=== PATIENT | female | born 1940 | race Caucasian/White ===

== ENCOUNTER 2016-01-26 14:30 | Outpatient (RCR) | payer MEDICARE ==
--- OUTSIDE RECORDS SUMMARY | 2015-12-06 14:29 | XMS REPORT | Continuity of Care Document ---
Author Author [facility] Organization [facility] Address Unknown Phone Unavailable Care Team Providers Care [employer] Administrator Name Role Phone FILIPE PURCELL MD PCP Insurance Providers Payer Name Policy Number Subscriber Name Relationship Wps Medicare [id number] Janette Bhagat 18 Self / Same As Patient [employer] Supp [id number] Janette Bhagat 18 Self / Same As Patient Advance Directives Directive Response Recorded Date/Time Advance Directives No 06/21/15 7:05pm Health Care Power of Associate No 06/21/15 7:05pm Organ Donor Yes 06/21/15 7:05pm Resuscitation Status Full Code 06/21/15 7:05pm Chief Complaint and Reason for Visit Chief Complaint ILEUS,POSITIVE OB STOOL Reason for Visit Leukocytosis Respiratory distress Problems Active Problems Medical Problem Onset Date Status Leukocytosis Unknown Acute Respiratory distress Unknown Acute Medications Current Home Medications Medication Dose Units Route Directions Days/Qty Instructions Start Date Multivitamin 1 Each 1 Tab Oral Daily 05/19/13 Ascorbic Acid 500 Mg 500 Mg Oral Daily 05/19/13 Aspirin 81 Mg 81 Mg Oral Bedtime 05/19/13 Tramadol/Acetaminophen 1 Ea 1 Tab Oral Three Times A Day as needed for Pain 05/19/13 Calcium Carbonate/Vitamin D3 1 Each 1 Tab Oral Daily 06/22/15 Ubidecarenone 100 Mg 100 Mg Oral Daily 06/22/15 Glucosam/Chond/Hyalu/Cf Borate 1 Each 1 Tab Oral Daily 06/22/15 Pregabalin 200 Mg 200 Mg Oral Twice A Day 06/22/15 Hydrochlorothiazide 12.5 Mg 12.5 Mg Oral Daily 06/22/15 Olanzapine 7.5 Mg 7.5 Mg Oral Daily 06/22/15 Turmeric Root Extract 500 Mg 500 Mg Oral Daily 06/22/15 Fluoxetine Hcl 20 Mg 20 Mg Oral Daily 06/22/15 Trazodone Hcl 100 Mg 100 Mg Oral Bedtime 06/22/15 Rosuvastatin Calcium 10 Mg 10 Mg Oral Bedtime 06/22/15 Lisinopril 10 Mg 10 Mg Oral Daily 06/22/15 Liraglutide 0.6 Mg/0.1 Ml 1.2 Mg Oral Daily 06/22/15 Oxybutynin Chloride 10 Mg 10 Mg Oral Daily 06/22/15 Moulton-3/Dha/Epa/Fish Oil 1 Each 1,000 Mg Oral Bedtime 06/22/15 Docusate Sodium 100 Mg 100 Mg Oral Twice A Day 06/22/15 Sennosides/Docusate Sodium 1 Each 1 Tab Oral Bedtime 06/22/15 Past Home Medications Medication Directions Ordered Status Krill/Moulton-3/Dha/Epa/Lipids 1 Each Capsule, 3 Each Oral Daily 05/19/13 Discontinued Calcium Carbonate/Vitamin D3 1 Each Tablet, 2 Each Oral Daily 05/19/13 Discontinued Ubidecarenone/Vit E Acetate 1 Each Capsule, 1 Each Oral Daily 05/19/13 Discontinued Lisinopril 10 Mg Tablet, 10 Mg Oral Daily 05/19/13 Discontinued Trazodone Hcl 100 Mg Tab, 100 Mg Oral Bedtime 05/19/13 Discontinued Oxybutynin Chloride 10 Mg Tab.er.24, 10 Mg Oral Daily 05/19/13 Discontinued Pregabalin 200 Mg Capsule, 200 Mg Oral Twice A Day 05/19/13 Discontinued Rosuvastatin Calcium 5 Mg Tablet, 1 Each Oral Daily 05/19/13 Discontinued Olanzapine 5 Mg Tablet, 1 Tab Oral Daily 05/19/13 Discontinued Fluoxetine Hcl (Prozac) 20 Mg Capsule, 1 Each Oral Daily 05/19/13 Discontinued Liraglutide 0.6 Mg/0.1 Ml Pen.injctr, 1.2 Mg Sub-Q Daily 05/19/13 Discontinued [Moves Free] , 1 Oral Twice A Day 05/19/13 Discontinued Tramadol Hcl/Acetaminophen 1 Each Tablet, 06/21/15 Discontinued Social History Social History Problem Response Recorded Date/Time Alcohol Use Denies Use 06/21/2015 7:05pm Recreational Drug Use No 06/21/2015 7:05pm Recent Foreign Travel No 06/21/2015 7:05pm Recent Infectious Disease Exposure No 06/21/2015 7:05pm Smoking Status Former Smoker 06/21/2015 7:05pm Do you dip or chew tobacco? No 06/21/2015 4:00pm Query Response Start Date Stop Date Smoking Status Former Smoker Hospital Discharge Instructions No hospital discharge instructions. Plan of Care Discharge Date 06/29/15 9:24am Disposition 09 ADMITTED INPATIENT Instructions/Education Provided Urinary Tract Infection in Women (DC) Bacterial Pneumonia (DC) Prescriptions See Medication Section Functional Status Query Response Date Recorded Patient Orientation Normal For Age June 27, 2015 3:58pm Patient Orientation Person Place Time Situation Eyes Open June 29, 2015 9:24am Comprehension Ability Understands Concepts June 28, 2015 8:00pm Allergies, Adverse Reactions, Alerts Allergen Type Severity Reaction Status Last Updated Codeine Allergy Unknown Active 05/19/13 Immunizations Name Given Type pneumococcal polysaccharide PPV23 06/24/15 Administered pneumococcal polysaccharide PPV23 06/24/15 Administered Vital Signs Acute Vital Signs Vital Response Date/Time Temperature (Fahrenheit) 97.8 degrees F (97.6 - 99.5) 06/29/2015 6:37am Temperature (Calculated Celsius) 36.17821 degrees C (36.4 - 37.5) 06/29/2015 6:37am Temperature Source Temporal 06/29/2015 6:37am Pulse Rate (adult) 78 bpm (60 - 90) 06/29/2015 6:37am Respiratory Rate 20 bpm (12 - 24) 06/29/2015 6:37am O2 Sat by Pulse Oximetry 99 % (88 - 100) 06/29/2015 7:14am Blood Pressure 166/84 mm Hg 06/29/2015 6:37am Blood Pressure Mean 111 mm Hg 06/29/2015 6:37am Pain Pain Intensity 5 06/29/2015 6:37am Height (Feet) 5 feet 06/21/2015 7:05pm Height (Inches) 6.00 inches 06/21/2015 7:05pm Height (Calculated Centimeters) 167.924487 cm 06/21/2015 7:05pm Weight (Pounds) 232 pounds 06/29/2015 6:37am Weight (Ounces) 4.0 oz 06/28/2015 5:31am Weight (Calculated Grams) 943510.431 gm 06/29/2015 6:37am Weight (Calculated Kilograms) 105.942701 kilograms 06/29/2015 6:37am Calculated BMI 37.1 06/21/2015 7:05pm Results Laboratory Results Test Name Result Units Flags Reference Collection Date/Time Result Date/ Time Comments White Blood Count 8.1 10^3/uL 4.3-11.0 06/29/2015 4:1506/29/2015 4: 41am Red Blood Count 3.02 10^6/uL L 4.35-5.85 06/29/2015 4:06/29/2015 4: 41am Hemoglobin 9.0 G/DL L 11.5-16.0 06/29/2015 4:06/29/2015 4:41am Hematocrit 27 % L 35-52 06/29/2015 4:1506/29/2015 4:41am Mean Corpuscular Volume 89 FL 80-99 06/29/2015 4:06/29/2015 4: 41am Mean Corpuscular Hemoglobin 30 PG 25-34 06/29/2015 4:1506/29/2015 4: 41am Mean Corpuscular Hemoglobin Concent 33 G/DL 32-36 06/29/2015 4: 4:41am Red Cell Distribution Width 13.9 % 10.0-14.5 06/29/2015 4:2015 4:41am Platelet Count 243 10^3/uL 130-400 06/29/2015 4:1506/29/2015 4:41am Mean Platelet Volume 9.7 FL 7.4-10.4 06/29/2015 4:1506/29/2015 4: 41am Neutrophils (%) (Auto) 88 % H 42-75 06/23/2015 4:38am 06/23/2015 5:28am Lymphocytes (%) (Auto) 6 % L 12-44 06/23/2015 4:38am 06/23/2015 5:28am Monocytes (%) (Auto) 6 % 0-12 06/23/2015 4:38am 06/23/2015 5:28am Eosinophils (%) (Auto) 0 % 0-10 06/23/2015 4:38am 06/23/2015 5:28am Basophils (%) (Auto) 0 % 0-10 06/23/2015 4:38am 06/23/2015 5:28am Neutrophils # (Auto) 14.8 X 10^3 H 1.8-7.8 06/23/2015 4:38am 06/23/2015 5 :28am Lymphocytes # (Auto) 1.0 X 10^3 1.0-4.0 06/23/2015 4:38am 06/23/2015 5: 28am Monocytes # (Auto) 0.9 X 10^3 0.0-1.0 06/23/2015 4:38am 06/23/2015 5: 28am Eosinophils # (Auto) 0.0 10^3/uL 0.0-0.3 06/23/2015 4:38am 06/23/2015 5 :28am Basophils # (Auto) 0.0 10^3/uL 0.0-0.1 06/23/2015 4:38am 06/23/2015 5: 28am Neutrophils % (Manual) 72 % 06/21/2015 4:00pm 06/21/2015 4:36pm Band Neutrophils 6 % 06/21/2015 4:00pm 06/21/2015 4:36pm Lymphocytes % (Manual) 15 % 06/21/2015 4:00pm 06/21/2015 4:36pm Monocytes % (Manual) 1 % 06/21/2015 4:00pm 06/21/2015 4:36pm Eosinophils % (Manual) 6 % 06/21/2015 4:00pm 06/21/2015 4:36pm Basophils % (Manual) 0 % 06/21/2015 4:00pm 06/21/2015 4:36pm Blood Morphology Comment NORMAL 06/21/2015 4:00pm 06/21/2015 4: 36pm D-Dimer 0.76 UG/ML H 0.00-0.49 06/21/2015 4:00pm 06/21/2015 4:19pm Urine Color YELLOW 06/21/2015 6:pm 06/21/2015 6:45pm Urine Clarity SLIGHTLY CLOUDY 06/21/2015 6:pm 06/21/2015 6:45pm Urine pH 6.5 5-9 06/21/2015 6:pm 06/21/2015 6:45pm Urine Specific Greer 1.005 * 1.016-1.022 06/21/2015 6:pm 2015 6:45pm Urine Protein 1+ * NEGATIVE 06/21/2015 6:pm 06/21/2015 6:45pm Urine Glucose (UA) NEGATIVE NEGATIVE 06/21/2015 6:pm 06/21/2015 6: 45pm Urine RBC (Auto) 2+ * NEGATIVE 06/21/2015 6:06/21/2015 6:45pm Urine Ketones NEGATIVE NEGATIVE 06/21/2015 6:pm 06/21/2015 6:45pm Urine Nitrite NEGATIVE NEGATIVE 06/21/2015 6:06/21/2015 6:45pm Urine Bilirubin NEGATIVE NEGATIVE 06/21/2015 6:06/21/2015 6: 45pm Urine Urobilinogen NORMAL MG/DL NORMAL 06/21/2015 6:pm 06/21/2015 6: 45pm Urine Leukocyte Esterase 2+ * NEGATIVE 06/21/2015 6:06/21/2015 6: 45pm Urine RBC 0-2 /HPF 06/21/2015 6:pm 06/21/2015 6:45pm Urine WBC 10-25 /HPF * 06/21/2015 6:06/21/2015 6:45pm Urine Bacteria MODERATE /HPF * 06/21/2015 6:pm 06/21/2015 6:45pm Urine Squamous Epithelial Cells 5-10 /HPF 06/21/2015 6:pm 2015 6:45pm Urine Crystals NONE /LPF 06/21/2015 6:pm 06/21/2015 6:45pm Urine Casts NONE /LPF 06/21/2015 6:pm 06/21/2015 6:45pm Urine Mucus NEGATIVE /LPF 06/21/2015 6:pm 06/21/2015 6:45pm Urine Culture Indicated YES 06/21/2015 6:06/21/2015 6:45pm Sodium Level 139 MMOL/L 135-145 06/29/2015 4:1506/29/2015 5:02am Potassium Level 3.0 MMOL/L L 3.6-5.0 06/29/2015 4:1506/29/2015 5:02am Chloride Level 101 MMOL/L 98-107 06/29/2015 4:1506/29/2015 5:02am Carbon Dioxide Level 26 MMOL/L 21-32 06/29/2015 4:1506/29/2015 5: 02am Anion Gap 12 MMOL/L 5-14 06/29/2015 4:1506/29/2015 5:02am Blood Urea Nitrogen 11 MG/DL 7-18 06/29/2015 4:06/29/2015 5:02am Creatinine 0.63 MG/DL 0.60-1.30 06/29/2015 4:06/29/2015 5:02am BUN/Creatinine Ratio 17 06/29/2015 4:06/29/2015 5:02am Estimat Glomerular Filtration Rate > 60 06/29/2015 4:2015 5:02am GFR INTERPRETIVE DATA UNITS FOR ESTIMATED GFR (eGFR): mL/min/1.73 M2 REFERENCE RANGE FOR ESTIMATED GFR (eGFR) eGFR NORMAL eGFR >60 MODERATELY DECREASED eGFR 30-59 SEVERLY DECREASED eGFR 15-29 KIDNEY FAILURE <15 (OR DIALYSIS) Glucose Level 167 MG/DL H 70-105 06/29/2015 4:06/29/2015 5:02am Glucometer 158 MG/DL H 70-110 06/28/2015 8:35pm 06/28/2015 9:04pm Uric Acid 4.9 MG/DL 2.6-7.2 06/27/2015 10:03am 06/27/2015 10:34am Calcium Level 8.4 MG/DL L 8.5-10.1 06/29/2015 4:1506/29/2015 5:02am Phosphorus Level 2.8 MG/DL 2.3-4.7 06/29/2015 4:1506/29/2015 5:02am Magnesium Level 1.7 MG/DL L 1.8-2.4 06/29/2015 4:1506/29/2015 5:02am Total Bilirubin 0.7 MG/DL 0.1-1.0 06/28/2015 4:35am 06/28/2015 5:53am Alkaline Phosphatase 63 U/L 40-136 06/28/2015 4:35am 06/28/2015 5:53am Aspartate Amino Transf (AST/SGOT) 29 U/L 5-34 06/28/2015 4:35am 2015 5:53am Alanine Aminotransferase (ALT/SGPT) 26 U/L 0-55 06/28/2015 4:35am 06/27 5:53am Troponin I < 0.30 NG/ML <0.30 06/24/2015 5:30am 06/24/2015 6:58am B-Type Natriuretic Peptide 180.7 PG/ML H <100.0 06/21/2015 4:00pm 2015 4:47pm Total Protein 6.0 G/DL L 6.4-8.2 06/28/2015 4:35am 06/28/2015 5:53am Albumin 3.0 G/DL L 3.2-4.5 06/28/2015 4:35am 06/28/2015 5:53am Lactic Acid Level 1.7 MMOL/L 0.5-2.2 06/22/2015 9:11am 06/22/2015 9: 34am Thyroid Stimulating Hormone (TSH) 1.82 UIU/ML 0.35-4.94 06/21/2015 4: 00pm 06/21/2015 4:45pm Stool Occult Blood Immunoassay POSITIVE * NEGATIVE 06/25/2015 9:13am 9:36am Arterial Blood pH 7.45 H 7.37-7.43 06/21/2015 4:33pm 06/21/2015 4:41pm Arterial Blood Partial Pressure CO2 36 MMHG 35-45 06/21/2015 4:33pm 11/2015 4:41pm Arterial Blood Partial Pressure O2 64 MMHG L 79-93 06/21/2015 4:33pm 11/2015 4:41pm Arterial Blood HCO3 25 MMOL/L 23-27 06/21/2015 4:33pm 06/21/2015 4: 41pm Arterial Blood Total CO2 25.8 MMOL/L 21.0-31.0 06/21/2015 4:33pm 2015 4:41pm Arterial Blood Base Excess 0.7 MMOL/L -2.5-2.5 06/21/2015 4:33pm 2015 4:41pm Arterial Blood Oxygen Saturation 95 % 94-100 06/21/2015 4:33pm 2015 4:41pm Blood Gas Puncture Site R RAD 06/21/2015 4:33pm 06/21/2015 4:41pm Raad Test YES-POS 06/21/2015 4:33pm 06/21/2015 4:41pm Blood Gas Inspired Oxygen 4L 06/21/2015 4:33pm 06/21/2015 4:41pm Blood Gas Ventilator Setting NO 06/21/2015 4:33pm 06/21/2015 4: 41pm Blood Gas Patient Temperature 97.6 06/21/2015 4:33pm 06/21/2015 4: 41pm Microbiology Results Procedure Source Result Collection Date/Time Result Date/Time Blood Culture Peripheral, Lt Ac No growth 06/21/2015 5:55pm 06/22/2015 4: 23pm Blood Culture Peripheral, Lt Hand No growth 06/21/2015 6:27pm 06/22/2015 4: 23pm Urine Culture Urine, Clean Catch ESCHERICHIA COLI 06/21/2015 6:25pm 2015 4:09pm PROTEUS MIRABILIS 06/21/2015 6:25pm 06/23/2015 4:09pm STREPTOCOCCUS VIRIDANS 06/21/2015 6:25pm 06/23/2015 4:09pm YEAST SPECIES 06/21/2015 6:25pm 06/23/2015 4:09pm MRSA Screen Nasal MRSA not isolated 06/21/2015 9:39pm 06/23/2015 7:48am Procedures Procedure Status Date Provider(s) Esophagogastroduodenoscopy (EGD) with dilation Completed 06/28/15 KAMILLA ARAGON MD Tracing only of electrocardiogram Completed 06/21/15 SERGO HILLMAN APRN Tracing only of electrocardiogram Completed 06/23/15 JULISSA ELDER DO Encounters Encounter Location Arrival/Admit Date Discharge/Depart Date Attending Provider Discharged Inpatient [facility] 06/21/15 5:46pm 9:24am FILIPE PURCELL MD Recent Diagnosis Leukocytosis Respiratory distress
[~2016-01-26 14:30] MED LIST: ASCO500T20 PO; ASP81TEC PO; CALC-316 PO; CALC-654 PO; DICL100G18 TOP; DOCU100C37 PO; FLUO20CA25 PO; GLUC-203 PO; HYDR12.5 PO; KRIL1CAP12 PO; LIRA0.6P PO; LIRA0.6P SQ; LISI-552 PO; LISI10TA2 PO; MULT-974 PO; NF-TRA/ACE PO; OLAN7.5T9 PO; OLN5T PO; OMEG-160 PO; OXYB10TA PO; OXYB10TA8 PO; POTA20TA8 PO; PREG200C PO; ROSU10TA PO; ROSU5TAB PO; RPN.25T NG; SENN1TAB6 PO; SUCR1TAB PO; TRAM1TAB7; TRAZ100T92 PO; TRZ100T PO; TURM500C7 PO; UBID100C17 PO; UBID1CAP51 PO; [UNRECOGNIZED DRUG - OTHER] PO
== END 2016-03-05 | disposition home or self-care (01) ==
LOC: PULM 14:30
PROVIDERS: ATTEND Nurse Practitioner Family
DX: J18.9 Pneumonia, unspecified organism (principal); R06.2 Wheezing; F17.201 Nicotine dependence, unspecified, in remission

== ENCOUNTER → 2016-07-12 | Outpatient (CLI) | payer MEDICARE ==
--- NOTE | 2016-07-12 19:40 | Diagnostic Imaging Report ---
EXAMINATION: PA and lateral views of the chest. INDICATION: Hypertension. Hyperlipidemia. COMPARISON: 10/04/15. FINDINGS: The study demonstrates slight interstitial prominence likely related to vascular congestion. The heart size is mildly enlarged. No effusion or pneumothorax. The mediastinum and marky appear unremarkable. IMPRESSION: Cardiomegaly with minimal vascular congestion. Dictated by: Dictated on workstation # [id number]
== END ==
LOC: RAD 15:48
PROVIDERS: ATTEND Internal Medicine Cardiovascular Disease
DX: I25.10 Atherosclerotic heart disease of native coronary artery without angina pectoris (principal); I11.0 Hypertensive heart disease with heart failure; E78.5 Hyperlipidemia, unspecified; I51.7 Cardiomegaly
CPT/HCPCS: 71020

== ENCOUNTER → 2017-03-28 | Outpatient (CLI) | payer MEDICARE ==
--- NOTE | 2017-03-28 16:25 | Diagnostic Imaging Report ---
INDICATION: Dyspnea. Tobacco use. COMPARISON: 07/12/2016. FINDINGS: Two views of the chest are obtained. Heart size is normal. The pulmonary vessels appear unremarkable. There is no pneumothorax, mediastinal widening, or pleural fluid demonstrated. The lungs are clear. The osseous structures appear unremarkable. IMPRESSION: No acute abnormality is demonstrated. Dictated on workstation # [id number]
== END ==
LOC: RAD 15:52
PROVIDERS: ATTEND Nurse Practitioner Family
DX: G47.34 Idiopathic sleep related nonobstructive alveolar hypoventilation (principal); F17.201 Nicotine dependence, unspecified, in remission
CPT/HCPCS: 71046

== ENCOUNTER → 2017-04-08 | Outpatient (CLI) | payer MEDICARE ==
[~2017-04-08] MED LIST changes: +RT-ALBUTEROL SULF 2.5 MG/3 ML PRE-MIX VIAL INH ONE
== END ==
LOC: RT 09:28
PROVIDERS: ATTEND Nurse Practitioner Family
DX: R06.00 Dyspnea, unspecified (principal); G47.34 Idiopathic sleep related nonobstructive alveolar hypoventilation; R06.2 Wheezing; F17.201 Nicotine dependence, unspecified, in remission
CPT/HCPCS: 94060; 94726; 94729

== ENCOUNTER → 2017-07-16 | Outpatient (CLI) | payer MEDICARE ==
[~2017-07-16] MED LIST changes: -RT-ALBUTEROL SULF 2.5 MG/3 ML PRE-MIX VIAL INH ONE
--- NOTE | 2017-07-17 22:43 | Diagnostic Imaging Report ---
INDICATION: Screening. At this time there are no current complaints. EXAMINATION: Bilateral digital screening mammogram with CAD. 3D tomographic images were obtained and reviewed. The current study was also evaluated with a Computer Aided Detection (CAD) system. COMPARISON: This study was compared to the prior exam of 01/14/2016. FINDINGS: There are scattered fibroglandular densities in both breasts which could obscure a lesion. Overall, there does not appear to have been any significant change when compared to the prior exam. No primary or secondary sign of malignancy is noted. The stereotactic clip in the right breast, seen previously, is again evident and no different. IMPRESSION: There is no radiographic evidence for Malignancy. ACR BI-RADS Category 1: Negative. Result letter will be mailed to the patient. Note: At least 10% of breast cancer is not imaged by mammography. Dictated by: Dictated on workstation # [id number]
== END ==
LOC: RAD 13:16
PROVIDERS: ATTEND Nurse Practitioner Family
DX: Z12.31 Encounter for screening mammogram for malignant neoplasm of breast (principal)
CPT/HCPCS: 77067

== ENCOUNTER → 2017-09-06 | Outpatient (CLI) | payer MEDICARE ==
[~2017-09-06] MED LIST changes: +TRAZ-190 PO; -TRAZ100T92 PO
--- NOTE | 2017-09-06 16:18 | Diagnostic Imaging Report ---
INDICATION: Fall this morning, pain greatest at the fifth toe and fifth metatarsal as well as its proximal middle and distal phalanges, which appear intact. EXAMINATION: Left foot. FINDINGS: There is no fifth ray fracture or dislocation. There is a well-corticated old appearing intra-articular fracture involving the medial and plantar aspect of the proximal phalanx of the great toe without regional swelling and well-corticated margins at bony fragment is 8 mm long axis. 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 There is no dislocation. IMPRESSION: No acute finding to explain the fifth ray pain. There are arthritic changes present as well as an old intra-articular fracture base proximal phalanx great toe along its plantar and medial aspect. An acute appearing abnormality is not identified. Report was called to Theresa Stein APRN at 4:13 p.m., by biju. Dictated by: Dictated on workstation # [id number]
== END ==
LOC: RAD 14:37
PROVIDERS: ATTEND Nurse Practitioner Family
DX: S92.412A Displaced fracture of proximal phalanx of left great toe, initial encounter for closed fracture (principal); M19.072 Primary osteoarthritis, left ankle and foot
CPT/HCPCS: 73630

== ENCOUNTER 2017-09-23 20:17 | Emergency (ER) | payer MEDICARE ==
[~2017-09-23] VITALS: Ht 162.6 cm; Wt 113.4 kg
--- NOTE | 2017-09-23 20:33 | ED General ---
General Chief Complaint: General Problems/Pain Stated Complaint: CHOKING Source of Information: Patient Exam Limitations: No Limitations History of Present Illness Date Seen by Provider: Sep 23, 2017 Time Seen by Provider: 20:30 Initial Comments To ER per EMS from [place] and [facility] with reports of a choking episode. She states that she was eating roast beef when she began to choke. She states " I passed plum out!". Her attempted the Heimlich maneuver but she passed out so he lowered her to the floor and somehow managed to get the roast beef out. She is now alert and oriented and feels back to normal. Timing/Duration: 1 Hour Severity: Moderate Allergies and Home Medications Allergies Coded Allergies: codeine (Unverified Allergy, Unknown, 05/19/13) Home Medications Ascorbic Acid 500 Mg Tablet, 500 MG PO DAILY, (Reported) Aspirin 81 Mg Tabec, 81 MG PO HS, (Reported) Calcium Carbonate/Vitamin D3 1 Each Tablet, 1 TAB PO DAILY, (Reported) Diclofenac Sodium 100 Gm Gel..gram., 0 GM TOP QID Prescribed by: FILIPE PURCELL on 07/05/15 09 Docusate Sodium 100 Mg Capsule, 100 MG PO BID, (Reported) Fluoxetine HCl 20 Mg Capsule, 20 MG PO DAILY, (Reported) Glucosam/Chond/Hyalu/Cf Borate 1 Each Tablet, 1 TAB PO DAILY, (Reported) Hydrochlorothiazide 12.5 Mg Capsule, 12.5 MG PO DAILY, (Reported) Liraglutide 0.6 Mg/0.1 Ml Pen.injctr, 1.2 MG PO DAILY, (Reported) Lisinopril 20 Mg Tablet, 40 MG PO DAILY Prescribed by: FILIPE PURCELL on 07/05/15 09 Multivitamin 1 Each Tablet, 1 TAB PO DAILY, (Reported) Olanzapine 7.5 Mg Tablet, 7.5 MG PO DAILY, (Reported) [place]-3/Dha/Epa/Fish Oil 1 Each Capsule, 1,000 MG PO HS, (Reported) Oxybutynin Chloride 10 Mg Tab.er.24, 10 MG PO DAILY, (Reported) Potassium Chloride 20 Meq Tab.er.prt, 20 MEQ PO DAILY@0700 Prescribed by: FILIPE PURCELL on 07/05/15 09 Pregabalin 200 Mg Capsule, 200 MG PO BID, (Reported) Ropinirole HCl 0.25 Mg Tab, 0.25 MG NG Q8HR Prescribed by: FILIPE PURCELL on 07/05/15908 Rosuvastatin Calcium 10 Mg Tablet, 10 MG PO HS, (Reported) Sennosides/Docusate Sodium 1 Each Tablet, 1 TAB PO HS, (Reported) Sucralfate 1 Gm Tablet, 1 GM PO ACHS Prescribed by: FILIPE PURCELL on 07/05/15 09 Tramadol/Acetaminophen 1 Ea Tab, 1 TAB PO TID PRN for PAIN, (Reported) Trazodone HCl 100 Mg Tablet, 100 MG PO HS, (Reported) Turmeric Root Extract 500 Mg Capsule, 500 MG PO DAILY, (Reported) Ubidecarenone 100 Mg Capsule, 100 MG PO DAILY, (Reported) Patient Home Medication List Home Medication List Reviewed: Yes Review of Systems Constitutional: see HPI EENTM: see HPI Respiratory: no symptoms reported Cardiovascular: no symptoms reported Genitourinary: no symptoms reported Musculoskeletal: see HPI Skin: no symptoms reported Psychiatric/Neurological: No Symptoms Reported Past Yaberuc-Wcjpcn-Pglogd Hx Patient Social History Former Smoker, Quit: Oct 22, 2000 2nd Hand Smoke Exposure: No Seasonal Allergies Seasonal Allergies: No Past Medical History Hysterectomy COPD Reproductive Disorders: No Gastroesophageal Reflux, Ulcer Chronic Back Pain Diabetes, Non-Insulin dep Loss of Vision: Denies Hearing Impairment: Denies Adverse Reaction/Blood Tranf: No Family Medical History Colon cancer 19 FATHER 19 MOTHER Hypertension 19 FATHER 19 MOTHER Myocardial infarction 19 MOTHER Heart Disease, Cancer, Hypertension Physical Exam Vital Signs Capillary Refill : Height, Weight, BMI Height: 5'3.00" Weight: 232lbs. 0.0oz. 105.492963pa; 41.1 BMI Method:Stated General Appearance: No Apparent Distress, WD/WN, Other (no stridor, alert and oriented, laughing and joking with me and appears well.) Eyes: Bilateral Eye Normal Inspection, Bilateral Eye PERRL, Bilateral Eye EOMI HEENT: PERRL/EOMI, TMs Normal Neck: Full Range of Motion, Normal Inspection Respiratory: Normal Breath Sounds, No Accessory Muscle Use, No Respiratory Distress Cardiovascular: Regular Rate, Rhythm, Normal Peripheral Pulses Gastrointestinal: Normal Bowel Sounds, Non Tender, Soft Extremity: Normal Capillary Refill, Normal Inspection, Other (she does have a black eschar over the dorsal aspect of the left great toe. The tissues distal to this have capillary refill and are normal in appearance. She states that she has been seen by primary care for this over the past few weeks and this is actually much improved. She's been on antibiotics in this began as a blister that has since ruptured.) Neurologic/Psychiatric: Alert, Oriented x3, No Motor/Sensory Deficits Skin: Normal Color, Warm/Dry Progress/Results/Core Measures Suspected Sepsis SIRS Temperature: Pulse: Respiratory Rate: Laboratory Tests 09/23/17 21:03: White Blood Count 8.7 Blood Pressure / Mean: Laboratory Tests 09/23/17 21:03: Creatinine 1.03, Platelet Count 255, Total Bilirubin 0.4 Results/Orders Lab Results Laboratory Tests Test 09/23/17 21:03 Range/Units White Blood Count 8.7 4.3-11.0 10^3/uL Red Blood Count 3.76 L 4.35-5.85 10^6/uL Hemoglobin 11.4 L 11.5-16.0 G/DL Hematocrit 34 L 35-52 % Mean Corpuscular Volume 89 80-99 FL Mean Corpuscular Hemoglobin 30 25-34 PG Mean Corpuscular Hemoglobin Concent 34 32-36 G/DL Red Cell Distribution Width 14.2 10.0-14.5 % Platelet Count 255 130-400 10^3/uL Mean Platelet Volume 10.8 H 7.4-10.4 FL Neutrophils (%) (Auto) 67 42-75 % Lymphocytes (%) (Auto) 20 12-44 % Monocytes (%) (Auto) 10 0-12 % Eosinophils (%) (Auto) 3 0-10 % Basophils (%) (Auto) 0 0-10 % Neutrophils # (Auto) 5.9 1.8-7.8 X 10^3 Lymphocytes # (Auto) 1.7 1.0-4.0 X 10^3 Monocytes # (Auto) 0.8 0.0-1.0 X 10^3 Eosinophils # (Auto) 0.3 0.0-0.3 10^3/uL Basophils # (Auto) 0.0 0.0-0.1 10^3/uL Sodium Level 137 135-145 MMOL/L Potassium Level 5.0 3.6-5.0 MMOL/L Chloride Level 105 98-107 MMOL/L Carbon Dioxide Level 20 L 21-32 MMOL/L Anion Gap 12 5-14 MMOL/L Blood Urea Nitrogen 31 H 7-18 MG/DL Creatinine 1.03 0.60-1.30 MG/DL Estimat Glomerular Filtration Rate 52 BUN/Creatinine Ratio 30 Glucose Level 190 H 70-105 MG/DL Calcium Level 9.6 8.5-10.1 MG/DL Corrected Calcium 9.4 8.5-10.1 MG/DL Total Bilirubin 0.4 0.1-1.0 MG/DL Aspartate Amino Transf (AST/SGOT) 24 5-34 U/L Alanine Aminotransferase (ALT/SGPT) 27 0-55 U/L Alkaline Phosphatase 80 40-136 U/L Troponin I < 0.30 <0.30 NG/ML Total Protein 7.7 6.4-8.2 GM/DL Albumin 4.3 3.2-4.5 GM/DL My Orders Orders - SERGO HILLMAN APRN Cbc With Automated Diff (09/23/17 20:25) Troponin I (09/23/17 20:25) Ekg Tracing (09/23/17 20:25) Continuous Ekg Monitoring (09/23/17 20:25) Chest Pa/Lat (2 View) (09/23/17 20:25) Comprehensive Metabolic Panel (09/23/17 20:25) Vital Signs/I&O Capillary Refill : Diagnostic Imaging Diagonstic Imaging: Xray Plain Films/CT/US/NM/MRI: chest Comments NAME: JAIR BHAGAT [facility] REC#: [id number] PT STATUS: REG ER : 1940 PHYSICIAN: SERGO HILLMAN APRN ADMIT DATE: 09/23/17/ER Draft Date of Exam:09/23/17 CHEST PA/LAT (2 VIEW) EXAM: PA and lateral chest at 9:00 p.m. INDICATION: Syncope FINDINGS: The heart size is within normal limits and stable when compared to 03/28/2017. In the interval since the prior exam, a vague area of increased density has developed in the right lung base and the right heart border is now partially obscured. This finding could be secondary to superimposition but the possibility that there is an element of mild pneumonia/atelectasis in this area should still be considered. The lungs are otherwise generally clear. There is no pleural effusion identified. The mediastinum is not widened. The osseous structures are intact. IMPRESSION: 1. The vague area of increased density overlying the right heart border may be secondary to superimposition. The possibility that there is an element of pneumonia/atelectasis in this area should also be considered. Clinical follow up is recommended. 2. There is no acute cardiopulmonary abnormality noted otherwise. Dictated on workstation # [id number] Dict: 09/23/[id number] Trans: 09/23/172152 [facility] [id number] Interpreted by: RAFAEL ENRIQUEZ MD Electronically signed by: Departure Communication (Admissions) 2-sitting up in bed visiting with family. No respiratory difficulties. Discussed with her labs and a small area of atelectasis on chest ray. I discussed with her her and her son the need to watch out for things like fever, shortness of breath or cough. She should be reevaluated if she develops any of these & they agree. Impression Primary Impression: Choking episode Disposition: 01 HOME, SELF-CARE Condition: Stable Departure-Patient Inst. Decision time for Depature: 22:00 Referrals: FILIPE PURCELL MD (PCP/Family) Primary Care Physician Patient Instructions: Choking Add. Discharge Instructions: 1. Return to ER for any fevers, shortness of breath, cough. Follow-up with Dr. Purcell this week. Copy Copies To 1: FILIPE PURCELL MD, PETER J APRN Sep 23, 2017 20:33
[2017-09-23 21:16] LABS: BASOPHILS % (AUTO) 0 % (0-10); EOSINOPHILS # (AUTO) 0.3 10^3/uL (0.0-0.3); EOSINOPHILS % (AUTO) 3 % (0-10); HEMATOCRIT 34 % (35-52); HEMOGLOBIN 11.4 G/DL (11.5-16.0); LYMPHOCYTES # (AUTO) 1.7 X 10^3 (1.0-4.0); LYMPHOCYTES % (AUTO) 20 % (12-44); MEAN CORPUSCULAR HEMOGLOBIN 30 PG (25-34); MEAN CORPUSCULAR HGB CONC 34 G/DL (32-36); MEAN CORPUSCULAR VOLUME 89 FL (80-99); MEAN PLATELET VOLUME 10.8 FL (7.4-10.4); MONOCYTES # (AUTO) 0.8 X 10^3 (0.0-1.0); MONOCYTES % (AUTO) 10 % (0-12); NEUTROPHILS # (AUTO) 5.9 X 10^3 (1.8-7.8); NEUTROPHILS % (AUTO) 67 % (42-75); PLATELET COUNT 255 10^3/uL (130-400); RED BLOOD COUNT 3.76 10^6/uL (4.35-5.85); RED CELL DISTRIBUTION WIDTH 14.2 % (10.0-14.5); WHITE BLOOD COUNT 8.7 10^3/uL (4.3-11.0)
[2017-09-23 21:37] LABS: ALANINE AMINOTRANSFERASE 27 U/L (0-55); ALBUMIN 4.3 GM/DL (3.2-4.5); ALKALINE PHOSPHATASE 80 U/L (40-136); BILIRUBIN,TOTAL 0.4 MG/DL (0.1-1.0); BUN/CREATININE RATIO 30; CALCIUM 9.6 MG/DL (8.5-10.1); CARBON DIOXIDE 20 MMOL/L (21-32); CHLORIDE 105 MMOL/L (98-107); CREATININE SERUM 1.03 MG/DL (0.60-1.30); GFR ESTIMATED 52; GLUCOSE 190 MG/DL (70-105); SODIUM 137 MMOL/L (135-145); TOTAL PROTEIN 7.7 GM/DL (6.4-8.2)
--- NOTE | 2017-09-23 21:54 | Diagnostic Imaging Report ---
EXAM: PA and lateral chest at 9:00 p.m. INDICATION: Syncope FINDINGS: The heart size is within normal limits and stable when compared to 03/28/2017. In the interval since the prior exam, a vague area of increased density has developed in the right lung base and the right heart border is now partially obscured. This finding could be secondary to superimposition but the possibility that there is an element of mild pneumonia/atelectasis in this area should still be considered. The lungs are otherwise generally clear. There is no pleural effusion identified. The mediastinum is not widened. The osseous structures are intact. IMPRESSION: 1. The vague area of increased density overlying the right heart border may be secondary to superimposition. The possibility that there is an element of pneumonia/atelectasis in this area should also be considered. Clinical follow up is recommended. 2. There is no acute cardiopulmonary abnormality noted otherwise. Dictated by: Dictated on workstation # [id number]
[2017-09-23 22:21] VITALS: BP 125/76
== END 2017-09-23 22:21 | disposition home or self-care (01) ==
LOC: EDUNIT# 20:17 → ER 20:18
DX: T17.920A Food in respiratory tract, part unspecified causing asphyxiation, initial encounter (principal); J44.9 Chronic obstructive pulmonary disease, unspecified; K21.9 Gastro-esophageal reflux disease without esophagitis; E11.9 Type 2 diabetes mellitus without complications; Z80.0 Family history of malignant neoplasm of digestive organs; Z82.49 Family history of ischemic heart disease and other diseases of the circulatory system; Z87.19 Personal history of other diseases of the digestive system; Z88.5 Allergy status to narcotic agent; Z79.82 Long term (current) use of aspirin; Z87.891 Personal history of nicotine dependence; Z90.710 Acquired absence of both cervix and uterus
CPT/HCPCS: 36415; 71046; 80053; 84484; 85025; 93005

== ENCOUNTER → 2017-09-27 | Outpatient (CLI) | payer MEDICARE ==
--- NOTE | 2017-09-27 16:08 | Diagnostic Imaging Report ---
INDICATION: Recent choking episode with Heimlich maneuver performed. Patient complains of cough. TIME OF EXAMINATION: 03:49 p.m. COMPARISON: Correlation is made with prior chest radiograph from 09/23/2017. FINDINGS: The heart size is normal. The pulmonary vascularity is unremarkable. The lungs are clear. No infiltrate, effusion or pneumothorax is detected. IMPRESSION: No acute cardiopulmonary process is detected. Dictated by: Dictated on workstation # [id number]
== END ==
LOC: RAD 15:16
PROVIDERS: ATTEND Nurse Practitioner Family
DX: R05 Cough (principal)
CPT/HCPCS: 71046

== ENCOUNTER 2017-10-28 11:20 | Emergency (ER) | payer MEDICARE, BC ==
[~2017-10-28] VITALS: Ht 167.6 cm; Wt 99.8 kg
[~2017-10-28 11:20] MED LIST changes: -SENN1TAB6 PO; +SENN1TAB7 PO
[2017-10-28 11:46] LABS: BASOPHILS % (AUTO) 0 % (0-10); EOSINOPHILS # (AUTO) 0.3 10^3/uL (0.0-0.3); EOSINOPHILS % (AUTO) 5 % (0-10); HEMATOCRIT 33 % (35-52); HEMOGLOBIN 11.4 G/DL (11.5-16.0); LYMPHOCYTES # (AUTO) 1.7 X 10^3 (1.0-4.0); LYMPHOCYTES % (AUTO) 35 % (12-44); MEAN CORPUSCULAR HEMOGLOBIN 31 PG (25-34); MEAN CORPUSCULAR HGB CONC 35 G/DL (32-36); MEAN CORPUSCULAR VOLUME 90 FL (80-99); MEAN PLATELET VOLUME 11.2 FL (7.4-10.4); MONOCYTES # (AUTO) 0.6 X 10^3 (0.0-1.0); MONOCYTES % (AUTO) 13 % (0-12); NEUTROPHILS # (AUTO) 2.3 X 10^3 (1.8-7.8); NEUTROPHILS % (AUTO) 46 % (42-75); PLATELET COUNT 177 10^3/uL (130-400); RED BLOOD COUNT 3.68 10^6/uL (4.35-5.85); RED CELL DISTRIBUTION WIDTH 13.7 % (10.0-14.5); WHITE BLOOD COUNT 4.9 10^3/uL (4.3-11.0)
[2017-10-28 11:50] LABS: BILIRUBIN,URINE NEGATIVE (NEGATIVE); CLARITY,URINE SLIGHTLY CLOUDY; COLOR,URINE YELLOW; GLUCOSE, URINE (UA) NEGATIVE (NEGATIVE); KETONES,URINE NEGATIVE (NEGATIVE); LEUKOCYTE ESTERASE ,URINE NEGATIVE (NEGATIVE); NITRITE,URINE NEGATIVE (NEGATIVE); PH,URINE 5 (5-9); PROTEIN,URINE NEGATIVE (NEGATIVE); UROBILINOGEN,URINE NORMAL (NORMAL)
[2017-10-28 11:59] LABS: BACTERIA,URINE NEGATIVE /HPF; SQUAMOUS EPITHELIAL CELL,UR RARE /HPF
[2017-10-28 12:03] LABS: INR 1.3 (0.8-1.4); PROTHROMBIN TIME PATIENT 16.2 SEC (12.2-14.7)
[2017-10-28 12:09] LABS: ALANINE AMINOTRANSFERASE 23 U/L (0-55); ALBUMIN 4.1 GM/DL (3.2-4.5); ALKALINE PHOSPHATASE 55 U/L (40-136); BILIRUBIN,TOTAL 0.4 MG/DL (0.1-1.0); BUN/CREATININE RATIO 21; CALCIUM 9.4 MG/DL (8.5-10.1); CARBON DIOXIDE 24 MMOL/L (21-32); CHLORIDE 105 MMOL/L (98-107); CREATINE KINASE 53 U/L (29-168); CREATININE SERUM 1.03 MG/DL (0.60-1.30); GFR ESTIMATED 52; GLUCOSE 143 MG/DL (70-105); MAGNESIUM 1.9 MG/DL (1.8-2.4); POTASSIUM 4.7 MMOL/L (3.6-5.0); SODIUM 137 MMOL/L (135-145); TOTAL PROTEIN 7.2 GM/DL (6.4-8.2)
--- NOTE | 2017-10-28 12:20 | Diagnostic Imaging Report ---
PROCEDURE: CT head without contrast. TECHNIQUE: Multiple contiguous axial images were obtained through the brain without the use of intravenous contrast. COMPARISON: 06/21/2015 FINDINGS: The ventricles and cortical sulci are mildly prominent. There is no midline shift or mass effect. No acute intracranial hemorrhage is seen. There is no CT evidence of acute territorial ischemia. There is calcific atherosclerosis. There is hyperostosis frontalis. The calvarium appears intact. There is deformity of the left maxillary sinus which appears chronic. IMPRESSION: 1. No acute intracranial hemorrhage or CT evidence of acute territorial ischemia. 2. Mild generalized parenchymal volume loss. Dictated by: Dictated on workstation # [id number]
[2017-10-28 12:30] LABS: CREATINE KINASE MB 1.1 NG/ML (<6.6); TSH (THYROID ANALYZER) 1.63 UIU/ML (0.35-4.94)
--- NOTE | 2017-10-28 12:42 | Diagnostic Imaging Report ---
INDICATION: Transient respiratory arrest. COMPARISON: 09/27/2017 FINDINGS: Single frontal radiographic view of the chest was obtained and demonstrates mild cardiomegaly. Pulmonary vasculature is within normal limits. There is calcified aortic atherosclerosis. Lungs are clear. There is no focal consolidation, large effusion, nor pneumothorax. Bony structures show no gross acute abnormalities. IMPRESSION: 1. Mild cardiomegaly, but no evidence of failure or focal infiltrate. Dictated by: Dictated on workstation # [id number]
[2017-10-28] MEDS ORDERED: NS 250 ML (IVPB) BAG IV ONE (13:15)
[2017-10-28] MEDS ORDERED: IOHEXOL 350 MG/ML 100 ML (OMNIPAQUE 350) VIAL IV ONE (13:15)
--- NOTE | 2017-10-28 13:59 | Diagnostic Imaging Report ---
PROCEDURE: CT angiography of the head and CT angiography of the neck with and without contrast. TECHNIQUE: Contiguous noncontrast images were obtained from the skull base through the vertex. After intravenous contrast administration, helical CT angiography of the neck was performed. Source data was reformatted into multiple MIP projections. Delayed post contrast acquisition was also obtained. INDICATION: Syncopal episode. FINDINGS: Both common carotid arteries appear to be patent. There is a moderate amount of plaque identified at the carotid bifurcations bilaterally extending into the proximal internal carotid arteries. Calcified plaque does produce moderate narrowing bilaterally. Internal carotid arteries show marked tortuosity but are patent. The anterior and middle cerebral arteries show normal perfusion. No filling defects are seen to suggest thromboembolism. Anterior cerebral arteries are patent. Bilateral posterior cerebral arteries and basilar artery are patent. The bilateral vertebral arteries are patent. Left vertebral artery is dominant. Note is made of a 1.4 cm low-density lesion in the left lobe of the thyroid. IMPRESSION: 1. There is moderate calcified plaque at the carotid bifurcations bilaterally and proximal ICAs producing moderate narrowing. Carotid Doppler may be useful for further evaluation. There is no evidence of intracranial thromboemboli. Dictated by: Dictated on workstation # [id number]
[2017-10-28] MEDS ORDERED: LEVE500T99 PO (14:29)
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
[2017-10-28 15:57] VITALS: BP 137/71
[2017-10-28] MEDS ORDERED: LEVETIRACETAM INJECTION 1,000 MG in NS (IVPB) 100 ML IV SCH (21:00)
== END 2017-10-28 15:57 | disposition home or self-care (01) ==
LOC: EDUNIT# 11:20 → ER 11:21
DX: J44.9 Chronic obstructive pulmonary disease, unspecified (principal); R56.9 Unspecified convulsions; K21.9 Gastro-esophageal reflux disease without esophagitis; E11.42 Type 2 diabetes mellitus with diabetic polyneuropathy; F41.9 Anxiety disorder, unspecified; F32.9 Major depressive disorder, single episode, unspecified; Z80.0 Family history of malignant neoplasm of digestive organs; Z82.49 Family history of ischemic heart disease and other diseases of the circulatory system; Z87.19 Personal history of other diseases of the digestive system; Z87.448 Personal history of other diseases of urinary system; Z79.82 Long term (current) use of aspirin; Z87.891 Personal history of nicotine dependence; Z90.710 Acquired absence of both cervix and uterus; Z87.01 Personal history of pneumonia (recurrent); Z96.653 Presence of artificial knee joint, bilateral; Z88.5 Allergy status to narcotic agent
CPT/HCPCS: 36415; 70450; 70496; 70498; 71045; 80053; 81000; 82550; 82553; 83735; 84443; 84484; 85025; 85610; 85730; 93005; 93041; 96374

== ENCOUNTER 2018-01-01 16:58 | Emergency (ER) | payer MEDICARE ==
[~2018-01-01] VITALS: Ht 167.6 cm; Wt 96.6 kg
[~2018-01-01 16:58] MED LIST changes: +LEVE500T99 PO
[2018-01-01] MEDS ORDERED: NITROGLYCERIN 0.4 MG SL TABS BTL 25'S SL PRN (17:30)
[2018-01-01 17:39] LABS: BASOPHILS % (AUTO) 0 % (0-10); EOSINOPHILS # (AUTO) 0.2 10^3/uL (0.0-0.3); EOSINOPHILS % (AUTO) 2 % (0-10); HEMATOCRIT 31 % (35-52); HEMOGLOBIN 10.3 G/DL (11.5-16.0); LYMPHOCYTES # (AUTO) 1.5 X 10^3 (1.0-4.0); LYMPHOCYTES % (AUTO) 20 % (12-44); MEAN CORPUSCULAR HEMOGLOBIN 30 PG (25-34); MEAN CORPUSCULAR HGB CONC 33 G/DL (32-36); MEAN CORPUSCULAR VOLUME 88 FL (80-99); MEAN PLATELET VOLUME 10.3 FL (7.4-10.4); MONOCYTES # (AUTO) 0.7 X 10^3 (0.0-1.0); MONOCYTES % (AUTO) 10 % (0-12); NEUTROPHILS # (AUTO) 4.9 X 10^3 (1.8-7.8); NEUTROPHILS % (AUTO) 67 % (42-75); PLATELET COUNT 216 10^3/uL (130-400); RED BLOOD COUNT 3.49 10^6/uL (4.35-5.85); RED CELL DISTRIBUTION WIDTH 14.4 % (10.0-14.5); WHITE BLOOD COUNT 7.3 10^3/uL (4.3-11.0)
[2018-01-01 17:47] LABS: INR 1.3 (0.8-1.4); PROTHROMBIN TIME PATIENT 15.8 SEC (12.2-14.7)
[2018-01-01] MEDS: ASPIRIN 81 MG CHEW (CHILDREN'S ASA) PO ONE (17:48)
[2018-01-01 17:51] LABS: ALANINE AMINOTRANSFERASE 21 U/L (0-55); ALBUMIN 3.9 GM/DL (3.2-4.5); ALKALINE PHOSPHATASE 63 U/L (40-136); BUN/CREATININE RATIO 14; CALCIUM 9.1 MG/DL (8.5-10.1); CARBON DIOXIDE 25 MMOL/L (21-32); CHLORIDE 102 MMOL/L (98-107); CREATININE SERUM 0.87 MG/DL (0.60-1.30); GFR ESTIMATED > 60; GLUCOSE 159 MG/DL (70-105); MAGNESIUM 1.6 MG/DL (1.8-2.4); POTASSIUM 4.1 MMOL/L (3.6-5.0); SODIUM 139 MMOL/L (135-145); TOTAL PROTEIN 7.3 GM/DL (6.4-8.2)
[2018-01-01 17:57] LABS: MYOGLOBIN SERUM 37.5 NG/ML (10.0-92.0)
--- NOTE | 2018-01-01 18:00 | Diagnostic Imaging Report ---
EXAM: CHEST 1 VIEW, AP/PA ONLY. INDICATION: Chest pain. Cough. COMPARISON: Chest radiograph 10/28/2017. FINDINGS: Normal heart size and pulmonary vascularity. No focal pulmonary opacity, pleural effusion, or pneumothorax. No acute osseous findings. IMPRESSION: No acute cardiopulmonary findings. Dictated by: Dictated on workstation # [id number]
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
[2018-01-01] MEDS: KETOROLAC 30 MG/ML VIAL IVP ONE (18:22)
[2018-01-01] MEDS ORDERED: METH4TAB PO (18:37)
[2018-01-01] MEDS ORDERED: DOXY100C42 PO (18:37)
[2018-01-01] MEDS ORDERED: GUAI1TBM19 PO (18:37)
[2018-01-01] MEDS ORDERED: BENZ100C18 PO (18:37)
[2018-01-01] MEDS: cefTRIAXone FOR IV USE 1,000 MG in NS (IVPB) 50 ML IV ONE (18:44)
[2018-01-01] MEDS: MAGNESIUM OXIDE (MAG-OX)400 MG TAB PO ONE (18:44)
[2018-01-01] MEDS: NS (IVPB) 50 ML ONE (18:45)
[2018-01-01] MEDS: cefTRIAXone 1 GM/10 ML for IV (ROCEPHIN) ONE ×2 (18:45→19:03)
[2018-01-01] MEDS: MAGNESIUM OXIDE (MAG-OX)400 MG TAB ONE (18:46)
[2018-01-01 19:22] VITALS: BP 147/69
== END 2018-01-01 19:25 | disposition home or self-care (01) ==
LOC: EDUNIT# 16:58 → ER 17:00
DX: J40 Bronchitis, not specified as acute or chronic (principal); R07.89 Other chest pain; E83.42 Hypomagnesemia; J44.9 Chronic obstructive pulmonary disease, unspecified; E78.00 Pure hypercholesterolemia, unspecified; I10 Essential (primary) hypertension; G25.81 Restless legs syndrome; K21.9 Gastro-esophageal reflux disease without esophagitis; E11.40 Type 2 diabetes mellitus with diabetic neuropathy, unspecified; F41.9 Anxiety disorder, unspecified; F32.9 Major depressive disorder, single episode, unspecified; Z87.19 Personal history of other diseases of the digestive system; Z87.448 Personal history of other diseases of urinary system; Z88.5 Allergy status to narcotic agent; Z79.82 Long term (current) use of aspirin; Z82.49 Family history of ischemic heart disease and other diseases of the circulatory system; Z80.0 Family history of malignant neoplasm of digestive organs; Z87.891 Personal history of nicotine dependence; Z90.710 Acquired absence of both cervix and uterus; Z95.9 Presence of cardiac and vascular implant and graft, unspecified; Z96.653 Presence of artificial knee joint, bilateral; Z87.01 Personal history of pneumonia (recurrent)
CPT/HCPCS: 36415; 71045; 80053; 83735; 83874; 84484; 85025; 85379; 85610; 85730; 87804; 93041

== ENCOUNTER → 2018-03-25 | Outpatient (CLI) | payer MEDICARE ==
[~2018-03-25] MED LIST changes: +BENZ100C18 PO; +CATHETER FLUSH 10 ML SYR IV PRN; +DOXY100C42 PO; +GUAI1TBM19 PO; +METH4TAB PO; +REGADENOSON 0.4 MG/5 ML SYR (LEXISCAN) IV ONE
[2018-03-25 12:28] VITALS: BP 153/98
[2018-03-25 12:31] VITALS: BP 134/102
[2018-03-25 12:33] VITALS: BP 164/106
--- NOTE | 2018-03-26 11:06 | STRESS TEST ---
DATE OF SERVICE: 03/25/2018 RESTING AND POST REGADENOSON TECHNETIUM-99M TETROFOSMIN SPECT CT IMAGING ORDERING PHYSICIAN: Dr. Good. PRIMARY PHYSICIAN: Dr. Rivera. CLINICAL DIAGNOSES: Coronary artery disease. Baseline images were carried out after injection of 10.88 mCi of technetium-99m Tetrofosmin. This was followed by 0.4 mm regadenoson and 31.8 mCi of technetium-99m Tetrofosmin for stress imaging. The electrocardiogram showed sinus rhythm at baseline. It did not change significantly with regadenoson infusion. The patient noted an upset stomach and some shortness of breath following regadenoson infusion, which resolved in a few minutes. Review of images at rest and following stress does not indicate any distinct perfusion defects consistent with significant myocardial ischemia or infarction. Gated images show normal global left ventricular systolic function and normal regional wall motion. Left ventricular ejection fraction is calculated to be 71%. Left ventricular end diastolic volume is 49 mL. TID is absent (1.07). CONCLUSIONS: 1. No evidence of any significant myocardial ischemia or infarction on this study. 2. Normal regional wall motion. 3. Normal global left ventricular systolic function with a calculated ejection fraction of 71%. Job ID: [id number] DocumentID: [id number] Dictated Date: 03/26/2018 09:43:33 Bunch Maker Hand Date: 03/26/2018 11:05:26 Dictated By: BENITO GOOD MD, MA, FACP, FACC,
== END ==
LOC: CARD 11:26
PROVIDERS: ATTEND Internal Medicine Cardiovascular Disease
DX: I25.10 Atherosclerotic heart disease of native coronary artery without angina pectoris (principal); I65.23 Occlusion and stenosis of bilateral carotid arteries; I10 Essential (primary) hypertension; R09.02 Hypoxemia; E78.5 Hyperlipidemia, unspecified; R06.02 Shortness of breath
CPT/HCPCS: 78452; 93017

== ENCOUNTER → 2018-03-27 | Outpatient (CLI) | payer MEDICARE ==
[~2018-03-27] MED LIST changes: -CATHETER FLUSH 10 ML SYR IV PRN; -REGADENOSON 0.4 MG/5 ML SYR (LEXISCAN) IV ONE
== END ==
LOC: CARD 11:48
PROVIDERS: ATTEND Internal Medicine Cardiovascular Disease
DX: I25.10 Atherosclerotic heart disease of native coronary artery without angina pectoris (principal); I65.23 Occlusion and stenosis of bilateral carotid arteries; I10 Essential (primary) hypertension; R09.02 Hypoxemia; E78.5 Hyperlipidemia, unspecified; R06.02 Shortness of breath
CPT/HCPCS: 93306

== ENCOUNTER → 2018-03-31 | Outpatient (CLI) | payer MEDICARE ==
[~2018-03-31] MED LIST changes: +RT-ALBUTEROL SULF 2.5 MG/3 ML PRE-MIX VIAL INH ONE; +RT-ALBUTEROL SULF 2.5 MG/3 ML PRE-MIX VIAL ONE
--- NOTE | 2018-03-31 13:00 | Diagnostic Imaging Report ---
PROCEDURE: CT chest without contrast. TECHNIQUE: Multiple contiguous axial images were obtained through the chest without the use of intravenous contrast. INDICATION: Dyspnea and restrictive lung disease. COMPARISON: Correlation is made with prior CT chest from 08/16/2015. No axillary lymphadenopathy is detected. Precarinal lymph node appears to be similar to prior exam. Hilar evaluation is limited without intravenous contrast. There are coronary arterial calcifications present. No pericardial or pleural fluid is identified. There appears to be some chronic scarring in the right middle lobe and lingula. No infiltrates are seen. No parenchymal mass is identified. The upper abdomen is unremarkable. IMPRESSION: Stable CT of the chest when compared with exam from 08/16/2015. No acute feature is identified. Dictated by: Dictated on workstation # [id number]
== END ==
LOC: RAD 11:49
PROVIDERS: ATTEND Nurse Practitioner Family
DX: J98.4 Other disorders of lung (principal); F17.201 Nicotine dependence, unspecified, in remission; R06.00 Dyspnea, unspecified
CPT/HCPCS: 71250; 94060; 94726; 94729

== ENCOUNTER → 2018-05-16 | Outpatient (CLI) | payer MEDICARE ==
[~2018-05-16] MED LIST changes: -ROSU10TA PO; +ROSU10TA22 PO; -RT-ALBUTEROL SULF 2.5 MG/3 ML PRE-MIX VIAL INH ONE; -RT-ALBUTEROL SULF 2.5 MG/3 ML PRE-MIX VIAL ONE; +SENN-229 PO; -SENN1TAB7 PO
--- NOTE | 2018-05-16 13:21 | Diagnostic Imaging Report ---
INDICATION: Dysphagia. FINDINGS: The study was performed in conjunction with speech pathology. Videofluoroscopy was performed during the swallowing of barium in multiple consistencies. The patient ingested thin liquid as well as applesauce, banana, ground meat and cracker consistency. A total of 1 minute and 1 second of fluoroscopy was utilized. Oral phase was remarkable. There is normal epiglottic tilt and laryngeal elevation. No laryngeal penetration or aspiration was observed. IMPRESSION: Unremarkable video swallow. Dictated by: Dictated on workstation # [id number]
== END ==
LOC: RAD 09:48
PROVIDERS: ATTEND Nurse Practitioner Family
DX: R13.14 Dysphagia, pharyngoesophageal phase (principal)
CPT/HCPCS: 74230

== ENCOUNTER → 2018-08-01 | Outpatient (CLI) | payer MEDICARE ==
--- NOTE | 2018-08-01 19:18 | Diagnostic Imaging Report ---
INDICATION: Routine screening. COMPARISON: Comparison is made with prior mammograms from 07/16/2017 and 01/24/2016. TECHNIQUE: 2-D and 3-D bilateral screening mammography was performed. The current study was also evaluated with a Computer Aided Detection (CAD) system. 3-D tomosynthesis was also performed and reviewed. FINDINGS: Scattered fibroglandular densities are identified bilaterally. There are benign parenchymal and vascular calcifications bilaterally. Biopsy clip in the right breast is again seen. No dominant mass or malignant-appearing microcalcifications are seen. The axillae are unremarkable. IMPRESSION: No mammographic features suspicious for malignancy are identified. ACR BI-RADS Category 2: Benign findings. Result letter will be mailed to the patient. Note: At least 10% of breast cancer is not imaged by mammography. Dictated by: Dictated on workstation # [id number]
== END ==
LOC: RAD 09:16
PROVIDERS: ATTEND Nurse Practitioner Family
DX: Z12.31 Encounter for screening mammogram for malignant neoplasm of breast (principal)
CPT/HCPCS: 77067

== ENCOUNTER 2018-11-11 17:39 | Emergency (ER) | payer MEDICARE ==
[~2018-11-11] VITALS: Ht 167 cm; Wt 105.0 kg
[2018-11-11 17:54] LABS: BASOPHILS % (AUTO) 1 % (0-10); EOSINOPHILS # (AUTO) 0.2 10^3/uL (0.0-0.3); EOSINOPHILS % (AUTO) 4 % (0-10); HEMATOCRIT 35 % (35-52); HEMOGLOBIN 11.5 G/DL (11.5-16.0); LYMPHOCYTES # (AUTO) 1.9 X 10^3 (1.0-4.0); LYMPHOCYTES % (AUTO) 30 % (12-44); MEAN CORPUSCULAR HEMOGLOBIN 30 PG (25-34); MEAN CORPUSCULAR HGB CONC 33 G/DL (32-36); MEAN CORPUSCULAR VOLUME 93 FL (80-99); MEAN PLATELET VOLUME 11.6 FL (7.4-10.4); MONOCYTES # (AUTO) 0.8 X 10^3 (0.0-1.0); MONOCYTES % (AUTO) 12 % (0-12); NEUTROPHILS # (AUTO) 3.4 X 10^3 (1.8-7.8); NEUTROPHILS % (AUTO) 54 % (42-75); PLATELET COUNT 159 10^3/uL (130-400); RED CELL DISTRIBUTION WIDTH 15.3 % (10.0-14.5); WHITE BLOOD COUNT 6.3 10^3/uL (4.3-11.0)
[2018-11-11 18:11] LABS: INR 1.1 (0.8-1.4); PROTHROMBIN TIME PATIENT 14.9 SEC (12.2-14.7)
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
[2018-11-11 18:12] LABS: BILIRUBIN,URINE NEGATIVE (NEGATIVE); CLARITY,URINE CLEAR; COLOR,URINE YELLOW; GLUCOSE, URINE (UA) NEGATIVE (NEGATIVE); KETONES,URINE NEGATIVE (NEGATIVE); LEUKOCYTE ESTERASE ,URINE NEGATIVE (NEGATIVE); NITRITE,URINE NEGATIVE (NEGATIVE); PH,URINE 5 (5-9); PROTEIN,URINE 2+ (NEGATIVE); UROBILINOGEN,URINE NORMAL (NORMAL)
[2018-11-11 18:14] LABS: ALANINE AMINOTRANSFERASE 66 U/L (0-55); ALBUMIN 3.8 GM/DL (3.2-4.5); ALKALINE PHOSPHATASE 67 U/L (40-136); BILIRUBIN,TOTAL 0.4 MG/DL (0.1-1.0); BUN/CREATININE RATIO 20; CALCIUM 8.8 MG/DL (8.5-10.1); CARBON DIOXIDE 22 MMOL/L (21-32); CHLORIDE 107 MMOL/L (98-107); CREATININE SERUM 1.11 MG/DL (0.60-1.30); GFR ESTIMATED 48; GLUCOSE 188 MG/DL (70-105); POTASSIUM 4.6 MMOL/L (3.6-5.0); SODIUM 140 MMOL/L (135-145); TOTAL PROTEIN 6.9 GM/DL (6.4-8.2)
--- NOTE | 2018-11-11 18:19 | Diagnostic Imaging Report ---
PATIENT HISTORY: Shortness of breath. TECHNIQUE: Single frontal view of the chest. COMPARISON: 01/01/2018. FINDINGS: The lung volumes are normal. No focal consolidation is seen. No large pleural effusion or pneumothorax is seen. The cardiomediastinal silhouette is prominent. There is calcified aortic atherosclerotic plaque. No acute osseous abnormality is seen. IMPRESSION: 1. Mild cardiomegaly. No overt pulmonary edema. Dictated by: Dictated on workstation # [id number]
[2018-11-11 18:21] LABS: BACTERIA,URINE NEGATIVE /HPF; SQUAMOUS EPITHELIAL CELL,UR 0-2 /HPF
[2018-11-11 18:23] LABS: ABG BASE EXCESS -0.5 MMOL/L (-2.5-2.5); ABG OXYGEN SATURATION 93 % (94-100); ABG PCO2 45 MMHG (35-45); ABG PH 7.35 (7.37-7.43); ABG PO2 71 MMHG (79-93); ABG TCO2 25.8 MMOL/L (21.0-31.0)
[2018-11-11 18:27] LABS: PATIENT TEMP 36.6; VENTILATOR NO
[2018-11-11 18:44] LABS: FIBRIN DEGRADATION PRODUCTS 0.38 UG/ML (0.00-0.49)
[2018-11-11] MEDS ORDERED: RT-ALBUTEROL/IPRATROPIUM 3 ML (DUONEB) VIAL INH ONE (19:30)
--- NOTE | 2018-11-11 19:42 | Diagnostic Imaging Report ---
PROCEDURE: CT head without contrast. TECHNIQUE: Multiple contiguous axial images were obtained through the brain without the use of intravenous contrast. Auto Exposure Controls were utilized during the CT exam to meet ALARA standards for radiation dose reduction. INDICATION: Dizziness. Shortness of breath. Lethargy for 3 days. Evaluate for stroke. COMPARISON: 10/28/2017. FINDINGS: The ventricles and cortical sulci are age-appropriate. There is no midline shift or mass-effect. No acute intracranial hemorrhage is seen. There is no CT evidence of acute territorial ischemia. No focal masses or collections are present. The calvarium is intact. The visualized paranasal sinuses are clear. IMPRESSION: No hemorrhage or focal intra-axial mass. No CT evidence of large acute territorial ischemia. Dictated by: Dictated on workstation # [id number]
[2018-11-11] MEDS ORDERED: MECL12.579 PO (20:27)
[2018-11-11] MEDS ORDERED: ALBU2.5V4 INH (20:28)
[2018-11-11] MEDS ORDERED: MECLIZINE 25 MG (ANTIVERT) TAB PO ONE (20:30)
[2018-11-11 20:49] VITALS: BP 133/87
== END 2018-11-11 20:51 | disposition home or self-care (01) ==
LOC: EDUNIT# 17:39 → ER 17:40
DX: J44.1 Chronic obstructive pulmonary disease with (acute) exacerbation (principal); R09.02 Hypoxemia; R42 Dizziness and giddiness; R00.1 Bradycardia, unspecified; I10 Essential (primary) hypertension; E78.00 Pure hypercholesterolemia, unspecified; E11.40 Type 2 diabetes mellitus with diabetic neuropathy, unspecified; G40.909 Epilepsy, unspecified, not intractable, without status epilepticus; F41.9 Anxiety disorder, unspecified; F31.9 Bipolar disorder, unspecified; G20 Parkinson's disease; K21.9 Gastro-esophageal reflux disease without esophagitis; M10.9 Gout, unspecified; Z95.9 Presence of cardiac and vascular implant and graft, unspecified; Z87.442 Personal history of urinary calculi; Z99.81 Dependence on supplemental oxygen; Z87.828 Personal history of other (healed) physical injury and trauma; Z88.5 Allergy status to narcotic agent; Z79.82 Long term (current) use of aspirin; Z79.52 Long term (current) use of systemic steroids; Z87.891 Personal history of nicotine dependence; Z90.710 Acquired absence of both cervix and uterus; Z82.49 Family history of ischemic heart disease and other diseases of the circulatory system; Z80.0 Family history of malignant neoplasm of digestive organs
CPT/HCPCS: 36415; 36600; 70450; 71045; 80053; 81000; 82805; 82962; 83605; 83880; 84443; 84484; 85025; 85379; 85610; 85730; 86141; 87040; 87804; 93005; 93041; 94640

== ENCOUNTER → 2019-01-30 | Outpatient (CLI) | payer MEDICARE ==
[~2019-01-30] MED LIST changes: +ALBU2.5V4 INH; +CATHETER FLUSH 10 ML SYR IV PRN; +HOLD METFORMIN - RECEIVED CONTRAST 20 ML VIAL IV SCH; +IOHEXOL 350 MG/ML 100 ML (OMNIPAQUE 350) VIAL IV ONE; +MECL12.579 PO; +NS 100 ML (IVPB) BAG IV ONE
[2019-01-30 07:33] LABS: CREATININE SERUM 0.87 MG/DL (0.60-1.30)
--- NOTE | 2019-01-30 10:03 | Diagnostic Imaging Report ---
CTA of the neck with contrast. INDICATION: Atherosclerosis of the carotids. Contiguous axial sections were taken from the midportion of the skull to the lung apices following the administration of intravenous contrast. Sagittal and coronal MIPS reconstructed images were obtained as well. The previous CTA neck exam performed on 10/28/2017 noted moderate calcified plaque involving the carotid bifurcations producing moderate narrowing. There is no hemodynamically significant stenosis identified. On this exam, the atherosclerotic changes involving the carotid systems seen previously are again evident and no different. There is still no evidence for a high-grade stenosis. Both vertebral arteries were opacified and appear similar to the prior exam. The left vertebral artery is dominant. Intracranial circulation where visualized is similar to the prior exam. There is no evidence for a large vessel occlusion. There is no mass or adenopathy involving the neck. The low density lesion in the left lobe of the thyroid seen on the prior study is again visualized and unchanged. The lung apices are clear. IMPRESSION: 1. There is atherosclerotic disease involving both carotid bifurcations but there is no evidence for hemodynamically significant stenosis. When compared to the prior study there, has been no significant change. 2. Both vertebral arteries were opacified. Left vertebral artery is dominant. 3. There is no acute abnormality identified. 4. The low density nodules associated with left lobe of thyroid seen previously appears stable. Dictated by: Dictated on workstation # [id number]
== END ==
LOC: RAD 06:58
PROVIDERS: ATTEND Internal Medicine Cardiovascular Disease
DX: I65.23 Occlusion and stenosis of bilateral carotid arteries (principal); E04.1 Nontoxic single thyroid nodule
CPT/HCPCS: 36415; 70498; 82565; 84520

== ENCOUNTER 2019-02-27 12:28 | Emergency (ER) | payer MEDICARE ==
[~2019-02-27] VITALS: Ht 162 cm; Wt 109.0 kg
[~2019-02-27 12:28] MED LIST changes: -CATHETER FLUSH 10 ML SYR IV PRN; +FLUO20CA45 PO; -HOLD METFORMIN - RECEIVED CONTRAST 20 ML VIAL IV SCH; -IOHEXOL 350 MG/ML 100 ML (OMNIPAQUE 350) VIAL IV ONE; -NS 100 ML (IVPB) BAG IV ONE; -OXYB10TA PO; +OXYB10TA2 PO
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
[2019-02-27] MEDS ORDERED: NS IV 500 ML 500 ML IV ONE (12:39)
[2019-02-27 13:10] LABS: BASOPHILS % (AUTO) 0 % (0-10); EOSINOPHILS # (AUTO) 0.2 10^3/uL (0.0-0.3); EOSINOPHILS % (AUTO) 4 % (0-10); HEMATOCRIT 34 % (35-52); HEMOGLOBIN 11.1 G/DL (11.5-16.0); LYMPHOCYTES # (AUTO) 1.6 X 10^3 (1.0-4.0); LYMPHOCYTES % (AUTO) 31 % (12-44); MEAN CORPUSCULAR HEMOGLOBIN 30 PG (25-34); MEAN CORPUSCULAR HGB CONC 32 G/DL (32-36); MEAN CORPUSCULAR VOLUME 94 FL (80-99); MEAN PLATELET VOLUME 11.9 FL (7.4-10.4); MONOCYTES # (AUTO) 0.6 X 10^3 (0.0-1.0); MONOCYTES % (AUTO) 11 % (0-12); NEUTROPHILS # (AUTO) 2.8 X 10^3 (1.8-7.8); NEUTROPHILS % (AUTO) 54 % (42-75); PLATELET COUNT 171 10^3/uL (130-400); RED CELL DISTRIBUTION WIDTH 15.6 % (10.0-14.5); WHITE BLOOD COUNT 5.1 10^3/uL (4.3-11.0)
[2019-02-27] MEDS ORDERED: MECLIZINE 25 MG (ANTIVERT) TAB PO ONE (13:15)
--- NOTE | 2019-02-27 13:21 | Diagnostic Imaging Report ---
PROCEDURE: CT head without contrast. TECHNIQUE: Multiple contiguous axial images were obtained through the brain without the use of intravenous contrast. Auto Exposure Controls were utilized during the CT exam to meet ALARA standards for radiation dose reduction. INDICATION: Weakness. Dizziness. COMPARISON: 11/11/2018. FINDINGS: The ventricles and cortical sulci are age-appropriate. There is no midline shift or mass-effect. No acute intracranial hemorrhage is seen. There is no CT evidence of acute territorial ischemia. No focal masses or collections are present. The calvarium is intact. The visualized paranasal sinuses are clear. IMPRESSION: No hemorrhage or focal intra-axial mass. No CT evidence of large acute territorial ischemia. Dictated by: Dictated on workstation # [id number]
--- NOTE | 2019-02-27 13:22 | Diagnostic Imaging Report ---
INDICATION: Coughing COMPARISON: 11/11/2018 TECHNIQUE: 2 radiographs of the chest dated 02/27/2019 FINDINGS: The cardiac silhouette is enlarged, though stable. No significant pulmonary vascular congestion. The lungs are grossly clear, though evaluation slightly limited secondary to overlying soft tissues. No significant pleural effusion. No pneumothorax. Scattered vascular calcifications. Scattered osseous degenerative changes without acute osseous abnormality. IMPRESSION: Stable cardiomegaly without overt congestive heart failure or additional superimposed acute cardiopulmonary abnormality. Dictated by: Dictated on workstation # [id number]
[2019-02-27 13:27] LABS: ALANINE AMINOTRANSFERASE 99 U/L (0-55); ALBUMIN 3.9 GM/DL (3.2-4.5); ALKALINE PHOSPHATASE 64 U/L (40-136); BILIRUBIN,TOTAL 0.3 MG/DL (0.1-1.0); BUN/CREATININE RATIO 20; CALCIUM 8.9 MG/DL (8.5-10.1); CARBON DIOXIDE 20 MMOL/L (21-32); CHLORIDE 106 MMOL/L (98-107); CREATININE SERUM 0.85 MG/DL (0.60-1.30); GFR ESTIMATED > 60; GLUCOSE 134 MG/DL (70-105); POTASSIUM 4.9 MMOL/L (3.6-5.0); SODIUM 138 MMOL/L (135-145); TOTAL PROTEIN 7.2 GM/DL (6.4-8.2)
[2019-02-27 14:02] LABS: BILIRUBIN,URINE NEGATIVE (NEGATIVE); CLARITY,URINE CLEAR; COLOR,URINE YELLOW; GLUCOSE, URINE (UA) NEGATIVE (NEGATIVE); KETONES,URINE NEGATIVE (NEGATIVE); LEUKOCYTE ESTERASE ,URINE NEGATIVE (NEGATIVE); NITRITE,URINE NEGATIVE (NEGATIVE); PROTEIN,URINE NEGATIVE (NEGATIVE)
[2019-02-27 14:15] LABS: BACTERIA,URINE TRACE /HPF; SQUAMOUS EPITHELIAL CELL,UR RARE /HPF
[2019-02-27 14:20] VITALS: BP 150/67
== END 2019-02-27 14:34 | disposition home or self-care (01) ==
LOC: EDUNIT# 12:28 → ER 12:32
DX: R42 Dizziness and giddiness (principal); I10 Essential (primary) hypertension; E78.00 Pure hypercholesterolemia, unspecified; J44.9 Chronic obstructive pulmonary disease, unspecified; G40.909 Epilepsy, unspecified, not intractable, without status epilepticus; E11.40 Type 2 diabetes mellitus with diabetic neuropathy, unspecified; G20 Parkinson's disease; F41.9 Anxiety disorder, unspecified; F31.89 Other bipolar disorder; K21.9 Gastro-esophageal reflux disease without esophagitis; M10.9 Gout, unspecified; Z87.440 Personal history of urinary (tract) infections; Z88.5 Allergy status to narcotic agent; Z79.82 Long term (current) use of aspirin; Z87.891 Personal history of nicotine dependence; Z90.710 Acquired absence of both cervix and uterus; Z99.81 Dependence on supplemental oxygen; Z82.49 Family history of ischemic heart disease and other diseases of the circulatory system; Z80.0 Family history of malignant neoplasm of digestive organs
CPT/HCPCS: 36415; 70450; 71046; 80053; 81000; 84484; 85025; 87804; 96360; 96361

== ENCOUNTER → 2019-06-12 | Outpatient (CLI) | payer MEDICARE ==
[~2019-06-12] MED LIST changes: -FLUO20CA45 PO; +FLUO20CA46 PO; +MECL-172 PO; -MECL12.579 PO; -OXYB10TA2 PO; +OXYB10TA29 PO; -TRAZ-190 PO; +TRAZ-227 PO
--- NOTE | 2019-06-12 10:37 | Diagnostic Imaging Report ---
INDICATION: Elevated liver enzymes Ultrasound of the liver and right upper quadrant was performed in a routine fashion. The liver shows mild diffuse increased echogenicity compatible with fatty change. There is no focal liver lesion seen. Portal vein is patent with hepatopedal flow. Gallbladder is unremarkable with no stones or wall thickening. Common duct measured 4 mm. The pancreas is not well seen due to overlying gas. The aorta and IVC are not well seen due to overlying gas. Right kidney measured 11.5 cm in length. There is no hydronephrosis or focal renal lesion. There is no ascites. IMPRESSION: Diffuse increased echogenicity of the liver compatible with fatty infiltration. No focal liver lesion is seen. There is no biliary dilatation or gallbladder pathology. Dictated by: Dictated on workstation # [id number]
== END ==
LOC: RAD 08:45
PROVIDERS: ATTEND Nurse Practitioner Family
DX: R74.8 Abnormal levels of other serum enzymes (principal)
CPT/HCPCS: 76705

== ENCOUNTER → 2019-11-11 | Outpatient (CLI) | payer MEDICARE ==
[~2019-11-11] VITALS: Ht 165 cm; Wt 105.0 kg
[~2019-11-11] MED LIST changes: +CATHETER FLUSH 10 ML SYR IV PRN; +REGADENOSON 0.4 MG/5 ML SYR (LEXISCAN) IV ONE
[2019-11-11 09:02] VITALS: BP 184/67
--- NOTE | 2019-11-11 14:05 | Cardiology Stress Test Report ---
Stress Test Report Date of Procedure/Referring: Date of Procedure: Nov 11, 2019 PCP Yinka Quintana MD Admitting Physician Peggy Rivera MD Indications: CAD Baseline Heart Rate: 54 Baseline Blood Pressure: Blood Pressure Systolic: 184 Blood Pressure Diastolic: 67 Baseline Vitals Vital Signs Date Time Temp Pulse Resp B/P (MAP) Pulse Ox O2 Delivery O2 Flow Rate FiO2 11/11/19 09:02 56 184/67 (106) 98 Baseline EKG: Baseline EKG: NSR Summary After explaining the procedure to the patient, she signed a consent and then brought to the stress nuclear laboratory. Patient received 0.4 mg Lexiscan for stress test, ECG, heart rate and blood pressure were monitored continuously. Resting and stress dose of radio tracer were injected, imaging was acquired and reviewed in short axis, horizontal long axis and vertical long axis views. TID: 1.11 SSS: 4 SDS: 3 EF: 68 1. Patient tolerated Lexiscan well 2. No ischemia or infarction on SPECT 3. Normal LV size EF 68% YINKA QUINTANA MD Nov 11, 2019 14:05
== END ==
LOC: CARD 08:00
PROVIDERS: ATTEND Internal Medicine Cardiovascular Disease
DX: I11.9 Hypertensive heart disease without heart failure (principal); I34.0 Nonrheumatic mitral (valve) insufficiency; I25.10 Atherosclerotic heart disease of native coronary artery without angina pectoris; E78.2 Mixed hyperlipidemia; F17.201 Nicotine dependence, unspecified, in remission
CPT/HCPCS: 78452; 93017; 93306; A9502

== ENCOUNTER 2020-01-13 20:51 | Observation (INO) | payer MEDICARE ==
[~2020-01-13] VITALS: Ht 167.6 cm; Wt 96.6 kg
[~2020-01-13 20:51] MED LIST changes: -CATHETER FLUSH 10 ML SYR IV PRN; -MECL-172 PO; +MECL-173 PO; -REGADENOSON 0.4 MG/5 ML SYR (LEXISCAN) IV ONE
[2020-01-13] MEDS ORDERED: NITROGLYCERIN 0.4 MG SL TABS BTL 25'S SL ONE (21:00)
[2020-01-13] MEDS ORDERED: ASPIRIN 81 MG CHEW (CHILDREN'S ASA) PO ONE (21:00)
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
[2020-01-13 21:20] LABS: BASOPHILS % (AUTO) 1 % (0-10); EOSINOPHILS # (AUTO) 0.2 10^3/uL (0.0-0.3); EOSINOPHILS % (AUTO) 3 % (0-10); HEMATOCRIT 37 % (35-52); HEMOGLOBIN 12.2 g/dL (11.5-16.0); LYMPHOCYTES # (AUTO) 2.1 10^3/uL (1.0-4.0); LYMPHOCYTES % (AUTO) 33 % (12-44); MEAN CORPUSCULAR HEMOGLOBIN 30 pg (25-34); MEAN CORPUSCULAR HGB CONC 33 g/dL (32-36); MEAN CORPUSCULAR VOLUME 92 fL (80-99); MONOCYTES # (AUTO) 0.7 10^3/uL (0.0-1.0); MONOCYTES % (AUTO) 12 % (0-12); NEUTROPHILS # (AUTO) 3.2 10^3/uL (1.8-7.8); NEUTROPHILS % (AUTO) 52 % (42-75); PLATELET COUNT 189 10^3/uL (130-400); WHITE BLOOD COUNT 6.2 10^3/uL (4.3-11.0)
--- NOTE | 2020-01-13 21:20 | Diagnostic Imaging Report ---
EXAMINATION: Chest 1 view HISTORY: Chest pain COMPARISON: Chest radiograph 02/27/2019. FINDINGS: Heart size is mildly enlarged. Patchy bibasilar airspace opacities. No pleural effusion or pneumothorax. Calcifications of the aorta. The osseous structures are intact. IMPRESSION: 1. Patchy bibasilar airspace opacities which could represent atelectasis, pneumonia, or pulmonary edema. 2. Mild cardiomegaly. Dictated by: Dictated on workstation # [id number]
[2020-01-13 21:27] LABS: PROTHROMBIN TIME PATIENT 13.2 SEC (12.2-14.7)
[2020-01-13 21:32] LABS: ALBUMIN 3.8 GM/DL (3.2-4.5); BILIRUBIN,TOTAL 0.3 MG/DL (0.1-1.0); CALCIUM 8.4 MG/DL (8.5-10.1); CREATININE SERUM 1.05 MG/DL (0.60-1.30); MAGNESIUM 1.7 MG/DL (1.6-2.4); POTASSIUM 4.7 MMOL/L (3.6-5.0); TOTAL PROTEIN 7.2 GM/DL (6.4-8.2)
[2020-01-13] MEDS ORDERED: NITROGLYCERIN 2% OINT 1 GM UNIT DOSE PACKET ONE (21:57)
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
[2020-01-14] MEDS ORDERED: ONDANSETRON 4 MG/2 ML (SDV) Z0FRAN IV PRN (00:45)
[2020-01-14] MEDS ORDERED: NITROGLYCERIN 2% OINT 1 GM UNIT DOSE PACKET TOP PRN (00:45)
[2020-01-14] MEDS ORDERED: LORazepam INJ 2 MG/ML (ATIVAN) VIAL IV PRN (00:45)
[2020-01-14] MEDS ORDERED: CATHETER FLUSH 10 ML SYR IV PRN (00:45)
[2020-01-14 04:27] LABS: ALBUMIN 3.7 GM/DL (3.2-4.5); CHLORIDE 103 MMOL/L (98-107); POTASSIUM 4.6 MMOL/L (3.6-5.0); SODIUM 138 MMOL/L (135-145)
[2020-01-14 04:28] LABS: BASOPHILS % (AUTO) 1 % (0-10); CALCIUM 8.2 MG/DL (8.5-10.1); EOSINOPHILS # (AUTO) 0.2 10^3/uL (0.0-0.3); EOSINOPHILS % (AUTO) 3 % (0-10); HEMATOCRIT 35 % (35-52); HEMOGLOBIN 11.4 g/dL (11.5-16.0); LYMPHOCYTES % (AUTO) 36 % (12-44); MEAN CORPUSCULAR HEMOGLOBIN 30 pg (25-34); MEAN CORPUSCULAR HGB CONC 32 g/dL (32-36); MEAN CORPUSCULAR VOLUME 93 fL (80-99); MEAN PLATELET VOLUME 12.2 fL (9.0-12.2); MONOCYTES # (AUTO) 0.6 10^3/uL (0.0-1.0); MONOCYTES % (AUTO) 11 % (0-12); NEUTROPHILS # (AUTO) 2.6 10^3/uL (1.8-7.8); NEUTROPHILS % (AUTO) 48 % (42-75); PLATELET COUNT 147 10^3/uL (130-400); WHITE BLOOD COUNT 5.4 10^3/uL (4.3-11.0)
[2020-01-14 04:29] LABS: GLUCOSE 177 MG/DL (70-105); TOTAL PROTEIN 6.4 GM/DL (6.4-8.2); TRIGLYCERIDES 167 MG/DL (<150); VLDL CHOLESTEROL 33 MG/DL (5-40)
[2020-01-14 04:30] LABS: CARBON DIOXIDE 24 MMOL/L (21-32)
[2020-01-14 04:31] LABS: BILIRUBIN,TOTAL 0.3 MG/DL (0.1-1.0)
[2020-01-14 04:33] LABS: ALKALINE PHOSPHATASE 54 U/L (40-136); CREATININE SERUM 0.93 MG/DL (0.60-1.30); GFR ESTIMATED 58
[2020-01-14 04:34] LABS: BUN/CREATININE RATIO 20; CHOLESTEROL 242 MG/DL (< 200)
[2020-01-14 04:35] LABS: HDL CHOLESTEROL 43 MG/DL (40-60)
[2020-01-14 04:36] LABS: ALANINE AMINOTRANSFERASE 65 U/L (0-55)
[2020-01-14] MEDS: CATHETER FLUSH 10 ML SYR IV SCH ×3 (06:35→21:32)
[2020-01-14] MEDS ORDERED: morphine INJ 4 MG/ML 1 ML (VIAL/SYRINGE) IV PRN (07:00)
--- NOTE | 2020-01-14 07:37 | Diagnostic Imaging Report ---
INDICATION: Chest pain. COMPARISON: 01/13/2020 FINDINGS: Single frontal radiograph view the chest was obtained and shows persistent moderate cardiomegaly. Pulmonary vasculature however is within normal limits. Lungs are clear. There is no focal consolidation, large effusion, nor pneumothorax. Osseous structures show no gross acute abnormalities. IMPRESSION: 1. Stable moderate cardiomegaly, but no new acute cardiopulmonary process. Dictated by: Dictated on workstation # [id number]
--- NOTE | 2020-01-14 08:01 | Consultation-Cardiology ---
HPI-Cardiology Cardiology Consultation: Date of Consultation 01/14/20 Date of Admission 01-13-2020 Attending Physician Filipe Rivera MD Admitting Physician Filipe Rivera MD Consulting Physician Primary Telesales Consultant: Neftaly Henriquez MD Review of Systems-Cardiology All Other Systems Reviewed Negative Unless Noted: Yes ZET-Miwdcd-Dlaxrq Hx Patient Social History Alcohol Use: Denies Use Recreational Drug Use: No Smoking Status: Former Smoker Type Used: Cigarettes 2nd Hand Smoke Exposure: No Recent Foreign Travel: No Recent Infectious Disease Expo: No Immunizations Up To Date Tetanus Booster (TDap): Unknown Date of Influenza Vaccine: Nov 12, 2019 Past Medical History PMH As described under Assessment. Family Medical History Family History: Colon cancer 19 FATHER 19 MOTHER Hypertension 19 FATHER 19 MOTHER Myocardial infarction 19 MOTHER Allergies and Home Medications Allergies Coded Allergies: codeine (Unverified Allergy, Unknown, 05/19/13) Home Medications Albuterol Sulfate 2.5 Mg/0.5 Ml Vial.neb, 2.5 MG INH Q4H PRN for SHORTNESS OF BREATH, (Reported) Albuterol Sulfate 18 Gm Hfa.aer.ad, 2 PUFF INH Q6H PRN for SHORTNESS OF BREATH, (Reported) Allopurinol 100 Mg Tablet, 100 MG PO DAILY, (Reported) Apixaban 5 Mg Tablet, 5 MG PO BID, (Reported) Ascorbic Acid 500 Mg Tablet, 500 MG PO 1200, (Reported) Aspirin 81 Mg Tablet.dr, 81 MG PO DAILY, (Reported) Benzonatate 100 Mg Capsule, 200 MG PO Q8H PRN for COUGH, (Reported) Ferrous Sulfate 325 Mg Tablet, 325 MG PO DAILY, (Reported) Fluoxetine HCl 20 Mg Capsule, 20 MG PO DAILY, (Reported) Hydralazine HCl 10 Mg Tablet, 20 MG PO TID, (Reported) TAKES 2 (10MG) TABS Hydralazine HCl 10 Mg Tablet, 10 MG PO EVERY 24 HOURS PRN for SBP ABOVE 170, (Reported) Insulin Aspart 300 Units/3 Ml Solution, 23 UNITS SQ 1700 W/DINNER, (Reported) Insulin Aspart 300 Units/3 Ml Solution, 12 UNITS SQ 0800 W/BREAKFAST, (Reported) Insulin Aspart 300 Units/3 Ml Solution, 23 UNITS SQ 1200 W/LUNCH, (Reported) Insulin Glargine,Hum.rec.anlog 100 Unit/1 Ml Insuln.pen, 23 UNITS SQ HS, (Reported) Ketoconazole 15 Gm Cream..g., 15 GM TP BID, (Reported) APPLY UNDER THE CHIN Latanoprost 2.5 Ml Drops, 1 DROP OU HS, (Reported) Lisinopril 40 Mg Tablet, 40 MG PO DAILY, (Reported) Meclizine HCl 12.5 Mg Tablet, 12.5 MG PO Q8H PRN for DIZZINESS, (Reported) Multivit-Min/FA/Lycopene/Lut 1 Each Tablet, 1 EACH PO DAILY, (Reported) Olanzapine 5 Mg Tablet, 5 MG PO DAILY, (Reported) [place]-3/Dha/Epa/Fish Oil 1 Each Capsule, 1 EACH PO TID, (Reported) Oxybutynin Chloride 5 Mg Tablet, 5 MG PO TID, (Reported) Pantoprazole Sodium 40 Mg Tablet.dr, 40 MG PO BID, (Reported) Polyethylene Glycol 3350 17 Gm Powd.pack, 17 GM PO HS, (Reported) Pregabalin 200 Mg Capsule, 200 MG PO BID, (Reported) Ropinirole HCl 0.5 Mg Tablet, 0.5 MG PO BID, (Reported) Tramadol HCl/Acetaminophen 1 Each Tablet, 1 EACH PO Q8H PRN for PAIN-MODERATE (5-7), (Reported) Trazodone HCl 50 Mg Tablet, 50 MG PO HS, (Reported) Triamcinolone Acetonide 430 Gm Oint...g., 1 APPLIC TP BID, (Reported) APPLY UNDER CHIN Trimethoprim 100 Mg Tablet, 100 MG PO HS, (Reported) Ubidecarenone 100 Mg Capsule, 100 MG PO DAILY, (Reported) Physical Exam-Cardiology Physical Exam Vital Signs/I&O 01/14/20 01/14/20 01/14/20 01/14/20 20:00 20:09 23:31 23:32 Temp 37.1 36.2 Pulse 53 48 Resp 20 16 B/P (MAP) 164/80 149/56 Pulse Ox 94 96 92 O2 Delivery Room Air Room Air Room Air Room Air 01/15/20 01/15/20 01/15/20 01:00 03:21 03:22 Temp 36.2 Pulse 53 52 Resp 18 B/P (MAP) 153/69 Pulse Ox 92 O2 Delivery Room Air Room Air 01/15/20 00:00 Intake Total 1075 ml Balance 1075 ml Capillary Refill : Less Than 3 Seconds Data Review Labs Laboratory Tests 01/14/20 08:20: Coronavirus (COVID-19)(PCR) Negative 01/14/20 09:15: Troponin I < 0.028 01/14/20 11:15: Glucometer 165H 01/14/20 15:33: Glucometer 178H 01/14/20 19:10: Glucometer 197H 01/15/20 06:20: Glucometer 141H Radiology NAME: JAIR BHAGAT [facility] REC#: [id number] PT STATUS: ADM Tita : 1940 PHYSICIAN: FILIPE RIVERA MD ADMIT DATE: 01/13/20/[facility] Draft Date of Exam:01/14/20 CHEST 1 VIEW, AP/PA ONLY INDICATION: Chest pain. COMPARISON: 01/13/2020 FINDINGS: Single frontal radiograph view the chest was obtained and shows persistent moderate cardiomegaly. Pulmonary vasculature however is within normal limits. Lungs are clear. There is no focal consolidation, large effusion, nor pneumothorax. Osseous structures show no gross acute abnormalities. IMPRESSION: 1. Stable moderate cardiomegaly, but no new acute cardiopulmonary process. 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 States has had heart cath and stress tests done with Dr Anderson, but has had not intervention. MPI of 03/25/18 showed no ischemia or infarction and LVEF 71%. MPI of Oct [address] Quintana showed no evidence of ischemia or infarction Echo of 03/27/18: LVEF 60-65%, mild conc LVH, mild to mod LA enlargement, PASP 30-35 mmHg. Echo of Nov 11, [address] Quintana showed LVEF 55-65%. Mild to mod MR. PASP 40-45 mmHg DM II Hypertension Hyperlipidemia, treated with rosuvastatin ? h/o PAF. 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 by her previous choke reamer, Dr Anderson Reports intolerance to beta-shannon (excessive tiredness and sleepiness) Obesity with obesity-hypovent and nocturnal hypoxemia that is treated with supple O2 and followed by Dr Dougherty Quit smoking 2000 Clinical Quality Measures DVT/VTE Risk/Contraindication: Risk Factor Score Per Nursin RFS Level Per Nursing on Admit: 4+=Very High JANEEN GIL Jan 14, 2020 08:01
[2020-01-14] MEDS: inSUlin ASPART (NovoLOG) 1 UNIT/0.01 ML (CHARGE PER UNIT) SC SCH (08:17)
[2020-01-14] MEDS: ASPIRIN E.C. 81 MG (ECOTRIN) TAB PO SCH (08:17)
[2020-01-14] MEDS: meTOprolol TARTRATE 50 MG (LOPRESSOR) TAB PO SCH ×2 (08:17→19:39)
[2020-01-14] MEDS: PREGABALIN 100 MG (LYRICA) CAPSULE PO SCH ×2 (08:18→19:25)
[2020-01-14] MEDS: OLANZapine 5 MG (ZyPREXA) TAB PO SCH (08:18)
[2020-01-14] MEDS: APIXABAN 5 MG (ELIQUIS) TABLET PO SCH ×2 (08:18→19:26)
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
[2020-01-14] MEDS ORDERED: amLODIPine 5 MG (NORVASC) TAB PO NR (10:30)
[2020-01-14] MEDS ORDERED: ISOSORBIDE MONONITRATE 60 MG (IMDUR) TAB PO NR (10:30)
[2020-01-14] MEDS ORDERED: ALB0.5V INH (11:10)
[2020-01-14] MEDS ORDERED: ROPI0.5T4 PO (11:10)
[2020-01-14] MEDS ORDERED: MULT-1029 PO (11:10)
[2020-01-14] MEDS ORDERED: MECL-173 PO (11:10)
[2020-01-14] MEDS ORDERED: TRZ50T PO (11:10)
[2020-01-14] MEDS ORDERED: INSU100I14 SQ ×3 (11:10→11:30)
[2020-01-14] MEDS ORDERED: HYDR-3922 PO ×2 (11:10)
[2020-01-14] MEDS ORDERED: INSU100I10 SQ (11:10)
[2020-01-14] MEDS ORDERED: TRAM1TAB7 PO (11:10)
[2020-01-14] MEDS ORDERED: TRIA430O2 TP (11:10)
[2020-01-14] MEDS ORDERED: TRIM100T PO (11:10)
[2020-01-14] MEDS ORDERED: BENZ100C18 PO (11:10)
[2020-01-14] MEDS ORDERED: KETO15CR2 TP (11:10)
[2020-01-14] MEDS ORDERED: LATA2.5D19 OU (11:10)
[2020-01-14] MEDS ORDERED: ASPI-1238 PO (11:10)
[2020-01-14] MEDS ORDERED: ALBU18HF2 INH (11:10)
[2020-01-14] MEDS ORDERED: OXYB5TAB13 PO (11:10)
[2020-01-14] MEDS ORDERED: OLAN5TAB25 PO (11:10)
[2020-01-14] MEDS ORDERED: ALLO100T PO (11:10)
[2020-01-14] MEDS ORDERED: FERR325T24 PO (11:10)
[2020-01-14] MEDS ORDERED: ASCO500T17 PO (11:10)
[2020-01-14] MEDS ORDERED: PANT40TA52 PO (11:10)
[2020-01-14] MEDS ORDERED: PREG200C28 PO (11:10)
[2020-01-14] MEDS ORDERED: POLY17PO6 PO (11:10)
[2020-01-14] MEDS ORDERED: LISI40TA PO (11:10)
[2020-01-14] MEDS ORDERED: APIX5TAB PO (11:10)
[2020-01-14] MEDS: DICLOFENAC 1% GEL 100 GM (VOLTAREN) TUBE TOP SCH ×4 (11:20→19:26)
[2020-01-14] MEDS: LOSARTAN 50 MG (COZAAR) TAB PO SCH (11:21)
[2020-01-14] MEDS ORDERED: OMEG-8 PO (11:34)
--- NOTE | 2020-01-14 11:35 | NUR ---
MED REC WAS ENTERED USING THE MAR/ORDER REPORT FROM GERARDO LOPEZ I DID VERIFY THE NOVOLOG WITH THE MED AID AT THE FACILITY. PT TAKES 12 WITH MORNING MEAL AND 23 UNITS WITH LUNCH AND DINNER
--- NOTE | 2020-01-14 12:43 | Consultation-Cardiology ---
HPI-Cardiology Cardiology Consultation: Date of Consultation 01/14/20 Time Seen by a Provider: 09:00 Date of Admission Attending Physician Peggy Rivera MD Admitting Physician Peggy Rivera MD Consulting Physician BENITO SCHREODER MD, MA, FACP, FACC, FSCAI, CCDS HPI: Chief Complaint: CC: Chest discomfort HPI 79 yo woman admitted to Dr Rivera through ER last night after she had presented with chest discomfort: occurred at rest, upper mid sternal and parasternal, sharp, nonradiating, mod to mod severe, not experienced before, self-resolving, persisting for about an hour. Was with her at time of occurrence who felt concerned and had her brought to the ER. Has chronic, exertional shortness of breath that has not changed much in the recent past. Chronic,mild intermittent leg swelling Review of Systems-Cardiology Review of Systems Constitutional: malaise; No weight loss, No weight gain Eyes: No vision change Ears/Nose/Throat: No ear discharge, No nasal drainage, No recent hearing loss Respiratory: As described under HPI Cardiovascular: As described under HPI Gastrointestinal: No diarrhea, No nausea, No vomiting Genitourinary: No dysuria, No hematuria, No urine frequency changes Musculoskeletal: back pain (chronic) Skin: No rash, No ulcerations Psychiatric/Neurological: No seizure, No focal weakness, No syncope Hematologic: No bleeding abnormalities All Other Systems Reviewed Negative Unless Noted: Yes HXW-Girkjc-Pxdxat Hx Patient Social History Alcohol Use: Denies Use Recreational Drug Use: No Smoking Status: Former Smoker Type Used: Cigarettes 2nd Hand Smoke Exposure: No Recent Foreign Travel: No Recent Infectious Disease Expo: No Immunizations Up To Date Tetanus Booster (TDap): Unknown Date of Influenza Vaccine: Nov 12, 2019 Past Medical History PMH As described under Assessment. Family Medical History Family History: Colon cancer 19 FATHER 19 MOTHER Hypertension 19 FATHER 19 MOTHER Myocardial infarction 19 MOTHER Allergies and Home Medications Allergies Coded Allergies: codeine (Unverified Allergy, Unknown, 05/19/13) Home Medications Albuterol Sulfate 2.5 Mg/0.5 Ml Vial.neb, 2.5 MG INH Q4H PRN for SHORTNESS OF BREATH, (Reported) Albuterol Sulfate 18 Gm Hfa.aer.ad, 2 PUFF INH Q6H PRN for SHORTNESS OF BREATH, (Reported) Allopurinol 100 Mg Tablet, 100 MG PO DAILY, (Reported) Apixaban 5 Mg Tablet, 5 MG PO BID, (Reported) Ascorbic Acid 500 Mg Tablet, 500 MG PO 1200, (Reported) Aspirin 81 Mg Tablet.dr, 81 MG PO DAILY, (Reported) Benzonatate 100 Mg Capsule, 200 MG PO Q8H PRN for COUGH, (Reported) Ferrous Sulfate 325 Mg Tablet, 325 MG PO DAILY, (Reported) Fluoxetine HCl 20 Mg Capsule, 20 MG PO DAILY, (Reported) Hydralazine HCl 10 Mg Tablet, 20 MG PO TID, (Reported) TAKES 2 (10MG) TABS Hydralazine HCl 10 Mg Tablet, 10 MG PO EVERY 24 HOURS PRN for SBP ABOVE 170, (Reported) Insulin Aspart 300 Units/3 Ml Solution, 23 UNITS SQ 1700 W/DINNER, (Reported) Insulin Aspart 300 Units/3 Ml Solution, 12 UNITS SQ 0800 W/BREAKFAST, (Reported) Insulin Aspart 300 Units/3 Ml Solution, 23 UNITS SQ 1200 W/LUNCH, (Reported) Insulin Glargine,Hum.rec.anlog 100 Unit/1 Ml Insuln.pen, 23 UNITS SQ HS, (Reported) Ketoconazole 15 Gm Cream..g., 15 GM TP BID, (Reported) APPLY UNDER THE CHIN Latanoprost 2.5 Ml Drops, 1 DROP OU HS, (Reported) Lisinopril 40 Mg Tablet, 40 MG PO DAILY, (Reported) Meclizine HCl 12.5 Mg Tablet, 12.5 MG PO Q8H PRN for DIZZINESS, (Reported) Multivit-Min/FA/Lycopene/Lut 1 Each Tablet, 1 EACH PO DAILY, (Reported) Olanzapine 5 Mg Tablet, 5 MG PO DAILY, (Reported) [place]-3/Dha/Epa/Fish Oil 1 Each Capsule, 1 EACH PO TID, (Reported) Oxybutynin Chloride 5 Mg Tablet, 5 MG PO TID, (Reported) Pantoprazole Sodium 40 Mg Tablet.dr, 40 MG PO BID, (Reported) Polyethylene Glycol 3350 17 Gm Powd.pack, 17 GM PO HS, (Reported) Pregabalin 200 Mg Capsule, 200 MG PO BID, (Reported) Ropinirole HCl 0.5 Mg Tablet, 0.5 MG PO BID, (Reported) Tramadol HCl/Acetaminophen 1 Each Tablet, 1 EACH PO Q8H PRN for PAIN-MODERATE (5-7), (Reported) Trazodone HCl 50 Mg Tablet, 50 MG PO HS, (Reported) Triamcinolone Acetonide 430 Gm Oint...g., 1 APPLIC TP BID, (Reported) APPLY UNDER CHIN Trimethoprim 100 Mg Tablet, 100 MG PO HS, (Reported) Ubidecarenone 100 Mg Capsule, 100 MG PO DAILY, (Reported) Patient Home Medication List Home Medication List Reviewed: Yes Physical Exam-Cardiology Physical Exam Vital Signs/I&O 01/14/20 01/14/20 01/14/20 01/14/20 00:57 01:37 04:00 04:00 Temp 36.6 Pulse 54 Resp 15 B/P (MAP) 173/82 Pulse Ox 99 99 99 97 O2 Delivery Nasal Cannula Nasal Cannula Nasal Cannula Nasal Cannula O2 Flow Rate 2.00 2.00 2.00 2.00 01/14/20 01/14/20 01/14/20 01/14/20 06:34 08:00 08:00 08:00 Temp 36.4 Pulse 65 67 Resp 20 B/P (MAP) 170/74 Pulse Ox 96 96 O2 Delivery Room Air Room Air Room Air Capillary Refill : Less Than 3 Seconds Constitutional: AAO x 3, well-developed, well-nourished HEENT: EOMI, hearing is well preserved; No xanthelasmas are seen Neck: carotid pulses are 2 + bilaterally, with good upstrokes Respiratory: No accessory muscle use; other (good bilat air entry) Cardiovascular: regular rate-rhythm, systolic murmur (soft KIRA at card base) Gastrointestinal: No tender; soft; No guarding, No rebound; audible bowel sounds Extremities: No clubbing, No cyanosis, No significant edema Neurologic/Psychiatric: oriented x 3, other (moves all limbs equally) Skin: No rash, No ulcerations Data Review Labs Laboratory Tests 01/13/20 20:50: White Blood Count 6.2, Red Blood Count 4.01, Hemoglobin 12.2, Hematocrit 37, [place] n Corpuscular Volume 92, Mean Corpuscular Hemoglobin 30, Mean Corpuscular Hemoglobin Concent 33, Red Cell Distribution Width 16.0H, Platelet Count 189, Mean Platelet Volume 12.0, Immature Granulocyte % (Auto) 0, Neutrophils (%) (Auto) 52, Lymphocytes (%) (Auto) 33, Monocytes (%) (Auto) 12, Eosinophils (%) (Auto) 3, Basophils (%) (Auto) 1, Neutrophils # (Auto) 3.2, Lymphocytes # (Auto) 2.1, Monocytes # (Auto) 0.7, Eosinophils # (Auto) 0.2, Basophils # (Auto) 0.0, Immature Granulocyte # (Auto) 0.0, Prothrombin Time 13.2, INR Comment 1.0, Activated Partial Thromboplast Time 43H, Sodium Level 141, Potassium Level 4.7, Chloride Level 105, Carbon Dioxide Level 23, Anion Gap 13, Blood Urea Nitrogen 19H, Creatinine 1.05, Estimat Glomerular Filtration Rate 51, BUN/Creatinine Ratio 18, Glucose Level 196H, Calcium Level 8.4L, Corrected Calcium 8.6, Magnesium Level 1.7, Total Bilirubin 0.3, Aspartate Amino Transf (AST/SGOT) 67H, Alanine Aminotransferase (ALT/SGPT) 74H, Alkaline Phosphatase 64, Myoglobin 38.4, Troponin I < 0.028, B-Type Natriuretic Peptide 100.3H, Total Protein 7.2, Albumin 3.8 01/14/20 00:30: 01/14/20 05:25: White Blood Count 5.4, Red Blood Count 3.78L, Hemoglobin 11.4L, Hematocrit 35, Mean Corpuscular Volume 93, Mean Corpuscular Hemoglobin 30, Mean Corpuscular Hemoglobin Concent 32, Red Cell Distribution Width 15.9H, Platelet Count 147, Mean Platelet Volume 12.2, Immature Granulocyte % (Auto) 0, Neutrophils (%) (Auto) 48, Lymphocytes (%) (Auto) 36, Monocytes (%) (Auto) 11, Eosinophils (%) (Auto) 3, Basophils (%) (Auto) 1, Neutrophils # (Auto) 2.6, Lymphocytes # (Auto) 2.0, Monocytes # (Auto) 0.6, Eosinophils # (Auto) 0.2, Basophils # (Auto) 0.0, Immature Granulocyte # (Auto) 0.0, Sodium Level 138, Potassium Level 4.6, Chloride Level 103, Carbon Dioxide Level 24, Anion Gap 11, Blood Urea Nitrogen 19H, Creatinine 0.93, Estimat Glomerular Filtration Rate 58, BUN/Creatinine Ratio 20, Glucose Level 177H, Calcium Level 8.2L, Corrected Calcium 8.4L, Total Bilirubin 0.3, Aspartate Amino Transf (AST/SGOT) 50H, Alanine Aminotransferase (ALT/SGPT) 65H, Alkaline Phosphatase 54, Troponin I < 0.028, Total Protein 6.4, Albumin 3.7, Triglycerides Level 167H, Cholesterol Level 242H, LDL Cholesterol Direct 184H, VLDL Cholesterol 33, HDL Cholesterol 43 01/14/20 08:20: 01/14/20 09:15: Troponin I < 0.028 01/14/20 11:15: Glucometer 165H Laboratory Tests 01/13/20 20:50 01/14/20 05:25 A/P-Cardiology Assessment/Admission Diagnosis Chest discomfort w/o any evidence of ACS, likely noncardiac, etiology unestablished CAD, by history. States has had heart cath and stress tests done with Dr Anderson, but has had not intervention. MPI of 03/25/18 showed no ischemia or infarction and LVEF 71%. MPI of Oct [address] Quintana showed no evidence of ischemia or infarction Echo of 03/27/18: LVEF 60-65%, mild conc LVH, mild to mod LA enlargement, PASP 30-35 mmHg. Echo of Nov 11, [address] Quintana showed LVEF 55-65%. Mild to mod MR. PASP 40-45 mmHg DM II Hypertension, uncontrolled Hyperlipidemia, treated with rosuvastatin ? h/o PAF. 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, Dr Anderson Mild to mod carotid art dz and considerable R vertebral stenosis on u/s of Mar 2018 Reports intolerance to beta-shannon (excessive tiredness and sleepiness) Obesity with obesity-hypovent and nocturnal hypoxemia that is treated with supple O2 and followed by Dr Dougherty Quit smoking 2000 Chronic abnormal ECG: QS pattern in III and aVF, no changes during this admission Discussion and Recomendations * Add amlodipine and Imdur for better bp control * Continue previous regimen * Ok to d/c from cardiac standpoint * F/u with Dr Quintana in 1-2 weeks * I had a long and detailed discussion with her regarding her CV issues and finding during this hospitalization. I answered her questions in detail Clinical Quality Measures DVT/VTE Risk/Contraindication: Risk Factor Score Per Nursin RFS Level Per Nursing on Admit: 4+=Very High BENITO SCHROEDER MD FACP FAC CCDS Jan 14, 2020 12:43
[2020-01-14] MEDS ORDERED: LOSARTAN 50 MG (COZAAR) TAB PO NR (21:00)
[2020-01-15] MEDS: CATHETER FLUSH 10 ML SYR IV SCH (06:11)
--- NOTE | 2020-01-15 08:14 | Progress Note ---
Subjective Subjective Date Seen by Provider: Jan 15, 2020 Time Seen by Provider: 07:30 Pt states she feels much better and wants to go home. Denies any pain. Able to eat, drink, and use restroom without difficulty. COVID PCR negative yesterday, pt taken out of isolation. CXR yesterday showed stable cardiomegaly. Review of Systems General: No Chills, No Appetite HEENT: No Head Aches, No Dysphasia Pulmonary: No Cough, No Pleuritic Chest Pain Cardiovascular: No: Chest Pain, Edema Gastrointestinal: No: Nausea, Vomiting, Abdominal Pain Genitourinary: No Dysuria, No Frequency Musculoskeletal: No: neck pain, shoulder pain Neurological: No: Change in speech, Confusion All Other Systems Reviewed All Other Systems Reviewed: Yes Objective Exam Vital Signs Vital Signs - First Documented 01/13/20 01/13/20 20:51 22:55 Temp 36.8 Pulse 63 Resp 18 B/P (MAP) 207/82 (123) Pulse Ox 95 O2 Delivery Room Air O2 Flow Rate 2.00 Capillary Refill : Less Than 3 Seconds General Appearance: No Apparent Distress, WD/WN, Obese Eyes: Bilateral Eye Normal Inspection, Bilateral Eye EOMI HEENT: PERRL/EOMI, Normal ENT Inspection, Pharynx Normal Neck: Normal Inspection, Supple Respiratory: No Accessory Muscle Use, No Respiratory Distress, Other (slight end expiratory wheeze; mild crackles in left lung base) Cardiovascular: Normal Peripheral Pulses, Bradycardia Gastrointestinal: Normal Bowel Sounds, Non Tender, Soft Rectal: Deferred Back: Normal Inspection Extremity: Normal Capillary Refill, Normal Inspection, No Pedal Edema, Other (bilateral calf tenderness) Neurologic/Psychiatric: Alert, Oriented x3, No Motor/Sensory Deficits, Normal Mood/Affect Skin: Normal Color, Warm/Dry (family was her oxygen saturation on room air) Results Lab Laboratory Tests 01/14/20 08:20: Coronavirus (COVID-19)(PCR) Negative 01/14/20 09:15: Troponin I < 0.028 01/14/20 11:15: Glucometer 165H 01/14/20 15:33: Glucometer 178H 01/14/20 19:10: Glucometer 197H 01/15/20 06:20: Glucometer 141H Assessment/Plan Assessment/Plan Assessment and Plan anxiety hypertension hyperlipidemia T2DM CAD obesity hypertension -Dr. Good added Amlodipine and decreased Metoprolol from 100 mg to 50 mg hyperlipidemia -Rosuvastatin T2DM -insulin -monitor blood sugars CAD -stable for discharge from cardiology standpoint -follow up with Dr. Quintana obesity anxiety Clinical Quality Measures DVT/VTE Risk/Contraindication: Risk Factor Score Per Nursin RFS Level Per Nursing on Admit: 4+=Very High RISHABH EDUARDO MED STUDENT Jan 15, 2020 08:14
[2020-01-15] MEDS: inSUlin ASPART (NovoLOG) 1 UNIT/0.01 ML (CHARGE PER UNIT) SC SCH (08:48)
--- NOTE | 2020-01-15 08:48 | Progress Note - Cardiology ---
Cardiology SOAP Progress Note Objective: I&O/Vital Signs 01/14/20 01/14/20 01/15/20 01/15/20 23:31 23:32 01:00 03:21 Temp 36.2 36.2 Pulse 48 53 52 Resp 16 18 B/P (MAP) 149/56 153/69 Pulse Ox 92 92 O2 Delivery Room Air Room Air Room Air 01/15/20 01/15/20 03:22 07:00 Pulse 50 O2 Delivery Room Air 01/15/20 00:00 Intake Total 1075 ml Balance 1075 ml Weight (Pounds): 213 Weight (Ounces): 0.0 Weight (Calculated Kilograms): 96.404862 Constitutional: AAO x 3, well-developed, well-nourished Respiratory: No accessory muscle use; other (good bilat air entry) Cardiovascular: regular rate-rhythm, systolic murmur (soft KIRA at card base) Gastrointestional: No tender; soft; No guarding, No rebound; audible bowel sounds Extremities: No clubbing, No cyanosis, No significant edema Neurologic/Psychiatric: oriented x 3, other (moves all limbs equally) Skin: No rash, No ulcerations Results/Procedures: Labs Laboratory Tests 01/14/20 09:15: Troponin I < 0.028 01/14/20 11:15: Glucometer 165H 01/14/20 15:33: Glucometer 178H 01/14/20 19:10: Glucometer 197H 01/15/20 06:20: Glucometer 141H A/P: Assessment: Chest discomfort w/o any evidence of ACS, likely noncardiac, etiology unestablished CAD, by history. States has had heart cath and stress tests done with Dr Anderson, but has had not intervention. MPI of 03/25/18 showed no ischemia or infarction and LVEF 71%. MPI of Oct [address] Quintana showed no evidence of ischemia or infarction Echo of 03/27/18: LVEF 60-65%, mild conc LVH, mild to mod LA enlargement, PASP 30-35 mmHg. Echo of Nov 11, [address] Quintana showed LVEF 55-65%. Mild to mod MR. PASP 40-45 mmHg DM II Hypertension - improved Hyperlipidemia, treated with rosuvastatin ? h/o PAF. 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, Dr Anderson Mild to mod carotid art dz and considerable R vertebral stenosis on u/s of Mar 2018 Reports intolerance to beta-shannon (excessive tiredness and sleepiness) Obesity with obesity-hypovent and nocturnal hypoxemia that is treated with supple O2 and followed by Dr Dougherty Quit smoking 2000 Chronic abnormal ECG: QS pattern in III and aVF, no changes during this admission Plan: * Continue amlodipine and Imdur * Continue previous regimen * Ok to d/c from cardiac standpoint * F/u with Dr Quintana in 1-2 weeks * HR - SB in the 40's, albeit asymptomatic, will reduce Metoprolol tartrate to 50mg BID * COVID (-) JANEEN GIL Jan 15, 2020 08:48
[2020-01-15] MEDS ORDERED: AMLO-250 PO (08:51)
[2020-01-15] MEDS ORDERED: ISM60TCR PO (08:51)
[2020-01-15] MEDS ORDERED: LOSA50TA63 PO (08:51)
[2020-01-15] MEDS ORDERED: METO100T12 PO (08:51)
[2020-01-15] MEDS ORDERED: amLODIPine 5 MG (NORVASC) TAB PO SCH (09:00)
[2020-01-15] MEDS ORDERED: ISOSORBIDE MONONITRATE 60 MG (IMDUR) TAB PO SCH (09:00)
[2020-01-15] MEDS ORDERED: METO50TA15 PO (09:09)
--- NOTE | 2020-01-15 09:27 | D/C HH Face to Face Order ---
D/C Face to Face Orders Reconcile Patient Problems Problems Reviewed?: Yes Instructions for Patient [facility], Patient Instructions/FollowUp: [facility] to follow [facility] Diet for Home: ADA Diet Patient Problems: dm htn obesity bipolar Goals for Patient: improved bp and improved strength Patient Data-Allergies,Ht & Wt Patient Allergies: Coded Allergies: codeine (Unverified Allergy, Unknown, 05/19/13) Height (Feet): 5 Height (Inches): 6.00 Weight (Pounds): 213 Weight (Ounces): 0.0 Home Health Need/Face to Face Date of Face to Face: Jan 15, 2020 Clinical Findings: Generalized weakness and fatigue, Muscle weakness, Shortness of breath I have seen Pt nelu-hu-etuc: Yes Discharged To: Other (yancy díazrashi) Diagnosis/Conditions: dm htn obesity bipolar Patient is Homebound due to: CognItive deficits, Muscle weakness Homebound Status Due to the above stated illness, injury or surgical procedure (medical condition or diagnosis) and associated clinical findings, the patient is homebound because of his/her inability to leave home except with aid of a supportive device and/or person AND leaving the home requires a considerable and taxing effort or is medically contraindicated. Pt req the following assistanc: Cane (or walker with ambulation for longer distances) Home Health Nursing Orders Home Health Services Order: Nursing Services, Physical Therapy-Evaluate & Treat please have staff at facility check blood pressure and heart rate three times daily - fax the report to the office on Saturday of next week for physician review Therapy Orders Therapy Orders: Physical Therapy, PT to assess for OT Therapy Specific Orders: Increase strength/endurance Certify Stmt I certify that this patient is under my care and that I, a nurse practitioner or a physician; a household assistant working with me, had a face to face encounter that - meets the physician face to face encounter requirements with this patient as dated. FILIPE PURCELL MD Jan 15, 2020 09:26
[2020-01-15] MEDS: PREGABALIN 100 MG (LYRICA) CAPSULE PO SCH (10:10)
[2020-01-15] MEDS: LOSARTAN 50 MG (COZAAR) TAB PO SCH (10:10)
[2020-01-15] MEDS: OLANZapine 5 MG (ZyPREXA) TAB PO SCH (10:10)
[2020-01-15] MEDS: APIXABAN 5 MG (ELIQUIS) TABLET PO SCH (10:11)
[2020-01-15] MEDS: ASPIRIN E.C. 81 MG (ECOTRIN) TAB PO SCH (10:11)
[2020-01-15] MEDS: DICLOFENAC 1% GEL 100 GM (VOLTAREN) TUBE TOP SCH (10:12)
--- NOTE | 2020-01-15 10:23 | NUR ---
DISCHARGE PLANNING: Patient to discharge with return to [facility]. She was ordered [facility] and I spoke to her about this..she is refusing home health at this time, saying that she walks to the dinner table with her walker and that is enough walking. I have called [facility] and they will pick her up whenever we call and say we are headed down. Spoke to RN and she understands.
--- NOTE | 2020-01-15 11:11 | Progress Note - Cardiology ---
Cardiology SOAP Progress Note Subjective: Feels well today Some gen malaise No cp or shortness of breath at rest or palp or syncope No n/v/d Objective: I&O/Vital Signs 01/14/20 01/14/20 01/15/20 01/15/20 23:31 23:32 01:00 03:21 Temp 36.2 36.2 Pulse 48 53 52 Resp 16 18 B/P (MAP) 149/56 153/69 Pulse Ox 92 92 O2 Delivery Room Air Room Air Room Air 01/15/20 01/15/20 01/15/20 01/15/20 03:22 07:00 08:00 09:00 Pulse 50 Pulse Ox 96 O2 Delivery Room Air Room Air Room Air 01/15/20 09:00 Temp 35.9 Pulse 49 Resp 18 B/P (MAP) 143/84 Pulse Ox 92 O2 Delivery Room Air 01/15/20 00:00 Intake Total 1075 ml Balance 1075 ml Weight (Pounds): 213 Weight (Ounces): 0.0 Weight (Calculated Kilograms): 96.180681 Constitutional: AAO x 3, well-developed, well-nourished Respiratory: No accessory muscle use; other (good bilat air entry) Cardiovascular: regular rate-rhythm, systolic murmur (soft KIRA at card base) Gastrointestional: No tender; soft; No guarding, No rebound; audible bowel sounds Extremities: No clubbing, No cyanosis, No significant edema Neurologic/Psychiatric: oriented x 3, other (moves all limbs equally) Skin: No rash, No ulcerations Results/Procedures: Labs Laboratory Tests 01/14/20 11:15: Glucometer 165H 01/14/20 15:33: Glucometer 178H 01/14/20 19:10: Glucometer 197H 01/15/20 06:20: Glucometer 141H 01/15/20 11:02: Glucometer 146H A/P: Assessment: Chest discomfort w/o any evidence of ACS, likely noncardiac, etiology unestablished CAD, by history. States has had heart cath and stress tests done with Dr Anderson, but has had not intervention. MPI of 03/25/18 showed no ischemia or infarction and LVEF 71%. MPI of Oct [address] Quintana showed no evidence of ischemia or infarction Echo of 03/27/18: LVEF 60-65%, mild conc LVH, mild to mod LA enlargement, PASP 30-35 mmHg. Echo of Nov 11, [address] Quintana showed LVEF 55-65%. Mild to mod MR. PASP 40-45 mmHg DM II Hypertension - improved Hyperlipidemia, treated with rosuvastatin ? h/o PAF. 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 Mild to mod carotid art dz and considerable R vertebral stenosis on u/s of Mar 2018 Reports intolerance to beta-shannon (excessive tiredness and sleepiness) Obesity with obesity-hypovent and nocturnal hypoxemia that is treated with supple O2 and followed by Dr Dougherty Quit smoking 2000 Chronic abnormal ECG: QS pattern in III and aVF, no changes during this admission Plan: * Continue amlodipine and Imdur * Continue previous regimen * Ok to d/c from cardiac standpoint * F/u with Dr Quintana in 1-2 weeks * HR - SB in the 40's, albeit asymptomatic, will reduce Metoprolol tartrate to 50mg BID * No cardiology coverage at this hospital over this weekend. All care is with the primary attending BENITO SCHROEDER MD FACP FAC CCDS Jan 15, 2020 11:11
[2020-01-15 11:16] VITALS: BP 143/84
[2020-01-15] MEDS ORDERED: meTOprolol TARTRATE 50 MG (LOPRESSOR) TAB PO SCH (21:00)
--- NOTE | 2020-01-20 12:21 | Physician Query-Final Dx ---
Final Diagnosis Give Final Diagnosis Please give Final Diagnosis JOSEPH WHITEHEAD Jan 20, 2020 12:21
== END 2020-01-15 11:19 | disposition designated cancer center or children's hospital (05) ==
LOC: ER 20:51 → CSD 22:00
PROVIDERS: ADMIT Family Medicine; ATTEND Family Medicine
DX: I24.9 Acute ischemic heart disease, unspecified (principal); F41.9 Anxiety disorder, unspecified; I10 Essential (primary) hypertension; E78.00 Pure hypercholesterolemia, unspecified; J44.9 Chronic obstructive pulmonary disease, unspecified; E11.40 Type 2 diabetes mellitus with diabetic neuropathy, unspecified; K21.9 Gastro-esophageal reflux disease without esophagitis; N39.0 Urinary tract infection, site not specified; F32.9 Major depressive disorder, single episode, unspecified; I36.1 Nonrheumatic tricuspid (valve) insufficiency; G20 Parkinson's disease; Z79.01 Long term (current) use of anticoagulants; Z79.51 Long term (current) use of inhaled steroids; Z79.82 Long term (current) use of aspirin; Z79.899 Other long term (current) drug therapy; Z88.5 Allergy status to narcotic agent; Z87.891 Personal history of nicotine dependence; Z90.710 Acquired absence of both cervix and uterus; Z80.0 Family history of malignant neoplasm of digestive organs
CPT/HCPCS: 71045 ×2; 80053 ×2; 80061; 82962 ×2; 83036; 83735; 83874; 83880; 84484 ×2; 85025 ×2; 85610; 85730; 93005 ×2; 93041; 93306; 99284; G0378; U0002; 36415; 87635

== ENCOUNTER 2020-08-26 17:59 | Emergency (ER) | payer MEDICARE ==
[~2020-08-26] VITALS: Ht 167.7 cm; Wt 105.2 kg
[~2020-08-26 17:59] MED LIST changes: +ALB0.5V INH; +ALBU18HF2 INH; +ALLO100T PO; +AMLO-250 PO; +APIX5TAB PO; +ASCO500T17 PO; +ASPI-1238 PO; +DOXY-311 PO; -DOXY100C42 PO; +FERR325T24 PO; +HYDR-3922 PO; +INSU100I10 SQ; +INSU100I14 SQ; +ISOS60TA63 PO; +KETO15CR2 TP; +LATA2.5D19 OU; -LISI-552 PO; +LISI10TA25 PO; +LISI20TA26 PO; +LISI40TA9 PO; +LOSA50TA63 PO; -MECL-173 PO; +MECL-215 PO; +METO100T12 PO; +METO50TA15 PO; +MULT-1029 PO; +OLAN5TAB25 PO; +OMEG-8 PO; +OXYB5TAB13 PO; +PANT40TA52 PO; +POLY17PO6 PO; +PREG200C28 PO; +ROPI0.5T4 PO; +TRAM1TAB7 PO; +TRIA430O2 TP; +TRIM100T PO; +TRZ50T PO
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
--- NOTE | 2020-08-26 19:22 | Diagnostic Imaging Report ---
PROCEDURE: CT head and CT cervical spine without contrast. TECHNIQUE: Multiple contiguous axial images were obtained through the brain and cervical spine without the use of intravenous contrast. Sagittal and coronal reformations through the cervical spine were then performed. Auto Exposure Controls were utilized during the CT exam to meet ALARA standards for radiation dose reduction. INDICATION: Head and neck injury. COMPARISON: None. FINDINGS: CT head: The ventricles are normal in size, shape and position. There is no midline shift or mass effect. There is no hemorrhage or evidence for acute ischemia. No extra-axial fluid collection or mass is seen. There is no skull fracture. Paranasal sinuses and mastoids are clear. IMPRESSION: No acute intracranial abnormality. CT cervical spine: Advanced degenerative changes seen throughout the disc spaces and facet joints. There is no traumatic malalignment or fracture. No osseous lesion is seen. Carotid artery calcifications are noted. IMPRESSION: No traumatic malalignment or fracture. Dictated by: Dictated on workstation # [id number]
--- NOTE | 2020-08-26 19:30 | Diagnostic Imaging Report ---
INDICATION: Hip pain. COMPARISON: 06/27/2015. TECHNIQUE: Two radiographs of the right hip dated August 26, 2020. FINDINGS: No acute fracture or dislocation. No destructive osseous process. Moderate degenerative changes in the right hip with moderate joint space narrowing. The right femoral head maintains normal shape and contour. The right sacroiliac joint is intact. IMPRESSION: No acute osseous abnormality with moderate degenerative changes present. Dictated by: Dictated on workstation # [id number]
--- NOTE | 2020-08-26 19:34 | Diagnostic Imaging Report ---
INDICATION: Right shoulder pain. COMPARISON: None. EXAMINATION: Three views of the right shoulder were obtained. FINDINGS: No fracture or dislocation. Minimal degenerative changes are present. There is no osseous lesion. IMPRESSION: Degenerative joint disease without fracture. Dictated by: Dictated on workstation # [id number]
--- NOTE | 2020-08-26 19:35 | Diagnostic Imaging Report ---
INDICATION: Right-sided rib pain. COMPARISON: 01/14/2020. TECHNIQUE: Three radiographs of the right-sided ribs dated August 26, 2020. FINDINGS: Mild degenerative changes of the acromioclavicular joint. No displaced or healing rib fracture. No large volume pleural effusion or pneumothorax. IMPRESSION: 1. No displaced or healing rib fracture. 2. No large-volume pleural effusion or pneumothorax. Dictated by: Dictated on workstation # [id number]
--- NOTE | 2020-08-26 19:36 | Diagnostic Imaging Report ---
INDICATION: Left shoulder pain. COMPARISON: None. EXAMINATION: Three views of left shoulder were obtained. FINDINGS: Minimal degenerative changes. There is no fracture or dislocation. No osseous lesion. IMPRESSION: Degenerative joint disease. Dictated by: Dictated on workstation # [id number]
[2020-08-26 20:31] VITALS: BP 139/86
== END 2020-08-26 20:28 | disposition home or self-care (01) ==
LOC: EDUNIT# 17:59 → ER 18:01
DX: M25.511 Pain in right shoulder (principal); M25.551 Pain in right hip; J44.9 Chronic obstructive pulmonary disease, unspecified; I10 Essential (primary) hypertension; G20 Parkinson's disease; M10.9 Gout, unspecified; F41.9 Anxiety disorder, unspecified; F31.9 Bipolar disorder, unspecified; K21.9 Gastro-esophageal reflux disease without esophagitis; E11.9 Type 2 diabetes mellitus without complications; Z88.5 Allergy status to narcotic agent; Z87.891 Personal history of nicotine dependence; Z79.01 Long term (current) use of anticoagulants; Z79.82 Long term (current) use of aspirin; Z79.899 Other long term (current) drug therapy
CPT/HCPCS: 70450; 71100; 72125; 73030; 73502; 82947

== ENCOUNTER 2020-09-11 08:24 | Emergency (ER) | payer MEDICARE ==
[~2020-09-11] VITALS: Ht 167 cm; Wt 104.0 kg
[~2020-09-11 08:24] MED LIST changes: -OLAN5TAB25 PO; +OLAN7.5T18 PO; -OLAN7.5T9 PO
[2020-09-11 08:58] LABS: BASOPHILS % (AUTO) 1 % (0-10); EOSINOPHILS # (AUTO) 0.2 10^3/uL (0.0-0.3); EOSINOPHILS % (AUTO) 3 % (0-10); HEMATOCRIT 35 % (35-52); HEMOGLOBIN 11.7 g/dL (11.5-16.0); LYMPHOCYTES % (AUTO) 35 % (12-44); MEAN CORPUSCULAR HEMOGLOBIN 32 pg (25-34); MEAN CORPUSCULAR HGB CONC 33 g/dL (32-36); MEAN CORPUSCULAR VOLUME 96 fL (80-99); MONOCYTES # (AUTO) 0.5 10^3/uL (0.0-1.0); MONOCYTES % (AUTO) 9 % (0-12); NEUTROPHILS # (AUTO) 2.9 10^3/uL (1.8-7.8); NEUTROPHILS % (AUTO) 52 % (42-75); PLATELET COUNT 193 10^3/uL (130-400); WHITE BLOOD COUNT 5.6 10^3/uL (4.3-11.0)
[2020-09-11 09:07] LABS: ALBUMIN 4.1 GM/DL (3.2-4.5); POTASSIUM 5.8 MMOL/L (3.6-5.0)
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
[2020-09-11 09:08] LABS: CALCIUM 9.6 MG/DL (8.5-10.1)
[2020-09-11 09:09] LABS: TOTAL PROTEIN 7.3 GM/DL (6.4-8.2)
[2020-09-11 09:11] LABS: BILIRUBIN,TOTAL 0.5 MG/DL (0.1-1.0)
[2020-09-11 09:13] LABS: CREATININE SERUM 1.14 MG/DL (0.60-1.30)
[2020-09-11 09:25] LABS: INR 1.2 (0.8-1.4)
[2020-09-11] MEDS ORDERED: NS IV 500 ML 500 ML IV SCH (11:45)
[2020-09-11 13:00] VITALS: BP 121/52
--- NOTE | 2020-09-11 15:29 | Diagnostic Imaging Report ---
EXAMINATION: Chest 1 view. HISTORY: Chest pain. COMPARISON: 01/14/2020. FINDINGS: The lungs are clear without edema or pneumonia. No pleural effusion or pneumothorax. Heart size is normal. IMPRESSION: Clear lungs. Dictated by: Dictated on workstation # [id number]
== END 2020-09-11 13:00 | disposition home or self-care (01) ==
LOC: EDUNIT# 08:24 → ER 08:26
DX: R07.9 Chest pain, unspecified (principal); J44.9 Chronic obstructive pulmonary disease, unspecified; I10 Essential (primary) hypertension; G20 Parkinson's disease; K21.9 Gastro-esophageal reflux disease without esophagitis; M10.9 Gout, unspecified; F31.9 Bipolar disorder, unspecified; F41.9 Anxiety disorder, unspecified; E11.9 Type 2 diabetes mellitus without complications; Z95.9 Presence of cardiac and vascular implant and graft, unspecified; Z87.891 Personal history of nicotine dependence; Z79.899 Other long term (current) drug therapy; Z79.01 Long term (current) use of anticoagulants; Z79.82 Long term (current) use of aspirin
CPT/HCPCS: 36415; 71045; 80053; 83735; 83874; 84484; 85007; 85025; 85027; 85610; 85730; 93005; 93041; 96360

== ENCOUNTER 2021-01-15 17:42 | Emergency (ER) | payer MEDICARE ==
[~2021-01-15] VITALS: Ht 162 cm; Wt 136.0 kg
[~2021-01-15 17:42] MED LIST changes: -FLUO20CA46 PO; +FLUO20CA48 PO; +POTA-169 PO; -POTA20TA8 PO
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
[2021-01-15 18:04] LABS: BASOPHILS % (AUTO) 1 % (0-10); EOSINOPHILS # (AUTO) 0.2 10^3/uL (0.0-0.3); EOSINOPHILS % (AUTO) 3 % (0-10); HEMATOCRIT 33 % (35-52); HEMOGLOBIN 10.8 g/dL (11.5-16.0); LYMPHOCYTES % (AUTO) 36 % (12-44); MEAN CORPUSCULAR HEMOGLOBIN 32 pg (25-34); MEAN CORPUSCULAR HGB CONC 32 g/dL (32-36); MEAN CORPUSCULAR VOLUME 99 fL (80-99); MEAN PLATELET VOLUME 12.3 fL (9.0-12.2); MONOCYTES # (AUTO) 0.6 10^3/uL (0.0-1.0); MONOCYTES % (AUTO) 10 % (0-12); NEUTROPHILS # (AUTO) 2.8 10^3/uL (1.8-7.8); NEUTROPHILS % (AUTO) 50 % (42-75); PLATELET COUNT 159 10^3/uL (130-400); WHITE BLOOD COUNT 5.6 10^3/uL (4.3-11.0)
[2021-01-15 18:07] LABS: ALBUMIN 3.9 GM/DL (3.2-4.5)
[2021-01-15 18:08] LABS: CALCIUM 8.8 MG/DL (8.5-10.1)
[2021-01-15 18:11] LABS: BILIRUBIN,TOTAL 0.3 MG/DL (0.1-1.0)
[2021-01-15 18:13] LABS: CREATININE SERUM 1.07 MG/DL (0.60-1.30)
--- NOTE | 2021-01-15 18:28 | Diagnostic Imaging Report ---
EXAMINATION: CT head without contrast. TECHNIQUE: Multiple contiguous axial images were obtained through the brain without the use of intravenous contrast. All CT scans use one or more of the following dose optimizing techniques: automated exposure control, MA and/or KvP adjustment based on patient size and exam type or iterative reconstruction. HISTORY: Confusion. Altered mental status. COMPARISON: 08/26/2020. FINDINGS: No large acute territorial ischemia, mass or hemorrhage. No midline shift or mass effect. The ventricles, cortical sulci and basilar cisterns are patent and unremarkable. The orbits are normal. Paranasal sinuses are normal. Mastoid air cells are clear. No soft tissue abnormality is seen. No osseus lesions or fractures are seen. IMPRESSION: No large acute territorial ischemia, mass or hemorrhage. Dictated by: Dictated on workstation # [id number]
--- NOTE | 2021-01-15 18:36 | Diagnostic Imaging Report ---
EXAMINATION: Chest 1 view. HISTORY: Cough. Confusion. COMPARISON: 09/11/2020. FINDINGS: There is cardiomegaly with mildly prominent interstitial markings throughout the lungs. No focal consolidation or mass. No pleural effusion or pneumothorax. There is calcified aortic atherosclerotic plaque. No acute osseous abnormalities. IMPRESSION: Cardiomegaly with suggestion of interstitial edema. Dictated by: Dictated on workstation # [id number]
[2021-01-15 19:39] LABS: BILIRUBIN,URINE NEGATIVE (NEGATIVE); CLARITY,URINE CLEAR; COLOR,URINE YELLOW; GLUCOSE, URINE (UA) NEGATIVE (NEGATIVE); KETONES,URINE NEGATIVE (NEGATIVE); LEUKOCYTE ESTERASE ,URINE NEGATIVE (NEGATIVE); NITRITE,URINE NEGATIVE (NEGATIVE); PROTEIN,URINE TRACE (NEGATIVE)
[2021-01-15 19:46] LABS: BACTERIA,URINE NEGATIVE /HPF; SQUAMOUS EPITHELIAL CELL,UR 0-2 /HPF
[2021-01-15 19:51] LABS: AMPHETAMINE SCREEN, URINE NEGATIVE (NEGATIVE); BARBITURATE SCREEN URINE NEGATIVE (NEGATIVE); BENZODIAZEPINES SCREEN URINE NEGATIVE (NEGATIVE); CANNABINOID SCREEN, URINE NEGATIVE (NEGATIVE); COCAINE SCREEN URINE NEGATIVE (NEGATIVE); METHADONE STAT NEGATIVE (NEGATIVE); METHAMPHETAMINE SCREEN URINE S NEGATIVE (NEGATIVE); OPIATE SCREEN URINE NEGATIVE (NEGATIVE); OXYCODONE STAT NEGATIVE (NEGATIVE); PROPOXYPHENE STAT NEGATIVE (NEGATIVE); TRICYCLIC ANTIDEPRESSANTS SCRE NEGATIVE (NEGATIVE)
[2021-01-15 20:26] VITALS: BP 190/75
== END 2021-01-15 20:27 | disposition home or self-care (01) ==
LOC: EDUNIT# 17:42 → ER 17:43
DX: E11.65 Type 2 diabetes mellitus with hyperglycemia (principal); D72.829 Elevated white blood cell count, unspecified; E11.40 Type 2 diabetes mellitus with diabetic neuropathy, unspecified; I11.0 Hypertensive heart disease with heart failure; I50.9 Heart failure, unspecified; G20 Parkinson's disease; F41.9 Anxiety disorder, unspecified; F31.9 Bipolar disorder, unspecified; I25.10 Atherosclerotic heart disease of native coronary artery without angina pectoris; K21.9 Gastro-esophageal reflux disease without esophagitis; J44.9 Chronic obstructive pulmonary disease, unspecified; G40.909 Epilepsy, unspecified, not intractable, without status epilepticus; G89.29 Other chronic pain; M54.9 Dorsalgia, unspecified; M10.9 Gout, unspecified; Z99.81 Dependence on supplemental oxygen; Z79.82 Long term (current) use of aspirin; Z79.4 Long term (current) use of insulin; Z79.891 Long term (current) use of opiate analgesic; Z79.899 Other long term (current) drug therapy
CPT/HCPCS: 36415; 70450; 71045; 80053; 80306; 81000; 82947; 85025; 93005

== ENCOUNTER 2021-02-14 18:08 | Emergency (ER) | payer MEDICARE ==
[~2021-02-14] VITALS: Ht 165 cm; Wt 107.0 kg
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
[2021-02-14] MEDS ORDERED: ASPIRIN 81 MG CHEW (CHILDREN'S ASA) PO ONE (18:30)
[2021-02-14 18:51] LABS: BASOPHILS % (AUTO) 1 % (0-10); EOSINOPHILS # (AUTO) 0.2 10^3/uL (0.0-0.3); EOSINOPHILS % (AUTO) 3 % (0-10); HEMATOCRIT 35 % (35-52); HEMOGLOBIN 10.3 g/dL (11.5-16.0); LYMPHOCYTES # (AUTO) 2.3 10^3/uL (1.0-4.0); LYMPHOCYTES % (AUTO) 40 % (12-44); MEAN CORPUSCULAR HEMOGLOBIN 33 pg (25-34); MEAN CORPUSCULAR HGB CONC 30 g/dL (32-36); MEAN CORPUSCULAR VOLUME 111 fL (80-99); MEAN PLATELET VOLUME 12.4 fL (9.0-12.2); MONOCYTES # (AUTO) 0.6 10^3/uL (0.0-1.0); MONOCYTES % (AUTO) 10 % (0-12); NEUTROPHILS # (AUTO) 2.6 10^3/uL (1.8-7.8); NEUTROPHILS % (AUTO) 46 % (42-75); PLATELET COUNT 166 10^3/uL (130-400); WHITE BLOOD COUNT 5.7 10^3/uL (4.3-11.0)
[2021-02-14 18:57] LABS: BILIRUBIN,URINE NEGATIVE (NEGATIVE); CLARITY,URINE CLEAR; COLOR,URINE YELLOW; GLUCOSE, URINE (UA) NEGATIVE (NEGATIVE); KETONES,URINE NEGATIVE (NEGATIVE); LEUKOCYTE ESTERASE ,URINE NEGATIVE (NEGATIVE); NITRITE,URINE NEGATIVE (NEGATIVE); PROTEIN,URINE NEGATIVE (NEGATIVE)
--- NOTE | 2021-02-14 19:30 | Diagnostic Imaging Report ---
CHEST 1 VIEW, AP/PA ONLY Indication: Left-sided chest pain Comparison: 01/15/2021 Findings: Examination is degraded by patient's large body habitus resulting in hazy opacities throughout the lower hemithoraces. Allowing for this, no consolidations have developed. No pleural effusion or pneumothorax. Stable enlargement of the cardiac silhouette. Impression: 1. Exam is limited by patient body habitus. Allowing for this, no acute abnormality is appreciated. Dictated by: Dictated on workstation # [id number]
[2021-02-14 19:38] LABS: AMORPHOUS SEDIMENT,UR RARE AMOR URATES /LPF; BACTERIA,URINE NEGATIVE /HPF
--- NOTE | 2021-02-14 19:40 | Diagnostic Imaging Report ---
CLINICAL INDICATIONS: Patient having shakings spells angle and grimaces on her face. Patient states she has had 30 or so of these episodes today. Exam: Axial CT scan of the brain without IV contrast with coronal and sagittal reformatted images. Auto Exposure Controls were utilized during the CT exam to meet ALARA standards for radiation dose reduction. Comparison: Head CT without contrast dated 01/15/2021.. Findings: There is no evidence of acute cerebral infarct, intracranial hemorrhage, or gross mass effect. The brain parenchymal volume appears appropriate for patient's age. Mild chronic small vessel ischemic disease is again seen. There is normal humphreys-white matter distinction. There is no significant midline shift or herniation. There is no evidence of hydrocephalus. The basal cisterns are unremarkable. The skull, extracranial soft tissue, and orbits are unremarkable. The paranasal sinuses are unremarkable. Temporal bones show no significant abnormality. Impression: 1: Stable CT scan of the brain with no evidence of interval acute intracranial process. 2: Stable age-related brain parenchymal changes. Dictated by: Dictated on workstation # [id number]
[2021-02-14 19:51] LABS: ALANINE AMINOTRANSFERASE 58 U/L (0-55); ALBUMIN 3.9 GM/DL (3.2-4.5); ALKALINE PHOSPHATASE 50 U/L (40-136); BILIRUBIN,TOTAL 0.5 MG/DL (0.1-1.0); BUN/CREATININE RATIO 20; CALCIUM 9.1 MG/DL (8.5-10.1); CARBON DIOXIDE 25 MMOL/L (21-32); CHLORIDE 102 MMOL/L (98-107); CREATININE SERUM 1.09 MG/DL (0.60-1.30); GFR ESTIMATED 48; GLUCOSE 153 MG/DL (70-105); POTASSIUM 5.3 MMOL/L (3.6-5.0); SODIUM 139 MMOL/L (135-145); TOTAL PROTEIN 6.8 GM/DL (6.4-8.2)
[2021-02-14 20:13] VITALS: BP 139/86
[2021-02-14] MEDS ORDERED: LORazepam 0.5 MG (ATIVAN) TABLET PO ONE (20:15)
== END 2021-02-14 20:24 | disposition home or self-care (01) ==
LOC: EDUNIT# 18:08 → ER 18:10
DX: G00-G99 Diseases of the nervous system (principal); J44.9 Chronic obstructive pulmonary disease, unspecified; I10 Essential (primary) hypertension; G20 Parkinson's disease; M10.9 Gout, unspecified; E66.9 Obesity, unspecified; F41.9 Anxiety disorder, unspecified; F31.9 Bipolar disorder, unspecified; K21.9 Gastro-esophageal reflux disease without esophagitis; E11.9 Type 2 diabetes mellitus without complications; Z68.43 Body mass index [BMI] 50.0-59.9, adult; Z87.891 Personal history of nicotine dependence; Z79.82 Long term (current) use of aspirin; Z79.01 Long term (current) use of anticoagulants; Z79.899 Other long term (current) drug therapy
CPT/HCPCS: 36415; 70450; 71045; 80053; 81000; 82947; 83735; 84484; 85025; 86141; 93005

== ENCOUNTER → 2021-05-11 | Outpatient (CLI) | payer MEDICARE ==
[~2021-05-11] MED LIST changes: +AMLO-251 PO; +FURO20TA4 PO; +POTA10TA37 PO; +ROSU10TA28 PO
--- NOTE | 2021-05-11 17:14 | Diagnostic Imaging Report ---
INDICATION: Dyspnea COMPARISON: 02/14/2021 FINDINGS: Frontal and lateral views of the chest demonstrate mild enlargement of the cardiac silhouette. Pulmonary vasculature however is within normal limits. The lungs are clear. There are no signs of infiltrate, pleural effusions or pneumothoraces. The visualized osseous structures show no acute abnormalities. IMPRESSION: 1. Mild enlargement of the cardiac silhouette, which may be exaggerated by portable technique. There is otherwise no evidence of failure or focal infiltrate. Dictated by: Dictated on workstation # [id number]
== END ==
LOC: RAD 15:45
PROVIDERS: ATTEND Internal Medicine Cardiovascular Disease
DX: I51.7 Cardiomegaly (principal)
CPT/HCPCS: 71046

== ENCOUNTER 2021-05-17 09:43 | Day surgery (SDC) | payer MEDICARE ==
[~2021-05-17] VITALS: Ht 160 cm; Wt 107.0 kg
[2021-05-17] MEDS ORDERED: LACTATED RINGERS 1,000 ML IV STA (09:44)
[2021-05-17] MEDS ORDERED: HURRICAINE EXT TUBE (BENZOCAINE) XX PRN (09:45)
[2021-05-17] MEDS ORDERED: LIDOCAINE JELLY 2% 6 ML SYRINGE MM PRN (09:45)
[2021-05-17] MEDS ORDERED: LACTATED RINGERS 1,000 ML IV ONE (09:46)
[2021-05-17 10:00] VITALS: BP 130/54
[2021-05-17] MEDS ORDERED: RT-ALBUTEROL SULF 2.5 MG/3 ML PRE-MIX VIAL ONE (10:19)
--- NOTE | 2021-05-17 10:32 | Progress Note-Pre Operative ---
Pre-Operative Progress Note H&P Reviewed The H&P was reviewed, patient examined and no changes noted. Date Seen by Provider: May 17, 2021 Time Seen by Provider: 10:30 Date H&P Reviewed: May 17, 2021 Time H&P Reviewed: 10:30 Pre-Operative Diagnosis: GERD, dysphagia KAMILLA ARAGON MD May 17, 2021 10:32
--- NOTE | 2021-05-17 10:33 | Discharge Inst-Surgical ---
D/C Lap Instructions-MAHESH Follow Up Activity as tolerated High Fiber Diet 25g or more per day Avoid Alcohol, Caffeine, Spicy [place] and Acid foods. Drink 64 fluid oz or more of fluids per day. Symptoms to Report: Fever over 101 degree F, Nausea/Vomiting If any problems/questions: Contact your physician or go to Emergency Room KAMILLA ARAGON MD May 17, 2021 10:33
[2021-05-17] MEDS ORDERED: ONDANSETRON 4 MG (ZOFRAN) ORAL DISSOLVE TAB PO PRN (10:45)
[2021-05-17] MEDS ORDERED: ONDANSETRON 4 MG/2 ML (SDV) Z0FRAN IVP PRN (10:45)
[2021-05-17] MEDS ORDERED: KETAMINE 50 MG/5 ML SYRINGE ONE (11:11)
[2021-05-17] MEDS ORDERED: MIDAZOLAM 2 MG/2 ML (VERSED) VIAL ONE (11:11)
[2021-05-17] MEDS ORDERED: proPOfol 200 MG/20 ML (DIPRIVAN) VIAL IV ONE (11:11)
[2021-05-17 12:05] VITALS: BP 149/70
[2021-05-17 12:10] VITALS: BP 163/70
[2021-05-17 12:13] VITALS: BP 163/70
--- NOTE | 2021-05-17 12:29 | Progress Note-Post Operative ---
Post-Operative Progess Note Surgeon (s)/Big 6 Dealer (s) Surgeon KAMILLA ARAGON MD Big 6 Dealer: none Pre-Operative Diagnosis GERD, dysphagia Post-Operative Diagnosis hypopharygeal thick secretions, reflux esophagitis(grade B), possible mild achalasia, small HH(1.5cm), moderate gastritis. Procedure & Operative Findings Date of Procedure 05/17/21 Procedure Performed/Findings EGD with bx and balloon dilatation. Anesthesia Type mac Estimated Blood Loss Estimated blood loss (mL): minimal Specimens/Packing Specimens Removed ge jxn, antrum KAMILLA ARAGON MD May 17, 2021 12:29
[2021-05-17 12:48] VITALS: BP 147/62
--- NOTE | 2021-05-17 13:06 | Anesthesia-General Post-Op ---
MAC Patient Condition Mental Status/LOC: Same as Preop Cardiovascular: Satisfactory Nausea/Vomiting: Absent Respiratory: Satisfactory Pain: Controlled Complications: Absent Post Op Complications Complications None Follow Up Care/Instructions Patient Instructions None needed. Anesthesiology Discharge Order Discharge Order Patient is doing well, no complaints, stable vital signs, no apparent adverse anesthesia problems. No complications reported per nursing. ESMER LYONS CRNA May 17, 2021 13:06
[2021-05-17 13:10] VITALS: BP 116/46
--- NOTE | 2021-05-17 18:42 | OPERATIVE REPORT ---
DATE OF SERVICE: 05/17/2021 ATTENDING PRIMARY CARE PHYSICIAN: Dr. Peggy Rivera. PREOPERATIVE DIAGNOSES: Gastroesophageal reflux disease, dysphagia. POSTOPERATIVE DIAGNOSES: Thick secretions hypopharynx, reflux esophagitis, Peñuelas grade B, possible mild achalasia, small hiatal hernia 2 cm in size, moderate gastritis. No distal obstructions. PROCEDURE: EGD with biopsy and balloon dilatation. SURGEON: Kamilla Aragon MD ANESTHESIA: Monitored anesthesia care. ESTIMATED BLOOD LOSS: Minimal. FINDINGS: Same as postoperative diagnoses. DISPOSITION: The patient tolerated the procedure well. INDICATIONS: The patient is an 81-year-old female with multiple medical comorbidities including diabetes, hypertension, COPD, dyslipidemia, hyperlipidemia as well as gastroesophageal reflux disease. She has developed dysphagia more recently. Her respiratory status is worsened as well. DESCRIPTION OF PROCEDURE: The patient was brought to the endoscopy suite, laid in the left lateral decubitus position. After adequate IV pain and sedative medications and monitored anesthesia care, the mouthpiece was applied. The endoscope was placed in the mouth, visualizing the pharynx and hypopharyngeal region. Vocal cords, epiglottis and vallecula identified and appeared to be normal. The endoscope was then gently intubated the esophageal opening and esophagus insufflated. The endoscope was then advanced through the first, second and third portion of esophagus. Of note, there was very thick secretions in the hypopharyngeal region, which may also have been contributing to her dysphagia. At the level of the GE junction, reflux esophagitis, Peñuelas grade B identified. There were no mechanical strictures; however, there did appear to be hypertonic lower esophageal sphincter, which may indicate some level of achalasia. A biopsy was taken of the GE junction with forceps with visualization of good hemostasis. The endoscope was then advanced in the stomach and endoscope retroflexed, visualizing a small hiatal hernia approximately 2 cm in size. There was a moderate severity gastritis. No formal ulcerations, polyps, or any neoplasms. A biopsy was taken of the antrum to rule out H. pylori with visualization of good hemostasis. Endoscope was then advanced to the pylorus and the first and second portion of the duodenum, which appeared normal with no distal obstructions. The balloon was then placed into the stomach and pulled back to the area of the GE junction and we will then proceeded integrated stepwise fashion from 2, 4, then 6 atmospheres of pressure or 20 mm in luminal diameter with minimal resistance and left this in place for approximately 60 seconds. The balloon was then desufflated and removed. Good hemostasis was observed as well as no mucosal tears. The endoscope was then slowly withdrawn while taking a second look and suctioning of residual air with no additional findings. The patient tolerated the procedure well. We feel that her dysphagia is multifactorial, which there is a respiratory component with thick secretions that she is not clearing in the hypopharyngeal region, which is contributing to her dysphagia. Her age, obesity as well as other medical comorbidities also may be contributing to this. She does have a reflux esophagitis as well as a possible mild achalasia; however, there were no mechanical strictures and we did proceed with a trial of balloon dilatation to 20 mm. If she has worsening dysphagia, we will then recommend evaluation by speech therapy for swallow study. Job ID: [id number] DocumentID: [id number] Dictated Date: 05/17/2021 12:12:18 Gear Cutter Date: 05/17/2021 18:42:02 Dictated By: KAMILLA ARAGON MD MTDD
== END 2021-05-17 13:10 | disposition home or self-care (01) ==
LOC: ENDO 09:43
PROVIDERS: ATTEND Surgery
DX: K21.00 Gastro-esophageal reflux disease with esophagitis, without bleeding (principal); R13.10 Dysphagia, unspecified; K29.50 Unspecified chronic gastritis without bleeding; K31.89 Other diseases of stomach and duodenum; K44.9 Diaphragmatic hernia without obstruction or gangrene; E11.9 Type 2 diabetes mellitus without complications; I10 Essential (primary) hypertension; J44.9 Chronic obstructive pulmonary disease, unspecified; E78.5 Hyperlipidemia, unspecified; K22.89 Other specified disease of esophagus; R09.02 Hypoxemia; E78.2 Mixed hyperlipidemia; I65.23 Occlusion and stenosis of bilateral carotid arteries; I25.10 Atherosclerotic heart disease of native coronary artery without angina pectoris; Z79.899 Other long term (current) drug therapy; Z87.891 Personal history of nicotine dependence; Z79.4 Long term (current) use of insulin
CPT/HCPCS: 94640

== ENCOUNTER → 2021-05-23 | Outpatient (CLI) | payer MEDICARE | LOC: CARD 13:00 | PROVIDERS: ATTEND Internal Medicine Cardiovascular Disease | DX: I08.3 Combined rheumatic disorders of mitral, aortic and tricuspid valves (principal); I11.9 Hypertensive heart disease without heart failure | CPT/HCPCS: 93306 ==

== ENCOUNTER 2021-06-12 23:05 | Inpatient (IN) | payer MEDICARE ==
[~2021-06-12] VITALS: Ht 167 cm; Wt 110.9 kg
[2021-06-12] MEDS ORDERED: RT-ALBUTEROL SULF 2.5 MG/3 ML PRE-MIX VIAL INH STA (23:14)
[2021-06-12] MEDS ORDERED: NS IV 500 ML 500 ML IV ONE (23:30)
[2021-06-12 23:31] LABS: BASOPHILS % (AUTO) 0 % (0-10); EOSINOPHILS # (AUTO) 0.1 10^3/uL (0.0-0.3); EOSINOPHILS % (AUTO) 2 % (0-10); LYMPHOCYTES # (AUTO) 1.6 10^3/uL (1.0-4.0); LYMPHOCYTES % (AUTO) 22 % (12-44); MEAN CORPUSCULAR HEMOGLOBIN 28 pg (25-34); MEAN CORPUSCULAR HGB CONC 28 g/dL (32-36); MEAN CORPUSCULAR VOLUME 103 fL (80-99); MEAN PLATELET VOLUME 12.6 fL (9.0-12.2); MONOCYTES # (AUTO) 0.7 10^3/uL (0.0-1.0); MONOCYTES % (AUTO) 9 % (0-12); NEUTROPHILS # (AUTO) 4.7 10^3/uL (1.8-7.8); NEUTROPHILS % (AUTO) 66 % (42-75); PLATELET COUNT 178 10^3/uL (130-400); WHITE BLOOD COUNT 7.1 10^3/uL (4.3-11.0)
[2021-06-12 23:34] LABS: HEMATOCRIT 17 % (35-52); HEMOGLOBIN 4.6 g/dL (11.5-16.0)
[2021-06-12 23:41] LABS: ALBUMIN 3.4 GM/DL (3.2-4.5)
[2021-06-12 23:42] LABS: CALCIUM 8.2 MG/DL (8.5-10.1)
[2021-06-12 23:43] LABS: TOTAL PROTEIN 5.6 GM/DL (6.4-8.2)
[2021-06-12 23:45] LABS: BILIRUBIN,TOTAL 0.4 MG/DL (0.1-1.0)
[2021-06-12 23:46] LABS: INR 2.6 (0.8-1.4); PROTHROMBIN TIME PATIENT 28.6 SEC (12.2-14.7)
[2021-06-12 23:47] LABS: CREATININE SERUM 1.52 MG/DL (0.60-1.30)
[2021-06-12 23:50] LABS: MAGNESIUM 2.1 MG/DL (1.6-2.4)
[2021-06-13] VITALS (17 sets, daily range): BP systolic 91–170; BP diastolic 41–74
[2021-06-13] MEDS ORDERED: PANTOPRAZOLE 40 MG (PROTONIX) VIAL IV ONE
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
[2021-06-13 00:53] LABS: BILIRUBIN,URINE NEGATIVE (NEGATIVE); CLARITY,URINE SL CLOUDY; COLOR,URINE YELLOW; GLUCOSE, URINE (UA) NEGATIVE (NEGATIVE); KETONES,URINE NEGATIVE (NEGATIVE); LEUKOCYTE ESTERASE ,URINE NEGATIVE (NEGATIVE); NITRITE,URINE NEGATIVE (NEGATIVE); PROTEIN,URINE 1+ (NEGATIVE)
[2021-06-13 00:59] LABS: BACTERIA,URINE NEGATIVE /HPF
[2021-06-13 01:00] LABS: AMORPHOUS SEDIMENT,UR LARGE AMOR URATES /LPF; SQUAMOUS EPITHELIAL CELL,UR 0-2 /HPF
[2021-06-13] MEDS: NS IV 1000 ML 1,000 ML IV SCH ×2 (02:05→23:29)
--- NOTE | 2021-06-13 04:17 | Tele-ICU Progress Note ---
Progress Note 81F HTN, essential tremor, gluacoma, bipolar d/o, IDDM, gout, COPD, Noc O2 at 2L, HLD, neuropathy, Parkinson's, seizure d/o, chronic UTIs, dysphagia presented with SOB, found to have Hg 4.6. No obvious source. Patient denied hematochezia, melena, hematuria. On xarelto for unknown reasons. - anemia: In ED treatment for presumptive GI losses initiated. Given 80 mg protonix, then 40 IV BID. No evidence of hemolysis, TBili 0.4. Baseline Hg 10- 11, now 4.6. 2nd of 2 units just started infusing. Will check labs after and continue to transfuse PRN. Possible scope in AM. Of note, had EGD with bx and ballon dilation 1 month ago for dysphagia, noted to have reflux esophagitis and moderate gastritis. Upper ABD is firm and mildly tender. Will check CT for bleed. - Coagulopathy. Patient on apixaban. First documented 01/14/20, although it appears that she had already been on it for some time and this is the date the chart was updated. Cardiology consult 01/14/20 writes, ?pAfib, on eliquis, as recommended by her prior cardiologyis Dr Anderson. INR not reliable with eliquis, but has always been 1.0-1.2 previously, now 2.6. Stable platlet counts, no indication of DIC. No hepatic dysfunction to indicate intrinsic dysfunction. If there are any signs of active bleeding, including failure of Hg to increment, will actively reverse. But given the unclear cause, it is unclear whether FFP, vit K or PCC would be the ideal option. May need heme consult in AM. - IDDM: sliding scale ordered. Adjust as needed. - ANI/CKD: baseline creatinine around 1, now 1.5. Likely hypovolemic. Volume resuscitation ongoing. Repeat in AM. - HTN: remains hypertensive despite anemia. Will order PRNs. Focused Exam Height, Weight, BMI Height: 5'6.00" Weight: 213lbs. 0.0oz. 96.377516uc; 39.80 BMI Method:Stated HUMERA GAMA MD June 13, 2021 04:17
[2021-06-13 04:22] LABS: BASOPHILS % (AUTO) 0 % (0-10); EOSINOPHILS # (AUTO) 0.1 10^3/uL (0.0-0.3); EOSINOPHILS % (AUTO) 1 % (0-10); LYMPHOCYTES # (AUTO) 1.5 10^3/uL (1.0-4.0); LYMPHOCYTES % (AUTO) 24 % (12-44); MEAN CORPUSCULAR HEMOGLOBIN 28 pg (25-34); MEAN CORPUSCULAR HGB CONC 29 g/dL (32-36); MEAN CORPUSCULAR VOLUME 97 fL (80-99); MEAN PLATELET VOLUME 12.7 fL (9.0-12.2); MONOCYTES # (AUTO) 0.7 10^3/uL (0.0-1.0); MONOCYTES % (AUTO) 10 % (0-12); NEUTROPHILS # (AUTO) 4.1 10^3/uL (1.8-7.8); NEUTROPHILS % (AUTO) 64 % (42-75); PLATELET COUNT 154 10^3/uL (130-400); WHITE BLOOD COUNT 6.4 10^3/uL (4.3-11.0)
[2021-06-13 04:25] LABS: HEMATOCRIT 19 % (35-52); HEMOGLOBIN 5.5 g/dL (11.5-16.0)
[2021-06-13 04:35] LABS: INR 1.8 (0.8-1.4); PROTHROMBIN TIME PATIENT 21.3 SEC (12.2-14.7)
[2021-06-13 04:45] LABS: POTASSIUM 4.2 MMOL/L (3.6-5.0)
[2021-06-13 04:46] LABS: ALBUMIN 3.3 GM/DL (3.2-4.5)
[2021-06-13 04:47] LABS: CALCIUM 8.1 MG/DL (8.5-10.1)
[2021-06-13 04:48] LABS: TOTAL PROTEIN 5.6 GM/DL (6.4-8.2)
[2021-06-13 04:50] LABS: BILIRUBIN,TOTAL 0.7 MG/DL (0.1-1.0)
[2021-06-13 04:51] LABS: PHOSPHORUS 3.8 MG/DL (2.3-4.7)
[2021-06-13 04:52] LABS: CREATININE SERUM 1.36 MG/DL (0.60-1.30)
[2021-06-13 04:55] LABS: MAGNESIUM 2.1 MG/DL (1.6-2.4)
--- NOTE | 2021-06-13 05:55 | Diagnostic Imaging Report ---
INDICATION: Chest pain. Comparison is made with prior examination of 02/14/2021. There is generalized cardiomegaly and mild central pulmonary venous congestion. The mediastinal configuration is unremarkable. There is no pleural effusion, pneumothorax, or pneumonia. The visualized osseous structures are unremarkable. IMPRESSION: Cardiomegaly and mild central pulmonary venous congestion. Dictated by: Dictated on workstation # [id number]
[2021-06-13] MEDS: inSUlin ASPART (NovoLOG) 1 UNIT/0.01 ML (CHARGE PER UNIT) SC SCH ×4 (06:17→19:28)
[2021-06-13] MEDS ORDERED: CATHETER FLUSH 10 ML SYR IV PRN (07:00)
--- NOTE | 2021-06-13 07:06 | History & Physical ---
History of Present Illness History of Present Illness Reason for visit/HPI PT PRESENTED TO THE HOSPITAL FOR ACUTE WEAKNESS AND CONFUSION. PT REPORTS HAVING SEVERE SHORTNESS OF BREATH OVER THE PAST FEW DAYS PRIOR TO ADMISSION, HER INCREASED HER OXYGEN AT HOME DUE TO HER DYSPNEA, BUT THAT DID NOT RESOLVE THE ISSUE SO SHE ENDED UP BEING TRANSFERRED TO THE HOSPITAL VIA AMBULANCE FROM HER ASSISTED LIVING FACILITY Date of Admission June 13, 2021 at 00:06 Date Seen by a Provider: June 14, 2021 Time Seen by a Provider: 07:00 I consulted on this patient on 06/13/21 07:06 Attending Physician Filipe Rivera MD Admitting Physician Filipe Rivera MD Consult Allergies and Home Medications Allergies Coded Allergies: codeine (Unverified Allergy, Unknown, 05/19/13) Patient Home Medication List Home Medication List Reviewed: Yes Albuterol Sulfate (Albuterol Sulfate) 2.5 Mg/0.5 Ml Vial.neb, 2.5 MG INH Q4H PRN for SHORTNESS OF BREATH, (Reported) Entered as Reported by: BRYSON GOLDMAN on 01/14/20 1110 Albuterol Sulfate (Ventolin Hfa) 18 Gm Hfa.aer.ad, 2 PUFF INH Q6H PRN for SHORTNESS OF BREATH, (Reported) Entered as Reported by: BRYSON GOLDMAN on 01/14/20 111 Allopurinol (Allopurinol) 100 Mg Tablet, 100 MG PO DAILY, (Reported) Entered as Reported by: BRYSON GOLDMAN on 01/14/20 111 Amlodipine Besylate (Amlodipine Besylate) 10 Mg Tablet, 10 MG PO DAILY, (Reported) Entered as Reported by: SUJATHA CARTER on 05/12/21 1634 Apixaban (Eliquis) 5 Mg Tablet, 5 MG PO BID, (Reported) Entered as Reported by: BRYSON GOLDMAN on 01/14/20 111 Ascorbic Acid (Vitamin C) 500 Mg Tablet, 500 MG PO 1200, (Reported) Entered as Reported by: BRYSON GOLDMAN on 01/14/20 111 Benzonatate (Tessalon Perles) 100 Mg Capsule, 200 MG PO Q8H PRN for COUGH, (Reported) Entered as Reported by: BRYSON GOLDMAN on 01/14/20 111 Ferrous Sulfate (Ferosul) 325 Mg Tablet, 325 MG PO DAILY, (Reported) Entered as Reported by: BRYSON GOLDMAN on 01/14/20 1110 Fluoxetine HCl (Fluoxetine HCl) 20 Mg Capsule, 20 MG PO DAILY, (Reported) Entered as Reported by: KRISTIE GUILLAUME on 06/22/15 1010 Furosemide (Furosemide) 20 Mg Tablet, 20 MG PO DAILY, (Reported) Entered as Reported by: SUJATHA CARTER on 05/12/21 1634 Insulin Aspart (Novolog Flexpen) 300 Units/3 Ml Solution, 23 UNITS SQ 1700 W/DINNER, (Reported) Entered as Reported by: BRYSON GOLDMAN on 01/14/20 1110 Insulin Aspart (Novolog Flexpen) 300 Units/3 Ml Solution, 12 UNITS SQ 0800 W/BREAKFAST, (Reported) Entered as Reported by: BRYSON GOLDMAN on 01/14/20 1130 Insulin Aspart (Novolog Flexpen) 300 Units/3 Ml Solution, 23 UNITS SQ 1200 W/LUNCH, (Reported) Entered as Reported by: BRYSON GOLDMAN on 01/14/20 1130 Insulin Glargine,Hum.rec.anlog (Lantus Solostar) 100 Unit/1 Ml Insuln.pen, 23 UNITS SQ HS, (Reported) Entered as Reported by: BRYSON GOLDMAN on 01/14/20 111 Isosorbide Mononitrate (Isosorbide Mononitrate ER) 60 Mg Tab, 60 MG PO DAILY, (Reported) Entered as Reported by: SUJATHA CARTER on 05/12/21 163 Ketoconazole (Ketoconazole) 15 Gm Cream..g., 15 GM TP BID, (Reported) Entered as Reported by: BRYSON GOLDMAN on 01/14/20 111 Latanoprost (Xalatan) 2.5 Ml Drops, 1 DROP OU HS, (Reported) Entered as Reported by: BRYSON GOLDMAN on 01/14/20 111 Lisinopril (Lisinopril) 40 Mg Tablet, 40 MG PO DAILY, (Reported) Entered as Reported by: SUJATHA CARTER on 05/12/21 1634 Meclizine HCl (Meclizine HCl) 12.5 Mg Tablet, 12.5 MG PO Q8H PRN for DIZZINESS, (Reported) Entered as Reported by: BRYSON GOLDMAN on 01/14/20 111 Multivit-Min/FA/Lycopene/Lut (Centrum Silver Tablet) 1 Each Tablet, 1 EACH PO DAILY, (Reported) Entered as Reported by: BRYSON GOLDMAN on 01/14/20 111 Olanzapine (Olanzapine) 5 Mg Tablet, 5 MG PO DAILY, (Reported) Entered as Reported by: BRYSON GOLDMAN on 01/14/20 111 Charlotte-3/Dha/Epa/Fish Oil (Charlotte-3 Fish Oil 1,400 mg Sfgl) 1 Each Capsule, 1 EACH PO TID, (Reported) Entered as Reported by: BRYSON GOLDMAN on 01/14/20 1134 Oxybutynin Chloride (Oxybutynin Chloride) 5 Mg Tablet, 5 MG PO TID, (Reported) Entered as Reported by: BRYSON GOLDMAN on 01/14/20 111 Pantoprazole Sodium (Pantoprazole Sodium) 40 Mg Tablet.dr, 40 MG PO BID, (Reported) Entered as Reported by: BRYSON GOLDMAN on 01/14/20 111 Polyethylene Glycol 3350 (Miralax) 17 Gm Powd.pack, 17 GM PO HS, (Reported) Entered as Reported by: BRYSON GOLDMAN on 01/14/20 111 Potassium Chloride (Potassium Chloride) 10 Meq Tab.er.prt, 10 MEQ PO DAILY, (Reported) Entered as Reported by: SUJATHA CARTER on 05/12/21 1634 Pregabalin (Pregabalin) 200 Mg Capsule, 200 MG PO BID, (Reported) Entered as Reported by: BRYSON GOLDMAN on 01/14/20 111 Ropinirole HCl (Ropinirole HCl) 0.5 Mg Tablet, 0.5 MG PO BID, (Reported) Entered as Reported by: BRYSON GOLDMAN on 01/14/20 111 Rosuvastatin Calcium (Rosuvastatin Calcium) 10 Mg Tablet, 10 MG PO HS, ( Reported) Entered as Reported by: SUJATHA CARTER on 05/12/21 1634 Tramadol HCl/Acetaminophen (Tramadol-Acetaminophn 37.5-325) 1 Each Tablet, 1 EACH PO Q8H PRN for PAIN-MODERATE (5-7), (Reported) Entered as Reported by: BRYSON GOLDMAN on 01/14/20 1110 Trazodone HCl (Trazodone HCl) 50 Mg Tablet, 50 MG PO HS, (Reported) Entered as Reported by: BRYSON GOLDMAN on 01/14/20 111 Triamcinolone Acetonide (Trianex) 430 Gm Oint...g., 1 APPLIC TP BID, (Reported) Entered as Reported by: BRYSON GOLDMAN on 01/14/20 111 Trimethoprim (Trimethoprim) 100 Mg Tablet, 100 MG PO HS, (Reported) Entered as Reported by: BRYSON GOLDMAN on 01/14/20 111 Ubidecarenone (Coq-10) 100 Mg Capsule, 100 MG PO DAILY, (Reported) Entered as Reported by: KRISTIE GUILLAUME on 06/22/15 1009 Past Sbhtssf-Qknizw-Mqmtzk Hx Patient Social History Marrital Status: Number of Children: 2 Number of living children: 2 Living Status: LIVES IN ASSISTED LIVING AT [facility] WITH HER SPOUSE Employed/Student: retired Tobacco Use?: No Tobacco type used: Cigarettes Smoking Status: Former Smoker Use of E-Cig and/or Vaping dev: No Substance use?: No Alcohol Use?: No Pt feels they are or have been: No Immunizations Up To Date Date of Influenza Vaccine: Nov 11, 2020 First/Initial COVID19 Vaccinat: UNKNOWN DATE Second COVID19 Vaccination Bk: UNKNOWN DATE Tetanus Booster (TDap): Unknown PED Vaccines UTD: Yes Seasonal Allergies Seasonal Allergies: No Current Status status: No status: No Advance Directives: No Communicates: Verbally Primary Language: Indonesian Preferred Spoken Language: Indonesian Sensory deficits: Vision impairment Implanted or Applied Medical D: Orthopedic hardware Past Medical History Surgeries: Cardiac, Hysterectomy, Joint Replacement, Orthopedic Pneumonia, COPD Chronic Edema/Swelling, High Cholesterol, Hypertension Neuropathy, Seizure Disorder (PSEUDOSEIZURE) [facility] History: Menopausal Bladder Infection, UTI-Chronic Gastroesophageal Reflux, Chronic Constipation, Ulcer Arthritis, Chronic Back Pain, Gout Diabetes, Insulin dep Loss of Vision: Denies Hearing Impairment: Denies Sleep Difficulties, Anxiety, Bipolar, Depression Eczema Blood Disorders: No Adverse Reaction/Blood Tranf: No Family Medical History Reviewed and Corrections made Colon cancer 19 FATHER 19 MOTHER Hypertension 19 FATHER 19 MOTHER Myocardial infarction 19 MOTHER Heart Disease, Cancer, Hypertension Review of Systems Constitutional: No chills, No diaphoresis; dizziness; No fever; malaise, weakness EENTM: No hoarseness, No throat pain Respiratory: No cough; dyspnea on exertion, short of breath Cardiovascular: No chest pain; edema Gastrointestinal: No abdominal pain; constipation; No diarrhea, No nausea, No vomiting Genitourinary: incontinence Musculoskeletal: back pain, joint pain (KNEES), muscle weakness Skin: No rash Psychiatric/Neurological: Anxiety, Depressed, Other All Other Systems Reviewed Negative Unless Noted: Yes Physical Exam Vital Signs Vital Signs - First Documented 06/12/21 23:26 Temp 36.6 Pulse 64 Resp 26 B/P (MAP) 91/51 (64) Pulse Ox 92 O2 Delivery Nasal Cannula O2 Flow Rate 3.00 FiO2 92 Capillary Refill : Height, Weight, BMI Height: 5'6.00" Weight: 213lbs. 0.0oz. [id number]; 39.80 BMI Method:Stated General Appearance: WD/WN, Mild Distress (WITH MOVEMENT MORE SHORT OF BREATH) HEENT: PERRL/EOMI, Pharynx Normal Neck: Full Range of Motion, Non Tender, Supple Respiratory: Chest Non Tender, Lungs Clear, Crackles, Decreased Breath Sounds; No Rhonci, No Wheezing Cardiovascular: Regular Rate, Rhythm, Normal Peripheral Pulses, Systolic Murmur Gastrointestinal: Normal Bowel Sounds, No Organomegaly, No Pulsatile Mass, Non Tender, Soft Rectal: Deferred Extremity: Normal Capillary Refill, Non Tender, No Calf Tenderness, Pedal Edema (TRACE), Other Neurologic/Psychiatric: Alert, Oriented x3, No Motor/Sensory Deficits, Normal Mood/Affect Skin: Warm/Dry, Pallor Assessment/Plan Assessment and Plan SEVERE ACUTE ANEMIA HYPOXIA RESPIRATORY DISTRESS CHRONIC HYPERTENSION HX OF CORONARY ARTERY DISEASE CHRONIC COPD DIABETES MELLITUS HYPERTENSION HISTORY OF ATRIAL FIBRILLATION GERD CHRONIC ANTICOAGULATION SEVERE ACUTE ANEMIA WITH SUSPECTED GI BLEED - PT ON ANTICOAGULATION OUTPATIENT, IT IS ON HOLD - CONSULT TO GENERAL SURGERY - PT ON SECOND UNIT OF BLOOD AT TIME OF EVALUATION. - MONITOR LABS, WILL REPEAT TRANSFUSION IF NEEDED. HYPOXIA WITH RESPIRATORY DISTRESS AND HX OF COPD - PARTIALLY DUE TO SEVERE ANEMIA - MONITOR PULMONARY RESPONSE AFTER BLOOD TRANSFUSIONS - WILL START MAT PROTOCOL. CHRONIC HYPERTENSION - MONITOR PRESSURES, WAIT FOR MEDICATION RECONCILIATION TO BE COMPLETE. HX OF CORONARY ARTERY DISEASE DIABETES MELLITUS - ICU INSULIN PROTOCOL, MONITOR FSBS HISTORY OF ATRIAL FIBRILLATION - HOLD ANTICOAGULATION AT THIS TIME DUE TO GI BLEEDING GERD - RESUME PPI THERAPY. DVT PROPHYLAXIS WITH SCD'S DISCUSSED WITH PTS SON AND TODAY. Admission Diagnosis SEVERE ACUTE ANEMIA HYPOXIA RESPIRATORY DISTRESS CHRONIC HYPERTENSION HX OF CORONARY ARTERY DISEASE CHRONIC COPD DIABETES MELLITUS HYPERTENSION HISTORY OF ATRIAL FIBRILLATION GERD CHRONIC ANTICOAGULATION Admission Status: Inpatient Order (span 2 midnights) Reason for Inpatient Admission: PT INPATIENT ADMISSION FOR SEVERE ANEMIA WITH SUSPECTED GI BLEED - WILL NEED HOSPITALIZATION FOR AT LEAST 3-4 MIDNIGHTS FILIPE RIVERA MD June 13, 2021 07:06
--- NOTE | 2021-06-13 08:11 | Diagnostic Imaging Report ---
EXAMINATION: CT abdomen and pelvis without contrast. TECHNIQUE: Multiple contiguous axial images were obtained through the abdomen and pelvis without the use of intravenous contrast. All CT scans use one or more of the following dose optimizing techniques: automated exposure control, MA and/or KvP adjustment based on patient size and exam type or iterative reconstruction. HISTORY: Upper abdominal pain COMPARISON: None available. FINDINGS: Limited views of the lower thorax show mild atelectasis. There is differential attenuation and myocardial blood pool in keeping with anemia. The liver is normal without focal lesion. There is no biliary ductal dilation. Gallbladder is normal. Pancreas is normal. Spleen is normal. Adrenal glands are normal. The kidneys are normal. There is no hydronephrosis. Bladder is decompressed by a Quinones catheter and contains a small amount of gas. Bowel is normal in caliber without obstruction or inflammation. There is diverticulosis without diverticulitis. No free fluid or air. No abdominal or pelvic lymphadenopathy. Aorta is normal in caliber without aneurysm. There are no suspicious osseus lesions. IMPRESSION: 1. No acute abnormality in the abdomen or pelvis. There is no significant disagreement with the preliminary report. Dictated by: Dictated on workstation # [id number]
[2021-06-13] MEDS: PANTOPRAZOLE 40 MG (PROTONIX) VIAL IV SCH ×2 (08:44→20:43)
[2021-06-13 11:50] LABS: HEMOGLOBIN 6.6 g/dL (11.5-16.0)
[2021-06-13] MEDS ORDERED: NS IV 500 ML 500 ML IV SCH (12:30)
[2021-06-13] MEDS ORDERED: FUROSEMIDE 40 MG/4 ML INJ (LASIX) IVP NR (12:30)
[2021-06-13] MEDS: CATHETER FLUSH 10 ML SYR IV SCH ×2 (15:13→23:29)
[2021-06-13 17:10] LABS: HEMOGLOBIN 8.1 g/dL (11.5-16.0)
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
[2021-06-13] MEDS ORDERED: hydrALAZINE (APESOLINE) 20 MG/ML VIAL ONE (20:59)
[2021-06-13] MEDS: hydrALAZINE (APESOLINE) 20 MG/ML VIAL IV PRN (21:01)
[2021-06-13] MEDS: RT-ALBUTEROL SULF 2.5 MG/3 ML PRE-MIX VIAL INH PRN (22:24)
[2021-06-14] VITALS (7 sets, daily range): BP systolic 129–169; BP diastolic 45–74
[2021-06-14] MEDS: hydrALAZINE (APESOLINE) 20 MG/ML VIAL IV PRN (01:10)
[2021-06-14] MEDS ORDERED: OLANZapine 5 MG ODT (ZyPREXA ZYDIS) PO ONE ×2 (01:15)
[2021-06-14] MEDS: ONDANSETRON 4 MG/2 ML (SDV) Z0FRAN IV PRN (01:52)
[2021-06-14] MEDS: RT-ALBUTEROL SULF 2.5 MG/3 ML PRE-MIX VIAL INH PRN (02:48)
[2021-06-14] MEDS ORDERED: RT-ALBUTEROL/IPRATROPIUM 3 ML (DUONEB) VIAL INH PRN (03:15)
[2021-06-14] MEDS ORDERED: DexMEDEtomidine 250 ML DRIP 250 ML IV ONE (03:15)
[2021-06-14] MEDS ORDERED: DexMEDEtomidine 250 ML DRIP 250 ML IV SCH (03:15)
[2021-06-14 05:09] LABS: BASOPHILS % (AUTO) 0 % (0-10); EOSINOPHILS # (AUTO) 0.1 10^3/uL (0.0-0.3); EOSINOPHILS % (AUTO) 1 % (0-10); HEMATOCRIT 23 % (35-52); HEMOGLOBIN 7.2 g/dL (11.5-16.0); LYMPHOCYTES # (AUTO) 0.8 10^3/uL (1.0-4.0); LYMPHOCYTES % (AUTO) 11 % (12-44); MEAN CORPUSCULAR HEMOGLOBIN 28 pg (25-34); MEAN CORPUSCULAR HGB CONC 31 g/dL (32-36); MEAN CORPUSCULAR VOLUME 90 fL (80-99); MEAN PLATELET VOLUME 12.4 fL (9.0-12.2); MONOCYTES # (AUTO) 0.6 10^3/uL (0.0-1.0); MONOCYTES % (AUTO) 8 % (0-12); NEUTROPHILS # (AUTO) 5.8 10^3/uL (1.8-7.8); NEUTROPHILS % (AUTO) 79 % (42-75); PLATELET COUNT 165 10^3/uL (130-400); WHITE BLOOD COUNT 7.3 10^3/uL (4.3-11.0)
[2021-06-14 05:22] LABS: ALBUMIN 3.2 GM/DL (3.2-4.5); POTASSIUM 3.9 MMOL/L (3.6-5.0)
[2021-06-14 05:23] LABS: CALCIUM 8.5 MG/DL (8.5-10.1)
[2021-06-14 05:25] LABS: TOTAL PROTEIN 5.4 GM/DL (6.4-8.2)
[2021-06-14 05:26] LABS: BILIRUBIN,TOTAL 0.9 MG/DL (0.1-1.0)
[2021-06-14] MEDS: CATHETER FLUSH 10 ML SYR IV SCH ×3 (05:26→22:20)
[2021-06-14] MEDS: POTASSIUM CL 10MEQ/50ML IVPB 50 ML IV SCH (05:26)
[2021-06-14] MEDS: KCL 20 MEQ TAB (K-DUR) PO SCH (05:26)
[2021-06-14] MEDS: inSUlin ASPART (NovoLOG) 1 UNIT/0.01 ML (CHARGE PER UNIT) SC SCH ×4 (05:27→20:23)
[2021-06-14 05:28] LABS: CREATININE SERUM 1.01 MG/DL (0.60-1.30)
[2021-06-14 05:31] LABS: MAGNESIUM 2.1 MG/DL (1.6-2.4)
[2021-06-14] MEDS: MAGNESIUM 1 GM/100 ML IVPB 100 ML IV SCH (06:00)
--- NOTE | 2021-06-14 06:46 | Diagnostic Imaging Report ---
EXAMINATION: Chest 1 view HISTORY: Shortness of breath. COMPARISON: 06/12/2021. FINDINGS: There is continued cardiomegaly with worsening patchy and hazy opacities throughout both lungs. No large pleural effusion or pneumothorax. There is calcified aortic atherosclerotic plaque. No acute osseous abnormalities. IMPRESSION: 1. Continued cardiomegaly with worsening pulmonary edema. Dictated by: Dictated on workstation # [id number]
[2021-06-14] MEDS: RT-ALBUTEROL SULF 2.5 MG/3 ML PRE-MIX VIAL INH SCH ×5 (06:57→21:52)
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
--- NOTE | 2021-06-14 08:34 | Tele-ICU Progress Note ---
Subjective Date Seen by a Provider: June 14, 2021 Time Seen by a Provider: 06:50 Subjective/Events-last exam This virtual visit was conducted using real time audio/video. Thank you for asking us to see this patient for respiratory insufficiency due to COPD. Admitted w anemia, Hb 4.6 on Xarelto Recent events: Recd 2 U PRBCs. PE: VSS. O2 sat 97% on 3LPM. HEENT: No obvious masses, adenopathy or JVD. Chest: clear to auscultation. Diminished. CV: RRR S1 S2 No murmur or added sounds. Abd: Non-tender. Bowel sounds Y. : Unremarkable. Quinones Y. 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 No obvious focal findings. Extremities: trace edema. Capillary refill < 3 seconds. Skin: unremarkable. Results: Elevated BUN 29, Creat 1.8. Decreased Hb 7.2. CXR: hyperinflated, cardiomeg., increased congestion.. Available chart/ vitals / labs / images reviewed. Video assessment done using teleICU camera, rest of exam as per RN. A/P: Respiratory insufficiency: Continue present management with PRN Prec., albuterol. Monitor for increasing oxygenation needs and/or need for intubation. Critical Care: critically ill patient. Cont. PPI, SSI. EGD today. Consider lasix for congestion after returning from EGD. Discussed with KATHERYN Howe. Asked RN to reach out to eICU if any questions or concerns later. Time spent with patient/coordination of care with other health professionals (mins): 20 Sepsis Event Evaluation Height, Weight, BMI Height: 5'6.00" Weight: 213lbs. 0.0oz. 96.182002qh; 40.15 BMI Method:Stated Exam Exam Patient acknowledged, consented, and participated in this virtual visit which was conducted using real time audio/video Vital Signs Date Time Temp Pulse Resp B/P (MAP) Pulse Ox O2 Delivery O2 Flow Rate FiO2 06/14/21 07:55 36.4 06/14/21 07:00 59 06/14/21 06:59 58 18 97 30.00 06/14/21 06:00 56 142/54 97 NIV Bilevel 30.00 06/14/21 05:00 58 145/60 95 NIV Bilevel 30.00 06/14/21 04:00 80 140/66 93 NIV Bilevel 30.00 06/14/21 04:00 98 NIV Bilevel 30 06/14/21 03:50 36.0 16 98 NIV Bilevel 06/14/21 03:43 73 25 96 30.00 06/14/21 03:26 75 06/14/21 03:19 169/83 06/14/21 03:00 84 169/61 94 OxyMask 3.00 06/14/21 02:58 36.6 88 92 32 06/14/21 02:48 Nasal Cannula 3.00 92 06/14/21 02:00 75 147/41 96 OxyMask 3.00 06/14/21 01:00 78 06/14/21 01:00 78 169/61 95 OxyMask 3.00 06/14/21 00:00 35.9 96 OxyMask 3.00 06/14/21 00:00 86 151/70 90 OxyMask 4.00 06/13/21 23:24 OxyMask 4.00 06/13/21 23:00 79 163/64 97 OxyMask 4.00 06/13/21 22:25 Nasal Cannula 5.00 96 06/13/21 22:00 74 173/66 94 OxyMask 4.00 06/13/21 21:00 72 20 171/66 93 Nasal Cannula 3.00 06/13/21 20:00 Nasal Cannula 3.00 06/13/21 20:00 64 22 167/68 96 Nasal Cannula 3.00 06/13/21 19:59 36.8 06/13/21 19:00 71 06/13/21 19:00 71 13 171/79 96 Nasal Cannula 3.00 06/13/21 18:00 63 12 160/85 95 Nasal Cannula 3.00 06/13/21 17:00 66 27 171/74 96 Nasal Cannula 3.00 06/13/21 16:00 Nasal Cannula 3.00 06/13/21 16:00 37.0 06/13/21 16:00 63 20 162/84 98 Nasal Cannula 3.00 06/13/21 15:00 61 12 96 Nasal Cannula 3.00 06/13/21 14:00 64 12 140/73 98 Nasal Cannula 3.00 06/13/21 13:11 37.0 63 18 160/65 99 Nasal Cannula 3.00 06/13/21 13:06 36.9 63 18 121/74 98 Nasal Cannula 3.00 06/13/21 13:01 37.0 65 20 120/64 Nasal Cannula 3.00 06/13/21 13:00 62 06/13/21 13:00 68 16 160/65 99 Nasal Cannula 3.00 06/13/21 12:56 37.1 68 20 148/67 97 Nasal Cannula 3.00 06/13/21 12:00 63 22 151/63 97 Nasal Cannula 3.00 06/13/21 12:00 Nasal Cannula 3.00 06/13/21 11:55 36.2 06/13/21 11:00 64 23 150/79 97 Nasal Cannula 3.00 06/13/21 10:00 61 13 155/76 96 Nasal Cannula 3.00 06/13/21 09:00 62 24 121/64 96 Nasal Cannula 3.00 I & O 06/14/21 07:00 Intake Total 1200 ml Output Total 3450 ml Balance -2250 ml Height & Weight Height: 5'6.00" Weight: 213lbs. 0.0oz. 96.123099fz; 40.15 BMI Method:Stated General Appearance: No Apparent Distress, WD/WN HEENT: PERRL/EOMI, Normal ENT Inspection Neck: Full Range of Motion, Normal Inspection Respiratory: No Accessory Muscle Use, Other (on BiPAP) Cardiovascular: Regular Rate, Rhythm, No Edema, No Murmur Gastrointestinal: non tender, soft Extremity: Normal Inspection, No Pedal Edema Skin: Normal Color, Warm/Dry Results Lab Laboratory Tests 06/12/21 23:20 06/13/21 03:43 06/13/21 11:20 06/13/21 17:00 06/14/21 04:56 Assessment/Plan Assessment/Plan See free text. Critical Care: Critically Ill Patient ROD DENNIS MD June 14, 2021 08:34
[2021-06-14] MEDS: PANTOPRAZOLE 40 MG (PROTONIX) VIAL IV SCH ×2 (09:05→20:32)
--- NOTE | 2021-06-14 09:11 | Progress Note - Surgery ---
Subjective Date Seen by a Provider: June 14, 2021 Time Seen by a Provider: 09:08 Subjective/Events-last exam Some bloody stool reported. Transfused 3 units prbc. Eliquis held. Feeling better today. Using bipap currently. Denies n/v fever sweats chills or chest pain. Objective Exam Vital Signs Date Time Temp Pulse Resp B/P (MAP) Pulse Ox O2 Delivery O2 Flow Rate FiO2 06/14/21 08:00 61 21 140/55 99 NIV Bilevel 30.00 06/14/21 07:55 36.4 06/14/21 07:00 58 18 138/52 97 NIV Bilevel 30.00 06/14/21 07:00 59 06/14/21 06:59 58 18 97 30.00 06/14/21 06:00 56 142/54 97 NIV Bilevel 30.00 06/14/21 05:00 58 145/60 95 NIV Bilevel 30.00 06/14/21 04:00 80 140/66 93 NIV Bilevel 30.00 06/14/21 04:00 98 NIV Bilevel 30 06/14/21 03:50 36.0 16 98 NIV Bilevel 06/14/21 03:43 73 25 96 30.00 06/14/21 03:26 75 06/14/21 03:19 169/83 06/14/21 03:00 84 169/61 94 OxyMask 3.00 06/14/21 02:58 36.6 88 92 32 06/14/21 02:48 Nasal Cannula 3.00 92 06/14/21 02:00 75 147/41 96 OxyMask 3.00 06/14/21 01:00 78 06/14/21 01:00 78 169/61 95 OxyMask 3.00 06/14/21 00:00 35.9 96 OxyMask 3.00 06/14/21 00:00 86 151/70 90 OxyMask 4.00 06/13/21 23:24 OxyMask 4.00 06/13/21 23:00 79 163/64 97 OxyMask 4.00 06/13/21 22:25 Nasal Cannula 5.00 96 06/13/21 22:00 74 173/66 94 OxyMask 4.00 06/13/21 21:00 72 20 171/66 93 Nasal Cannula 3.00 06/13/21 20:00 Nasal Cannula 3.00 06/13/21 20:00 64 22 167/68 96 Nasal Cannula 3.00 06/13/21 19:59 36.8 06/13/21 19:00 71 06/13/21 19:00 71 13 171/79 96 Nasal Cannula 3.00 06/13/21 18:00 63 12 160/85 95 Nasal Cannula 3.00 06/13/21 17:00 66 27 171/74 96 Nasal Cannula 3.00 06/13/21 16:00 Nasal Cannula 3.00 06/13/21 16:00 37.0 06/13/21 16:00 63 20 162/84 98 Nasal Cannula 3.00 06/13/21 15:00 61 12 96 Nasal Cannula 3.00 06/13/21 14:00 64 12 140/73 98 Nasal Cannula 3.00 06/13/21 13:11 37.0 63 18 160/65 99 Nasal Cannula 3.00 06/13/21 13:06 36.9 63 18 121/74 98 Nasal Cannula 3.00 06/13/21 13:01 37.0 65 20 120/64 Nasal Cannula 3.00 06/13/21 13:00 62 06/13/21 13:00 68 16 160/65 99 Nasal Cannula 3.00 06/13/21 12:56 37.1 68 20 148/67 97 Nasal Cannula 3.00 06/13/21 12:00 63 22 151/63 97 Nasal Cannula 3.00 06/13/21 12:00 Nasal Cannula 3.00 06/13/21 11:55 36.2 06/13/21 11:00 64 23 150/79 97 Nasal Cannula 3.00 06/13/21 10:00 61 13 155/76 96 Nasal Cannula 3.00 I & O 06/14/21 06:59 Intake Total 1200 ml Output Total 3450 ml Balance -2250 ml Capillary Refill : General Appearance: No Apparent Distress (on bipap), WD/WN HEENT: PERRL/EOMI, Normal ENT Inspection Neck: Full Range of Motion, Non Tender, Supple Respiratory: Chest Non Tender; No Rhonci, No Wheezing; Other (on bipap) Cardiovascular: Regular Rate, Rhythm, No JVD Gastrointestinal: non tender, soft Extremity: Normal Capillary Refill, Non Tender, No Calf Tenderness, Pedal Edema (TRACE) Neurologic/Psychiatric: Alert, Oriented x3, No Motor/Sensory Deficits, Normal Mood/Affect Skin: Warm/Dry, Pallor Lymphatic: No Adenopathy Results Lab Laboratory Tests 06/13/21 11:20: Hemoglobin 6.6*L, Hematocrit 22L 06/13/21 15:00: Stool Occult Blood Immunoassay POSITIVEH 06/13/21 15:48: Glucometer 171H 06/13/21 17:00: Hemoglobin 8.1#L, Hematocrit 27L 06/13/21 19:26: Glucometer 142H 06/14/21 04:56: White Blood Count 7.3, Red Blood Count 2.59L, Hemoglobin 7.2L, Hematocrit 23L, Mean Corpuscular Volume 90, Mean Corpuscular Hemoglobin 28, Mean Corpuscular Hemoglobin Concent 31L, Red Cell Distribution Width 21.2H, Platelet Count 165, Mean Platelet Volume 12.4H, Immature Granulocyte % (Auto) 1, Neutrophils (%) (Auto) 79H, Lymphocytes (%) (Auto) 11L, Monocytes (%) (Auto) 8, Eosinophils (%) (Auto) 1, Basophils (%) (Auto) 0, Neutrophils # (Auto) 5.8, Lymphocytes # (Auto) 0.8L, Monocytes # (Auto) 0.6, Eosinophils # (Auto) 0.1, Basophils # (Auto) 0.0, Immature Granulocyte # (Auto) 0.1, Sodium Level 144, Potassium Level 3.9, Chloride Level 108H, Carbon Dioxide Level 23, Anion Gap 13, Blood Urea Nitrogen 29H, Creatinine 1.01, Estimat Glomerular Filtration Rate 56, BUN/Creatinine Ratio 29, Glucose Level 156H, Calcium Level 8.5, Corrected Calcium 9.1, Phosphorus Level 3.0, Magnesium Level 2.1, Total Bilirubin 0.9, Aspartate Amino Transf (AST/SGOT) 21, Alanine Aminotransferase (ALT/SGPT) 11, Alkaline Phosphatase 44, Total Protein 5.4L, Albumin 3.2 Microbiology 06/13/21 MRSA Screen - Final, Complete MRSA not isolated Assessment/Plan Assessment/Plan Assessment/Plan Anemia 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
[2021-06-14] MEDS ORDERED: OLN5T PO (11:33)
[2021-06-14] MEDS ORDERED: ASPI-1238 PO (11:33)
[2021-06-14] MEDS ORDERED: ROPI0.5T4 PO (11:33)
[2021-06-14] MEDS ORDERED: ACET325T38 PO (11:33)
[2021-06-14] MEDS ORDERED: TIOT18CA2 INH (11:33)
[2021-06-14] MEDS ORDERED: RIVA20TA PO (11:33)
[2021-06-14] MEDS ORDERED: HYDR25TA4 PO (11:33)
[2021-06-14] MEDS ORDERED: NYST60PO TP (11:33)
[2021-06-14] MEDS ORDERED: OMEG1CAP24 PO (11:33)
[2021-06-14] MEDS ORDERED: diphenhydrAMINE 50 MG/ML INJ (BENADRYL) IVP PRN (12:30)
[2021-06-14] MEDS ORDERED: FUROSEMIDE 40 MG/4 ML INJ (LASIX) IVP NR (12:30)
[2021-06-14] MEDS ORDERED: NS IV 500 ML 500 ML IV SCH ×2 (12:30)
[2021-06-14] MEDS ORDERED: OLANZapine 5 MG (ZyPREXA) TAB PO SCH (12:30)
[2021-06-14] MEDS: FLUoxetine HCL 20 MG (PROzac) CAP PO SCH (13:26)
[2021-06-14] MEDS: ISOSORBIDE MONONITRATE 60 MG (IMDUR) TAB PO SCH (13:27)
[2021-06-14] MEDS: OLANZapine 2.5 MG (ZyPREXA) TAB PO SCH (14:35)
[2021-06-14] MEDS: OXYBUTYNIN (DITROPAN) 5 MG TAB PO SCH ×2 (14:54→20:31)
[2021-06-14] MEDS ORDERED: PANTOPRAZOLE 40 MG (PROTONIX) TAB PO SCH (17:00)
[2021-06-14] MEDS: OLANZapine 5 MG (ZyPREXA) TAB PO SCH (17:47)
[2021-06-14] MEDS: NS IV 1000 ML 1,000 ML IV SCH ×2 (18:16→20:40)
[2021-06-14 19:11] LABS: HEMOGLOBIN 7.7 g/dL (11.5-16.0)
[2021-06-14] MEDS ORDERED: NON-FORMULARY MEDICATION 1 EA EA (Ropinirole HCl 1 MG) PO SCH (20:00)
[2021-06-14] MEDS ORDERED: PREGABALIN 200 MG PO SCH (20:00)
[2021-06-14] MEDS: rOPINIRole 1 MG (REQUIP) TABLET PO SCH (20:22)
[2021-06-14] MEDS: traZODone 50 MG (DESYREL) TAB PO SCH (20:22)
[2021-06-14] MEDS: PREGABALIN 100 MG (LYRICA) CAPSULE PO SCH (20:31)
[2021-06-14] MEDS: polyethylene glycoL POWDER 17 GM (MIRALAX) PACK PO SCH (20:32)
[2021-06-14] MEDS ORDERED: [UNRECOGNIZED DRUG - OTHER] SQ SCH (21:00)
[2021-06-14] MEDS ORDERED: INSULIN GLARGINE HUM REC ANLOG SQ SCH (21:00)
[2021-06-14] MEDS: LATANOPROST 0.005% (XALATAN) OPHTH SOLN 2.5 ML OU SCH (22:20)
[2021-06-15 02:15] VITALS: BP 149/67
[2021-06-15] MEDS: RT-ALBUTEROL SULF 2.5 MG/3 ML PRE-MIX VIAL INH SCH ×6 (02:15→22:33)
[2021-06-15 04:44] LABS: BASOPHILS % (AUTO) 0 % (0-10); EOSINOPHILS # (AUTO) 0.1 10^3/uL (0.0-0.3); EOSINOPHILS % (AUTO) 2 % (0-10); HEMATOCRIT 25 % (35-52); HEMOGLOBIN 7.6 g/dL (11.5-16.0); LYMPHOCYTES # (AUTO) 0.9 10^3/uL (1.0-4.0); LYMPHOCYTES % (AUTO) 18 % (12-44); MEAN CORPUSCULAR HEMOGLOBIN 28 pg (25-34); MEAN CORPUSCULAR HGB CONC 30 g/dL (32-36); MEAN CORPUSCULAR VOLUME 92 fL (80-99); MEAN PLATELET VOLUME 12.4 fL (9.0-12.2); MONOCYTES # (AUTO) 0.6 10^3/uL (0.0-1.0); MONOCYTES % (AUTO) 11 % (0-12); NEUTROPHILS # (AUTO) 3.6 10^3/uL (1.8-7.8); NEUTROPHILS % (AUTO) 69 % (42-75); PLATELET COUNT 125 10^3/uL (130-400); WHITE BLOOD COUNT 5.2 10^3/uL (4.3-11.0)
[2021-06-15 05:04] LABS: ALBUMIN 3.1 GM/DL (3.2-4.5); POTASSIUM 3.9 MMOL/L (3.6-5.0)
[2021-06-15 05:06] LABS: CALCIUM 8.1 MG/DL (8.5-10.1)
[2021-06-15 05:07] LABS: TOTAL PROTEIN 5.4 GM/DL (6.4-8.2)
[2021-06-15 05:09] LABS: BILIRUBIN,TOTAL 1.1 MG/DL (0.1-1.0)
[2021-06-15 05:10] LABS: PHOSPHORUS 3.7 MG/DL (2.3-4.7)
[2021-06-15 05:11] LABS: CREATININE SERUM 0.95 MG/DL (0.60-1.30)
[2021-06-15 05:14] LABS: MAGNESIUM 2.2 MG/DL (1.6-2.4)
[2021-06-15] MEDS: KCL 20 MEQ TAB (K-DUR) PO SCH (05:50)
[2021-06-15] MEDS: POTASSIUM CL 10MEQ/50ML IVPB 50 ML IV SCH (05:50)
[2021-06-15] MEDS: MAGNESIUM 1 GM/100 ML IVPB 100 ML IV SCH (05:50)
[2021-06-15] MEDS: inSUlin ASPART (NovoLOG) 1 UNIT/0.01 ML (CHARGE PER UNIT) SC SCH ×4 (05:52→22:02)
[2021-06-15] MEDS: CATHETER FLUSH 10 ML SYR IV SCH ×3 (06:35→22:00)
[2021-06-15] MEDS ORDERED: KETAMINE 50 MG/5 ML SYRINGE ONE (07:33)
[2021-06-15] MEDS ORDERED: proPOfol 200 MG/20 ML (DIPRIVAN) VIAL IV ONE (07:33)
--- NOTE | 2021-06-15 07:38 | Progress Note ---
Subjective Subjective Date Seen by Provider: June 15, 2021 Time Seen by Provider: 07:15 Patient reports that she is feeling better and breathing well. She is alert, but is not oriented to place or time, and she reports that she does not remember if she wore the BiPAP last night or if she had anymore bloody bowel movements. Review of Systems ROS Unable to Obtain: On BiPAP unable to obtain at that time General: No Chills, No Night Sweats; Fatigue HEENT: No Eye Pain, No Ear Pain Pulmonary: Dyspnea; No Pleuritic Chest Pain Cardiovascular: No: Chest Pain, Palpitations Gastrointestinal: No: Nausea, Vomiting, Abdominal Pain Genitourinary: No Dysuria; Incontinence; No Hematuria Neurological: No: Incoordination, Change in speech Anxiety, Depression All Other Systems Reviewed All Other Systems Reviewed: Yes Objective Exam Vital Signs Vital Signs Date Time Temp Pulse Resp B/P (MAP) Pulse Ox O2 Delivery O2 Flow Rate FiO2 06/15/21 07:20 High Flow N/C 5.00 95 06/15/21 07:15 56 06/15/21 06:00 57 18 184/95 99 NIV Bilevel 30.00 06/15/21 05:00 49 19 149/64 93 NIV Bilevel 30.00 06/15/21 04:07 35.7 06/15/21 04:00 50 17 154/66 92 NIV Bilevel 30.00 06/15/21 04:00 NIV Bilevel 4.00 30 06/15/21 03:00 56 20 138/54 94 NIV Bilevel 30.00 06/15/21 02:15 50 23 93 30.00 06/15/21 02:00 50 20 148/65 94 NIV Bilevel 30.00 06/15/21 01:00 51 06/15/21 01:00 51 23 148/66 93 NIV Bilevel 30.00 06/15/21 00:00 54 23 145/63 92 NIV Bilevel 30.00 06/15/21 00:00 NIV Bilevel 4.00 30 06/14/21 23:00 56 21 133/69 93 NIV Bilevel 30.00 06/14/21 22:37 35.4 06/14/21 22:00 55 20 141/57 94 NIV Bilevel 30.00 06/14/21 21:58 55 22 94 30.00 06/14/21 21:00 64 23 149/67 94 High Flow N/C 5.00 06/14/21 20:00 72 20 141/66 94 High Flow N/C 5.00 06/14/21 20:00 Nasal Cannula 4.00 06/14/21 19:34 36.1 06/14/21 19:00 60 06/14/21 19:00 58 17 142/56 98 High Flow N/C 5.00 06/14/21 18:55 High Flow N/C 5.00 92 06/14/21 18:00 60 16 132/56 95 Nasal Cannula 3.00 06/14/21 17:00 61 22 154/62 92 Nasal Cannula 3.00 06/14/21 16:00 68 21 116/46 90 Nasal Cannula 3.00 06/14/21 15:25 36.2 06/14/21 15:15 36.8 61 16 152/74 93 Nasal Cannula 5.00 06/14/21 15:09 Nasal Cannula 4.00 06/14/21 15:00 58 24 163/69 95 Nasal Cannula 3.00 06/14/21 14:58 Nasal Cannula 5.00 94 06/14/21 14:09 Nasal Cannula 3.00 06/14/21 14:00 59 21 143/59 95 NIV Bilevel 30.00 06/14/21 13:38 36.6 58 18 146/54 96 Nasal Cannula 5.00 06/14/21 13:23 36.6 59 16 129/45 91 Nasal Cannula 3.00 06/14/21 13:00 61 06/14/21 13:00 63 22 149/61 90 NIV Bilevel 30.00 06/14/21 12:00 96 Nasal Cannula 3.00 06/14/21 12:00 64 16 142/64 91 NIV Bilevel 30.00 06/14/21 11:55 36.7 06/14/21 11:05 Nasal Cannula 3.00 94 06/14/21 11:00 68 18 147/52 94 NIV Bilevel 30.00 06/14/21 10:00 67 21 112/78 94 NIV Bilevel 30.00 06/14/21 09:00 67 15 145/74 99 NIV Bilevel 30.00 06/14/21 08:00 96 Nasal Cannula 3.00 06/14/21 08:00 61 21 140/55 99 NIV Bilevel 30.00 06/14/21 07:55 36.4 I & O 06/15/21 07:00 Intake Total 1175 ml Output Total 1000 ml Balance 175 ml General Appearance: No Apparent Distress, WD/WN, Obese HEENT: PERRL/EOMI, Normal ENT Inspection Neck: Full Range of Motion, Normal Inspection, Non Tender, Supple Respiratory: Chest Non Tender, No Accessory Muscle Use, Decreased Breath Sounds, Other (on oxygen ) Cardiovascular: No JVD, Bradycardia Gastrointestinal: Normal Bowel Sounds, Non Tender, Soft; No Distended Rectal: Deferred Extremity: Normal Inspection, No Calf Tenderness, Pedal Edema Neurologic/Psychiatric: Alert, No Motor/Sensory Deficits; No Facial Droop Skin: Normal Color, Warm/Dry Lymphatic: No Adenopathy Results Lab Laboratory Tests 06/14/21 12:01: Glucometer 201H 06/14/21 17:26: Glucometer 176H 06/14/21 19:05: Hemoglobin 7.7L, Hematocrit 25L 06/14/21 19:42: Glucometer 159H 06/15/21 04:06: White Blood Count 5.2, Red Blood Count 2.74L, Hemoglobin 7.6L, Hematocrit 25L, Mean Corpuscular Volume 92, Mean Corpuscular Hemoglobin 28, Mean Corpuscular Hemoglobin Concent 30L, Red Cell Distribution Width 19.4H, Platelet Count 125L, Mean Platelet Volume 12.4H, Immature Granulocyte % (Auto) 1, Neutrophils (%) (Auto) 69, Lymphocytes (%) (Auto) 18, Monocytes (%) (Auto) 11, Eosinophils (%) (Auto) 2, Basophils (%) (Auto) 0, Neutrophils # (Auto) 3.6, Lymphocytes # (Auto) 0.9L, Monocytes # (Auto) 0.6, Eosinophils # (Auto) 0.1, Basophils # (Auto) 0.0, Immature Granulocyte # (Auto) 0.0, Sodium Level 143, Potassium Level 3.9, Chloride Level 109H, Carbon Dioxide Level 22, Anion Gap 12, Blood Urea Nitrogen 24H, Creatinine 0.95, Estimat Glomerular Filtration Rate 60, BUN/Creatinine Ratio 25, Glucose Level 178H, Calcium Level 8.1L, Corrected Calcium 8.8, Phosphorus Level 3.7, Magnesium Level 2.2, Total Bilirubin 1.1H, Aspartate Amino Transf (AST/SGOT) 18, Alanine Aminotransferase (ALT/SGPT) 12, Alkaline Phosphatase 41, Total Protein 5.4L, Albumin 3.1L Microbiology 06/13/21 MRSA Screen - Final, Complete MRSA not isolated Assessment/Plan Assessment/Plan Admission Dx Anemia SOB Pulmonary Edema Cardiomegaly Elevated BUN Elevated Creatinine High Blood sugar Hypocalemia HTN prison Anticoagulation use Confusion COPD Anxiety Pseudoseizure Atrial Fibrillation Assessment and Plan Anemia SOB Pulmonary Edema Cardiomegaly Elevated BUN Elevated Creatinine High Blood sugar Hypocalemia 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 General surgery on consult EGD planned for tomorrow. -06/15: Transfused another unit of blood 06/14, current hemoglobin is 7.6. SOB -BiPAP, Incentive spirometer, repeat CXR Confusion -Restart Zyprexa HTN -Monitor Blood pressure. 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 STAFF REPORTS CONFUSION LAST NIGHT. NURSING HAD TO SIT AT BEDSIDE AND HOLD HER HAND MOST OF THE NIGHT. PT ALERT, ORIENTED TO PERSON, PLACE, NOT TIME, PULMONARY STATUS - DECREASED B REATH SOUNDS THROUGHOUT, IRREGULARLY IRREGULAR, NORMAL BOWEL SOUNDS, TYMPANITIC TO PERCUSSION, TRACE EDEMA. SEVERE ACUTE ANEMIA HYPOXIA RESPIRATORY DISTRESS CHRONIC HYPERTENSION HX OF CORONARY ARTERY DISEASE CHRONIC COPD DIABETES MELLITUS HYPERTENSION HISTORY OF ATRIAL FIBRILLATION GERD CHRONIC ANTICOAGULATION SEVERE ACUTE ANEMIA WITH SUSPECTED GI BLEED - PT ON ANTICOAGULATION OUTPATIENT, IT IS ON HOLD - WILL CONTINUE TO BE ON HOLD UNTIL SHE HAS COMPLETED HER COLONOSCOPE ON 06/16/21 AND A CAPSULE END OSCOPY AN OUTPATIENT. - CONSULT TO GENERAL SURGERY - EGD 06/15/21, COLONOSCOPE 06/16/21. - PT IS STATUS POST 4 UNITS OF BLOOD, WITH PT HAVING CARDIAC HISTORY AND COPD, PT HAS NEED FOR HGB TO BE AT OR ABOVE 8 IF POSSIBLE. - MONITOR LABS, REPEAT TRANSFUSION IF NEEDED. HYPOXIA WITH RESPIRATORY DISTRESS AND HX OF COPD - PARTIALLY DUE TO SEVERE ANEMIA - MONITOR PULMONARY RESPONSE AFTER BLOOD TRANSFUSIONS - STARTED MAT PROTOCOL. CHRONIC HYPERTENSION - MONITOR PRESSURES, RECONCILED MEDICATIONS HX OF CORONARY ARTERY DISEASE DIABETES MELLITUS - ICU INSULIN PROTOCOL, MONITOR FSBS HISTORY OF ATRIAL FIBRILLATION - HOLD ANTICOAGULATION AT THIS TIME DUE TO GI BLEEDING GERD - RESUMED PPI THERAPY. DVT PROPHYLAXIS WITH SCD'S OLIVIA BRANDT June 15, 2021 07:38 FILIPE PURCELL MD June 16, 2021 10:44
[2021-06-15] MEDS ORDERED: LACTATED RINGERS 1,000 ML IV ONE (08:11)
[2021-06-15] MEDS ORDERED: LACTATED RINGERS 1,000 ML IV STA (08:11)
--- NOTE | 2021-06-15 08:12 | Progress Note - Surgery ---
Subjective Date Seen by a Provider: June 15, 2021 Time Seen by a Provider: 08:07 Subjective/Events-last exam Still with bloody bowel movements. No abdominal pain. NPO. Patient with hgb 7.6 PLanned EGD today. Denies n/v fever sweats chills or chest pain. Objective Exam Vital Signs Date Time Temp Pulse Resp B/P (MAP) Pulse Ox O2 Delivery O2 Flow Rate FiO2 06/15/21 07:33 36.0 06/15/21 07:20 High Flow N/C 5.00 95 06/15/21 07:15 56 06/15/21 07:00 59 12 168/81 100 NIV Bilevel 30.00 06/15/21 06:00 57 18 184/95 99 NIV Bilevel 30.00 06/15/21 05:00 49 19 149/64 93 NIV Bilevel 30.00 06/15/21 04:07 35.7 06/15/21 04:00 50 17 154/66 92 NIV Bilevel 30.00 06/15/21 04:00 NIV Bilevel 4.00 30 06/15/21 03:00 56 20 138/54 94 NIV Bilevel 30.00 06/15/21 02:15 50 23 93 30.00 06/15/21 02:00 50 20 148/65 94 NIV Bilevel 30.00 06/15/21 01:00 51 06/15/21 01:00 51 23 148/66 93 NIV Bilevel 30.00 06/15/21 00:00 54 23 145/63 92 NIV Bilevel 30.00 06/15/21 00:00 NIV Bilevel 4.00 30 06/14/21 23:00 56 21 133/69 93 NIV Bilevel 30.00 06/14/21 22:37 35.4 06/14/21 22:00 55 20 141/57 94 NIV Bilevel 30.00 06/14/21 21:58 55 22 94 30.00 06/14/21 21:00 64 23 149/67 94 High Flow N/C 5.00 06/14/21 20:00 72 20 141/66 94 High Flow N/C 5.00 06/14/21 20:00 Nasal Cannula 4.00 06/14/21 19:34 36.1 06/14/21 19:00 60 06/14/21 19:00 58 17 142/56 98 High Flow N/C 5.00 06/14/21 18:55 High Flow N/C 5.00 92 06/14/21 18:00 60 16 132/56 95 Nasal Cannula 3.00 06/14/21 17:00 61 22 154/62 92 Nasal Cannula 3.00 06/14/21 16:00 68 21 116/46 90 Nasal Cannula 3.00 06/14/21 15:25 36.2 06/14/21 15:15 36.8 61 16 152/74 93 Nasal Cannula 5.00 06/14/21 15:09 Nasal Cannula 4.00 06/14/21 15:00 58 24 163/69 95 Nasal Cannula 3.00 06/14/21 14:58 Nasal Cannula 5.00 94 06/14/21 14:09 Nasal Cannula 3.00 06/14/21 14:00 59 21 143/59 95 NIV Bilevel 30.00 06/14/21 13:38 36.6 58 18 146/54 96 Nasal Cannula 5.00 06/14/21 13:23 36.6 59 16 129/45 91 Nasal Cannula 3.00 06/14/21 13:00 61 06/14/21 13:00 63 22 149/61 90 NIV Bilevel 30.00 06/14/21 12:00 96 Nasal Cannula 3.00 06/14/21 12:00 64 16 142/64 91 NIV Bilevel 30.00 06/14/21 11:55 36.7 06/14/21 11:05 Nasal Cannula 3.00 94 06/14/21 11:00 68 18 147/52 94 NIV Bilevel 30.00 06/14/21 10:00 67 21 112/78 94 NIV Bilevel 30.00 06/14/21 09:00 67 15 145/74 99 NIV Bilevel 30.00 I & O 06/15/21 07:00 Intake Total 1175 ml Output Total 1000 ml Balance 175 ml Capillary Refill : General Appearance: No Apparent Distress, WD/WN HEENT: PERRL/EOMI, Normal ENT Inspection Neck: Full Range of Motion, Normal Inspection Respiratory: Chest Non Tender, No Accessory Muscle Use, Decreased Breath Sounds, Other (on BiPAP) Cardiovascular: Regular Rate, Rhythm, No JVD Gastrointestinal: non tender, soft Extremity: Normal Inspection, No Calf Tenderness, Pedal Edema Neurologic/Psychiatric: Alert, No Motor/Sensory Deficits; No Facial Droop Skin: Normal Color, Warm/Dry Lymphatic: No Adenopathy Results Lab Laboratory Tests 06/14/21 12:01: Glucometer 201H 06/14/21 17:26: Glucometer 176H 06/14/21 19:05: Hemoglobin 7.7L, Hematocrit 25L 06/14/21 19:42: Glucometer 159H 06/15/21 04:06: White Blood Count 5.2, Red Blood Count 2.74L, Hemoglobin 7.6L, Hematocrit 25L, Mean Corpuscular Volume 92, Mean Corpuscular Hemoglobin 28, Mean Corpuscular Hemoglobin Concent 30L, Red Cell Distribution Width 19.4H, Platelet Count 125L, Mean Platelet Volume 12.4H, Immature Granulocyte % (Auto) 1, Neutrophils (%) (Auto) 69, Lymphocytes (%) (Auto) 18, Monocytes (%) (Auto) 11, Eosinophils (%) (Auto) 2, Basophils (%) (Auto) 0, Neutrophils # (Auto) 3.6, Lymphocytes # (Auto) 0.9L, Monocytes # (Auto) 0.6, Eosinophils # (Auto) 0.1, Basophils # (Auto) 0.0, Immature Granulocyte # (Auto) 0.0, Sodium Level 143, Potassium Level 3.9, Chloride Level 109H, Carbon Dioxide Level 22, Anion Gap 12, Blood Urea Nitrogen 24H, Creatinine 0.95, Estimat Glomerular Filtration Rate 60, BUN/Creatinine Ratio 25, Glucose Level 178H, Calcium Level 8.1L, Corrected Calcium 8.8, Phosphorus Level 3.7, Magnesium Level 2.2, Total Bilirubin 1.1H, Aspartate Amino Transf (AST/SGOT) 18, Alanine Aminotransferase (ALT/SGPT) 12, Alkaline Phosphatase 41, Total Protein 5.4L, Albumin 3.1L Microbiology 06/13/21 MRSA Screen - Final, Complete MRSA not isolated Assessment/Plan Assessment/Plan Assessment/Plan anemia gi bleed likely [facility] anticoagulation shortness of air. patient transfused prbc hgb 7.6 on Protonix IV bid Follow hgb transfuse as needed Hold any anticoagulation patient for EGD today, if no source will need colonoscopy JUSTIN GARBER DO June 15, 2021 08:12
[2021-06-15] MEDS ORDERED: HURRICAINE EXT TUBE (BENZOCAINE) XX PRN (08:15)
[2021-06-15 08:30] VITALS: BP 175/74
[2021-06-15] MEDS ORDERED: NON-FORMULARY MEDICATION 1 EA EA (Ropinirole HCl 0.5 MG) PO SCH (09:00)
[2021-06-15] MEDS ORDERED: GOLYTELY POWDER 4000 ML BTL PO NR (09:01)
--- NOTE | 2021-06-15 09:14 | Anesthesia-General Post-Op ---
MAC Patient Condition Mental Status/LOC: Same as Preop Cardiovascular: Satisfactory Nausea/Vomiting: Absent Respiratory: Satisfactory Pain: Controlled Complications: Absent Post Op Complications Complications None Follow Up Care/Instructions Patient Instructions None needed. Anesthesiology Discharge Order Discharge Order Patient is doing well, no complaints, stable vital signs, no apparent adverse anesthesia problems. No complications reported per nursing. SILVINO HUNTER CRNA June 15, 2021 09:14
[2021-06-15] MEDS: ISOSORBIDE MONONITRATE 60 MG (IMDUR) TAB PO SCH (09:18)
[2021-06-15] MEDS: ROSUVASTATIN 10 MG (CRESTOR) TABLET PO SCH (09:19)
[2021-06-15] MEDS: amLODIPine 10 MG (NORVASC) TAB PO SCH (09:19)
[2021-06-15] MEDS: ALLOPURINOL 100 MG (ZYLOPRIM) TAB PO SCH (09:19)
[2021-06-15] MEDS: OLANZapine 2.5 MG (ZyPREXA) TAB PO SCH (09:19)
[2021-06-15] MEDS: FLUoxetine HCL 20 MG (PROzac) CAP PO SCH (09:20)
[2021-06-15] MEDS: PANTOPRAZOLE 40 MG (PROTONIX) VIAL IV SCH ×2 (09:20→19:53)
[2021-06-15] MEDS: OXYBUTYNIN (DITROPAN) 5 MG TAB PO SCH ×3 (09:42→19:54)
[2021-06-15] MEDS: rOPINIRole 0.25 MG (REQUIP) TAB PO SCH (09:42)
[2021-06-15] MEDS: PREGABALIN 100 MG (LYRICA) CAPSULE PO SCH ×2 (09:42→19:54)
--- NOTE | 2021-06-15 09:53 | Tele-ICU Progress Note ---
Subjective Date Seen by a Provider: June 15, 2021 Time Seen by a Provider: 09:52 Subjective/Events-last exam (Tele-ICU Physician , Progress Note ) Available chart/ vitals / labs / Images reviewed Video assessment done using teleICU camera, rest of exam as per RN Discussed with RN , EXAM PER RN Events overnight : Afebrile FiO2 - 3l I/O = neg Drips: ns 50 Pressors: , hemodynamically stable Consultants: kojo Hospital course: (06/13) 81y F from assisted living with SOB at night and chest hurts with deep breathing. On Xarelto unknown reason, Hg 4.6 not active bleed noted. 2 u ordered. A/P [place] - s/p toptal 4 u PRBC - s/p EGG - negative, colonoscopy pending Acuter resp failure - anemioa? -OFF NIPPV - on 3 l o2 - home requrements - stable On AC DIRECTOR PERSONAL ( xarelto ) - ? indications - follow , all on hols wioth anemia DM - ISS Lines : (Central Line Necessity Reviewed) [place]: OG: Nutrition: Analgesia: Anxiety/ delirium VTE Prophylaxis: scd Stress Ulcer Prophylaxis: ppi Plans in collaboration with bedside consultants and IM MDs. Discussed with RN to reach out if any questions or concerns A total of 31 minutes of critical care time was devoted to this patient today, required to treat and/or prevent further deterioration of critical care condition ( as above) . Sepsis Event Evaluation Height, Weight, BMI Height: 5'6.00" Weight: 213lbs. 0.0oz. 96.010872kx; 40.26 BMI Method:Stated Exam Exam Patient acknowledged, consented, and participated in this virtual visit which was conducted using real time audio/video Vital Signs Date Time Temp Pulse Resp B/P (MAP) Pulse Ox O2 Delivery O2 Flow Rate FiO2 06/15/21 09:00 67 06/15/21 08:30 72 20 99 OxyMask 06/15/21 08:00 56 13 165/70 99 NIV Bilevel 30.00 06/15/21 07:33 36.0 06/15/21 07:20 High Flow N/C 5.00 95 06/15/21 07:15 56 06/15/21 07:00 59 12 168/81 100 NIV Bilevel 30.00 06/15/21 06:00 57 18 184/95 99 NIV Bilevel 30.00 06/15/21 05:00 49 19 149/64 93 NIV Bilevel 30.00 06/15/21 04:07 35.7 06/15/21 04:00 50 17 154/66 92 NIV Bilevel 30.00 06/15/21 04:00 NIV Bilevel 4.00 30 06/15/21 03:00 56 20 138/54 94 NIV Bilevel 30.00 06/15/21 02:15 50 23 93 30.00 06/15/21 02:00 50 20 148/65 94 NIV Bilevel 30.00 06/15/21 01:00 51 06/15/21 01:00 51 23 148/66 93 NIV Bilevel 30.00 06/15/21 00:00 54 23 145/63 92 NIV Bilevel 30.00 06/15/21 00:00 NIV Bilevel 4.00 30 06/14/21 23:00 56 21 133/69 93 NIV Bilevel 30.00 06/14/21 22:37 35.4 06/14/21 22:00 55 20 141/57 94 NIV Bilevel 30.00 06/14/21 21:58 55 22 94 30.00 06/14/21 21:00 64 23 149/67 94 High Flow N/C 5.00 06/14/21 20:00 72 20 141/66 94 High Flow N/C 5.00 06/14/21 20:00 Nasal Cannula 4.00 06/14/21 19:34 36.1 06/14/21 19:00 60 06/14/21 19:00 58 17 142/56 98 High Flow N/C 5.00 06/14/21 18:55 High Flow N/C 5.00 92 06/14/21 18:00 60 16 132/56 95 Nasal Cannula 3.00 06/14/21 17:00 61 22 154/62 92 Nasal Cannula 3.00 06/14/21 16:00 68 21 116/46 90 Nasal Cannula 3.00 06/14/21 15:25 36.2 06/14/21 15:15 36.8 61 16 152/74 93 Nasal Cannula 5.00 06/14/21 15:09 Nasal Cannula 4.00 06/14/21 15:00 58 24 163/69 95 Nasal Cannula 3.00 06/14/21 14:58 Nasal Cannula 5.00 94 06/14/21 14:09 Nasal Cannula 3.00 06/14/21 14:00 59 21 143/59 95 NIV Bilevel 30.00 06/14/21 13:38 36.6 58 18 146/54 96 Nasal Cannula 5.00 06/14/21 13:23 36.6 59 16 129/45 91 Nasal Cannula 3.00 06/14/21 13:00 61 06/14/21 13:00 63 22 149/61 90 NIV Bilevel 30.00 06/14/21 12:00 96 Nasal Cannula 3.00 06/14/21 12:00 64 16 142/64 91 NIV Bilevel 30.00 06/14/21 11:55 36.7 06/14/21 11:05 Nasal Cannula 3.00 94 06/14/21 11:00 68 18 147/52 94 NIV Bilevel 30.00 06/14/21 10:00 67 21 112/78 94 NIV Bilevel 30.00 I & O 06/15/21 07:00 Intake Total 1175 ml Output Total 1000 ml Balance 175 ml Height & Weight Height: 5'6.00" Weight: 213lbs. 0.0oz. 96.047999vc; 40.26 BMI Method:Stated General Appearance: No Apparent Distress, WD/WN HEENT: PERRL/EOMI, Normal ENT Inspection Neck: Full Range of Motion, Normal Inspection Respiratory: Chest Non Tender, No Accessory Muscle Use, Decreased Breath Sounds, Other (on BiPAP) Cardiovascular: No JVD, Bradycardia Gastrointestinal: non tender, soft Extremity: Normal Inspection, No Calf Tenderness, Pedal Edema Neurologic/Psychiatric: Alert, No Motor/Sensory Deficits; No Facial Droop Skin: Normal Color, Warm/Dry Lymphatic: No Adenopathy Results Lab Laboratory Tests 06/13/21 11:20 06/13/21 17:00 06/14/21 04:56 06/14/21 19:05 06/15/21 04:06 Assessment/Plan Assessment/Plan ` SANTOS SHAFFER MD June 15, 2021 09:53
[2021-06-15] MEDS ORDERED: MAGNESIUM CITRATE 300 ML BTL PO NR (10:57)
--- NOTE | 2021-06-15 12:35 | Progress Note-Post Operative ---
Post-Operative Progess Note Surgeon (s)/Blogs Manager (s) Surgeon JUSTIN GARBER DO Blogs Manager: na Pre-Operative Diagnosis anemia gi bleed Post-Operative Diagnosis small eosphageal varices, small hiatal hernia Procedure & Operative Findings Date of Procedure 06/15/21 Procedure Performed/Findings egd Anesthesia Type per screw machine adjuster automatic Estimated Blood Loss Estimated blood loss (mL): none Specimens/Packing Specimens Removed na JUSTIN GARBER DO June 15, 2021 12:35
[2021-06-15] MEDS: ONDANSETRON 4 MG/2 ML (SDV) Z0FRAN IV PRN ×2 (12:52→22:14)
[2021-06-15] MEDS ORDERED: DICYCLOMINE 10 MG (BENTYL) CAP PO PRN (14:30)
[2021-06-15] MEDS: MAG CARB/AL HYDROX EXTRA STRENGTH TAB (GAVISCON ES) PO PRN (14:38)
--- NOTE | 2021-06-15 14:48 | Progress Note-Pre Operative ---
Pre-Operative Progress Note H&P Reviewed The H&P was reviewed, patient examined and no changes noted. Date Seen by Provider: June 15, 2021 Time Seen by Provider: 14:00 Date H&P Reviewed: June 15, 2021 Time H&P Reviewed: 14:00 Pre-Operative Diagnosis: anemia with hx colon polyp and diverticulosis. KAMILLA ARAGON MD June 15, 2021 14:48
--- NOTE | 2021-06-15 15:06 | CONSULTATION REPORT ---
DATE OF SERVICE: 06/15/2021 ATTENDING PRIMARY CARE PHYSICIAN: Peggy Rivera MD. HISTORY OF PRESENT ILLNESS: The patient is an 81-year-old female known to us. She had issues with reflux and dysphagia and was seen in the office. She then underwent an EGD on 05/17/2021 and was found to have thick secretions in the hypopharynx, reflux esophagitis, [place] grade B. There was a possibility of an increased lower esophageal sphincter tone and achalasia; however, we were able to dilate with a balloon to 2 cm with minimal resistance. There was a small hiatal hernia was approximately 2 cm in size as well as a moderate gastritis and no distal obstructions. She was admitted for significant weakness and shortness of breath and was found to be significantly anemic with a hemoglobin of 4.6. Since that time, she has received 3 units of packed red blood cells and her hemoglobin has gone up appropriately. She did undergo an EGD today, which showed a small hiatal hernia as well as what was reported as small esophageal varices. She has had a colonoscopy before; however, this was in 2013 where she was found to have diverticulosis as well as descending colon polyp. The patient requested another colonoscopy, which we were consulted for. PAST MEDICAL HISTORY: Gastroesophageal reflux disease, history of hiatal hernia, hypertension, hypercholesterolemia, diabetes, degenerative joint disease, COPD, history of pneumonia, pseudoseizure disorder, chronic urinary tract infection, chronic constipation, eczema. PAST SURGICAL HISTORY: Hysterectomy, total knee arthroplasty. ALLERGIES: CODEINE. MEDICATIONS: Albuterol, allopurinol, amlodipine, Eliquis, benzonatate, iron, fluoxetine, furosemide, aspartate insulin, glargine insulin, isosorbide mononitrate, ketoconazole b.i.d., latanoprost daily, lisinopril daily, meclizine daily, olanzapine, oxybutynin, Protonix, MiraLax, potassium, pregabalin, ropinirole, rosuvastatin, tramadol, trazodone. SOCIAL HISTORY: Previous smoke, 40 pack years. Negative alcohol. FAMILY HISTORY: Both father and mother, colon cancer. VITAL SIGNS: Temperature 36.8, blood pressure 153/77, pulse 81, respirations 24, pulse ox 95% on BiPAP 30%. REVIEW OF SYSTEMS: Well-nourished female currently in no acute distress. She is not experiencing any shortness of breath or difficulty breathing. No chest pain, palpitations, diaphoresis. No nausea, vomiting with history of constipation. No known red blood per rectum, no dark tarry stools. No fever, chills, no recent inadvertent weight loss. All other review of systems negative. PHYSICAL EXAMINATION: CHEST: Distant breath sounds and scattered wheezes bilaterally. HEART: Regular, no murmurs. EXTREMITIES: +1/3 bilateral lower extremity edema, negative Homans sign. HEENT: No scleral icterus. NECK: No cervical lymphadenopathy. ABDOMEN: Soft, nontender, nondistended. SKIN: Warm, dry. LABORATORY DATA: WBC 5.2, hemoglobin 7.6, hematocrit 25, platelets 125, BUN 24, creatinine 0.95. ASSESSMENT AND PLAN: An 81-year-old male with symptomatic anemia with gastroesophageal reflux disease, small hiatal hernia; however, no active bleeding identified on upper endoscopy on this admission. Her last colonoscopy was in 2013 where she was found to have benign polyps as well as sigmoid diverticulosis. We will proceed with a colonoscopy on this admission. Job ID: [id number] DocumentID: [id number] Dictated Date: 06/15/2021 14:48:01 Fisheries Officer Date: 06/15/2021 15:05:32 Dictated By: KAMILLA ARAGON MD
--- NOTE | 2021-06-15 16:31 | OPERATIVE REPORT ---
DATE OF SERVICE: 06/15/2021 PREOPERATIVE DIAGNOSES: Anemia and gastrointestinal bleed, likely upper. POSTOPERATIVE DIAGNOSES: Small esophageal varices and small hiatal hernia. PROCEDURE PERFORMED: EGD. SURGEON: Justin Esparza DO ANESTHESIA: Per CRIMINOLOGY PROFESSOR. ESTIMATED BLOOD LOSS: None. COMPLICATIONS: None. INDICATIONS FOR PROCEDURE: The patient is an 81-year-old female, who was admitted with severe anemia. Her hemoglobin was in the 4 range. She has been transfused. She was on anticoagulation. This has been held. The patient understands the risks and benefits of the procedure and wished to proceed. Consent was signed in the chart. DESCRIPTION OF PROCEDURE: The patient was taken to the endoscopy suite and placed in a left lateral recumbent position. A timeout was performed. Scope was inserted in the mouth, down the esophagus, stomach and into the duodenum without difficulty. There were no polyps, masses or ulcerations within the duodenum. Scope was slowly retracted back and stomach was insufflated. No polyps, masses or ulcerations. No evidence of any bleeding. Scope was retroflexed noting a small hiatal hernia and no other pathology. Scope was returned to its normal position, slowly withdrawn to the distal esophagus. No polyps, masses or ulcerations or any active bleeding. Scope was slowly retracted back. Multiple secretions that were thick were present. This was suctioned. In the mid esophagus, appearance of small varices present. Scope was continuously and slowly retracted back until completely removed, noting no evidence of bleeding. The patient tolerated the procedure well without any complications. She was taken to recovery room in stable condition. RECOMMENDATIONS: For further evaluation of GI bleeding source, we would recommend a colonoscopy. The patient would remain off anticoagulation at this time. Job ID: [id number] DocumentID: [id number] Dictated Date: 06/15/2021 14:21:39 Ui Developer With [employer] Date: 06/15/2021 16:31:26 Dictated By: JUSTIN ESPARZA DO
[2021-06-15 16:38] LABS: HEMOGLOBIN 8.5 g/dL (11.5-16.0)
[2021-06-15] MEDS: OLANZapine 5 MG (ZyPREXA) TAB PO SCH (17:14)
[2021-06-15] MEDS: NS IV 1000 ML 1,000 ML IV SCH (17:57)
--- NOTE | 2021-06-15 17:58 | Physician Query Clarification ---
Physician Query-General Query to Physician: The medical record reflects the following clinical scenario: The patient, in the setting of History/Risk factors, COPD, Anemia, Came to hospital due to increasing SOB, Use of 02 at home only at HS Clinical Findings Admission HGB 4.6, Admission RR 26, Documentation in the ER of SOA at rest, Requiring almost continuous Bipap currently with 30% or 3L-4L 02 continuous when off bipap. Treatment Duonebs, O2 at 3L, 4L of RBC, Bipap, Question: Do you agree with the impression of Acute Respiratory Failure per Dr. Shannan Ryan? 1. Yes; will document Acute Hypoxic Respiratory Failure, Present on admission in the Progress Notes 2. No; will continue current documentation in the Progress Notes 3. Other; will document explanation of clinical findings 4. Clinically undetermined; no explanation for clinical findings Please clarify and document your clinical opinion in the Progress Notes and Discharge Summary including the definitive and/or presumptive diagnosis, (suspected or probable), related to the above clinical findings. Please include clinical findings supporting your diagnosis. In responding to this query, please exercise your independent professional judgment. The purpose of this communication is to more accurately reflect the complexity of your patients condition. The fact that a question is asked does not imply that any particular answer is desired or expected. Please remember a lack of response to the above will prompt a phone page by CDI/coding staff Thank you for timely response to this clarification. Riana Hoffman MSN, RN Clinical Plush Cutter [phone] [email or web address] PHYSICIAN RESPONSE: Based on the clinical findings in the record, please respond to the query above on this document as an addendum. Physician Response: Physician Response WILL DOCUMENT ACUTE RESPIRATORY FAILURE If you have questions please contact: Supervisor Grading: Ext: Thank you for your time and cooperation. Clinical Plush Cutter/Supervisor Grading This is a permanent part of the medical record RIANA HOFFMAN June 15, 2021 17:58 FILIPE PURCELL MD June 16, 2021 12:19
[2021-06-15] MEDS ORDERED: MAG CARB/AL HYDROX EXTRA STRENGTH TAB (GAVISCON ES) PO PRN (18:30)
[2021-06-15] MEDS: polyethylene glycoL POWDER 17 GM (MIRALAX) PACK PO SCH (19:53)
[2021-06-15] MEDS: traZODone 50 MG (DESYREL) TAB PO SCH (19:54)
[2021-06-15] MEDS: rOPINIRole 1 MG (REQUIP) TABLET PO SCH (19:54)
[2021-06-15] MEDS: LATANOPROST 0.005% (XALATAN) OPHTH SOLN 2.5 ML OU SCH (20:01)
[2021-06-16] VITALS (10 sets, daily range): BP systolic 115–196; BP diastolic 55–82
[2021-06-16] MEDS: RT-ALBUTEROL SULF 2.5 MG/3 ML PRE-MIX VIAL INH SCH ×6 (02:52→21:35)
[2021-06-16] MEDS: hydrALAZINE (APESOLINE) 20 MG/ML VIAL IV PRN ×3 (03:29→11:46)
[2021-06-16] MEDS: morphine INJ 4 MG/ML 1 ML (VIAL/SYRINGE) IVP PRN ×2 (04:01→20:40)
[2021-06-16 05:50] LABS: BASOPHILS % (AUTO) 0 % (0-10); EOSINOPHILS # (AUTO) 0.2 10^3/uL (0.0-0.3); EOSINOPHILS % (AUTO) 2 % (0-10); HEMATOCRIT 29 % (35-52); HEMOGLOBIN 8.7 g/dL (11.5-16.0); LYMPHOCYTES # (AUTO) 0.9 10^3/uL (1.0-4.0); LYMPHOCYTES % (AUTO) 12 % (12-44); MEAN CORPUSCULAR HEMOGLOBIN 28 pg (25-34); MEAN CORPUSCULAR HGB CONC 30 g/dL (32-36); MEAN CORPUSCULAR VOLUME 93 fL (80-99); MEAN PLATELET VOLUME 11.9 fL (9.0-12.2); MONOCYTES # (AUTO) 0.8 10^3/uL (0.0-1.0); MONOCYTES % (AUTO) 10 % (0-12); NEUTROPHILS # (AUTO) 5.9 10^3/uL (1.8-7.8); NEUTROPHILS % (AUTO) 75 % (42-75); PLATELET COUNT 155 10^3/uL (130-400); WHITE BLOOD COUNT 7.9 10^3/uL (4.3-11.0)
[2021-06-16 05:58] LABS: ALBUMIN 3.5 GM/DL (3.2-4.5); POTASSIUM 4.1 MMOL/L (3.6-5.0)
[2021-06-16 05:59] LABS: CALCIUM 8.6 MG/DL (8.5-10.1)
[2021-06-16] MEDS: POTASSIUM CL 10MEQ/50ML IVPB 50 ML IV SCH (06:00)
[2021-06-16] MEDS: MAGNESIUM 1 GM/100 ML IVPB 100 ML IV SCH (06:00)
[2021-06-16] MEDS: CATHETER FLUSH 10 ML SYR IV SCH ×3 (06:00→22:00)
[2021-06-16] MEDS: KCL 20 MEQ TAB (K-DUR) PO SCH (06:00)
[2021-06-16 06:01] LABS: TOTAL PROTEIN 6.3 GM/DL (6.4-8.2)
[2021-06-16 06:04] LABS: CREATININE SERUM 0.79 MG/DL (0.60-1.30); PHOSPHORUS 3.1 MG/DL (2.3-4.7)
[2021-06-16 06:07] LABS: MAGNESIUM 2.7 MG/DL (1.6-2.4)
[2021-06-16] MEDS: inSUlin ASPART (NovoLOG) 1 UNIT/0.01 ML (CHARGE PER UNIT) SC SCH ×4 (06:15→21:08)
--- NOTE | 2021-06-16 07:31 | Progress Note ---
Subjective Subjective Date Seen by Provider: June 16, 2021 Time Seen by Provider: 07:10 Patient reports that she is feeling better and breathing well. She is alert and oriented to place, but not time today. She reports that she is wearing her BiPAP machine last night and doesn't recall having any bloody bowel movements yesterday. Review of Systems ROS Unable to Obtain: On BiPAP unable to obtain at that time General: No Chills, No Night Sweats; Fatigue HEENT: No Eye Pain, No Ear Pain Pulmonary: Dyspnea; No Pleuritic Chest Pain Cardiovascular: No: Chest Pain, Palpitations Gastrointestinal: No: Nausea, Vomiting, Abdominal Pain Genitourinary: No Dysuria; Incontinence; No Hematuria Neurological: No: Incoordination, Change in speech Anxiety, Depression All Other Systems Reviewed All Other Systems Reviewed: Yes Objective Exam Vital Signs Vital Signs Date Time Temp Pulse Resp B/P (MAP) Pulse Ox O2 Delivery O2 Flow Rate FiO2 06/16/21 06:59 High Flow N/C 4.00 90 06/16/21 03:12 37.1 88 22 167/72 91 Nasal Cannula 4.00 06/16/21 02:53 High Flow N/C 4.00 91 06/15/21 23:59 37.1 84 22 135/60 94 Nasal Cannula 3.00 06/15/21 22:34 High Flow N/C 3.00 91 06/15/21 19:37 High Flow N/C 3.00 98 06/15/21 19:30 Nasal Cannula 3.00 06/15/21 16:00 77 18 163/76 93 NIV Bilevel 30.00 06/15/21 15:00 73 16 172/73 92 NIV Bilevel 30.00 06/15/21 14:50 High Flow N/C 3.00 95 06/15/21 14:00 81 24 153/77 95 NIV Bilevel 30.00 06/15/21 13:17 74 06/15/21 13:00 64 12 157/58 96 NIV Bilevel 30.00 06/15/21 12:15 Nasal Cannula 3.00 06/15/21 12:00 36.4 06/15/21 12:00 76 20 151/53 93 NIV Bilevel 30.00 06/15/21 11:00 67 154/54 96 NIV Bilevel 30.00 06/15/21 10:00 60 161/76 97 NIV Bilevel 30.00 06/15/21 09:00 70 14 165/70 96 NIV Bilevel 30.00 06/15/21 09:00 67 06/15/21 08:48 Nasal Cannula 3.00 06/15/21 08:30 72 20 99 OxyMask 06/15/21 08:00 56 13 165/70 99 NIV Bilevel 30.00 06/15/21 07:33 36.0 I & O 06/16/21 07:00 Intake Total 500 ml Output Total 1425 ml Balance -925 ml General Appearance: No Apparent Distress, WD/WN HEENT: PERRL/EOMI, Normal ENT Inspection Neck: Full Range of Motion, Normal Inspection Respiratory: Chest Non Tender, No Accessory Muscle Use, Decreased Breath Sounds, Other (on oxygen N/C) Cardiovascular: Regular Rate, Rhythm, No JVD Gastrointestinal: Normal Bowel Sounds, Non Tender, Soft; No Distended Rectal: Deferred Extremity: Normal Inspection, No Calf Tenderness, Pedal Edema Neurologic/Psychiatric: Alert, No Motor/Sensory Deficits; No Facial Droop Skin: Normal Color, Warm/Dry Lymphatic: No Adenopathy Results Lab Laboratory Tests 06/15/21 10:06: Glucometer 146H 06/15/21 14:35: Glucometer 134H 06/15/21 16:11: Hemoglobin 8.5L, Hematocrit 28L 06/15/21 21:18: Glucometer 154H 06/16/21 05:30: White Blood Count 7.9, Red Blood Count 3.13L, Hemoglobin 8.7L, Hematocrit 29L, Mean Corpuscular Volume 93, Mean Corpuscular Hemoglobin 28, Mean Corpuscular Hemoglobin Concent 30L, Red Cell Distribution Width 18.6H, Platelet Count 155, Mean Platelet Volume 11.9, Immature Granulocyte % (Auto) 1, Neutrophils (%) (Auto) 75, Lymphocytes (%) (Auto) 12, Monocytes (%) (Auto) 10, Eosinophils (%) (Auto) 2, Basophils (%) (Auto) 0, Neutrophils # (Auto) 5.9, Lymphocytes # (Auto) 0.9L, Monocytes # (Auto) 0.8, Eosinophils # (Auto) 0.2, Basophils # (Auto) 0.0, Immature Granulocyte # (Auto) 0.1, Sodium Level 143, Potassium Level 4.1, Chloride Level 108H, Carbon Dioxide Level 23, Anion Gap 12, Blood Urea Nitrogen 14, Creatinine 0.79, Estimat Glomerular Filtration Rate 75, BUN/Creatinine Ratio 18, Glucose Level 117H, Calcium Level 8.6, Corrected Calcium 9.0, Phosphorus Level 3.1, Magnesium Level 2.7H, Total Bilirubin 1.0, Aspartate Amino Transf (AST/SGOT) 23, Alanine Aminotransferase (ALT/SGPT) 13, Alkaline Phosphatase 47, Total Protein 6.3L, Albumin 3.5 06/16/21 06:09: Glucometer 114H Microbiology 06/13/21 MRSA Screen - Final, Complete MRSA not isolated Assessment/Plan Assessment/Plan Admission Dx Anemia SOB Pulmonary Edema Cardiomegaly Elevated BUN Elevated Creatinine High Blood sugar Hypocalemia HTN MCC Anticoagulation use Confusion COPD Anxiety Pseudoseizure Atrial Fibrillation Assessment and Plan Anemia SOB Pulmonary Edema Cardiomegaly Elevated BUN Elevated Creatinine High Blood sugar Hypocalemia HTN 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 General surgery on consult EGD planned for tomorrow. -06/15: Transfused another unit of blood 06/14, current hemoglobin is 7.6. -06/16: Hemoglobin currently at 8.7, last reading before that was 8.5. Will do an colonoscopy as EGD did not identify active source of bleeding, keep patient on Clear liquid diet, and NPO after midnight. SOB -BiPAP, Incentive spirometer Confusion -Restart Zyprexa HTN -Monitor Blood pressure. High Blood sugar -Monitor glucose levels, started on Insulin Elevated BUN -Repeat labs Elevated Creatinine -Resolved Atrial Fibrillation -Consult cardiology Bradycardia Cardiomegaly Pulmonary Edema Admission Dx Anemia SOB Pulmonary Edema Cardiomegaly Elevated BUN Elevated Creatinine High Blood sugar Hypocalemia HTN MCC Anticoagulation use Confusion COPD Anxiety Pseudoseizure Atrial Fibrillation Clinical Quality Measures Admission Status Admission Dx Anemia SOB Pulmonary Edema Cardiomegaly Elevated BUN Elevated Creatinine High Blood sugar Hypocalemia HTN MCC Anticoagulation use Confusion COPD Anxiety Pseudoseizure Atrial Fibrillation Supervisory-Addendum Brief Verification & Attestation Participated in pt care: history, MDM, physical Personally performed: exam, history, MDM, supervision of care Care discussed with: Medical Student Procedures: n/a Results interpretation: Verified all documentation SHE COMPLAINS OF FATIGUE, SHORTNESS OF BREATH, DENIES CHEST PAIN, NAUSEA, SHE DOES COMPLAIN OF ABDOMINAL PAIN AND WEAKNESS.. STAFF REPORTS CONFUSION LAST NIGHT. NURSING HAD TO SIT AT BEDSIDE AND HOLD HER HAND MOST OF THE NIGHT. PT ALERT, ORIENTED TO PERSON, PLACE, NOT TIME, PULMONARY STATUS - DECREASED BREATH SOUNDS THROUGHOUT, IRREGULARLY IRREGULAR, NORMAL BOWEL SOUNDS, TYMPANITIC TO PERCUSSION, TRACE EDEMA. SEVERE ACUTE ANEMIA HYPOXIA RESPIRATORY DISTRESS CHRONIC HYPERTENSION HX OF CORONARY ARTERY DISEASE CHRONIC COPD DIABETES MELLITUS HYPERTENSION HISTORY OF ATRIAL FIBRILLATION GERD CHRONIC ANTICOAGULATION PSEUDOSEIZURES BIPOLAR MOOD DISORDER SEVERE ACUTE ANEMIA WITH SUSPECTED GI BLEED - PT ON ANTICOAGULATION OUTPATIENT, IT IS ON HOLD - WILL CONTINUE TO BE ON HOLD UNTIL SHE HAS COMPLETED HER COLONOSCOPE ON 06/16/21 AND A CAPSULE ENDOSCOPY AN OUTPATIENT. - CONSULT TO GENERAL SURGERY - EGD 06/15/21, COLONOSCOPE 06/16/21. - PT IS STATUS POST 4 UNITS OF BLOOD, WITH PT HAVING CARDIAC HISTORY AND COPD, PT HAS NEED FOR HGB TO BE AT OR ABOVE 8 IF POSSIBLE. - MONITOR LABS, REPEAT TRANSFUSION IF NEEDED. HYPOXIA WITH RESPIRATORY DISTRESS AND HX OF COPD - PARTIALLY DUE TO SEVERE ANEMIA - MONITOR PULMONARY RESPONSE AFTER BLOOD TRANSFUSIONS - STARTED MAT PROTOCOL. CHRONIC HYPERTENSION - MONITOR PRESSURES, RECONCILED MEDICATIONS HX OF CORONARY ARTERY DISEASE DIABETES MELLITUS - ICU INSULIN PROTOCOL, MONITOR FSBS HISTORY OF ATRIAL FIBRILLATION - HOLD ANTICOAGULATION AT THIS TIME DUE TO GI BLEEDING GERD - RESUMED PPI THERAPY. PSEUDOSEIZURES WITH BIPOLAR MOOD DISORDER - RESUMED HOME MEDICATION REGIMEN DVT PROPHYLAXIS WITH SCD'S DISCUSSED WITH HER SON JOHN - SHE WILL NEED TO GO TO A ASSISTED UPON DISCHARGE DUE TO HER WEAKNESS AND THE INABILITY OF HER OR [place]ER[place] TO CARE FOR HERSELF AT ASSISTED LIVING AT [facility]. WE WILL WORK ON GETTING HER INTO [facility] ON DC - PLAN FOR SATURDAY OR SATURDAY. OLIVIA BRANDT June 16, 2021 07:31 FILIPE PURCELL MD June 16, 2021 10:44
[2021-06-16] MEDS: OLANZapine 2.5 MG (ZyPREXA) TAB PO SCH (08:17)
[2021-06-16] MEDS: OXYBUTYNIN (DITROPAN) 5 MG TAB PO SCH ×3 (08:17→21:03)
[2021-06-16] MEDS: PANTOPRAZOLE 40 MG (PROTONIX) VIAL IV SCH ×2 (08:17→20:39)
[2021-06-16] MEDS: ROSUVASTATIN 10 MG (CRESTOR) TABLET PO SCH (08:17)
[2021-06-16] MEDS: PREGABALIN 100 MG (LYRICA) CAPSULE PO SCH ×2 (08:17→21:04)
[2021-06-16] MEDS: rOPINIRole 0.25 MG (REQUIP) TAB PO SCH (08:18)
[2021-06-16] MEDS: ISOSORBIDE MONONITRATE 60 MG (IMDUR) TAB PO SCH (08:18)
[2021-06-16] MEDS: ALLOPURINOL 100 MG (ZYLOPRIM) TAB PO SCH (08:18)
[2021-06-16] MEDS: FLUoxetine HCL 20 MG (PROzac) CAP PO SCH (08:18)
[2021-06-16] MEDS: amLODIPine 10 MG (NORVASC) TAB PO SCH (08:18)
[2021-06-16] MEDS: ONDANSETRON 4 MG/2 ML (SDV) Z0FRAN IV PRN (09:27)
[2021-06-16] MEDS: NS IV 1000 ML 1,000 ML IV SCH (09:27)
[2021-06-16] MEDS ORDERED: LACTATED RINGERS 1,000 ML IV STA (12:44)
[2021-06-16] MEDS ORDERED: LIDOCAINE JELLY 2% 6 ML SYRINGE MM PRN (12:45)
[2021-06-16] MEDS ORDERED: PROPOFOL INJECTION 50 ML IV ONE (12:55)
[2021-06-16] MEDS ORDERED: FUROSEMIDE 40 MG/4 ML INJ (LASIX) IVP NR (14:00)
--- NOTE | 2021-06-16 14:25 | Progress Note-Post Operative ---
Post-Operative Progess Note Surgeon (s)/Continuity Person (s) Surgeon KAMILLA ARAGON MD Continuity Person: none Pre-Operative Diagnosis anemia with hx colon polyp and diverticulosis. Post-Operative Diagnosis chronic stage 3 ext and int hemorrhoids, mild chronic proctitis rectosigmoid jxn, sessile polyp ascending colon. Procedure & Operative Findings Date of Procedure 06/16/21 Procedure Performed/Findings colonoscopy with bx and submucosal inj and snare polypectomy. Anesthesia Type mac Estimated Blood Loss Estimated blood loss (mL): minimal Specimens/Packing Specimens Removed asc colon polyp, rectosigmoid. KAMILLA ARAGON MD June 16, 2021 14:25
--- NOTE | 2021-06-16 14:47 | Anesthesia-General Post-Op ---
MAC Patient Condition Mental Status/LOC: Same as Preop Cardiovascular: Satisfactory Nausea/Vomiting: Absent Respiratory: Satisfactory Pain: Controlled Complications: Absent Post Op Complications Complications None Follow Up Care/Instructions Patient Instructions None needed. Anesthesiology Discharge Order Discharge Order Patient is doing well, no complaints, stable vital signs, no apparent adverse anesthesia problems. No complications reported per nursing. JAKI RODRIGUEZ CRNA June 16, 2021 14:47
[2021-06-16] MEDS: lisINopril 40 MG (PRINIVIL) TABLET PO SCH (14:51)
[2021-06-16] MEDS: OLANZapine 5 MG (ZyPREXA) TAB PO SCH (17:34)
--- NOTE | 2021-06-16 20:22 | OPERATIVE REPORT ---
DATE OF SERVICE: 06/16/2021 ATTENDING PRIMARY CARE PHYSICIAN: Peggy Rivera MD PREOPERATIVE DIAGNOSIS: Symptomatic anemia. POSTOPERATIVE DIAGNOSES: Chronic stage III external and internal hemorrhoids, mild chronic proctitis, sessile polyp of the ascending colon, approximately 1 cm across. PROCEDURE: Colonoscopy with biopsy, submucosal injection, snare polypectomy. SURGEON: Kamilla Aragon MD. ANESTHESIA: Monitored anesthesia care. ESTIMATED BLOOD LOSS: Minimal. FINDINGS: Same as postoperative diagnoses. DISPOSITION: The patient tolerated the procedure well. INDICATIONS: The patient is an 81-year-old female known to us. She presented with worsening shortness of breath and was found to be significantly anemic. She did undergo an EGD on this admission by another surgeon, was found to have between grade I and II esophageal varices. There was no active bleeding identified. She does not report any known red blood per rectum nor any dark tarry stools. Her last colonoscopy was approximately 8 years ago. DESCRIPTION OF PROCEDURE: The patient was brought to the endoscopy suite, laid in left lateral decubitus position. After adequate IV pain and sedative medications and monitored anesthesia care, a digital rectal examination was performed. Chronic stage III external and internal hemorrhoids were identified with some mild irritation and no active bleeding. Normal sphincter tone was felt and there were no palpable masses. The endoscope was then intubated and anus and rectum gently insufflated. The endoscope was then advanced through the valves of [place] of the rectum; at approximately the rectosigmoid junction, a mild proctitis identified and a biopsy was taken with forceps with visualization of good hemostasis. Endoscope was then advanced through the sigmoid, descending and ascending colon. At the level of the ascending colon, a sessile polyp approximately 1 cm in greatest dimension was identified. We proceeded with a submucosal injections to raise the lesion with black ink and then the lesion was then excised using a snare and cautery. This was sent to pathology. The endoscope was then advanced to the remainder of the ascending colon to the cecum, which were normal. The endoscope was then slowly withdrawn while taking a second look and suctioning residual air with no additional findings. The patient tolerated the procedure well. We will await the biopsy results; however, it is hard to discern what the cause of her anemia is from and we will recommend continued medical management with maximizing her medical status, PPI acid hunter skin diver as well as a low sodium diet as well as water restriction. A nonselective beta shannon such as propranolol may help decrease the portal pressures. If the esophageal varices were the culprit, she may need referral to an endoscopist who does the distal esophageal banding, which is therapy of choice for nonbleeding varices. We will also recommend a high fiber diet with at least 25 grams of fiber daily with a fiber supplement to promote soft stools on a daily basis. We will await the biopsy results of the rectosigmoid proctitis as well as the polyp of the ascending colon. Job ID: [id number] DocumentID: [id number] Dictated Date: 06/16/2021 13:35:15 Nitric Acid Concentrator Operator Date: 06/16/2021 20:21:19 Dictated By: KAMILLA ARAGON MD
[2021-06-16] MEDS: MAG CARB/AL HYDROX EXTRA STRENGTH TAB (GAVISCON ES) PO PRN (20:39)
[2021-06-16] MEDS: rOPINIRole 1 MG (REQUIP) TABLET PO SCH (21:01)
[2021-06-16] MEDS: LATANOPROST 0.005% (XALATAN) OPHTH SOLN 2.5 ML OU SCH (21:01)
[2021-06-16] MEDS: traZODone 50 MG (DESYREL) TAB PO SCH (21:01)
[2021-06-16] MEDS: polyethylene glycoL POWDER 17 GM (MIRALAX) PACK PO SCH (21:04)
[2021-06-17] VITALS (7 sets, daily range): BP systolic 100–158; BP diastolic 54–75
[2021-06-17] MEDS: RT-ALBUTEROL SULF 2.5 MG/3 ML PRE-MIX VIAL INH SCH ×4 (02:03→21:11)
[2021-06-17 06:01] LABS: BASOPHILS % (AUTO) 0 % (0-10); EOSINOPHILS # (AUTO) 0.2 10^3/uL (0.0-0.3); EOSINOPHILS % (AUTO) 3 % (0-10); HEMATOCRIT 31 % (35-52); HEMOGLOBIN 9.1 g/dL (11.5-16.0); LYMPHOCYTES # (AUTO) 0.9 10^3/uL (1.0-4.0); LYMPHOCYTES % (AUTO) 12 % (12-44); MEAN CORPUSCULAR HEMOGLOBIN 28 pg (25-34); MEAN CORPUSCULAR HGB CONC 29 g/dL (32-36); MEAN CORPUSCULAR VOLUME 96 fL (80-99); MEAN PLATELET VOLUME 11.9 fL (9.0-12.2); MONOCYTES # (AUTO) 0.9 10^3/uL (0.0-1.0); MONOCYTES % (AUTO) 12 % (0-12); NEUTROPHILS # (AUTO) 5.6 10^3/uL (1.8-7.8); NEUTROPHILS % (AUTO) 73 % (42-75); PLATELET COUNT 148 10^3/uL (130-400); WHITE BLOOD COUNT 7.7 10^3/uL (4.3-11.0)
[2021-06-17] MEDS: CATHETER FLUSH 10 ML SYR IV SCH ×3 (06:09→21:15)
[2021-06-17 06:17] LABS: ALBUMIN 3.5 GM/DL (3.2-4.5); POTASSIUM 4.2 MMOL/L (3.6-5.0)
[2021-06-17 06:18] LABS: CALCIUM 8.8 MG/DL (8.5-10.1)
[2021-06-17 06:20] LABS: TOTAL PROTEIN 6.4 GM/DL (6.4-8.2)
[2021-06-17 06:23] LABS: CREATININE SERUM 0.84 MG/DL (0.60-1.30); PHOSPHORUS 3.8 MG/DL (2.3-4.7)
[2021-06-17 06:26] LABS: MAGNESIUM 2.7 MG/DL (1.6-2.4)
[2021-06-17] MEDS: POTASSIUM CL 10MEQ/50ML IVPB 50 ML IV SCH (06:30)
[2021-06-17] MEDS: MAGNESIUM 1 GM/100 ML IVPB 100 ML IV SCH (06:31)
[2021-06-17] MEDS: KCL 20 MEQ TAB (K-DUR) PO SCH (06:32)
[2021-06-17] MEDS: inSUlin ASPART (NovoLOG) 1 UNIT/0.01 ML (CHARGE PER UNIT) SC SCH ×4 (06:33→20:15)
[2021-06-17] MEDS: morphine INJ 4 MG/ML 1 ML (VIAL/SYRINGE) IVP PRN ×2 (06:43→15:01)
[2021-06-17] MEDS: OLANZapine 2.5 MG (ZyPREXA) TAB PO SCH (08:34)
[2021-06-17] MEDS: ALLOPURINOL 100 MG (ZYLOPRIM) TAB PO SCH (08:35)
[2021-06-17] MEDS: lisINopril 40 MG (PRINIVIL) TABLET PO SCH (08:35)
[2021-06-17] MEDS: ISOSORBIDE MONONITRATE 60 MG (IMDUR) TAB PO SCH (08:35)
[2021-06-17] MEDS: amLODIPine 10 MG (NORVASC) TAB PO SCH (08:35)
[2021-06-17] MEDS: rOPINIRole 0.25 MG (REQUIP) TAB PO SCH (08:35)
[2021-06-17] MEDS: FLUoxetine HCL 20 MG (PROzac) CAP PO SCH (08:35)
[2021-06-17] MEDS: FUROSEMIDE 40 MG/4 ML INJ (LASIX) IVP SCH (08:37)
[2021-06-17] MEDS: PANTOPRAZOLE 40 MG (PROTONIX) VIAL IV SCH ×2 (08:38→21:14)
[2021-06-17] MEDS: PREGABALIN 100 MG (LYRICA) CAPSULE PO SCH ×2 (08:44→21:14)
[2021-06-17] MEDS: ROSUVASTATIN 10 MG (CRESTOR) TABLET PO SCH (08:44)
[2021-06-17] MEDS: OXYBUTYNIN (DITROPAN) 5 MG TAB PO SCH ×3 (08:44→21:14)
--- NOTE | 2021-06-17 12:00 | Progress Note - Hospitalist ---
Subjective HPI/CC On Admission Date Seen by Provider: June 17, 2021 Time Seen by Provider: 11:55 Subjective/Events-last exam Pt reports doing ok. "Not bad but nothing extra." at bedside. Discussed lab results today. Objective Exam Vital Signs Vital Signs Date Time Temp Pulse Resp B/P (MAP) Pulse Ox O2 Delivery O2 Flow Rate FiO2 06/17/21 11:16 36.0 74 96 36 06/17/21 11:05 20 123/60 (81) High Flow N/C 4.00 Capillary Refill : General Appearance: No Apparent Distress, Chronically ill, Obese Respiratory: Lungs Clear, No Respiratory Distress Cardiovascular: Regular Rate, Rhythm, No Murmur Gastrointestinal: Non Tender, Soft Neurologic/Psychiatric: Alert, Oriented x3 Results/Procedures Lab Laboratory Tests 06/17/21 05:20 Patient resulted labs reviewed. Assessment/Plan Assessment and Plan Assess & Plan/Chief Complaint SEVERE ACUTE ANEMIA WITH SUSPECTED GI BLEED - s/p colonoscopy yesterday with polypectomy - Dr Becerra consulted, apprecaite recs - Planning for outpatient capsule endoscopy, hold anticoagulation until then - Hgb up to 9.1 today - Check iron panel though may be inaccurate due to 4 units of blood transfused already this visit HYPOXIA WITH RESPIRATORY DISTRESS AND HX OF COPD - currently stable on 4lpm - MAT protocol CHRONIC HYPERTENSION BP well controlled, trend HX OF CORONARY ARTERY DISEASE paroxysmal ATRIAL FIBRILLATION keep Hgb >8 due to this history Hold home blood thinners as above DIABETES MELLITUS -SSI -BS well controlled GERD Continue PPI PSEUDOSEIZURES WITH BIPOLAR MOOD DISORDER Continue home meds Debility PT/OT Will need NH placement Referral sent DVT PROPHYLAXIS WITH SCD'S only due to GI bleed Critical Care Critically Ill Patient JAZMIN CULP MD June 17, 2021 12:00
--- NOTE | 2021-06-17 15:07 | Physical Therapy Evaluation ---
PT Evaluation-General Medical Diagnosis Admission Date June 13, 2021 at 07:06 Medical Diagnosis: GI Bleed Onset Date: June 13, 2021 Therapy Diagnosis Therapy Diagnosis: Gait Deficit, strength deficit Height/Weight Height (Feet): 5 Height (Inches): 6.00 Weight (Pounds): 213 Weight (Ounces): 0.0 Precautions Precautions/Isolations: Fall Prevention, Standard Precautions Weight Bear Status Right Lower Extremity: Right Full Weight Bearing Left Lower Extremity: Left Full Weight Bearing Referral Physician: Dr. Jacques Reason for Referral: Evaluation/Treatment Medical History Pertinent Medical History: Arthritis, COPD, DM, GERD, HTN, Neuropathy, Smoking Social History Home: Assisted Living Current Living Status: Spouse Entry Into Home: Level Entry Patient lives with her at [facility] Prior Prior Level of Function SCALE: Activities may be completed with or without assistive devices. 5-Jwjvweyirp-orulrxj completes the activity by him/herself with no assistance from a helper. 5-Set-up or Clean-up Assistance-helper sets up or cleans up; patient completes activity. Hun[place] assists only prior to or following the activity. 4-Supervision or Touching Assistance-helper provides verbal cues and/or touching/steadying and/or contact guard assistance as patient completes activity. Assistance may be provided throughout the activity or intermittently. 3-Partial/Moderate Assistance-helper does LESS THAN HALF the effort. Hunters lifts, holds or supports trunk or limbs, but provides less than half the effort. 2-Substantial/Maximal Assistance-helper does MORE THAN HALF the effort. Hunters lifts or holds trunk or limbs and provides more than half the effort. 6-Olwgdftod-lfooea does ALL the effort. Patient does none of the effort to complete the activity. Or, the assistance of 2 or more helpers is required for the patient to complete the activity. If activity was not attempted, code reason: 7-Patient Refused. 9-Not Applicable-not attempted and the patient did not perform the activity before the current illness, exacerbation or injury. 10-Not Attempted due to Environmental Limitations-(lack of equipment, weather restraints, etc.). 88-Not Attempted due to Medical Conditions or Safety Concerns. Bed Mobility: 4 Transfers (B,C,W/C): 4 Gait: 4 Indoor Mobility (Ambulation): Needed Some Help Stairs: Not Applicalbe Prior Devices Use: Manual wheelchair, Walker PT Evaluation-Current Subjective Patient sitting at edge of bed upon PT arrival, agreeable to treatment. Rates pain at 0/10 currently. Reports about a month ago she was able to ambulate with her 4WW down to meals at [facility]. For the last month however she has required assistance with all ADLs and has been using a w/c for mobility, most of the time requiring her to push her. Objective Patient Orientation: Person, Place, Time, Situation Attachments: Oxygen, Quniones Catheter, IV ROM/Strength ROM Lower Extremities WFLs bilaterally Strength Lower Extremities 3/5 bilaterally all planes Sensory Vision: Wears Glasses Hearing: Hearing Aid/Aides Sensation Right Lower Extremit: Intact Sensation Left Lower Extremity: Intact Transfers Roll Left to Right (QC): 2 Sit to Lying (QC): 2 Lying to Sitting/Side of Bed(Q: 2 Sit to Stand (QC): 2 Balance Sitting Static: Fair Sitting Dynamic: Fair Standing Static: Poor Standing Dynamic: Poor Assessment/Needs Patient tolerated treatment fair. Demonstrates max A for all bed mobility and transfers. Patient performs sit to stand with max A, and attempts to ambulate with FWW however reports she feels very unsteady and both of her knees began to hurt while she was standing. Patient stood ~ 3 minutes and then required max A for transfer back to bed. Patient in bed post treatment with all needs met, gene yvon notified, call light in reach. Rehab Potential: Fair PT Senior Care Goals Senior Care Goals PT Senior Care Goals Time Frame: July 08, 2021 Roll Left & Right (QC): 4 Sit to Lying (QC): 4 Lying-Sitting on Side/Bed(QC): 4 Sit to Stand (QC): 4 Chair/Wzf-ah-Ipyum Xfer(QC): 4 Toilet Transfer (QC): 4 Does the Patient Walk: Yes Walk 10 feet (QC): 3 Walk 50ft with 2 Turns (QC): 3 PT Plan Problem List Problem List: Activity Tolerance, Functional Strength, Safety, Balance, Gait, Transfer, Bed Mobility, ROM Treatment/Plan Treatment Plan: Continue Plan of Care Treatment Plan: Bed Mobility, Education, Functional Activity Jono, Functional Strength, Gait, Safety, Therapeutic Exercise, Transfers Treatment Duration: Aug 05, 2021 Frequency: 6 times per week Estimated Hrs Per Day: .25 hour per day Patient and/or Family Agrees t: Yes Safety Risks/Education Patient Education: Transfer Techniques Teaching Recipient: Patient Teaching Methods: Demonstration, Discussion Response to Teaching: Reinforcement Needed Discharge Recommendations Target Placement Post Acute placement recommended Time/GCodes Time In: 1338 Time Out: 1358 Total Billed Treatment Time: 20 Total Billed Treatment Visit, ADÁN Singh PT June 17, 2021 15:07
[2021-06-17] MEDS: OLANZapine 5 MG (ZyPREXA) TAB PO SCH (18:02)
[2021-06-17] MEDS: polyethylene glycoL POWDER 17 GM (MIRALAX) PACK PO SCH (21:14)
[2021-06-17] MEDS: rOPINIRole 1 MG (REQUIP) TABLET PO SCH (21:14)
[2021-06-17] MEDS: traZODone 50 MG (DESYREL) TAB PO SCH (21:14)
[2021-06-17] MEDS: LATANOPROST 0.005% (XALATAN) OPHTH SOLN 2.5 ML OU SCH (21:15)
[2021-06-18] VITALS (7 sets, daily range): BP systolic 92–155; BP diastolic 54–79
[2021-06-18] MEDS: RT-ALBUTEROL SULF 2.5 MG/3 ML PRE-MIX VIAL INH SCH ×4 (02:50→20:28)
[2021-06-18 06:28] LABS: BASOPHILS % (AUTO) 1 % (0-10); EOSINOPHILS # (AUTO) 0.4 10^3/uL (0.0-0.3); EOSINOPHILS % (AUTO) 6 % (0-10); HEMATOCRIT 28 % (35-52); LYMPHOCYTES # (AUTO) 0.9 10^3/uL (1.0-4.0); LYMPHOCYTES % (AUTO) 15 % (12-44); MEAN CORPUSCULAR HEMOGLOBIN 27 pg (25-34); MEAN CORPUSCULAR HGB CONC 29 g/dL (32-36); MEAN CORPUSCULAR VOLUME 95 fL (80-99); MEAN PLATELET VOLUME 11.4 fL (9.0-12.2); MONOCYTES # (AUTO) 0.7 10^3/uL (0.0-1.0); MONOCYTES % (AUTO) 12 % (0-12); NEUTROPHILS # (AUTO) 4.1 10^3/uL (1.8-7.8); NEUTROPHILS % (AUTO) 66 % (42-75); PLATELET COUNT 152 10^3/uL (130-400); WHITE BLOOD COUNT 6.2 10^3/uL (4.3-11.0)
[2021-06-18] MEDS: CATHETER FLUSH 10 ML SYR IV SCH ×3 (06:33→22:08)
[2021-06-18] MEDS: inSUlin ASPART (NovoLOG) 1 UNIT/0.01 ML (CHARGE PER UNIT) SC SCH ×4 (06:48→20:14)
[2021-06-18 06:59] LABS: ALBUMIN 3.2 GM/DL (3.2-4.5); POTASSIUM 4.1 MMOL/L (3.6-5.0)
[2021-06-18 07:00] LABS: CALCIUM 8.5 MG/DL (8.5-10.1)
[2021-06-18 07:02] LABS: TOTAL PROTEIN 5.7 GM/DL (6.4-8.2)
[2021-06-18 07:03] LABS: BILIRUBIN,TOTAL 0.8 MG/DL (0.1-1.0)
[2021-06-18 07:05] LABS: CREATININE SERUM 0.85 MG/DL (0.60-1.30); PHOSPHORUS 3.2 MG/DL (2.3-4.7)
[2021-06-18 07:08] LABS: MAGNESIUM 2.2 MG/DL (1.6-2.4)
[2021-06-18] MEDS: POTASSIUM CL 10MEQ/50ML IVPB 50 ML IV SCH (07:28)
[2021-06-18] MEDS: MAGNESIUM 1 GM/100 ML IVPB 100 ML IV SCH (07:29)
[2021-06-18] MEDS: KCL 20 MEQ TAB (K-DUR) PO SCH (07:29)
[2021-06-18] MEDS: OLANZapine 2.5 MG (ZyPREXA) TAB PO SCH (08:02)
[2021-06-18] MEDS: amLODIPine 10 MG (NORVASC) TAB PO SCH (08:02)
[2021-06-18] MEDS: PANTOPRAZOLE 40 MG (PROTONIX) VIAL IV SCH ×2 (08:02→22:08)
[2021-06-18] MEDS: ISOSORBIDE MONONITRATE 60 MG (IMDUR) TAB PO SCH (08:02)
[2021-06-18] MEDS: FUROSEMIDE 40 MG/4 ML INJ (LASIX) IVP SCH (08:02)
[2021-06-18] MEDS: FLUoxetine HCL 20 MG (PROzac) CAP PO SCH (08:03)
[2021-06-18] MEDS: ALLOPURINOL 100 MG (ZYLOPRIM) TAB PO SCH (08:03)
[2021-06-18] MEDS: ROSUVASTATIN 10 MG (CRESTOR) TABLET PO SCH (08:03)
[2021-06-18] MEDS: lisINopril 40 MG (PRINIVIL) TABLET PO SCH (08:03)
[2021-06-18] MEDS: rOPINIRole 0.25 MG (REQUIP) TAB PO SCH (08:03)
[2021-06-18] MEDS: PREGABALIN 100 MG (LYRICA) CAPSULE PO SCH ×2 (08:04→22:08)
[2021-06-18] MEDS: OXYBUTYNIN (DITROPAN) 5 MG TAB PO SCH ×3 (08:04→20:03)
--- NOTE | 2021-06-18 12:25 | Progress Note - Hospitalist ---
Subjective HPI/CC On Admission Date Seen by Provider: June 18, 2021 Subjective/Events-last exam Patient reports feeling okay. Hemoglobin down a little bit today but has not had any further bowel movements. In fact feels like she needs to have a bowel movement now and request bedpan. Aide to bedside to assist with that. Objective Exam Vital Signs Vital Signs Date Time Temp Pulse Resp B/P (MAP) Pulse Ox O2 Delivery O2 Flow Rate FiO2 06/18/21 11:43 99/54 (69) 06/18/21 11:27 36.8 80 20 95 High Flow N/C 3.00 06/18/21 08:00 95 Capillary Refill : General Appearance: No Apparent Distress, Chronically ill, Obese Respiratory: Lungs Clear, No Respiratory Distress Cardiovascular: Regular Rate, Rhythm Neurologic/Psychiatric: Alert, Oriented x3 Results/Procedures Lab Laboratory Tests 06/18/21 05:52 Patient resulted labs reviewed. Assessment/Plan Assessment and Plan Assess & Plan/Chief Complaint SEVERE ACUTE ANEMIA WITH SUSPECTED GI BLEED - s/p colonoscopy yesterday with polypectomy - Dr Becerra consulted, apprecaite recs - Planning for outpatient capsule endoscopy, hold anticoagulation until then - Hgb down to 8.0 - Iron 14, will give Infed HYPOXIA WITH RESPIRATORY DISTRESS AND HX OF COPD - currently stable on 4lpm - MAT protocol CHRONIC HYPERTENSION BP actually a little low today Will hold amlodipine HX OF CORONARY ARTERY DISEASE paroxysmal ATRIAL FIBRILLATION keep Hgb >8 due to this history Hold home blood thinners as above DIABETES MELLITUS -SSI - BS well controlled Fasting blood sugar 90s this AM Decrease levemir GERD Continue PPI PSEUDOSEIZURES WITH BIPOLAR MOOD DISORDER Continue home meds Debility PT/OT Will need NH placement Referral sent DVT PROPHYLAXIS WITH SCD'S only due to GI bleed Critical Care Critically Ill Patient JAZMIN CULP MD June 18, 2021 12:25
[2021-06-18] MEDS ORDERED: diphenhydrAMINE 50 MG/ML INJ (BENADRYL) IV PRN (12:30)
[2021-06-18] MEDS ORDERED: EPINEPHrine INJECTION 1 MG/ML AMP IM PRN (12:30)
[2021-06-18] MEDS ORDERED: HYDROCORTISONE 100 MG/2 ML (Solu-CORTEF) VIAL IV PRN (12:30)
[2021-06-18] MEDS ORDERED: IRON DEXTRAN INJECTION 25 MG in NS (IVPB) 5.75 ML IV NR (12:30)
[2021-06-18] MEDS ORDERED: NS IV 500 ML 500 ML IV SCH (12:30)
[2021-06-18] MEDS ORDERED: RT-ALBUTEROL SULF 2.5 MG/3 ML PRE-MIX VIAL IH PRN (12:30)
[2021-06-18] MEDS ORDERED: IRON DEXTRAN INJECTION 1,000 MG in NS (IVPB) 250 ML IV NR (13:00)
[2021-06-18] MEDS ORDERED: HYOSCYAMINE 0.125 MG (LEVSIN) TAB PO NR (14:30)
[2021-06-18] MEDS: morphine INJ 4 MG/ML 1 ML (VIAL/SYRINGE) IVP PRN (14:36)
[2021-06-18] MEDS: ONDANSETRON 4 MG/2 ML (SDV) Z0FRAN IV PRN (17:16)
[2021-06-18] MEDS: OLANZapine 5 MG (ZyPREXA) TAB PO SCH ×2 (17:16→17:32)
--- NOTE | 2021-06-18 19:16 | Diagnostic Imaging Report ---
CLINICAL INDICATION: Patient with shortness of air and severe distention of the abdomen today with abdomen pain and vomiting. EXAM: X-ray of the abdomen with multiple supine and upright views. COMPARISON: X-ray of the abdomen dated 06/27/2015. Chest x-ray dated 06/14/2021. FINDINGS: There is severe air distention of the stomach which has progressed compared to the prior x-ray. There are no air-fluid levels seen. There is air distention of the colon measuring up to 6.6 cm in greatest width. There is air extending all the way to the rectosigmoid region. Small bowel is air-filled but does not appear significantly dilated. There is no intra-abdominal free air. There are hypertrophic spurs involving the spine. There is left curvature of the lumbar spine again seen. Again seen are bilateral lung infiltrates, which have slightly decreased, in right lung base. IMPRESSION: 1: There is severe air distention of the stomach. There is mild air dilation of the colon. There is mild air distention of the small bowel which is not significantly dilated. There is air seen extending to the rectosigmoid region. This may represent an ileus or very low colonic obstruction which would be at the level of the anus or rectum. 2: Again seen are bilateral lung infiltrates noted which is slightly decreased in the right lung base. Dictated by: Dictated on workstation # [id number]
[2021-06-18] MEDS: rOPINIRole 1 MG (REQUIP) TABLET PO SCH (20:03)
[2021-06-18] MEDS: polyethylene glycoL POWDER 17 GM (MIRALAX) PACK PO SCH (20:04)
[2021-06-18] MEDS: traZODone 50 MG (DESYREL) TAB PO SCH (20:04)
[2021-06-18] MEDS ORDERED: LORazepam INJ 2 MG/ML (ATIVAN) VIAL IVP ONE (21:45)
[2021-06-18] MEDS: LATANOPROST 0.005% (XALATAN) OPHTH SOLN 2.5 ML OU SCH (22:08)
[2021-06-18] MEDS ORDERED: LORazepam ORAL CONCENTRATE 2 MG/ML 30 ML (ATIVAN) PO PRN (22:15)
--- NOTE | 2021-06-18 22:37 | Anesthesia-Procedure Note ---
Procedures/Interventions Procedure Start/Stop/Diagnosis Date of Procedure: June 18, 2021 Start Time: 22:25 Brief History Called to [facility] medical by remote encoding operations supervisor to start an IV. 22 g IV started to patient's right hand x1 stick. Opsite covering. RN in room to assist. Reported off to RN. Stop Time: 22:30 SHANNAN WITT CRNA June 18, 2021 22:37
[2021-06-18] MEDS: LORazepam INJ 2 MG/ML (ATIVAN) VIAL IVP PRN (22:52)
[2021-06-19] VITALS: BP 146/78
[2021-06-19] MEDS: RT-ALBUTEROL SULF 2.5 MG/3 ML PRE-MIX VIAL INH SCH ×4 (03:06→21:49)
[2021-06-19 03:20] VITALS: BP 159/76
[2021-06-19 05:44] LABS: BASOPHILS % (AUTO) 1 % (0-10); EOSINOPHILS # (AUTO) 0.2 10^3/uL (0.0-0.3); EOSINOPHILS % (AUTO) 3 % (0-10); HEMATOCRIT 28 % (35-52); HEMOGLOBIN 8.3 g/dL (11.5-16.0); LYMPHOCYTES % (AUTO) 17 % (12-44); MEAN CORPUSCULAR HEMOGLOBIN 28 pg (25-34); MEAN CORPUSCULAR HGB CONC 30 g/dL (32-36); MEAN CORPUSCULAR VOLUME 93 fL (80-99); MEAN PLATELET VOLUME 11.5 fL (9.0-12.2); MONOCYTES # (AUTO) 0.7 10^3/uL (0.0-1.0); MONOCYTES % (AUTO) 12 % (0-12); NEUTROPHILS # (AUTO) 3.9 10^3/uL (1.8-7.8); NEUTROPHILS % (AUTO) 68 % (42-75); PLATELET COUNT 151 10^3/uL (130-400); WHITE BLOOD COUNT 5.8 10^3/uL (4.3-11.0)
[2021-06-19 06:05] LABS: ALBUMIN 3.3 GM/DL (3.2-4.5); BILIRUBIN,TOTAL 0.8 MG/DL (0.1-1.0); CALCIUM 8.8 MG/DL (8.5-10.1); CREATININE SERUM 0.8 MG/DL (0.60-1.30); PHOSPHORUS 3.3 MG/DL (2.3-4.7); POTASSIUM 3.9 MMOL/L (3.6-5.0); TOTAL PROTEIN 5.9 GM/DL (6.4-8.2)
[2021-06-19] MEDS: inSUlin ASPART (NovoLOG) 1 UNIT/0.01 ML (CHARGE PER UNIT) SC SCH ×4 (06:16→23:27)
[2021-06-19] MEDS: POTASSIUM CL 10MEQ/50ML IVPB 50 ML IV SCH (06:16)
[2021-06-19] MEDS: CATHETER FLUSH 10 ML SYR IV SCH ×3 (06:16→23:09)
[2021-06-19] MEDS: KCL 20 MEQ TAB (K-DUR) PO SCH (06:16)
[2021-06-19] MEDS: MAGNESIUM 1 GM/100 ML IVPB 100 ML IV SCH (06:16)
[2021-06-19 07:38] VITALS: BP 185/82
--- NOTE | 2021-06-19 07:41 | Progress Note ---
Subjective Subjective Date Seen by Provider: June 19, 2021 Time Seen by Provider: 07:30 Patient was asleep and is on ativan. Per nurses report she is stable and still has not had a bowel movement, with a distended abdomen. Review of Systems ROS Unable to Obtain: Pt asleep unable to obtain All Other Systems Reviewed All Other Systems Reviewed: No Objective Exam Vital Signs Vital Signs Date Time Temp Pulse Resp B/P (MAP) Pulse Ox O2 Delivery O2 Flow Rate FiO2 06/19/21 03:20 36.7 87 20 159/76 (103) 92 High Flow N/C 3.00 06/19/21 00:00 36.9 89 20 146/78 (100) 95 High Flow N/C 3.00 06/18/21 20:57 96 High Flow N/C 3.00 06/18/21 20:28 90 High Flow N/C 3.00 06/18/21 20:04 36.6 84 20 150/70 (96) 92 High Flow N/C 3.00 06/18/21 16:00 93 High Flow N/C 3.00 06/18/21 15:45 37.1 84 20 111/70 (84) 96 High Flow N/C 3.00 06/18/21 11:43 99/54 (69) 06/18/21 11:27 36.8 80 20 92/61 (71) 95 High Flow N/C 3.00 06/18/21 08:53 High Flow N/C 3.00 06/18/21 08:47 96 High Flow N/C 4.00 06/18/21 08:00 96 High Flow N/C 3.00 95 I & O 06/19/21 07:00 Intake Total 1525 ml Output Total 2800 ml Balance -1275 ml General Appearance: No Apparent Distress, Chronically ill, Obese HEENT: PERRL/EOMI, Normal ENT Inspection Neck: Full Range of Motion, Normal Inspection Respiratory: Lungs Clear, No Accessory Muscle Use, No Respiratory Distress Cardiovascular: No JVD, Irregularly Irregular Gastrointestinal: No Organomegaly, Distended, Tenderness Rectal: Deferred Extremity: Normal Inspection, No Calf Tenderness, Pedal Edema Skin: Normal Color, Warm/Dry Lymphatic: No Adenopathy Results Lab Laboratory Tests 06/18/21 09:13: Glucometer 89 06/18/21 14:22: Glucometer 126H 5/8/22 20:11: Glucometer 110 06/19/21 05:11: White Blood Count 5.8, Red Blood Count 3.00L, Hemoglobin 8.3L, Hematocrit 28L, Mean Corpuscular Volume 93, Mean Corpuscular Hemoglobin 28, Mean Corpuscular Hemoglobin Concent 30L, Red Cell Distribution Width 15.9H, Platelet Count 151, Mean Platelet Volume 11.5, Immature Granulocyte % (Auto) 1, Neutrophils (%) (Aut o) 68, Lymphocytes (%) (Auto) 17, Monocytes (%) (Auto) 12, Eosinophils (%) (Auto) 3, Basophils (%) (Auto) 1, Neutrophils # (Auto) 3.9, Lymphocytes # (Auto) 1.0, Monocytes # (Auto) 0.7, Eosinophils # (Auto) 0.2, Basophils # (Auto) 0.0, Immature Granulocyte # (Auto) 0.0, Sodium Level 144, Potassium Level 3.9, Chloride Level 105, Carbon Dioxide Level 24, Anion Gap 15H, Blood Urea Nitrogen 15, Creatinine 0.80, Estimat Glomerular Filtration Rate 74, BUN/Creatinine Ratio 19, Glucose Level 121H, Calcium Level 8.8, Corrected Calcium 9.4, Phosphorus Level 3.3, Magnesium Level 2.0, Total Bilirubin 0.8, Aspartate Amino Transf (AST/SGOT) 26, Alanine Aminotransferase (ALT/SGPT) 12, Alkaline Phosphatase 51, Total Protein 5.9L, Albumin 3.3 Microbiology 06/13/21 MRSA Screen - Final, Complete MRSA not isolated Assessment/Plan Assessment/Plan Admission Dx Anemia SOB Pulmonary Edema Cardiomegaly Elevated BUN Elevated Creatinine High Blood sugar Hypocalemia HTN correction Anticoagulation use Confusion COPD Anxiety Pseudoseizure Atrial Fibrillation Assessment and Plan Anemia Ileus SOB Pulmonary Edema Cardiomegaly Elevated BUN Elevated Creatinine High Blood sugar Hypocalemia 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 General surgery on consult EGD planned for tomorrow. -06/15: Transfused another unit of blood 06/14, current hemoglobin is 7.6. -06/16: Hemoglobin currently at 8.7, last reading before that was 8.5. Will do an colonoscopy as EGD did not identify active source of bleeding, keep patient on Clear liquid diet, and NPO after midnight. -06/19: Hemoglobin stable at 8.3, source of bleeding possible from hemorrhoids from colonscopy performed on 06/16 Ileus -NPO, abdominal x ray, IV Fluids, NG tube, ambulate SOB -BiPAP, Incentive spirometer Confusion -Restart Zyprexa HTN -Monitor Blood pressure. 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 Anticoagulation use Confusion COPD Anxiety Pseudoseizure Atrial Fibrillation Supervisory-Addendum Brief Verification & Attestation Participated in pt care: history, MDM, physical Personally performed: exam, history, MDM, supervision of care Care discussed with: Medical Student Procedures: n/a Results interpretation: Verified all documentation SEVERE ACUTE ANEMIA HYPOXIA RESPIRATORY DISTRESS CHRONIC HYPERTENSION HX OF CORONARY ARTERY DISEASE CHRONIC COPD DIABETES MELLITUS HYPERTENSION HISTORY OF ATRIAL FIBRILLATION GERD CHRONIC ANTICOAGULATION PSEUDOSEIZURES BIPOLAR MOOD DISORDER ILEUS SEVERE ACUTE ANEMIA WITH SUSPECTED GI BLEED, NOW WITH ILEUS - PT ON ANTICOAGULATION OUTPATIENT, IT IS ON HOLD - WILL CONTINUE TO BE ON HOLD UNTIL SHE HAS COMPLETED HER COLONOSCOPE ON 06/16/21 AND A CAPSULE ENDOSCOPY AN OUTPATIENT. - CONSULT TO GENERAL SURGERY - EGD 06/15/21, COLONOSCOPE 06/16/21. - PT IS STATUS POST 4 UNITS OF BLOOD, WITH PT HAVING CARDIAC HISTORY AND COPD, PT HAS NEED FOR HGB TO BE AT OR ABOVE 8 IF POSSIBLE. - MONITOR LABS, REPEAT TRANSFUSION IF NEEDED. - ILEUS - STARTED REGLAN 5MG IV TID - DISCUSSED WITH DR. ARAGON - MONITOR XRAY TOMORROW HYPOXIA WITH RESPIRATORY DISTRESS AND HX OF COPD - PARTIALLY DUE TO SEVERE ANEMIA - MONITOR PULMONARY RESPONSE AFTER BLOOD TRANSFUSIONS - STARTED MAT PROTOCOL. CHRONIC HYPERTENSION - MONITOR PRESSURES, RECONCILED MEDICATIONS HX OF CORONARY ARTERY DISEASE DIABETES MELLITUS - MONITOR FSBS HISTORY OF ATRIAL FIBRILLATION - HOLD ANTICOAGULATION AT THIS TIME DUE TO GI BLEEDING GERD - RESUMED PPI THERAPY. PSEUDOSEIZURES WITH BIPOLAR MOOD DISORDER - RESUMED HOME MEDICATION REGIMEN DVT PROPHYLAXIS WITH SCD'S OLIVIA BRANDT June 19, 2021 07:41 FILIPE PURCELL MD June 19, 2021 19:52
[2021-06-19] MEDS: OXYBUTYNIN (DITROPAN) 5 MG TAB PO SCH ×4 (08:47→23:29)
[2021-06-19] MEDS: ROSUVASTATIN 10 MG (CRESTOR) TABLET PO SCH (08:47)
[2021-06-19] MEDS: PREGABALIN 100 MG (LYRICA) CAPSULE PO SCH ×3 (08:47→23:29)
[2021-06-19] MEDS: ISOSORBIDE MONONITRATE 60 MG (IMDUR) TAB PO SCH (08:47)
[2021-06-19] MEDS: OLANZapine 2.5 MG (ZyPREXA) TAB PO SCH (08:47)
[2021-06-19] MEDS: amLODIPine 10 MG (NORVASC) TAB PO SCH (08:48)
[2021-06-19] MEDS: lisINopril 40 MG (PRINIVIL) TABLET PO SCH (08:48)
[2021-06-19] MEDS: ALLOPURINOL 100 MG (ZYLOPRIM) TAB PO SCH (08:48)
[2021-06-19] MEDS: FLUoxetine HCL 20 MG (PROzac) CAP PO SCH (08:48)
[2021-06-19] MEDS: rOPINIRole 0.25 MG (REQUIP) TAB PO SCH (08:48)
[2021-06-19] MEDS: FUROSEMIDE 40 MG/4 ML INJ (LASIX) IVP SCH (09:01)
[2021-06-19] MEDS: PANTOPRAZOLE 40 MG (PROTONIX) VIAL IV SCH ×2 (09:01→20:49)
--- NOTE | 2021-06-19 10:14 | Physical Therapy Daily Note ---
PT Daily Note-Current Subjective Patient is very confused and anxious. Spouse present. Mental Status Patient Orientation: Confused Attachments: Quinones Catheter Transfers SCALE: Activities may be completed with or without assistive devices. 0-Gxwrwgzxxd-xyljpdh completes the activity by him/herself with no assistance from a helper. 5-Set-up or Clean-up Assistance-helper sets up or cleans up; patient completes activity. [place] assists only prior to or following the activity. 4-Supervision or Touching Assistance-helper provides verbal cues and/or touching/steadying and/or contact guard assistance as patient completes activity. Assistance may be provided throughout the activity or intermittently. 3-Partial/Moderate Assistance-helper does LESS THAN HALF the effort. [place] lifts, holds or supports trunk or limbs, but provides less than half the effort. 2-Substantial/Maximal Assistance-helper does MORE THAN HALF the effort. [place] lifts or holds trunk or limbs and provides more than half the effort. 5-Kkcexsbcq-nabtqs does ALL the effort. Patient does none of the effort to complete the activity. Or, the assistance of 2 or more helpers is required for the patient to complete the activity. If activity was not attempted, code reason: 7-Patient Refused. 9-Not Applicable-not attempted and the patient did not perform the activity before the current illness, exacerbation or injury. 10-Not Attempted due to Environmental Limitations-(lack of equipment, weather restraints, etc.). 88-Not Attempted due to Medical Conditions or Safety Concerns. Lying to Sitting/Side of Bed(Q: 2 Sit to Stand (QC): 2 Chair/Wso-bl-Zicvv Xfer(QC): 2 Weight Bearing Right Lower Extremity: Right Full Weight Bearing Left Lower Extremity: Left Full Weight Bearing Gait Training Distance: 10' Walk 10 feet (QC): 3 Gait Assistive Device: Walker 4 Wheeled shuffle gait sequence Assessment Patient continues to be very anxious and wanting spouse to hold her hand. PT unable to continue with treatment due to patient's attention. PT [place] Headgate Operator Goals Correction Goals PT Correction Goals Time Frame: July 08, 2021 Roll Left & Right (QC): 4 Sit to Lying (QC): 4 Lying-Sitting on Side/Bed(QC): 4 Sit to Stand (QC): 4 Chair/Siw-ds-Sjhwx Xfer(QC): 4 Toilet Transfer (QC): 4 Does the Patient Walk: Yes Walk 10 feet (QC): 3 Walk 50ft with 2 Turns (QC): 3 PT Plan Treatment/Plan Treatment Plan: Continue Plan of Care Treatment Plan: Bed Mobility, Education, Functional Activity Jono, Functional Strength, Gait, Safety, Therapeutic Exercise, Transfers Treatment Duration: Aug 05, 2021 Frequency: 6 times per week Estimated Hrs Per Day: .25 hour per day Patient and/or Family Agrees t: Yes Time/GCodes Time In: 857 Time Out: 907 Total Billed Treatment Time: 10 Total Billed Treatment 1 visit FA 10 min BRITTNI GIBBONS PT June 19, 2021 10:13
--- NOTE | 2021-06-19 11:40 | Occupational Therapy Eval ---
OT Evaluation-General/PLF Medical Diagnosis Admission Date June 13, 2021 at 07:06 Medical Diagnosis: GI Bleed Onset Date: June 13, 2021 Therapy Diagnosis Therapy Diagnosis: decreased ADL status Height/Weight Height (Feet): 5 Height (Inches): 6.00 Weight (Pounds): 213 Weight (Ounces): 0.0 Precautions Precautions/Isolations: Fall Prevention Referral Physician: Dr. Jacques Referral Reason: Evaluation/Treatment Medical History Pertinent Medical History: Arthritis, COPD, DM, GERD, HTN, Neuropathy, Smoking Additional Medical History COPD, neuropathy, seizure, GERD, arthritis, DM, eczema, anxiety/depression, bipolar Current History present with acute weakness and confusion Social History Home: Assisted Living Current Living Status: Spouse Entry Into Home: Level Entry ADL-Prior Level of Function SCALE: Activities may be completed with or without assistive devices. 0-Bmxbbqtyqs-vzvglsd completes the activity by him/herself with no assistance from a helper. 5-Set-up or Clean-up Assistance-helper sets up or cleans up; patient completes activity. [place] assists only prior to or following the activity. 4-Supervision or Touching Assistance-helper provides verbal cues and/or touching/steadying and/or contact guard assistance as patient completes activity. Assistance may be provided throughout the activity or intermittently. 3-Partial/Moderate Assistance-helper does LESS THAN HALF the effort. [place] lifts, holds or supports trunk or limbs, but provides less than half the effort. 2-Substantial/Maximal Assistance-helper does MORE THAN HALF the effort. [place] lifts or holds trunk or limbs and provides more than half the effort. 8-Ommcjanup-xlixoy does ALL the effort. Patient does none of the effort to complete the activity. Or, the assistance of 2 or more helpers is required for the patient to complete the activity. If activity was not attempted, code reason: 7-Patient Refused. 9-Not Applicable-not attempted and the patient did not perform the activity before the current illness, exacerbation or injury. 10-Not Attempted due to Environmental Limitations-(lack of equipment, weather restraints, etc.). 88-Not Attempted due to Medical Conditions or Safety Concerns. ADL PLOF Comments Per pt and , pt required assistance with all ADLs and assistance with manual w/c for functional mobility, for ~1 month. Prior to that month, pt was able to use 4WW to/from dining area at the facility, and able to complete ADLs more independently. Self Care: Needed Some Help Functional Cognition: Needed Some Help DME/Equipment Comments 4WW, w/c OT Current Status Subjective Pt up in recliner, present. Pt agreeable to OT tx. Mental Status/Objective Patient Orientation: Person, Confused Attachments: Quinones Catheter, Oxygen Current Upper Extremity ROM WFL during ADLs Upper Extremity Strength grossly 3/5 ADL-Treatment Eating (QC): 88 (NPO at time of eval) Oral Hygiene (QC): 5 (set up with oral swab) Toileting Hygiene (QC): 1 (catheter) Other Treatments Pt up in recliner, agreeable to OT tx. Pt's present. Pt and provide information about PLOF, states for last month, pt has required assistance with ADLs and assistance with manual w/c, prior to this pt was able to walk to/from meals with 4WW. Pt able to use oral swab to clean mouth, set up assistance. OT assisted pt with brushing her hair, max A overall due to tangles at the back. OT educated pt/ on OT POC while she is admitted to the hospital, they verbalize understanding. Per PT report, pt currently requires max A with transfers and bed mobility. Post tx, pt in recliner, call light in reach and all needs met. 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 2=Patient will verbalize/demonstrate understanding of assistive devices/mod ifications for ADL. 3=Patient will improve strength/tolerance for activity to enable patient to perform ADL's. OT Education/Plan Problem List/Assessment Assessment: Decreased Activ Tolerance, Decreased UE Strength, Dependent Transfers, Impaired Funct Balance, Impaired I ADL's, Impaired Self-Care Skills Discharge Recommendations Plan/Recommendations: Continue POC Therapy Discharge Recommendati: Post Acute OT (SNF) Treatment Plan/Plan of Care Patient would benefit from OT for education, treatment and training to promote independence in ADL's, mobility, safety and/or upper extremity function for ADL's. Plan of Care: ADL Retraining, Functional Mobility, UE Funct Exercise/Act Treatment Duration: June 30, 2021 Frequency: 3 times per week (3-5 times per week) Estimated Hrs Per Day: .25 hour per day Agreement: Yes Rehab Potential: Fair Time/GCodes Start Time: 10:58 Stop Time: 11:08 Total Time Billed (hr/min): 10 Billed Treatment Time 1CLOTILDE ADDISON OT June 19, 2021 11:40
[2021-06-19 11:41] VITALS: BP 166/72
[2021-06-19] MEDS ORDERED: METOCLOPRAMIDE INJ 10 MG/2 ML (REGLAN) IVP SCH (13:00)
[2021-06-19] MEDS: ONDANSETRON 4 MG/2 ML (SDV) Z0FRAN IV PRN (14:06)
[2021-06-19] MEDS: LORazepam INJ 2 MG/ML (ATIVAN) VIAL IVP PRN ×2 (14:06→17:30)
[2021-06-19] MEDS: morphine INJ 4 MG/ML 1 ML (VIAL/SYRINGE) IVP PRN ×2 (15:00→17:31)
--- NOTE | 2021-06-19 15:21 | Progress Note ---
Subjective Date Seen by a Provider: June 19, 2021 Time Seen by a Provider: 14:00 Subjective/Events-last exam developed ileus. has not had a bm in >4 days. with ileus has developed abd distention and nausea/vomiting. Objective Exam Vital Signs Date Time Temp Pulse Resp B/P (MAP) Pulse Ox O2 Delivery O2 Flow Rate FiO2 06/19/21 11:41 37.1 77 19 166/72 (103) 94 High Flow N/C 3.00 06/19/21 10:05 97 High Flow N/C 3.00 06/19/21 08:00 High Flow N/C 3.00 06/19/21 07:38 37.3 85 20 185/82 (116) 97 High Flow N/C 3.00 06/19/21 03:20 36.7 87 20 159/76 (103) 92 High Flow N/C 3.00 06/19/21 00:00 36.9 89 20 146/78 (100) 95 High Flow N/C 3.00 06/18/21 20:57 96 High Flow N/C 3.00 06/18/21 20:28 90 High Flow N/C 3.00 06/18/21 20:04 36.6 84 20 150/70 (96) 92 High Flow N/C 3.00 06/18/21 16:00 93 High Flow N/C 3.00 06/18/21 15:45 37.1 84 20 111/70 (84) 96 High Flow N/C 3.00 I & O 06/19/21 07:00 Intake Total 1525 ml Output Total 2800 ml Balance -1275 ml Capillary Refill : General Appearance: No Apparent Distress HEENT: PERRL/EOMI Neck: Full Range of Motion Respiratory: Chest Non Tender, Decreased Breath Sounds Cardiovascular: Regular Rate, Rhythm Gastrointestinal: normal bowel sounds, distended Extremity: Normal Capillary Refill Neurologic/Psychiatric: Alert, Oriented x3 Skin: Normal Color Lymphatic: No Adenopathy Results Lab Laboratory Tests 06/18/21 20:11: Glucometer 110 06/19/21 05:11: White Blood Count 5.8, Red Blood Count 3.00L, Hemoglobin 8.3L, Hematocrit 28L, Mean Corpuscular Volume 93, Mean Corpuscular Hemoglobin 28, Mean Corpuscular Hemoglobin Concent 30L, Red Cell Distribution Width 15.9H, Platelet Count 151, Mean Platelet Volume 11.5, Immature Granulocyte % (Auto) 1, Neutrophils (%) (Auto) 68, Lymphocytes (%) (Auto) 17, Monocytes (%) (Auto) 12, Eosinophils (%) (Auto) 3, Basophils (%) (Auto) 1, Neutrophils # (Auto) 3.9, Lymphocytes # (Auto) 1.0, Monocytes # (Auto) 0.7, Eosinophils # (Auto) 0.2, Basophils # (Auto) 0.0, Immature Granulocyte # (Auto) 0.0, Sodium Level 144, Potassium Level 3.9, Chloride Level 105, Carbon Dioxide Level 24, Anion Gap 15H, Blood Urea Nitrogen 15, Creatinine 0.80, Estimat Glomerular Filtration Rate 74, BUN/Creatinine Ratio 19, Glucose Level 121H, Calcium Level 8.8, Corrected Calcium 9.4, Phosphorus Level 3.3, Magnesium Level 2.0, Total Bilirubin 0.8, Aspartate Amino Transf (AST/SGOT) 26, Alanine Aminotransferase (ALT/SGPT) 12, Alkaline Phosphatase 51, Total Protein 5.9L, Albumin 3.3 06/19/21 10:35: Glucometer 129H 06/19/21 12:18: Glucometer 121H 06/19/21 12:45: Lab Scanned Report Transfusion Reaction Form 06/19/21 14:26: Glucometer 125H Microbiology 06/13/21 MRSA Screen - Final, Complete MRSA not isolated Assessment/Plan Assessment/Plan Assess & Plan/Chief Complaint ileus with nausea/vomiting. bowel rest. IV fluids. start reglan. follow serial axr and PE KAMILLA ARAGON MD June 19, 2021 15:21
[2021-06-19 16:11] VITALS: BP 158/68
[2021-06-19] MEDS: OLANZapine 5 MG (ZyPREXA) TAB PO SCH (17:18)
[2021-06-19] MEDS: METOCLOPRAMIDE INJ 10 MG/2 ML (REGLAN) IVP SCH ×2 (17:18→20:49)
[2021-06-19] MEDS: MAG CARB/AL HYDROX EXTRA STRENGTH TAB (GAVISCON ES) PO PRN (17:30)
[2021-06-19 19:52] VITALS: BP 125/77
[2021-06-19] MEDS: polyethylene glycoL POWDER 17 GM (MIRALAX) PACK PO SCH ×2 (20:56→23:30)
[2021-06-19] MEDS: LATANOPROST 0.005% (XALATAN) OPHTH SOLN 2.5 ML OU SCH ×2 (21:04→23:30)
[2021-06-19] MEDS: traZODone 50 MG (DESYREL) TAB PO SCH ×2 (21:17→23:30)
[2021-06-19] MEDS: rOPINIRole 1 MG (REQUIP) TABLET PO SCH ×2 (21:18→23:29)
[2021-06-20] VITALS (7 sets, daily range): BP systolic 106–185; BP diastolic 60–76
[2021-06-20] MEDS: morphine INJ 4 MG/ML 1 ML (VIAL/SYRINGE) IVP PRN (02:07)
[2021-06-20] MEDS: ONDANSETRON 4 MG/2 ML (SDV) Z0FRAN IV PRN ×2 (02:12→21:34)
[2021-06-20] MEDS: RT-ALBUTEROL SULF 2.5 MG/3 ML PRE-MIX VIAL INH SCH ×3 (02:24→15:03)
[2021-06-20 05:31] LABS: BASOPHILS % (AUTO) 0 % (0-10); EOSINOPHILS # (AUTO) 0.1 10^3/uL (0.0-0.3); EOSINOPHILS % (AUTO) 1 % (0-10); HEMATOCRIT 32 % (35-52); HEMOGLOBIN 9.5 g/dL (11.5-16.0); LYMPHOCYTES # (AUTO) 0.7 10^3/uL (1.0-4.0); LYMPHOCYTES % (AUTO) 8 % (12-44); MEAN CORPUSCULAR HEMOGLOBIN 28 pg (25-34); MEAN CORPUSCULAR HGB CONC 30 g/dL (32-36); MEAN CORPUSCULAR VOLUME 92 fL (80-99); MEAN PLATELET VOLUME 11.4 fL (9.0-12.2); MONOCYTES # (AUTO) 0.7 10^3/uL (0.0-1.0); MONOCYTES % (AUTO) 8 % (0-12); NEUTROPHILS # (AUTO) 7.8 10^3/uL (1.8-7.8); NEUTROPHILS % (AUTO) 83 % (42-75); PLATELET COUNT 187 10^3/uL (130-400); WHITE BLOOD COUNT 9.4 10^3/uL (4.3-11.0)
[2021-06-20] MEDS: CATHETER FLUSH 10 ML SYR IV SCH ×3 (05:39→19:55)
[2021-06-20 05:50] LABS: ALBUMIN 3.3 GM/DL (3.2-4.5); POTASSIUM 3.7 MMOL/L (3.6-5.0)
[2021-06-20 05:51] LABS: CALCIUM 9.1 MG/DL (8.5-10.1)
[2021-06-20 05:53] LABS: TOTAL PROTEIN 6.3 GM/DL (6.4-8.2)
[2021-06-20 05:54] LABS: BILIRUBIN,TOTAL 0.8 MG/DL (0.1-1.0)
[2021-06-20 05:56] LABS: CREATININE SERUM 0.82 MG/DL (0.60-1.30); PHOSPHORUS 2.9 MG/DL (2.3-4.7)
[2021-06-20 05:59] LABS: MAGNESIUM 1.7 MG/DL (1.6-2.4)
[2021-06-20 06:01] LABS: LYMPHOCYTES % (MANUAL) 6 %; MONOCYTES % (MANUAL) 6 %; NEUTROPHILS % (MANUAL) 86 %
[2021-06-20 06:02] LABS: ANISOCYTOSIS SLIGHT; EOSINOPHILS % (MANUAL) 2 %; MICROCYTOSIS SLIGHT
[2021-06-20] MEDS: POTASSIUM CL 10MEQ/50ML IVPB 50 ML IV SCH (06:44)
[2021-06-20] MEDS: MAGNESIUM 1 GM/100 ML IVPB 100 ML IV SCH ×3 (06:45→09:43)
[2021-06-20] MEDS: KCL 20 MEQ TAB (K-DUR) PO SCH (06:46)
[2021-06-20] MEDS: inSUlin ASPART (NovoLOG) 1 UNIT/0.01 ML (CHARGE PER UNIT) SC SCH ×4 (06:46→19:54)
[2021-06-20] MEDS ORDERED: NS (IVPB) 250 ML ONE (06:50)
--- NOTE | 2021-06-20 07:53 | Progress Note ---
Subjective Subjective Date Seen by Provider: June 20, 2021 Time Seen by Provider: 07:30 Patient reports that she is still not having a bowel movement and is not passing gas. She also reports that her stomach hurts. Review of Systems ROS Unable to Obtain: Pt asleep unable to obtain General: No Chills, No Night Sweats HEENT: No Eye Pain, No Ear Pain Pulmonary: Dyspnea, Cough Cardiovascular: No: Chest Pain, Palpitations Gastrointestinal: Nausea, Vomiting, Abdominal Pain, Constipation; No: Diarrhea Genitourinary: No Dysuria, No Hematuria Neurological: No: Change in speech, Seizures All Other Systems Reviewed All Other Systems Reviewed: No Objective Exam Vital Signs Vital Signs Date Time Temp Pulse Resp B/P (MAP) Pulse Ox O2 Delivery O2 Flow Rate FiO2 06/20/21 04:10 37.4 60 20 106/61 (76) 95 High Flow N/C 5.00 06/20/21 02:24 94 High Flow N/C 3.00 06/20/21 00:01 37.2 87 20 115/69 (84) 92 High Flow N/C 3.00 06/19/21 21:49 91 High Flow N/C 3.00 06/19/21 20:45 High Flow N/C 3.00 06/19/21 19:52 37.5 84 22 125/77 (93) 96 High Flow N/C 3.00 06/19/21 16:11 37.1 78 20 158/68 (98) 95 High Flow N/C 3.00 06/19/21 11:41 37.1 77 19 166/72 (103) 94 High Flow N/C 3.00 06/19/21 10:05 97 High Flow N/C 3.00 06/19/21 08:00 High Flow N/C 3.00 I & O 06/20/21 07:00 Intake Total 0 ml Output Total 2500 ml Balance -2500 ml General Appearance: No Apparent Distress, Chronically ill, Obese HEENT: PERRL/EOMI, Normal ENT Inspection Neck: Full Range of Motion, Normal Inspection Respiratory: Lungs Clear, No Accessory Muscle Use, No Respiratory Distress Cardiovascular: No JVD, Irregularly Irregular Gastrointestinal: No Organomegaly, Distended, Tenderness Rectal: Deferred Extremity: Normal Inspection, No Calf Tenderness, Pedal Edema Neurologic/Psychiatric: Alert, Oriented x3 Skin: Normal Color, Warm/Dry Lymphatic: No Adenopathy Results Lab Laboratory Tests 06/19/21 10:35: Glucometer 129H 06/19/21 12:18: Glucometer 121H 06/19/21 12:45: Lab Scanned Report Transfusion Reaction Form 06/19/21 14:26: Glucometer 125H 06/19/21 20:05: Glucometer 112H 06/20/21 05:15: White Blood Count 9.4, Red Blood Count 3.44L, Hemoglobin 9.5L, Hematocrit 32L, Mean Corpuscular Volume 92, Mean Corpuscular Hemoglobin 28, Mean Corpuscular Hemoglobin Concent 30L, Red Cell Distribution Width 15.8H, Platelet Count 187, Mean Platelet Volume 11.4, Immature Granulocyte % (Auto) 1, Neutrophils (%) (Auto) 83H, Lymphocytes (%) (Auto) 8L, Monocytes (%) (Auto) 8, Eosinophils (%) (Auto) 1, Basophils (%) (Auto) 0, Neutrophils # (Auto) 7.8, Lymphocytes # (Auto) 0.7L, Monocytes # (Auto) 0.7, Eosinophils # (Auto) 0.1, Basophils # (Auto) 0.0, Immature Granulocyte # (Auto) 0.1, Neutrophils % (Manual) 86, Lymphocytes % (Manual) 6, Monocytes % (Manual) 6, Eosinophils % (Manual) 2, Anisocytosis SLIGHT, Microcytosis SLIGHT, Sodium Level 144, Potassium Level 3.7, Chloride Level 103, Carbon Dioxide Level 27, Anion Gap 14, Blood Urea Nitrogen 14, Creatinine 0.82, Estimat Glomerular Filtration Rate 72, BUN/Creatinine Ratio 17, Glucose Level 100, Calcium Level 9.1, Corrected Calcium 9.7, Phosphorus Level 2.9, Magnesium Level 1.7, Total Bilirubin 0.8, Aspartate Amino Transf (AST/SGOT) 23, Alanine Aminotransferase (ALT/SGPT) 10, Alkaline Phosphatase 56, Total Protein 6.3L, Albumin 3.3 06/20/21 06:20: Glucometer 94 Microbiology 06/13/21 MRSA Screen - Final, Complete MRSA not isolated Assessment/Plan Assessment/Plan Admission Dx Anemia SOB Pulmonary Edema Cardiomegaly Elevated BUN Elevated Creatinine High Blood sugar Hypocalemia HTN senior living Anticoagulation use Confusion COPD Anxiety Pseudoseizure Atrial Fibrillation Assessment and Plan Anemia Ileus SOB Pulmonary Edema Cardiomegaly Elevated BUN Elevated Creatinine High Blood sugar Hypocalemia 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 General surgery on consult EGD planned for tomorrow. -06/15: Transfused another unit of blood 06/14, current hemoglobin is 7.6. -06/16: Hemoglobin currently at 8.7, last reading before that was 8.5. Will do an colonoscopy as EGD did not identify active source of bleeding, keep patient on Clear liquid diet, and NPO after midnight. -06/19: Hemoglobin stable at 8.3, source of bleeding possible from hemorrhoids seen on colonscopy performed on 06/16 -06/20: Hemoglobin is trending upward, currently at 9.5, continue to monitor Ileus -NPO, abdominal x ray, IV Fluids, NG tube, ambulate SOB -BiPAP, Incentive spirometer Confusion -Restart Zyprexa HTN -Monitor Blood pressure. 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 Anticoagulation use Confusion COPD Anxiety Pseudoseizure Atrial Fibrillation Supervisory-Addendum Brief Verification & Attestation Participated in pt care: history, MDM, physical Personally performed: exam, history, MDM, supervision of care Care discussed with: Medical Student Procedures: n/a Results interpretation: Verified all documentation AGREE WITH STUDENT NOTE DOCUMENTED - SEE MY DOCUMENTATION BELOW SEVERE ACUTE ANEMIA HYPOXIA RESPIRATORY DISTRESS CHRONIC HYPERTENSION HX OF CORONARY ARTERY DISEASE CHRONIC COPD DIABETES MELLITUS HYPERTENSION HISTORY OF ATRIAL FIBRILLATION GERD CHRONIC ANTICOAGULATION PSEUDOSEIZURES BIPOLAR MOOD DISORDER ILEUS SEVERE ACUTE ANEMIA WITH SUSPECTED GI BLEED, NOW WITH ILEUS - PT ON ANTICOAGULATION OUTPATIENT, IT IS ON HOLD - WILL CONTINUE TO BE ON HOLD UNTIL SHE HAS COMPLETED HER COLONOSCOPE ON 06/16/21 AND A CAPSULE ENDOSCOPY AN OUTPATIENT. - CONSULT TO GENERAL SURGERY - EGD 06/15/21, COLONOSCOPE 06/16/21. - PT IS STATUS POST 4 UNITS OF BLOOD, WITH PT HAVING CARDIAC HISTORY AND COPD, PT HAS NEED FOR HGB TO BE AT OR ABOVE 8 IF POSSIBLE. - MONITOR LABS, REPEAT TRANSFUSION IF NEEDED. - ILEUS - STARTED REGLAN 5MG IV TID, INCREASED TO REGLAN 10MG QID KUB XRAY. HYPOXIA WITH RESPIRATORY DISTRESS AND HX OF COPD - STARTED MAT PROTOCOL. CHRONIC HYPERTENSION - MONITOR PRESSURES, RECONCILED MEDICATIONS - MEDICATIONS ON HOLD DUE TO NPO STATUS HX OF CORONARY ARTERY DISEASE DIABETES MELLITUS - MONITOR FSBS HISTORY OF ATRIAL FIBRILLATION - HOLD ANTICOAGULATION AT THIS TIME DUE TO GI BLEEDING GERD - RESUMED PPI THERAPY. PSEUDOSEIZURES WITH BIPOLAR MOOD DISORDER - RESUMED HOME MEDICATION REGIMEN DVT PROPHYLAXIS WITH SCD'S OLIVIA BRANDT June 20, 2021 07:53 FILIPE PURCELL MD June 20, 2021 09:13
--- NOTE | 2021-06-20 09:42 | Physical Therapy Daily Note ---
PT Daily Note-Current Subjective Patient appears very anxious. Mental Status Patient Orientation: Confused Attachments: Quinones Catheter, IV Transfers SCALE: Activities may be completed with or without assistive devices. 9-Uhmzbaeuxl-jbalxgx completes the activity by him/herself with no assistance from a helper. 5-Set-up or Clean-up Assistance-helper sets up or cleans up; patient completes activity. [place] assists only prior to or following the activity. 4-Supervision or Touching Assistance-helper provides verbal cues and/or touching/steadying and/or contact guard assistance as patient completes activity. Assistance may be provided throughout the activity or intermittently. 3-Partial/Moderate Assistance-helper does LESS THAN HALF the effort. [place] lif ts, holds or supports trunk or limbs, but provides less than half the effort. 2-Substantial/Maximal Assistance-helper does MORE THAN HALF the effort. [place] lifts or holds trunk or limbs and provides more than half the effort. 3-Pbzbnnbbt-zsbwyv does ALL the effort. Patient does none of the effort to complete the activity. Or, the assistance of 2 or more helpers is required for the patient to complete the activity. If activity was not attempted, code reason: 7-Patient Refused. 9-Not Applicable-not attempted and the patient did not perform the activity before the current illness, exacerbation or injury. 10-Not Attempted due to Environmental Limitations-(lack of equipment, weather restraints, etc.). 88-Not Attempted due to Medical Conditions or Safety Concerns. Lying to Sitting/Side of Bed(Q: 3 Sit to Stand (QC): 3 Chair/Fye-pe-Bsejf Xfer(QC): 3 Weight Bearing Right Lower Extremity: Right Full Weight Bearing Left Lower Extremity: Left Full Weight Bearing Gait Training Distance: 10' Walk 10 feet (QC): 3 Gait Assistive Device: FWW slow, shuffle gait Exercises Supine Ex: Ankle pumps, Heel Slides Supine Reps: 12 (AAROM) Seated Therapy Exercises: Ankle pumps, Long arc quads, Hip flexion Seated Reps: 12 (AAROM) Assessment Patient requires redirection to remain on task. Patient repeats, "I want my ." Patient is up in recliner with need met. 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 Nursing Home Goals PT Nursing Home Goals Time Frame: July 08, 2021 Roll Left & Right (QC): 4 Sit to Lying (QC): 4 Lying-Sitting on Side/Bed(QC): 4 Sit to Stand (QC): 4 Chair/Bqk-rk-Sjrze Xfer(QC): 4 Toilet Transfer (QC): 4 Does the Patient Walk: Yes Walk 10 feet (QC): 3 Walk 50ft with 2 Turns (QC): 3 PT Plan Treatment/Plan Treatment Plan: Continue Plan of Care Treatment Plan: Bed Mobility, Education, Functional Activity Jono, Functional Strength, Gait, Safety, Therapeutic Exercise, Transfers Treatment Duration: Aug 05, 2021 Frequency: 6 times per week Estimated Hrs Per Day: .25 hour per day Patient and/or Family Agrees t: Yes Time/GCodes Time In: 748 Time Out: 811 Total Billed Treatment Time: 23 Total Billed Treatment 1 visit EX 8 min FA 15 min BRITTNI GIBBONS PT June 20, 2021 09:42
[2021-06-20] MEDS: METOCLOPRAMIDE INJ 10 MG/2 ML (REGLAN) IVP SCH ×4 (09:45→20:05)
[2021-06-20] MEDS: ISOSORBIDE MONONITRATE 60 MG (IMDUR) TAB PO SCH (09:46)
[2021-06-20] MEDS: rOPINIRole 0.25 MG (REQUIP) TAB PO SCH (09:46)
[2021-06-20] MEDS: FUROSEMIDE 40 MG/4 ML INJ (LASIX) IVP SCH (09:46)
[2021-06-20] MEDS: FLUoxetine HCL 20 MG (PROzac) CAP PO SCH (09:46)
[2021-06-20] MEDS: ALLOPURINOL 100 MG (ZYLOPRIM) TAB PO SCH (09:46)
[2021-06-20] MEDS: amLODIPine 10 MG (NORVASC) TAB PO SCH (09:46)
[2021-06-20] MEDS: PANTOPRAZOLE 40 MG (PROTONIX) VIAL IV SCH (09:46)
[2021-06-20] MEDS: lisINopril 40 MG (PRINIVIL) TABLET PO SCH (09:46)
[2021-06-20] MEDS: OLANZapine 2.5 MG (ZyPREXA) TAB PO SCH (09:51)
[2021-06-20] MEDS: ROSUVASTATIN 10 MG (CRESTOR) TABLET PO SCH (09:51)
[2021-06-20] MEDS: NS W/KCL 20 MEQ/L 1,000 ML IV SCH ×3 (09:52→17:30)
[2021-06-20] MEDS: OXYBUTYNIN (DITROPAN) 5 MG TAB PO SCH ×3 (09:55→21:03)
[2021-06-20] MEDS: PREGABALIN 100 MG (LYRICA) CAPSULE PO SCH ×2 (09:55→21:03)
--- NOTE | 2021-06-20 09:57 | Diagnostic Imaging Report ---
INDICATION: Dyspnea. Comparison made with prior examination 05/11/2021. FINDINGS: There is generalized cardiomegaly and mild central pulmonary venous congestion. The mediastinal configuration is unremarkable. There is no pleural effusion, pneumothorax, or pneumonia. The visualized osseous structures are unremarkable. IMPRESSION: Cardiomegaly and mild central pulmonary venous congestion. Dictated by: Dictated on workstation # [id number]
--- NOTE | 2021-06-20 12:56 | Diagnostic Imaging Report ---
ABDOMEN, FLAT UPRIGHT/DECUB INDICATION: Ileus COMPARISON: 06/18/2021 TECHNIQUE: AP view the abdomen FINDINGS: Progressive gaseous dilation of the colon with the cecum measuring up to 10 cm. There are air-filled minimally dilated loops of small bowel also present. There is air present in the stomach. No features of free intraperitoneal air, though assessment is limited due to patient body habitus and portable technique. Stable degenerative disc disease in lower lumbar spine. IMPRESSION: Progressive gaseous distention of the colon is likely related to patient's reported ileus. The cecum now measures up to 10 cm. Dictated by: Dictated on workstation # [id number]
--- NOTE | 2021-06-20 13:29 | Progress Note ---
Subjective Date Seen by a Provider: June 20, 2021 Time Seen by a Provider: 13:00 Subjective/Events-last exam doing slightly better. no bowel fxn. no nausea/vomiting. reports no significant abd pain. Objective Exam Vital Signs Date Time Temp Pulse Resp B/P (MAP) Pulse Ox O2 Delivery O2 Flow Rate FiO2 06/20/21 11:19 37.1 81 18 157/76 (103) 95 High Flow N/C 5.00 06/20/21 08:00 91 High Flow N/C 5.00 92 06/20/21 07:55 36.8 88 18 151/66 (94) 91 High Flow N/C 5.00 06/20/21 07:52 95 High Flow N/C 3.00 06/20/21 04:10 37.4 60 20 106/61 (76) 95 High Flow N/C 5.00 06/20/21 02:24 94 High Flow N/C 3.00 06/20/21 00:01 37.2 87 20 115/69 (84) 92 High Flow N/C 3.00 06/19/21 21:49 91 High Flow N/C 3.00 06/19/21 20:45 High Flow N/C 3.00 06/19/21 19:52 37.5 84 22 125/77 (93) 96 High Flow N/C 3.00 06/19/21 16:11 37.1 78 20 158/68 (98) 95 High Flow N/C 3.00 I & O 06/20/21 07:00 Intake Total 0 ml Output Total 2500 ml Balance -2500 ml Capillary Refill : General Appearance: No Apparent Distress HEENT: PERRL/EOMI Neck: Full Range of Motion Respiratory: Chest Non Tender, Decreased Breath Sounds Cardiovascular: Regular Rate, Rhythm Gastrointestinal: soft, distended Extremity: Normal Capillary Refill Neurologic/Psychiatric: Alert, Oriented x3 Skin: Normal Color Lymphatic: No Adenopathy Results Lab Laboratory Tests 06/19/21 14:26: Glucometer 125H 06/19/21 20:05: Glucometer 112H 06/20/21 05:15: White Blood Count 9.4, Red Blood Count 3.44L, Hemoglobin 9.5L, Hematocrit 32L, Mean Corpuscular Volume 92, Mean Corpuscular Hemoglobin 28, Mean Corpuscular Hemoglobin Concent 30L, Red Cell Distribution Width 15.8H, Platelet Count 187, Mean Platelet Volume 11.4, Immature Granulocyte % (Auto) 1, Neutrophils (%) (Auto) 83H, Lymphocytes (%) (Auto) 8L, Monocytes (%) (Auto) 8, Eosinophils (%) (Auto) 1, Basophils (%) (Auto) 0, Neutrophils # (Auto) 7.8, Lymphocytes # (Auto) 0.7L, Monocytes # (Auto) 0.7, Eosinophils # (Auto) 0.1, Basophils # (Auto) 0.0, Immature Granulocyte # (Auto) 0.1, Neutrophils % (Manual) 86, Lymphocytes % (Manual) 6, Monocytes % (Manual) 6, Eosinophils % (Manual) 2, Anisocytosis SLIGHT, Microcytosis SLIGHT, Sodium Level 144, Potassium Level 3.7, Chloride Level 103, Carbon Dioxide Level 27, Anion Gap 14, Blood Urea Nitrogen 14, Creatinine 0.82, Estimat Glomerular Filtration Rate 72, BUN/Creatinine Ratio 17, Glucose Level 100, Calcium Level 9.1, Corrected Calcium 9.7, Phosphorus Level 2.9, Magnesium Level 1.7, Total Bilirubin 0.8, Aspartate Amino Transf (AST/SGOT) 23, Alanine Aminotransferase (ALT/SGPT) 10, Alkaline Phosphatase 56, Total Protein 6.3L, Albumin 3.3 06/20/21 06:20: Glucometer 94 06/20/21 09:51: Glucometer 106 Microbiology 06/13/21 MRSA Screen - Final, Complete MRSA not isolated Assessment/Plan Assessment/Plan Assess & Plan/Chief Complaint ileus with nausea/vomiting. bowel rest. IV fluids. start reglan. give rectal suppository. needs to ambulate as much as possible. follow serial axr and PE KAMILLA ARAGON MD June 20, 2021 13:29
--- NOTE | 2021-06-20 14:14 | Occupational Ther Daily Note ---
OT Current Status-Daily Note Subjective Pt up in recliner, requests to go home multiple times throughout session. OT provided education on purpose/benefit of OT in order to reach pt's goal for returning home. Pt required moderate encouragement to participate in OT tx. Mental Status/Objective Attachments: Quinones Catheter, IV, Oxygen ADL-Treatment Therapy Code Descriptions/Definitions Functional [place] Measure: 0=Not Assessed/NA 4=Minimal Assistance 1=Total Assistance 5=Supervision or Setup 2=Maximal Assistance 6=Modified [place] 3=Moderate Assistance 7=Complete IndependenceSCALE: Activities may be completed with or without assistive devices. 8-Tzklxehzfc-niwvful completes the activity by him/herself with no assistance from a helper. 5-Set-up or Clean-up Assistance-helper sets up or cleans up; patient completes activity. [place] assists only prior to or following the activity. 4-Supervision or Touching Assistance-helper provides verbal cues and/or touching/steadying and/or contact guard assistance as patient completes activity. Assistance may be provided throughout the activity or intermittently. 3-Partial/Moderate Assistance-helper does LESS THAN HALF the effort. [place] lifts, holds or supports trunk or limbs, but provides less than half the effort. 2-Substantial/Maximal Assistance-helper does MORE THAN HALF the effort. [place] lifts or holds trunk or limbs and provides more than half the effort. 7-Zbkkbgjqm-lfqnqh does ALL the effort. Patient does none of the effort to complete the activity. Or, the assistance of 2 or more helpers is required for the patient to complete the activity. If activity was not attempted, code reason: 7-Patient Refused. 9-Not Applicable-not attempted and the patient did not perform the activity before the current illness, exacerbation or injury. 10-Not Attempted due to Environmental Limitations-(lack of equipment, weather restraints, etc.). 88-Not Attempted due to Medical Conditions or Safety Concerns. Eating (QC): 88 Toileting Hygiene (QC): 1 (catheter) Other Treatment Pt in recliner, initially declines OT tx, but agreeable with encouragement. OT educated pt on purpose/benefit of OT in order for pt to reach goal of returning home. Pt completed x10 reps BUE exercises: shoulder flexion, elbow flexion/extension and finger flexion/extension. Post tx, pt in recliner, call light in reach and all needs met. Education OT Patient Education: Correct positioning, Energy conservation, Modified ADL techniques, Progress toward Goal/Update tx plan, Purpose of tx/functional activities, Rehab process Teaching Recipient: Patient Teaching Methods: Discussion Response to Teaching: Reinforcement Needed OT Continuity Coordinator Goals Detention Goals Time Frame: June 30, 2021 Eating (QC): 5 Oral Hygiene (QC): 5 Toileting Hygiene (QC): 3 Shower/Bathe Self (QC): 3 Upper Body Dressing (QC): 4 Lower Body Dressing (QC): 3 On/Off Footwear (QC): 2 Additional Goals: 1-Demonstrate ADL Tasks, 2-Verbalize Understanding, 3- ImproveStrength/Jono 1=Demonstrate adherence to instructed precautions during ADL tasks. 2=Patient will verbalize/demonstrate understanding of assistive devices/ modifications for ADL. 3=Patient will improve strength/tolerance for activity to enable patient to perform ADL's. OT Education/Plan Problem List/Assessment Assessment: Decreased Activ Tolerance, Decreased Safety Aware, Decreased UE Strength, Impaired Cognition, Impaired Funct Balance, Impaired I ADL's, Impaired Self-Care Skills Discharge Recommendations Plan/Recommendations: Continue POC Treatment Plan/Plan of Care Patient would benefit from OT for education, treatment and training to promote independence in ADL's, mobility, safety and/or upper extremity function for ADL's. Plan of Care: ADL Retraining, Functional Mobility, UE Funct Exercise/Act Treatment Duration: June 30, 2021 Frequency: 3 times per week (3-5 times per week) Estimated Hrs Per Day: .25 hour per day Agreement: Yes Rehab Potential: Fair Time/GCodes Start Time: 13:38 Stop Time: 13:48 Total Time Billed (hr/min): 10 Billed Treatment Time 1, EX GEOVANY PICKARD OT June 20, 2021 14:14
[2021-06-20] MEDS: OLANZapine 5 MG (ZyPREXA) TAB PO SCH (17:30)
[2021-06-20] MEDS ORDERED: RT-ALBUTEROL/IPRATROPIUM 3 ML (DUONEB) VIAL INH PRN (19:45)
[2021-06-20] MEDS: hydrALAZINE (APESOLINE) 20 MG/ML VIAL IV PRN (20:05)
[2021-06-20] MEDS: LATANOPROST 0.005% (XALATAN) OPHTH SOLN 2.5 ML OU SCH (20:05)
[2021-06-20] MEDS: rOPINIRole 1 MG (REQUIP) TABLET PO SCH (21:03)
[2021-06-20] MEDS: traZODone 50 MG (DESYREL) TAB PO SCH (21:03)
[2021-06-20] MEDS: PANTOPRAZOLE 40 MG (PROTONIX) TAB PO SCH (21:04)
[2021-06-20] MEDS: polyethylene glycoL POWDER 17 GM (MIRALAX) PACK PO SCH (21:04)
[2021-06-20] MEDS ORDERED: hydrALAZINE (APESOLINE) 20 MG/ML VIAL IV ONE (21:15)
[2021-06-20] MEDS ORDERED: GLYCERIN ADULT SUPPOSITORY PR ONE (21:15)
[2021-06-20] MEDS: LORazepam INJ 2 MG/ML (ATIVAN) VIAL IVP PRN (21:30)
[2021-06-21 00:14] VITALS: BP 118/62
[2021-06-21 04:33] VITALS: BP 150/63
[2021-06-21] MEDS: CATHETER FLUSH 10 ML SYR IV SCH ×3 (05:30→21:46)
[2021-06-21 06:02] LABS: BASOPHILS # (AUTO) 0.1 10^3/uL (0.0-0.1); BASOPHILS % (AUTO) 1 % (0-10); EOSINOPHILS # (AUTO) 0.3 10^3/uL (0.0-0.3); EOSINOPHILS % (AUTO) 4 % (0-10); HEMATOCRIT 30 % (35-52); HEMOGLOBIN 8.9 g/dL (11.5-16.0); LYMPHOCYTES # (AUTO) 0.9 10^3/uL (1.0-4.0); LYMPHOCYTES % (AUTO) 14 % (12-44); MEAN CORPUSCULAR HEMOGLOBIN 28 pg (25-34); MEAN CORPUSCULAR HGB CONC 30 g/dL (32-36); MEAN CORPUSCULAR VOLUME 93 fL (80-99); MEAN PLATELET VOLUME 10.8 fL (9.0-12.2); MONOCYTES # (AUTO) 0.7 10^3/uL (0.0-1.0); MONOCYTES % (AUTO) 11 % (0-12); NEUTROPHILS # (AUTO) 4.4 10^3/uL (1.8-7.8); NEUTROPHILS % (AUTO) 70 % (42-75); PLATELET COUNT 194 10^3/uL (130-400); WHITE BLOOD COUNT 6.3 10^3/uL (4.3-11.0)
[2021-06-21] MEDS: NS W/KCL 20 MEQ/L 1,000 ML IV SCH ×2 (06:05→08:57)
[2021-06-21] MEDS: inSUlin ASPART (NovoLOG) 1 UNIT/0.01 ML (CHARGE PER UNIT) SC SCH ×4 (06:05→21:54)
[2021-06-21 06:08] LABS: ALBUMIN 3.1 GM/DL (3.2-4.5); POTASSIUM 4.1 MMOL/L (3.6-5.0)
[2021-06-21 06:10] LABS: CALCIUM 8.5 MG/DL (8.5-10.1)
[2021-06-21 06:11] LABS: TOTAL PROTEIN 5.7 GM/DL (6.4-8.2)
[2021-06-21 06:12] LABS: BILIRUBIN,TOTAL 0.7 MG/DL (0.1-1.0)
[2021-06-21] MEDS: POTASSIUM CL 10MEQ/50ML IVPB 50 ML IV SCH (06:12)
[2021-06-21] MEDS: KCL 20 MEQ TAB (K-DUR) PO SCH (06:12)
[2021-06-21 06:14] LABS: CREATININE SERUM 0.72 MG/DL (0.60-1.30); PHOSPHORUS 2.8 MG/DL (2.3-4.7)
[2021-06-21 06:17] LABS: MAGNESIUM 1.9 MG/DL (1.6-2.4)
[2021-06-21] MEDS: MAGNESIUM 1 GM/100 ML IVPB 100 ML IV SCH (06:18)
--- NOTE | 2021-06-21 07:39 | Progress Note ---
Subjective Subjective Date Seen by Provider: June 21, 2021 Time Seen by Provider: 07:15 Patient reports that the NG tube that was placed yesterday helped her and she is less bloated today. She has had one bowel movement yesterday and is passing gas, denies N/V. Review of Systems ROS Unable to Obtain: Pt asleep unable to obtain General: No Chills, No Night Sweats HEENT: No Eye Pain, No Ear Pain Pulmonary: Dyspnea, Cough Cardiovascular: No: Chest Pain, Palpitations Gastrointestinal: Abdominal Pain; No: Nausea, Vomiting, Diarrhea, Constipation Genitourinary: No Dysuria, No Hematuria Neurological: No: Change in speech, Seizures All Other Systems Reviewed All Other Systems Reviewed: No Objective Exam Vital Signs Vital Signs Date Time Temp Pulse Resp B/P (MAP) Pulse Ox O2 Delivery O2 Flow Rate FiO2 06/21/21 04:33 37.1 92 18 150/63 (92) 94 High Flow N/C 5.00 06/21/21 00:14 36.5 67 18 118/62 (80) 99 High Flow N/C 5.00 06/20/21 20:05 37.0 81 20 170/72 (104) 98 High Flow N/C 5.00 06/20/21 19:40 97 High Flow N/C 5.00 06/20/21 19:22 36.2 76 95 06/20/21 16:00 36.2 76 20 160/66 (97) 95 High Flow N/C 5.00 06/20/21 15:05 95 High Flow N/C 3.00 06/20/21 11:19 37.1 81 18 157/76 (103) 95 High Flow N/C 5.00 06/20/21 08:00 91 High Flow N/C 5.00 92 06/20/21 07:55 36.8 88 18 151/66 (94) 91 High Flow N/C 5.00 06/20/21 07:52 95 High Flow N/C 3.00 I & O 06/21/21 07:00 Intake Total 1660 ml Output Total 1775 ml Balance -115 ml General Appearance: No Apparent Distress, Obese HEENT: PERRL/EOMI, Normal ENT Inspection Neck: Full Range of Motion, Supple Respiratory: Chest Non Tender, No Accessory Muscle Use, Decreased Breath Sounds Cardiovascular: Regular Rate, Rhythm, No JVD Gastrointestinal: No Organomegaly, Distended (improved from yesterday ) Rectal: Deferred Extremity: Normal Capillary Refill Neurologic/Psychiatric: Alert, Oriented x3 Skin: Normal Color Lymphatic: No Adenopathy Results Lab Laboratory Tests 06/20/21 09:51: Glucometer 106 06/20/21 14:30: Glucometer 113H 06/20/21 19:32: Glucometer 108 06/21/21 05:30: White Blood Count 6.3, Red Blood Count 3.23L, Hemoglobin 8.9L, Hematocrit 30L, Mean Corpuscular Volume 93, Mean Corpuscular Hemoglobin 28, Mean Corpuscular Hemoglobin Concent 30L, Red Cell Distribution Width 15.9H, Platelet Count 194, Mean Platelet Volume 10.8, Immature Granulocyte % (Auto) 1, Neutrophils (%) (Auto) 70, Lymphocytes (%) (Auto) 14, Monocytes (%) (Auto) 11, Eosinophils (%) (Auto) 4, Basophils (%) (Auto) 1, Neutrophils # (Auto) 4.4, Lymphocytes # (Auto) 0.9L, Monocytes # (Auto) 0.7, Eosinophils # (Auto) 0.3, Basophils # (Auto) 0.1, Immature Granulocyte # (Auto) 0.1, Sodium Level 145, Potassium Level 4.1, Chloride Level 106, Carbon Dioxide Level 26, Anion Gap 13, Blood Urea Nitrogen 14, Creatinine 0.72, Estimat Glomerular Filtration Rate 84, BUN/Creatinine Ratio 19, Glucose Level 112H, Calcium Level 8.5, Corrected Calcium 9.2, Phosphorus Level 2.8, Magnesium Level 1.9, Total Bilirubin 0.7, Aspartate Amino Transf (AST/SGOT) 21, Alanine Aminotransferase (ALT/SGPT) 10, Alkaline Phosphatase 50, Total Protein 5.7L, Albumin 3.1L 06/21/21 06:01: Glucometer 109 Microbiology 06/13/21 MRSA Screen - Final, Complete MRSA not isolated Assessment/Plan Assessment/Plan Admission Dx Anemia SOB Pulmonary Edema Cardiomegaly Elevated BUN Elevated Creatinine High Blood sugar Hypocalemia HTN retirement Anticoagulation use Confusion COPD Anxiety Pseudoseizure Atrial Fibrillation Assessment and Plan Anemia Ileus SOB Pulmonary Edema Cardiomegaly Elevated BUN Elevated Creatinine High Blood sugar Hypocalemia 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 General surgery on consult EGD planned for tomorrow. -06/15: Transfused another unit of blood 06/14, current hemoglobin is 7.6. -06/16: Hemoglobin currently at 8.7, last reading before that was 8.5. Will do an colonoscopy as EGD did not identify active source of bleeding, keep patient on Clear liquid diet, and NPO after midnight. -06/19: Hemoglobin stable at 8.3, source of bleeding possible from hemorrhoids seen on colonscopy performed on 06/16 -06/20: Hemoglobin is trending upward, currently at 9.5, continue to monitor -06/21: hemoglobin at 8.9 continue to monitor with repeat labs Ileus -Resolved on 06/21 with bowel movement yesterday and is passing flatus, clear liquid diet, decrease liquids and decrease metoclopromide, continue to PT and OT, repeat abdominal x ray today for possible discharge tomorrow SOB -BiPAP, Incentive spirometer Confusion -Restart Zyprexa HTN -Monitor Blood pressure. 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 Anticoagulation 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 Confusion COPD Anxiety Pseudoseizure Atrial Fibrillation Supervisory-Addendum Brief Verification & Attestation Participated in pt care: history, MDM, physical Personally performed: exam, history, MDM, supervision of care Care discussed with: Medical Student Procedures: n/a Results interpretation: Verified all documentation AGREE WITH STUDENT NOTE DOCUMENTED - SEE MY DOCUMENTATION BELOW SEVERE ACUTE ANEMIA HYPOXIA RESPIRATORY DISTRESS CHRONIC HYPERTENSION HX OF CORONARY ARTERY DISEASE CHRONIC COPD DIABETES MELLITUS HYPERTENSION HISTORY OF ATRIAL FIBRILLATION GERD CHRONIC ANTICOAGULATION PSEUDOSEIZURES BIPOLAR MOOD DISORDER ILEUS SEVERE ACUTE ANEMIA WITH SUSPECTED GI BLEED, NOW WITH ILEUS - PT ON ANTICOAGULATION OUTPATIENT, IT IS ON HOLD - WILL CONTINUE TO BE ON HOLD UNTIL SHE HAS COMPLETED HER COLONOSCOPE ON 06/16/21 AND A CAPSULE ENDOSCOPY AN OUTPATIENT. - CONSULT TO GENERAL SURGERY - EGD 06/15/21, COLONOSCOPE 06/16/21. - PT IS STATUS POST 4 UNITS OF BLOOD, WITH PT HAVING CARDIAC HISTORY AND COPD, PT HAS NEED FOR HGB TO BE AT OR ABOVE 8 IF POSSIBLE. - MONITOR LABS, REPEAT TRANSFUSION IF NEEDED. - ILEUS - STARTED REGLAN 5MG IV TID, INCREASED TO REGLAN 10MG QID KUB XRAY, WILL DECREASE DOSE BACK DOWN TO 5MG - ABDOMINAL XRAYS - IMPRESSION: 1. Colonic distention is markedly improved compared to 06/20/2021. No bowel obstruction is seen. 2. Moderate gastric distention, increased since the prior exam. . HYPOXIA WITH RESPIRATORY DISTRESS AND HX OF COPD - STARTED MAT PROTOCOL. CHRONIC HYPERTENSION - MONITOR PRESSURES, RECONCILED MEDICATIONS - MEDICATIONS ON HOLD DUE TO NPO STATUS HX OF CORONARY ARTERY DISEASE DIABETES MELLITUS - MONITOR FSBS HISTORY OF ATRIAL FIBRILLATION - HOLD ANTICOAGULATION AT THIS TIME DUE TO GI BLEEDING GERD - RESUMED PPI THERAPY. PSEUDOSEIZURES WITH BIPOLAR MOOD DISORDER - RESUMED HOME MEDICATION REGIMEN OLIVIA BRANDT June 21, 2021 07:39 FILIPE PURCELL MD June 21, 2021 17:40
[2021-06-21 08:25] VITALS: BP 150/63
[2021-06-21] MEDS: lisINopril 40 MG (PRINIVIL) TABLET PO SCH (08:51)
[2021-06-21] MEDS: ALLOPURINOL 100 MG (ZYLOPRIM) TAB PO SCH (08:51)
[2021-06-21] MEDS: ISOSORBIDE MONONITRATE 60 MG (IMDUR) TAB PO SCH (08:51)
[2021-06-21] MEDS: OLANZapine 2.5 MG (ZyPREXA) TAB PO SCH (08:51)
[2021-06-21] MEDS: rOPINIRole 0.25 MG (REQUIP) TAB PO SCH (08:51)
[2021-06-21] MEDS: BISACODYL 10 MG SUPP (DULCOLAX) PR SCH (08:52)
[2021-06-21] MEDS: FLUoxetine HCL 20 MG (PROzac) CAP PO SCH (08:52)
[2021-06-21] MEDS: PANTOPRAZOLE 40 MG (PROTONIX) TAB PO SCH ×2 (08:52→21:44)
[2021-06-21] MEDS: METOCLOPRAMIDE INJ 10 MG/2 ML (REGLAN) IVP SCH ×4 (08:52→21:44)
[2021-06-21] MEDS: FUROSEMIDE 40 MG/4 ML INJ (LASIX) IVP SCH (08:52)
[2021-06-21] MEDS: amLODIPine 10 MG (NORVASC) TAB PO SCH (08:52)
[2021-06-21] MEDS: PREGABALIN 100 MG (LYRICA) CAPSULE PO SCH ×2 (08:56→21:43)
[2021-06-21] MEDS: ROSUVASTATIN 10 MG (CRESTOR) TABLET PO SCH (08:56)
[2021-06-21] MEDS: OXYBUTYNIN (DITROPAN) 5 MG TAB PO SCH ×3 (08:56→21:44)
--- NOTE | 2021-06-21 09:54 | Physical Therapy Daily Note ---
PT Daily Note-Current Subjective Patient was in chair upon entering. in room. Reports being tired but no pain. Pain Numeric Pain Scale: 0-No Pain Mental Status Patient Orientation: Person, Place, Situation Attachments: Oxygen, Quinones Catheter, IV Transfers SCALE: Activities may be completed with or without assistive devices. 4-Qlieovqqov-rjbtdtn completes the activity by him/herself with no assistance from a helper. 5-Set-up or Clean-up Assistance-helper sets up or cleans up; patient completes activity. [place] assists only prior to or following the activity. 4-Supervision or Touching Assistance-helper provides verbal cues and/or touching/steadying and/or contact guard assistance as patient completes act ivity. Assistance may be provided throughout the activity or intermittently. 3-Partial/Moderate Assistance-helper does LESS THAN HALF the effort. [place] lifts, holds or supports trunk or limbs, but provides less than half the effort. 2-Substantial/Maximal Assistance-helper does MORE THAN HALF the effort. [place] lifts or holds trunk or limbs and provides more than half the effort. 7-Rcqplichn-sdwmtg does ALL the effort. Patient does none of the effort to complete the activity. Or, the assistance of 2 or more helpers is required for the patient to complete the activity. If activity was not attempted, code reason: 7-Patient Refused. 9-Not Applicable-not attempted and the patient did not perform the activity before the current illness, exacerbation or injury. 10-Not Attempted due to Environmental Limitations-(lack of equipment, weather restraints, etc.). 88-Not Attempted due to Medical Conditions or Safety Concerns. Sit to Stand (QC): 3 Weight Bearing Right Lower Extremity: Right Full Weight Bearing Left Lower Extremity: Left Full Weight Bearing Gait Training Does the Patient Walk?: Yes Distance: 10' Walk 10 feet (QC): 4 Gait Assistive Device: FWW Exercises Seated Therapy Exercises: Ankle pumps, Long arc quads Seated Reps: 20 Treatments LE strengthening, ambulation Assessment Current Status: Fair Progress Patient demonstrates poor endurance and strength as she was able to walk a short distance before needing a seated rest break. Patient appeared unmotivated with LE exercises. She was left in chair with call light, tray, and all needs met. PT Detention Goals Casing Tier Goals PT Casing Tier Goals Time Frame: July 08, 2021 Roll Left & Right (QC): 4 Sit to Lying (QC): 4 Lying-Sitting on Side/Bed(QC): 4 Sit to Stand (QC): 4 Chair/Xxr-ue-Fbasz Xfer(QC): 4 Toilet Transfer (QC): 4 Does the Patient Walk: Yes Walk 10 feet (QC): 3 Walk 50ft with 2 Turns (QC): 3 PT Plan Problem List Problem List: Activity Tolerance, Functional Strength, Safety, Balance, Gait, Transfer, Bed Mobility, ROM Treatment/Plan Treatment Plan: Continue Plan of Care Treatment Plan: Bed Mobility, Education, Functional Activity Jono, Functional Strength, Gait, Safety, Therapeutic Exercise, Transfers Treatment Duration: Aug 05, 2021 Frequency: 6 times per week Estimated Hrs Per Day: .25 hour per day Patient and/or Family Agrees t: Yes Safety Risks/Education Patient Education: Gait Training, Transfer Techniques, Correct Positioning, Saf ety Issues Teaching Recipient: Patient Teaching Methods: Demonstration, Discussion Response to Teaching: Verbalize Understanding Time/GCodes Time In: 919 Time Out: 934 Total Billed Treatment Time: 15 Total Billed Treatment 1 visit FA JAMIE MAYFIELD PT June 21, 2021 09:54
[2021-06-21 11:43] VITALS: BP 150/67
--- NOTE | 2021-06-21 12:17 | Progress Note ---
Subjective Date Seen by a Provider: June 21, 2021 Time Seen by a Provider: 09:00 Subjective/Events-last exam doing well. had BM. much less abd distention. started on clears. Objective Exam Vital Signs Date Time Temp Pulse Resp B/P (MAP) Pulse Ox O2 Delivery O2 Flow Rate FiO2 06/21/21 11:43 37.0 73 18 150/67 (94) 95 High Flow N/C 5.00 06/21/21 08:25 36.8 95 17 150/63 (92) 94 High Flow N/C 5.00 06/21/21 08:00 97 High Flow N/C 5.00 06/21/21 07:39 High Flow N/C 4.00 06/21/21 07:35 98 High Flow N/C 6.00 06/21/21 04:33 37.1 92 18 150/63 (92) 94 High Flow N/C 5.00 06/21/21 00:14 36.5 67 18 118/62 (80) 99 High Flow N/C 5.00 06/20/21 20:05 37.0 81 20 170/72 (104) 98 High Flow N/C 5.00 06/20/21 19:40 97 High Flow N/C 5.00 06/20/21 19:22 36.2 76 95 06/20/21 16:00 36.2 76 20 160/66 (97) 95 High Flow N/C 5.00 06/20/21 15:05 95 High Flow N/C 3.00 I & O 06/21/21 07:00 Intake Total 1660 ml Output Total 1775 ml Balance -115 ml Capillary Refill : General Appearance: No Apparent Distress HEENT: PERRL/EOMI Neck: Full Range of Motion Respiratory: Chest Non Tender, Decreased Breath Sounds Cardiovascular: Regular Rate, Rhythm Gastrointestinal: normal bowel sounds, non tender, soft Extremity: Normal Capillary Refill Neurologic/Psychiatric: Alert, Oriented x3 Skin: Normal Color Lymphatic: No Adenopathy Results Lab Laboratory Tests 06/20/21 14:30: Glucometer 113H 06/20/21 19:32: Glucometer 108 06/21/21 05:30: White Blood Count 6.3, Red Blood Count 3.23L, Hemoglobin 8.9L, Hematocrit 30L, Mean Corpuscular Volume 93, Mean Corpuscular Hemoglobin 28, Mean Corpuscular Hemoglobin Concent 30L, Red Cell Distribution Width 15.9H, Platelet Count 194, Mean Platelet Volume 10.8, Immature Granulocyte % (Auto) 1, Neutrophils (%) (Auto) 70, Lymphocytes (%) (Auto) 14, Monocytes (%) (Auto) 11, Eosinophils (%) (Auto) 4, Basophils (%) (Auto) 1, Neutrophils # (Auto) 4.4, Lymphocytes # (Auto) 0.9L, Monocytes # (Auto) 0.7, Eosinophils # (Auto) 0.3, Basophils # (Auto) 0.1, Immature Granulocyte # (Auto) 0.1, Sodium Level 145, Potassium Level 4.1, Chloride Level 106, Carbon Dioxide Level 26, Anion Gap 13, Blood Urea Nitrogen 14, Creatinine 0.72, Estimat Glomerular Filtration Rate 84, BUN/Creatinine Ratio 19, Glucose Level 112H, Calcium Level 8.5, Corrected Calcium 9.2, Phosphorus Level 2.8, Magnesium Level 1.9, Total Bilirubin 0.7, Aspartate Amino Transf (AST/SGOT) 21, Alanine Aminotransferase (ALT/SGPT) 10, Alkaline Phosphatase 50, Total Protein 5.7L, Albumin 3.1L 06/21/21 06:01: Glucometer 109 06/21/21 10:09: Glucometer 143H Microbiology 06/13/21 MRSA Screen - Final, Complete MRSA not isolated Assessment/Plan Assessment/Plan Assess & Plan/Chief Complaint ileus with nausea/vomiting. bowel rest. IV fluids. start reglan. give rectal suppository. needs to ambulate as much as possible. follow serial axr and PE KAMILLA ARAGON MD June 21, 2021 12:17
--- NOTE | 2021-06-21 13:22 | Diagnostic Imaging Report ---
HISTORY: Colonic distention, followup ileus COMPARISON: 06/20/2021 TECHNIQUE: Frontal views of the abdomen FINDINGS: There is moderate gastric distention, increased since the prior exam. Distention of the colon is markedly improved since the prior exam, with mild air seen in the colon. No small bowel distention is seen. There are advanced degenerative changes in the lower lumbar spine. No large collection of free air is seen. IMPRESSION: 1. Colonic distention is markedly improved compared to 06/20/2021. No bowel obstruction is seen. 2. Moderate gastric distention, increased since the prior exam. Dictated by: Dictated on workstation # [id number]
--- NOTE | 2021-06-21 14:07 | Occ Therapy Progress Note ---
Therapy Progress Note Per nrsg, pt is improving today with cognition. HERNANDEZ entered room and pt is in deep sleep. Attempted to wake pt and attempted to wake pt and pt would not wake. declined therapy for pt stating that she was very tired this afternoon and would therapy come back tomorrow. 1 visit-refusal [id number] NOEL MCKEON June 21, 2021 14:07
[2021-06-21 16:00] VITALS: BP 147/66
[2021-06-21] MEDS: OLANZapine 5 MG (ZyPREXA) TAB PO SCH (18:26)
[2021-06-21 20:00] VITALS: BP 150/65
[2021-06-21] MEDS: traZODone 50 MG (DESYREL) TAB PO SCH (21:43)
[2021-06-21] MEDS: rOPINIRole 1 MG (REQUIP) TABLET PO SCH (21:43)
[2021-06-21] MEDS: polyethylene glycoL POWDER 17 GM (MIRALAX) PACK PO SCH (21:44)
[2021-06-21] MEDS: LATANOPROST 0.005% (XALATAN) OPHTH SOLN 2.5 ML OU SCH (21:45)
[2021-06-22] MEDS: NS W/KCL 20 MEQ/L 1,000 ML IV SCH (00:05)
[2021-06-22 00:13] VITALS: BP 147/62
[2021-06-22 04:25] VITALS: BP 164/76
[2021-06-22 05:49] LABS: BASOPHILS % (AUTO) 1 % (0-10); EOSINOPHILS # (AUTO) 0.3 10^3/uL (0.0-0.3); EOSINOPHILS % (AUTO) 7 % (0-10); HEMATOCRIT 30 % (35-52); HEMOGLOBIN 8.9 g/dL (11.5-16.0); LYMPHOCYTES % (AUTO) 20 % (12-44); MEAN CORPUSCULAR HEMOGLOBIN 28 pg (25-34); MEAN CORPUSCULAR HGB CONC 30 g/dL (32-36); MEAN CORPUSCULAR VOLUME 92 fL (80-99); MEAN PLATELET VOLUME 10.8 fL (9.0-12.2); MONOCYTES # (AUTO) 0.6 10^3/uL (0.0-1.0); MONOCYTES % (AUTO) 13 % (0-12); NEUTROPHILS # (AUTO) 2.7 10^3/uL (1.8-7.8); NEUTROPHILS % (AUTO) 58 % (42-75); PLATELET COUNT 174 10^3/uL (130-400); WHITE BLOOD COUNT 4.7 10^3/uL (4.3-11.0)
[2021-06-22 06:14] LABS: ALBUMIN 3.1 GM/DL (3.2-4.5); POTASSIUM 3.8 MMOL/L (3.6-5.0)
[2021-06-22 06:16] LABS: CALCIUM 8.4 MG/DL (8.5-10.1)
[2021-06-22 06:17] LABS: TOTAL PROTEIN 5.7 GM/DL (6.4-8.2)
[2021-06-22 06:19] LABS: BILIRUBIN,TOTAL 0.7 MG/DL (0.1-1.0)
[2021-06-22 06:20] LABS: CREATININE SERUM 0.71 MG/DL (0.60-1.30); PHOSPHORUS 2.4 MG/DL (2.3-4.7)
[2021-06-22 06:24] LABS: MAGNESIUM 1.7 MG/DL (1.6-2.4)
[2021-06-22] MEDS: CATHETER FLUSH 10 ML SYR IV SCH ×2 (06:27→14:04)
[2021-06-22] MEDS: inSUlin ASPART (NovoLOG) 1 UNIT/0.01 ML (CHARGE PER UNIT) SC SCH ×2 (06:27→10:41)
[2021-06-22] MEDS: POTASSIUM CL 10MEQ/50ML IVPB 50 ML IV SCH (06:28)
[2021-06-22] MEDS: KCL 20 MEQ TAB (K-DUR) PO SCH (06:28)
[2021-06-22] MEDS: MAGNESIUM 1 GM/100 ML IVPB 100 ML IV SCH ×3 (06:44→10:31)
--- NOTE | 2021-06-22 07:30 | Progress Note ---
Subjective Subjective Date Seen by Provider: June 22, 2021 Time Seen by Provider: 07:05 Patient reports that she is doing well, reports no N/V or stomach pain. She reports having one more bowel movement, and denies passing pas. Review of Systems ROS Unable to Obtain: Pt asleep unable to obtain General: No Chills, No Night Sweats HEENT: No Eye Pain, No Ear Pain Pulmonary: Dyspnea, Cough Cardiovascular: No: Chest Pain, Palpitations Gastrointestinal: No: Nausea, Vomiting, Abdominal Pain, Diarrhea, Constipation Genitourinary: No Dysuria, No Hematuria Neurological: No: Change in speech, Seizures All Other Systems Reviewed All Other Systems Reviewed: No Objective Exam Vital Signs Vital Signs Date Time Temp Pulse Resp B/P (MAP) Pulse Ox O2 Delivery O2 Flow Rate FiO2 06/22/21 04:25 36.0 76 20 164/76 (105) 94 High Flow N/C 4.00 06/22/21 00:13 37.0 74 22 147/62 (90) 95 High Flow N/C 4.00 06/21/21 20:15 97 High Flow N/C 5.00 06/21/21 20:00 36.7 80 22 150/65 (93) 96 High Flow N/C 5.00 06/21/21 16:00 37.0 73 22 147/66 (93) 94 High Flow N/C 5.00 06/21/21 11:43 37.0 73 18 150/67 (94) 95 High Flow N/C 5.00 06/21/21 08:25 36.8 95 17 150/63 (92) 94 High Flow N/C 5.00 06/21/21 08:00 97 High Flow N/C 5.00 06/21/21 07:39 High Flow N/C 4.00 06/21/21 07:35 98 High Flow N/C 6.00 I & O 06/22/21 07:00 Intake Total 4170 ml Output Total 1500 ml Balance 2670 ml General Appearance: No Apparent Distress, Obese HEENT: PERRL/EOMI, Normal ENT Inspection Neck: Full Range of Motion, Supple Respiratory: Chest Non Tender, No Accessory Muscle Use, Decreased Breath Sounds Cardiovascular: Regular Rate, Rhythm, No JVD Gastrointestinal: No Organomegaly, Distended (improving) Rectal: Deferred Extremity: Normal Capillary Refill Neurologic/Psychiatric: Alert, Oriented x3 Skin: Normal Color Lymphatic: No Adenopathy Results Lab Laboratory Tests 06/21/21 10:09: Glucometer 143H 06/21/21 14:55: Glucometer 119H 06/21/21 19:43: Glucometer 144H 06/22/21 05:10: White Blood Count 4.7, Red Blood Count 3.24L, Hemoglobin 8.9L, Hematocrit 30L, Mean Corpuscular Volume 92, Mean Corpuscular Hemoglobin 28, Mean Corpuscular Hemoglobin Concent 30L, Red Cell Distribution Width 15.8H, Platelet Count 174, Mean Platelet Volume 10.8, Immature Granulocyte % (Auto) 1, Neutrophils (%) (Aut o) 58, Lymphocytes (%) (Auto) 20, Monocytes (%) (Auto) 13H, Eosinophils (%) (Auto) 7, Basophils (%) (Auto) 1, Neutrophils # (Auto) 2.7, Lymphocytes # (Auto) 1.0, Monocytes # (Auto) 0.6, Eosinophils # (Auto) 0.3, Basophils # (Auto) 0.0, Immature Granulocyte # (Auto) 0.0, Sodium Level 143, Potassium Level 3.8, Chloride Level 105, Carbon Dioxide Level 26, Anion Gap 12, Blood Urea Nitrogen 12, Creatinine 0.71, Estimat Glomerular Filtration Rate 85, BUN/Creatinine Ratio 17, Glucose Level 139H, Calcium Level 8.4L, Corrected Calcium 9.1, Phosphorus Level 2.4, Magnesium Level 1.7, Total Bilirubin 0.7, Aspartate Amino Transf (AST/SGOT) 23, Alanine Aminotransferase (ALT/SGPT) 12, Alkaline Phosphatase 55, Total Protein 5.7L, Albumin 3.1L 06/22/21 05:46: Glucometer 138H Microbiology 06/13/21 MRSA Screen - Final, Complete MRSA not isolated Assessment/Plan Assessment/Plan Admission Dx Anemia SOB Pulmonary Edema Cardiomegaly Elevated BUN Elevated Creatinine High Blood sugar Hypocalemia 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 General surgery on consult EGD planned for tomorrow. -06/15: Transfused another unit of blood 06/14, current hemoglobin is 7.6. -06/16: Hemoglobin currently at 8.7, last reading before that was 8.5. Will do an colonoscopy as EGD did not identify active source of bleeding, keep patient on Clear liquid diet, and NPO after midnight. -06/19: Hemoglobin stable at 8.3, source of bleeding possible from hemorrhoids seen on colonscopy performed on 06/16 -06/20: Hemoglobin is trending upward, currently at 9.5, continue to monitor -06/21: hemoglobin at 8.9 continue to monitor with repeat labs -06/22: Hemoglobin holding stable at 8.9 Ileus -Resolved on 06/21 with bowel movement yesterday and one today, advance diet, decrease liquids and decrease metoclopromide, continue with PT and OT, Abdominal x ray from yesterday shows greatly improved colonic distention and gastric distension SOB -BiPAP, Incentive spirometer Confusion -Restart Zyprexa HTN -Monitor Blood pressure, add metoprolol ER High Blood sugar -Monitor glucose levels Elevated BUN -Resolved Elevated Creatinine -Resolved Atrial Fibrillation -Consult cardiology Bradycardia Cardiomegaly Pulmonary Edema Admission Dx Anemia SOB Pulmonary Edema Cardiomegaly Elevated BUN Elevated Creatinine High Blood sugar Hypocalemia 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
[2021-06-22 08:01] VITALS: BP 163/71
[2021-06-22] MEDS: hydrALAZINE (APESOLINE) 20 MG/ML VIAL IV PRN (08:34)
[2021-06-22] MEDS: FUROSEMIDE 40 MG/4 ML INJ (LASIX) IVP SCH (08:58)
--- NOTE | 2021-06-22 08:58 | Discharge Summary ---
Diagnosis/Chief Complaint Date of Admission June 13, 2021 at 07:06 Date of Discharge Reason Hospital Visit PT PRESENTED TO THE HOSPITAL FOR ACUTE WEAKNESS AND CONFUSION. PT REPORTS HAVING SEVERE SHORTNESS OF BREATH OVER THE PAST FEW DAYS PRIOR TO ADMISSION, HER INCREASED HER OXYGEN AT HOME DUE TO HER DYSPNEA, BUT THAT DID NOT RESOLVE THE ISSUE SO SHE ENDED UP BEING TRANSFERRED TO THE HOSPITAL VIA AMBULANCE FROM HER ASSISTED LIVING FACILITY Discharge Summary Discharge Physical Examination Allergies: Coded Allergies: codeine (Unverified Allergy, Unknown, 05/19/13) Vitals & I&Os Vital Signs Date Time Temp Pulse Resp B/P (MAP) Pulse Ox O2 Delivery O2 Flow Rate FiO2 06/22/21 08:01 36.6 76 20 163/71 (101) 93 High Flow N/C 4.00 06/20/21 08:00 92 Hospital Course Pending Labs Laboratory Tests 06/22/21 05:10: White Blood Count 4.7, Red Blood Count 3.24, Hemoglobin 8.9, Hematocrit 30, Mean Corpuscular Volume 92, Mean Corpuscular Hemoglobin 28, Mean Corpuscular Hemoglobin Concent 30, Red Cell Distribution Width 15.8, Platelet Count 174, Mean Platelet Volume 10.8, Immature Granulocyte % (Auto) 1, Neutrophils (%) (Auto) 58, Lymphocytes (%) (Auto) 20, Monocytes (%) (Auto) 13, Eosinophils (%) (Auto) 7, Basophils (%) (Auto) 1, Neutrophils # (Auto) 2.7, Lymphocytes # (Auto) 1.0, Monocytes # (Auto) 0.6, Eosinophils # (Auto) 0.3, Basophils # (Auto) 0.0, Immature Granulocyte # (Auto) 0.0, Sodium Level 143, Potassium Level 3.8, Chlor pj Level 105, Carbon Dioxide Level 26, Anion Gap 12, Blood Urea Nitrogen 12, Creatinine 0.71, Estimat Glomerular Filtration Rate 85, BUN/Creatinine Ratio 17, Glucose Level 139, Calcium Level 8.4, Corrected Calcium 9.1, Phosphorus Level 2.4, Magnesium Level 1.7, Total Bilirubin 0.7, Aspartate Amino Transf (AST/SGOT) 23, Alanine Aminotransferase (ALT/SGPT) 12, Alkaline Phosphatase 55, Total Protein 5.7, Albumin 3.1 06/22/21 05:46: Glucometer 138 Discharge Instructions to patient/family Please see electronic discharge instructions given to patient. Discharge Medications Reviewed and agree with Discharge Medication list on patient's Discharge Instruction sheet FILIPE PURCELL MD June 22, 2021 08:58
[2021-06-22] MEDS: METOCLOPRAMIDE INJ 10 MG/2 ML (REGLAN) IVP SCH ×2 (08:59→13:17)
[2021-06-22] MEDS ORDERED: MTP25TSR PO (09:02)
--- NOTE | 2021-06-22 09:04 | Discharge Inst-Skilled Nursing ---
Discharge Inst-Skilled NF Reconcile Patient Problems Problems Reviewed?: Yes Patient Instructions Patient Problems: SEVERE ACUTE ANEMIA HYPOXIA RESPIRATORY DISTRESS CHRONIC HYPERTENSION HX OF CORONARY ARTERY DISEASE CHRONIC COPD DIABETES MELLITUS HYPERTENSION HISTORY OF ATRIAL FIBRILLATION GERD CHRONIC ANTICOAGULATION PSEUDOSEIZURES BIPOLAR MOOD DISORDER ILEUS Goal: increased strength and to go back to [facility] Consult/Follow Up/Orders Follow Up Appt.: [facility] [address] camilo Valdivia NF Admit to: [facility] Certification (SNF) I certify that SNF services are required to be given on an inpatient basis because of the above named patient's need for half-way care on a continu ing basis for the conditions(s) for which he/she was receiving inpatient hospital services prior to his/her transfer to the SNF. Detention Facility Order: Nursing Services, Comic Artist-Evaluate & Treat, Physical Therapy-Evaluate & Treat Oxygen Delivery Method: Nasal Cannula Oxygen Flow Rate L/min (Range): 4 Discharge Diet: ADA Diet Daily Activity as Tolerated: Yes Resuscitation Status: Full Code New & Resume Previous Orders New & Resume Previous Orders cbc, cmp on 06/26/21 Filipe Rivera June 22, 2021 09:02 FILIPE RIVERA MD June 22, 2021 09:04
[2021-06-22] MEDS: lisINopril 40 MG (PRINIVIL) TABLET PO SCH (09:11)
[2021-06-22] MEDS: PANTOPRAZOLE 40 MG (PROTONIX) TAB PO SCH (09:11)
[2021-06-22] MEDS: ALLOPURINOL 100 MG (ZYLOPRIM) TAB PO SCH (09:11)
[2021-06-22] MEDS: OLANZapine 2.5 MG (ZyPREXA) TAB PO SCH (09:12)
[2021-06-22] MEDS: FLUoxetine HCL 20 MG (PROzac) CAP PO SCH (09:12)
[2021-06-22] MEDS: ISOSORBIDE MONONITRATE 60 MG (IMDUR) TAB PO SCH (09:12)
[2021-06-22] MEDS: rOPINIRole 0.25 MG (REQUIP) TAB PO SCH (09:12)
[2021-06-22] MEDS: ROSUVASTATIN 10 MG (CRESTOR) TABLET PO SCH (09:27)
[2021-06-22] MEDS: PREGABALIN 100 MG (LYRICA) CAPSULE PO SCH (09:27)
[2021-06-22] MEDS: amLODIPine 10 MG (NORVASC) TAB PO SCH (09:27)
[2021-06-22] MEDS: OXYBUTYNIN (DITROPAN) 5 MG TAB PO SCH ×2 (09:27→14:13)
[2021-06-22] MEDS: BISACODYL 10 MG SUPP (DULCOLAX) PR SCH (10:31)
--- NOTE | 2021-06-22 11:49 | Occupational Ther Daily Note ---
OT Current Status-Daily Note Subjective Pt up in recliner, agreeable to OT tx. Pt's present. ADL-Treatment Therapy Code Descriptions/Definitions Functional [place] Measure: 0=Not Assessed/NA 4=Minimal Assistance 1=Total Assistance 5=Supervision or Setup 2=Maximal Assistance 6=Modified [place] 3=Moderate Assistance 7=Complete IndependenceSCALE: Activities may be completed with or without assistive devices. 1-Ohlxxjqswf-hvoqjon completes the activity by him/herself with no assistance from a helper. 5-Set-up or Clean-up Assistance-helper sets up or cleans up; patient completes activity. [place] assists only prior to or following the activity. 4-Supervision or Touching Assistance-helper provides verbal cues and/or touching /steadying and/or contact guard assistance as patient completes activity. Assistance may be provided throughout the activity or intermittently. 3-Partial/Moderate Assistance-helper does LESS THAN HALF the effort. [place] lifts, holds or supports trunk or limbs, but provides less than half the effort. 2-Substantial/Maximal Assistance-helper does MORE THAN HALF the effort. [place] lifts or holds trunk or limbs and provides more than half the effort. 7-Lupfaeuei-tmtmwr does ALL the effort. Patient does none of the effort to complete the activity. Or, the assistance of 2 or more helpers is required for the patient to complete the activity. If activity was not attempted, code reason: 7-Patient Refused. 9-Not Applicable-not attempted and the patient did not perform the activity before the current illness, exacerbation or injury. 10-Not Attempted due to Environmental Limitations-(lack of equipment, weather restraints, etc.). 88-Not Attempted due to Medical Conditions or Safety Concerns. Other Treatment Pt agreeable to OT tx, declines ADLs at this time. In order to increase BUE Strength and activity tolerance, pt completed x10 reps each of the following AROM exercises: shoulder flexion, elbow flexion/extension and front punch. Post tx pt in recliner, call light in reach and all needs met. Education OT Patient Education: Correct positioning, Energy conservation, Modified ADL techniques, Progress toward Goal/Update tx plan, Purpose of tx/functional activi ties, Rehab process Teaching Recipient: Patient Teaching Methods: Discussion Response to Teaching: Verbalize Understanding OT Ski Topper Goals Ski Topper Goals Time Frame: June 30, 2021 Eating (QC): 5 Oral Hygiene (QC): 5 Toileting Hygiene (QC): 3 Shower/Bathe Self (QC): 3 Upper Body Dressing (QC): 4 Lower Body Dressing (QC): 3 On/Off Footwear (QC): 2 Additional Goals: 1-Demonstrate ADL Tasks, 2-Verbalize Understanding, 3- ImproveStrength/Jono 1=Demonstrate adherence to instructed precautions during ADL tasks. 2=Patient will verbalize/demonstrate understanding of assistive devices/modifications for ADL. 3=Patient will improve strength/tolerance for activity to enable patient to perform ADL's. OT Education/Plan Problem List/Assessment Assessment: Decreased Activ Tolerance, Decreased UE Strength, Impaired Funct Balance, Impaired I ADL's, Impaired Self-Care Skills Discharge Recommendations Plan/Recommendations: Continue POC Treatment Plan/Plan of Care Patient would benefit from OT for education, treatment and training to promote independence in ADL's, mobility, safety and/or upper extremity function for ADL's. Plan of Care: ADL Retraining, Functional Mobility, UE Funct Exercise/Act Treatment Duration: June 30, 2021 Frequency: 3 times per week (3-5 times per week) Estimated Hrs Per Day: .25 hour per day Agreement: Yes Rehab Potential: Fair Time/GCodes Start Time: 11:17 Stop Time: 11:30 Total Time Billed (hr/min): 13 Billed Treatment Time 1, EX GEOVANY PICKARD OT June 22, 2021 11:49
[2021-06-22 11:51] VITALS: BP 162/68
[2021-06-22] MEDS ORDERED: inSUlin ASPART (NovoLOG) 1 UNIT/0.01 ML (CHARGE PER UNIT) SC SCH ×2 (15:00)
== END 2021-06-22 14:20 | DRG 811 ==
LOC: EDUNIT# 23:05 → ER 23:06 → ICU 06-13 00:06 → OBSVTOIN 06-13 07:06 → 4TH 06-15 20:06
PROVIDERS: ADMIT Family Medicine; ATTEND Family Medicine
PROC: 5A09357 Assistance with Respiratory Ventilation, Less than 24 Consecutive Hours, Continuous Positive Airway Pressure (ICD-10-PCS; 2021-06-14)
PROC: 0DJ08ZZ Inspection of Upper Intestinal Tract, Via Natural or Artificial Opening Endoscopic (ICD-10-PCS; 2021-06-15)
PROC: 0DBK8ZX Excision of Ascending Colon, Via Natural or Artificial Opening Endoscopic, Diagnostic (ICD-10-PCS; 2021-06-16)
PROC: 5A0955A Assistance with Respiratory Ventilation, Greater than 96 Consecutive Hours, High Flow/Velocity Cannula (ICD-10-PCS; 2021-06-16)
PROC: 0DBN8ZX Excision of Sigmoid Colon, Via Natural or Artificial Opening Endoscopic, Diagnostic (ICD-10-PCS; principal; 2021-06-16 12:51)
DX: D64.9 Anemia, unspecified (principal); J96.00 Acute respiratory failure, unspecified whether with hypoxia or hypercapnia; N17.9 Acute kidney failure, unspecified; K56.7 Ileus, unspecified; I85.00 Esophageal varices without bleeding; K64.2 Third degree hemorrhoids; K62.89 Other specified diseases of anus and rectum; D12.2 Benign neoplasm of ascending colon; Z20.822 Contact with and (suspected) exposure to COVID-19; E83.51 Hypocalcemia; G20 Parkinson's disease; R32 Unspecified urinary incontinence; N32.81 Overactive bladder; G40.909 Epilepsy, unspecified, not intractable, without status epilepticus; Z99.81 Dependence on supplemental oxygen; E11.40 Type 2 diabetes mellitus with diabetic neuropathy, unspecified; Z79.4 Long term (current) use of insulin; I12.9 Hypertensive chronic kidney disease with stage 1 through stage 4 chronic kidney disease, or unspecified chronic kidney disease; E11.22 Type 2 diabetes mellitus with diabetic chronic kidney disease; N18.9 Chronic kidney disease, unspecified; J44.9 Chronic obstructive pulmonary disease, unspecified; R13.10 Dysphagia, unspecified; K21.00 Gastro-esophageal reflux disease with esophagitis, without bleeding; K29.70 Gastritis, unspecified, without bleeding; K21.9 Gastro-esophageal reflux disease without esophagitis; M1A.9XX0 Chronic gout, unspecified, without tophus (tophi); F31.9 Bipolar disorder, unspecified; F41.9 Anxiety disorder, unspecified; I10 Essential (primary) hypertension; E78.00 Pure hypercholesterolemia, unspecified; H54.7 Unspecified visual loss; Z82.49 Family history of ischemic heart disease and other diseases of the circulatory system; K44.9 Diaphragmatic hernia without obstruction or gangrene; Z79.01 Long term (current) use of anticoagulants; Z88.5 Allergy status to narcotic agent; Z96.653 Presence of artificial knee joint, bilateral; E78.5 Hyperlipidemia, unspecified
CPT/HCPCS: 36415; 36430; 51702; 71045; 71046; 74019; 74176; 80053; 80061; 81000; 82274; 82728; 82947; 83540; 83550; 83735; 83874; 83880; 84100; 84145; 84484; 85007; 85014; 85018; 85025; 85027; 85610; 85730; 86141; 86850; 86900; 86901; 86920; 87081; 87636; 88305; 93005; 93041; 94640; 94660; 94760; 96374; 99291

== ENCOUNTER 2021-07-30 18:36 | Emergency (ER) | payer MEDICARE ==
[~2021-07-30] VITALS: Ht 158 cm; Wt 86.0 kg
[~2021-07-30 18:36] MED LIST changes: +ACET325T38 PO; +HYDR25TA4 PO; +MTP25TSR PO; +NYST60PO TP; +OMEG1CAP24 PO; +RIVA20TA PO; +TIOT18CA2 INH
[2021-07-30 18:39] VITALS: BP 149/84
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
[2021-07-30] MEDS ORDERED: fentaNYL INJ 100 MCG/2 ML AMP IVP ONE (19:00)
--- NOTE | 2021-07-30 19:52 | Diagnostic Imaging Report ---
INDICATION: Pain. EXAMINATION: Left shoulder, 07/30/2021. FINDINGS: 3 views of the shoulder. There is narrowing and spurring in the acromioclavicular joint. The remaining joint spaces appear maintained. Soft tissues unremarkable. No fracture or dislocation. IMPRESSION: Chronic findings with no acute osseous abnormality. Dictated by: Dictated on workstation # [id number]
--- NOTE | 2021-07-30 19:52 | Diagnostic Imaging Report ---
INDICATION: Fall, pain. EXAMINATION: Chest, 07/30/2021. COMPARISON: 06/14/2021. FINDINGS: There is cardiomegaly. Pulmonary vasculature is normal. Lungs and pleural spaces clear. No infiltrate, effusion or pneumothorax. IMPRESSION: Cardiomegaly with no acute cardiopulmonary process. Dictated by: Dictated on workstation # [id number]
--- NOTE | 2021-07-30 19:55 | Diagnostic Imaging Report ---
INDICATION: Injury, pain. EXAMINATION: Left elbow, 07/30/2021. FINDINGS: 3 views of the elbow. There is a questionable anterior joint effusion although a true lateral view was not obtained. There is a lucency through the radial head on one view only, suspicious for a nondisplaced fracture. No dislocation is appreciated. IMPRESSION: Questionable nondisplaced radial head fracture. 7-10 day follow-up is recommended for reevaluation. Dictated by: Dictated on workstation # [id number]
[2021-07-30 20:09] LABS: BASOPHILS % (AUTO) 1 % (0-10); EOSINOPHILS # (AUTO) 0.2 10^3/uL (0.0-0.3); EOSINOPHILS % (AUTO) 3 % (0-10); HEMATOCRIT 33 % (35-52); HEMOGLOBIN 10.7 g/dL (11.5-16.0); LYMPHOCYTES # (AUTO) 1.9 10^3/uL (1.0-4.0); LYMPHOCYTES % (AUTO) 33 % (12-44); MEAN CORPUSCULAR HEMOGLOBIN 30 pg (25-34); MEAN CORPUSCULAR HGB CONC 32 g/dL (32-36); MEAN CORPUSCULAR VOLUME 94 fL (80-99); MEAN PLATELET VOLUME 11.5 fL (9.0-12.2); MONOCYTES # (AUTO) 0.6 10^3/uL (0.0-1.0); MONOCYTES % (AUTO) 11 % (0-12); NEUTROPHILS % (AUTO) 52 % (42-75); PLATELET COUNT 148 10^3/uL (130-400); WHITE BLOOD COUNT 5.7 10^3/uL (4.3-11.0)
--- NOTE | 2021-07-30 20:10 | Diagnostic Imaging Report ---
INDICATION: Status post fall, pelvic pain. EXAMINATION: Pelvis and hips, 07/30/2021. FINDINGS: 5 views of the pelvis and bilateral hips. There are no fractures or dislocations. There is mild to moderate joint space narrowing bilaterally within the hips. Soft tissues unremarkable. IMPRESSION: Bilateral degenerative findings. No acute osseous abnormality. Dictated by: Dictated on workstation # [id number]
--- NOTE | 2021-07-30 20:20 | Diagnostic Imaging Report ---
INDICATION: Fall getting out of wheelchair. Pain. Patient is on blood thinners. Neck pain. EXAMINATION: CT brain and CT cervical spine, 07/30/2021. All CT scans use one or more of the following dose optimizing techniques: automated exposure control, MA and/or KvP adjustment based on patient size and exam type or iterative reconstruction. COMPARISON: 02/14/2021. FINDINGS: CT BRAIN: There is chronic ischemic disease in a periventricular distribution. No acute hemorrhage or infarct is seen. There is no mass, mass effect or midline shift. No hydrocephalus. The paranasal sinuses and mastoid air cells appear clear. IMPRESSION: No acute intracranial process. CT CERVICAL SPINE: Comparison made to 08/26/2020. There is multilevel diffuse intervertebral disc space narrowing and anterior spurring throughout the entire cervical spine with preservation of the C2-C3 level. These findings are similar to previous examination. There is minimal grade 1 anterolisthesis at C7-T1 with remaining alignment preserved. Multilevel diffuse facet hypertrophy seen throughout the spine with suspected multilevel spur disc complexes noted, better characterized with MRI. No acute fracture is identified. Lung apices clear. Prevertebral soft tissues unremarkable. IMPRESSION: Diffuse marked degenerative disease throughout the spine with no acute fracture appreciated. Dictated by: Dictated on workstation # [id number]
--- NOTE | 2021-07-30 20:27 | Diagnostic Imaging Report ---
INDICATION: Hand pain status post fall. Patient cannot open hand for imaging. EXAMINATION: Left hand, 07/30/2021. FINDINGS: 4 views of the hand, quite limited due to flexion of the fingers. A fracture of the fingers not excluded. Diffuse interphalangeal joint space narrowing and spurring is noted. There are degenerative changes within the wrist with narrowing and sclerosis at the radiocarpal joint. Degenerative findings at the 1st carpometacarpal joint also noted. IMPRESSION: Diffuse degenerative findings with no obvious acute fracture seen but a fracture of the phalanges not excluded given flexion deformity of the fingers on all images. Dictated by: Dictated on workstation # [id number]
[2021-07-30 20:28] LABS: POTASSIUM 4.5 MMOL/L (3.6-5.0)
[2021-07-30 20:30] LABS: CALCIUM 9.1 MG/DL (8.5-10.1)
[2021-07-30 20:34] LABS: CREATININE SERUM 0.99 MG/DL (0.60-1.30)
[2021-07-30] MEDS ORDERED: CYCL5TAB PO (20:37)
[2021-07-30] MEDS ORDERED: CYCLOBENZAPRINE 10 MG (FLEXERIL) TAB PO ONE (20:45)
[2021-07-30] MEDS ORDERED: ACETAMINOPHEN 500 MG TAB (TYLENOL) PO ONE (20:45)
== END 2021-07-30 21:36 | disposition home or self-care (01) ==
LOC: EDUNIT# 18:36 → ER 18:37
DX: S52.122A Displaced fracture of head of left radius, initial encounter for closed fracture (principal); S62.202A Unspecified fracture of first metacarpal bone, left hand, initial encounter for closed fracture; J44.9 Chronic obstructive pulmonary disease, unspecified; E11.9 Type 2 diabetes mellitus without complications; Z87.891 Personal history of nicotine dependence; Z99.81 Dependence on supplemental oxygen; Z79.4 Long term (current) use of insulin; W22.8XXA Striking against or struck by other objects, initial encounter; W07.XXXA Fall from chair, initial encounter
CPT/HCPCS: 29105; 70450; 71045; 72125; 73030; 73080; 73130; 73523; 80048; 82947; 85025; 99284; A4565; 36415

== ENCOUNTER → 2021-08-10 | Outpatient (CLI) | payer MEDICARE ==
[~2021-08-10] MED LIST changes: +CYCL5TAB PO; +NF-CRES10T PO; -ROSU10TA22 PO
== END ==
LOC: ORTHO 11:10
PROVIDERS: ATTEND Orthopaedic Surgery
DX: S63.502A Unspecified sprain of left wrist, initial encounter (principal); S50.02XA Contusion of left elbow, initial encounter; X58.XXXA Exposure to other specified factors, initial encounter
CPT/HCPCS: 99203

== ENCOUNTER 2021-08-17 20:22 | Emergency (ER) | payer MEDICARE ==
[2021-08-17 20:29] VITALS: BP 111/69
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
[2021-08-17 20:47] LABS: BASOPHILS % (AUTO) 0 % (0-10); EOSINOPHILS # (AUTO) 0.2 10^3/uL (0.0-0.3); EOSINOPHILS % (AUTO) 1 % (0-10); HEMATOCRIT 39 % (35-52); HEMOGLOBIN 12.5 g/dL (11.5-16.0); LYMPHOCYTES # (AUTO) 1.5 10^3/uL (1.0-4.0); LYMPHOCYTES % (AUTO) 9 % (12-44); MEAN CORPUSCULAR HEMOGLOBIN 31 pg (25-34); MEAN CORPUSCULAR HGB CONC 32 g/dL (32-36); MEAN CORPUSCULAR VOLUME 94 fL (80-99); MEAN PLATELET VOLUME 12.5 fL (9.0-12.2); MONOCYTES # (AUTO) 1.7 10^3/uL (0.0-1.0); MONOCYTES % (AUTO) 10 % (0-12); NEUTROPHILS # (AUTO) 13.9 10^3/uL (1.8-7.8); NEUTROPHILS % (AUTO) 80 % (42-75); PLATELET COUNT 195 10^3/uL (130-400); WHITE BLOOD COUNT 17.4 10^3/uL (4.3-11.0)
[2021-08-17 21:08] LABS: ALANINE AMINOTRANSFERASE 40 U/L (0-55); ALBUMIN 4.5 GM/DL (3.2-4.5); ALKALINE PHOSPHATASE 66 U/L (40-136); BILIRUBIN,TOTAL 0.6 MG/DL (0.1-1.0); BUN/CREATININE RATIO 23; CALCIUM 9.9 MG/DL (8.5-10.1); CARBON DIOXIDE 21 MMOL/L (21-32); CHLORIDE 102 MMOL/L (98-107); CREATININE SERUM 1.43 MG/DL (0.60-1.30); GFR ESTIMATED 37; GLUCOSE 82 MG/DL (70-105); POTASSIUM 4.7 MMOL/L (3.6-5.0); SODIUM 142 MMOL/L (135-145); TOTAL PROTEIN 7.8 GM/DL (6.4-8.2)
[2021-08-17] MEDS ORDERED: NS IV 1000 ML 1,000 ML IV SCH (21:30)
[2021-08-17 21:34] LABS: BAND NEUTROPHILS 4 %; EOSINOPHILS % (MANUAL) 2 %; LYMPHOCYTES % (MANUAL) 12 %; MONOCYTES % (MANUAL) 5 %; NEUTROPHILS % (MANUAL) 77 %; RBC MORPH NORMAL
[2021-08-17 22:07] LABS: BILIRUBIN,URINE NEGATIVE (NEGATIVE); CLARITY,URINE CLOUDY; COLOR,URINE YELLOW; GLUCOSE, URINE (UA) NEGATIVE (NEGATIVE); KETONES,URINE NEGATIVE (NEGATIVE); LEUKOCYTE ESTERASE ,URINE 1+ (NEGATIVE); NITRITE,URINE NEGATIVE (NEGATIVE); PROTEIN,URINE 1+ (NEGATIVE)
[2021-08-17 22:22] LABS: BACTERIA,URINE FEW /HPF; SQUAMOUS EPITHELIAL CELL,UR >50 /HPF; WBC,URINE 0-2 /HPF
[2021-08-17] MEDS ORDERED: NS IV 1000 ML 1,000 ML ONE (22:25)
[2021-08-17] MEDS ORDERED: ONDA4TAB11 PO (22:52)
== END 2021-08-17 23:50 | disposition home or self-care (01) ==
LOC: EDUNIT# 20:22 → ER 20:23
DX: K52.9 Noninfective gastroenteritis and colitis, unspecified (principal); N17.9 Acute kidney failure, unspecified; J44.9 Chronic obstructive pulmonary disease, unspecified; E11.40 Type 2 diabetes mellitus with diabetic neuropathy, unspecified; Z99.81 Dependence on supplemental oxygen; Z79.4 Long term (current) use of insulin; Z87.891 Personal history of nicotine dependence
CPT/HCPCS: 36415; 80053; 81000; 84484; 85007; 85027; 93005

== ENCOUNTER → 2021-12-11 | Outpatient (RCR) | payer MEDICARE ==
[~2021-12-11] MED LIST changes: +ONDA4TAB11 PO; +POTA-177 PO; -POTA10TA37 PO
== END | disposition home or self-care (01) ==
PROVIDERS: ATTEND Family Medicine
DX: R26.89 Other abnormalities of gait and mobility (principal); R53.1 Weakness; E11.40 Type 2 diabetes mellitus with diabetic neuropathy, unspecified

== ENCOUNTER 2021-12-29 10:06 | Outpatient (RCR) | payer MEDICARE ==
[~2021-12-29 10:06] MED LIST changes: -DOXY-311 PO; +DOXY-444 PO
== END 2022-01-10 | disposition home or self-care (01) ==
PROVIDERS: ATTEND Family Medicine
DX: R26.89 Other abnormalities of gait and mobility (principal); R53.1 Weakness; E11.40 Type 2 diabetes mellitus with diabetic neuropathy, unspecified

== ENCOUNTER 2022-04-02 13:29 | Emergency (ER) | payer MEDICARE ==
[~2022-04-02] VITALS: Ht 165 cm; Wt 82.0 kg
[2022-04-02 13:54] LABS: BASOPHILS % (AUTO) 1 % (0-10); EOSINOPHILS # (AUTO) 0.2 10^3/uL (0.0-0.3); EOSINOPHILS % (AUTO) 3 % (0-10); HEMATOCRIT 34 % (35-52); HEMOGLOBIN 11.7 g/dL (11.5-16.0); LYMPHOCYTES # (AUTO) 2.6 10^3/uL (1.0-4.0); LYMPHOCYTES % (AUTO) 33 % (12-44); MEAN CORPUSCULAR HEMOGLOBIN 32 pg (25-34); MEAN CORPUSCULAR HGB CONC 34 g/dL (32-36); MEAN CORPUSCULAR VOLUME 93 fL (80-99); MEAN PLATELET VOLUME 12.6 fL (9.0-12.2); MONOCYTES # (AUTO) 0.8 10^3/uL (0.0-1.0); MONOCYTES % (AUTO) 10 % (0-12); NEUTROPHILS # (AUTO) 4.2 10^3/uL (1.8-7.8); NEUTROPHILS % (AUTO) 53 % (42-75); PLATELET COUNT 198 10^3/uL (130-400); WHITE BLOOD COUNT 7.9 10^3/uL (4.3-11.0)
[2022-04-02 13:57] LABS: ALBUMIN 4.1 GM/DL (3.2-4.5); POTASSIUM 5.2 MMOL/L (3.6-5.0)
[2022-04-02 13:59] LABS: CALCIUM 9.2 MG/DL (8.5-10.1)
[2022-04-02 14:00] LABS: PROTHROMBIN TIME PATIENT 13.9 SEC (12.2-14.7); TOTAL PROTEIN 7.6 GM/DL (6.4-8.2)
[2022-04-02 14:01] LABS: BILIRUBIN,TOTAL 0.4 MG/DL (0.1-1.0)
[2022-04-02] MEDS ORDERED: ASPIRIN 81 MG CHEW (CHILDREN'S ASA) PO STA (14:01)
[2022-04-02] MEDS ORDERED: LORazepam INJ 2 MG/ML (ATIVAN) VIAL IVP STA (14:01)
[2022-04-02 14:03] LABS: CREATININE SERUM 1.43 MG/DL (0.60-1.30)
[2022-04-02 14:06] LABS: MAGNESIUM 1.9 MG/DL (1.6-2.4)
--- NOTE | 2022-04-02 14:09 | Diagnostic Imaging Report ---
INDICATION: Chest pain. COMPARISON: Exam compared to 07/30/2021. FINDINGS: Lungs are clear. No failure, effusion, or pneumothorax. IMPRESSION: Stable chest. Dictated by: Dictated on workstation # [id number]
[2022-04-02] MEDS ORDERED: NS IV 1000 ML 1,000 ML IV SCH (14:15)
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
--- NOTE | 2022-04-02 14:39 | Diagnostic Imaging Report ---
PROCEDURE: CT head without contrast. TECHNIQUE: Multiple contiguous axial images were obtained through the brain without the use of intravenous contrast. Auto Exposure Controls were utilized during the CT exam to meet ALARA standards for radiation dose reduction. INDICATION: Seizures COMPARISON: 07/30/2021 FINDINGS: No hyperdense hemorrhage or space-occupying mass. No hydrocephalus or midline shift. The basilar cisterns are normal. Cross-white matter differentiation is well preserved. The mastoid air cells are clear. Paranasal sinuses are normal. No focal osseous abnormality of the calvarium. Bilateral cataract surgery. IMPRESSION: 1. No acute intracranial process. Dictated by: Dictated on workstation # [id number]
[2022-04-02 16:48] VITALS: BP 106/58
== END 2022-04-02 16:45 | disposition home or self-care (01) ==
LOC: EDUNIT# 13:29 → ER 13:30
DX: R25.1 Tremor, unspecified (principal); R56.9 Unspecified convulsions; J44.9 Chronic obstructive pulmonary disease, unspecified; Z99.81 Dependence on supplemental oxygen
CPT/HCPCS: 36415; 70450; 71045; 80053; 83735; 83874; 83880; 84484; 85025; 85610; 85730; 93005; 93041

== ENCOUNTER 2022-05-25 17:05 | Emergency (ER) | payer MEDICARE ==
[~2022-05-25] VITALS: Ht 167.7 cm; Wt 83.0 kg
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
--- NOTE | 2022-05-25 18:07 | Diagnostic Imaging Report ---
EXAMINATION: Chest 1 view. HISTORY: SOB, cough, low grade fever. COMPARISON: 04/02/2022. FINDINGS: Heart size and pulmonary vasculature are stable. There are mild interstitial opacities within the mid and lower lungs, unchanged. No pleural effusion or pneumothorax. The osseous structures are intact. IMPRESSION: Mild interstitial opacities within the mid and lower lungs, unchanged from prior exam, favoring atelectasis. Pulmonary edema or pneumonia could have a similar appearance in the appropriate clinical setting. Dictated by: Dictated on workstation # [id number]
[2022-05-25 19:07] VITALS: BP 164/76
== END 2022-05-25 19:07 | disposition home or self-care (01) ==
LOC: EDUNIT# 17:05 → ER 17:05
DX: J06.9 Acute upper respiratory infection, unspecified (principal); J98.4 Other disorders of lung; J44.9 Chronic obstructive pulmonary disease, unspecified; E11.9 Type 2 diabetes mellitus without complications; Z79.4 Long term (current) use of insulin; Z99.81 Dependence on supplemental oxygen; Z79.51 Long term (current) use of inhaled steroids
CPT/HCPCS: 71045

== ENCOUNTER 2022-05-28 10:57 | Emergency (ER) | payer MEDICARE ==
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
--- NOTE | 2022-05-28 12:47 | Diagnostic Imaging Report ---
EXAMINATION: KNEE, 3 VIEWS, BILATERAL. INDICATION: Bilateral knee pain. COMPARISON: None available. TECHNIQUE: Three views of each knee for a total of six views. FINDINGS: Moderate sized knee joint effusion on both sides. Total knee arthroplasties have been performed and each have components in good alignment. No features of prosthesis loosening or periprosthetic fracture. IMPRESSION: 1. No acute osseous abnormality associated with the bilateral total knee arthroplasties. 2. Moderate-sized bilateral joint effusions. Dictated by: Dictated on workstation # [id number]
[2022-05-28 13:25] VITALS: BP 129/73
== END 2022-05-28 13:46 | disposition home or self-care (01) ==
LOC: EDUNIT# 10:57 → ER 10:59
DX: M25.462 Effusion, left knee (principal); M25.461 Effusion, right knee; J44.9 Chronic obstructive pulmonary disease, unspecified; Z96.653 Presence of artificial knee joint, bilateral; Z99.81 Dependence on supplemental oxygen; Z99.3 Dependence on wheelchair

== ENCOUNTER 2022-05-30 08:31 | Inpatient (IN) | payer MEDICARE ==
[~2022-05-30] VITALS: Ht 167 cm; Wt 102.1 kg
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
[2022-05-30] MEDS ORDERED: KETOROLAC 30 MG/ML VIAL IVP STA (08:42)
[2022-05-30 08:51] LABS: BASOPHILS % (AUTO) 0 % (0-10); EOSINOPHILS # (AUTO) 0.1 10^3/uL (0.0-0.3); EOSINOPHILS % (AUTO) 1 % (0-10); HEMATOCRIT 30 % (35-52); HEMOGLOBIN 9.8 g/dL (11.5-16.0); LYMPHOCYTES % (AUTO) 13 % (12-44); MEAN CORPUSCULAR HEMOGLOBIN 31 pg (25-34); MEAN CORPUSCULAR HGB CONC 33 g/dL (32-36); MEAN CORPUSCULAR VOLUME 93 fL (80-99); MEAN PLATELET VOLUME 11.5 fL (9.0-12.2); MONOCYTES # (AUTO) 1.5 10^3/uL (0.0-1.0); MONOCYTES % (AUTO) 10 % (0-12); NEUTROPHILS # (AUTO) 11.7 10^3/uL (1.8-7.8); NEUTROPHILS % (AUTO) 76 % (42-75); PLATELET COUNT 248 10^3/uL (130-400); WHITE BLOOD COUNT 15.5 10^3/uL (4.3-11.0)
[2022-05-30 09:01] LABS: ALBUMIN 3.3 GM/DL (3.2-4.5)
[2022-05-30 09:02] LABS: POTASSIUM 5.5 MMOL/L (3.6-5.0)
[2022-05-30 09:04] LABS: TOTAL PROTEIN 6.9 GM/DL (6.4-8.2)
[2022-05-30 09:06] LABS: BILIRUBIN,TOTAL 2.7 MG/DL (0.1-1.0)
[2022-05-30 09:08] LABS: CREATININE SERUM 5.06 MG/DL (0.60-1.30)
[2022-05-30 09:35] LABS: BAND NEUTROPHILS 1 %; BASOPHILS % (MANUAL) 0 %; EOSINOPHILS % (MANUAL) 0 %; LYMPHOCYTES % (MANUAL) 15 %; MONOCYTES % (MANUAL) 5 %; NEUTROPHILS % (MANUAL) 79 %; RBC MORPH NORMAL
[2022-05-30] MEDS ORDERED: NS IV 1000 ML 1,000 ML IV STA (09:44)
[2022-05-30 09:53] LABS: CLARITY,URINE CLEAR; COLOR,URINE YELLOW; GLUCOSE, URINE (UA) NEGATIVE (NEGATIVE); KETONES,URINE NEGATIVE (NEGATIVE); LEUKOCYTE ESTERASE ,URINE 3+ (NEGATIVE); NITRITE,URINE NEGATIVE (NEGATIVE); PH,URINE 5.5 (5-9); PROTEIN,URINE 2+ (NEGATIVE)
--- NOTE | 2022-05-30 09:57 | Diagnostic Imaging Report ---
CLINICAL HISTORY: Right hip pain. Fall. COMPARISON: 07/30/2021. TECHNIQUE: 2 views of the pelvis and right hip. FINDINGS: There is no acute fracture or dislocation of the pelvis and right hip. Alignment is anatomic. The imaged joint spaces are preserved. No focal osseous lesions. IMPRESSION: 1. No acute fracture or dislocation in the pelvis and right hip. Dictated by: Dictated on workstation # [id number]
[2022-05-30 10:11] LABS: AMORPHOUS SEDIMENT,UR FEW AMOR URATES /LPF; BACTERIA,URINE MODERATE /HPF; BILIRUBIN,URINE 1+ (NEGATIVE); RBC,URINE 25-50 /HPF; WBC,URINE >100 /HPF
--- NOTE | 2022-05-30 10:21 | Diagnostic Imaging Report ---
PROCEDURE: US Gallbladder. TECHNIQUE: Multiple real-time grayscale images were obtained over the right upper quadrant in various projections. INDICATION: Abnormal liver function test Liver measures 21 cm in length without evidence of focal abnormality. Gallbladder is unremarkable without evidence of wall thickening or pericholecystic fluid. Bowel overlies the common bile duct and portions of the pancreas however no definite abnormality is seen. No abdominal aortic, inferior vena caval or right renal abnormality is seen. There is no evidence of free fluid. IMPRESSION: Hepatomegaly without definite acute abnormality seen in right upper quadrant on limited study. Dictated by: Dictated on workstation # [id number]
[2022-05-30] MEDS ORDERED: cefTRIAXone IV/IM 1,000 MG in NS (IVPB) 50 ML IV STA (10:24)
--- NOTE | 2022-05-30 10:53 | Diagnostic Imaging Report ---
PROCEDURE: CT abdomen and pelvis without contrast. TECHNIQUE: Multiple contiguous axial images were obtained through the abdomen and pelvis without the use of intravenous contrast. Auto Exposure Controls were utilized during the CT exam to meet ALARA standards for radiation dose reduction. INDICATION: Generalized weakness and decreased appetite. Correlation is made with prior CT from 06/13/2021. The lung bases are clear. Heart is enlarged. The liver and gallbladder are unremarkable apart from probable tiny stones within the gallbladder. There is no biliary ductal dilatation. Pancreas and spleen are unremarkable. No adrenal mass is identified. Kidneys are without evidence of calculi or hydronephrosis. Aorta is heavily calcified but nonaneurysmal. There is some mild gaseous distention of the stomach. There is also some mild gaseous distention to the colon with diverticulosis of the sigmoid. There is no evidence of diverticulitis. No bowel obstruction is seen. There is no free fluid or fluid collection identified. No free air. Bladder is decompressed. Uterus is surgically absent. No inflammatory changes are identified. IMPRESSION: 1. Probable cholelithiasis. 2. Overall stable CT of the abdomen and pelvis since exam from June 2021. There is uncomplicated diverticulosis. No acute features identified. Dictated by: Dictated on workstation # [id number]
[2022-05-30] MEDS ORDERED: ONDA-105 PO (14:27)
[2022-05-30] MEDS ORDERED: LOPE2TAB34 PO (14:27)
[2022-05-30] MEDS ORDERED: CYCL5TAB PO (14:27)
[2022-05-30] MEDS ORDERED: CEFD300C3 PO (14:27)
[2022-05-30] MEDS ORDERED: CALC600T91 PO (14:27)
[2022-05-30] MEDS ORDERED: TIOT4MIS2 INH (14:27)
[2022-05-30] MEDS ORDERED: CALC-250 PO (14:27)
[2022-05-30] MEDS ORDERED: ACET-93 PO (14:27)
[2022-05-30] MEDS ORDERED: SIME180C65 PO (14:27)
[2022-05-30] MEDS ORDERED: MTP25TSR PO (14:28)
[2022-05-30] MEDS ORDERED: OXYB5TAB13 PO (14:46)
[2022-05-30] MEDS ORDERED: RT-ALBUINH INH (14:46)
[2022-05-30 16:01] VITALS: BP 96/54
[2022-05-30] MEDS: NS IV 1000 ML 1,000 ML IV SCH ×3 (17:26→22:31)
--- NOTE | 2022-05-30 17:33 | History & Physical ---
History of Present Illness History of Present Illness Reason for visit/HPI Pt presented to the hospital today after having progressive decline at her assisted living facility. Pt reports fatigue, malaise, weakness which has been present for years with progressive weakness over the past week when she fell at her assisted living facility. Pt is morena mcdonough - staff reports she was up, alert, eating lunch earlier without issue. Date of Admission May 30, 2022 at 12:57 Date Seen by a Provider: May 30, 2022 Time Seen by a Provider: 17:30 Attending Physician Filipe Rivera MD Admitting Physician Admitting Physician: Filipe Rivera MD Attending Physician: Filipe Rivera MD Consult Allergies and Home Medications Allergies Coded Allergies: codeine (Unverified Allergy, Unknown, 05/19/13) Patient Home Medication List Home Medication List Reviewed: Yes Acetaminophen (Acetaminophen) 500 Mg Tablet, 1,000 MG PO Q6 -8H PRN for PAIN- MILD (1-4), (Reported) Entered as Reported by: BRYSON GOLDMAN on 05/30/22 1427 Last Action: Held Albuterol Sulfate (Albuterol Sulfate) 2.5 Mg/0.5 Ml Vial.neb, 2.5 MG INH Q4H PRN for SHORTNESS OF BREATH, (Reported) Entered as Reported by: BRYSON GOLDMAN on 01/14/201109 Last Action: Continued Albuterol Sulfate (Ventolin Hfa) 18 Gm Hfa.aer.ad, 2 PUFF INH Q6H PRN for SH ORTNESS OF BREATH, (Reported) Entered as Reported by: BRYSON GOLDMAN on 01/14/201109 Last Action: Reviewed Albuterol Sulfate (Ventolin Hfa) 1 Puff Puff, 2 PUFF INH EVERY 2 HOURS PRN for SHORTNESS OF BREATH, (Reported) Entered as Reported by: BRYSON GOLDMAN on 05/30/22 1446 Last Action: Reviewed Allopurinol (Allopurinol) 100 Mg Tablet, 100 MG PO DAILY, (Reported) Entered as Reported by: BRYSON GOLDMAN on 01/14/201109 Last Action: Held Amlodipine Besylate (Amlodipine Besylate) 10 Mg Tablet, 10 MG PO DAILY, (Reported) Entered as Reported by: SUJATHA CARTER on 05/12/21 1634 Last Action: Held Aspirin (Aspirin EC) 81 Mg Tablet.dr, 81 MG PO DAILY, (Reported) Entered as Reported by: BRYSON GOLDMAN on 06/14/21 1133 Last Action: Held Calcium Carbonate (Calcium) 600 Mg Calcium (1500 Mg) Tablet, 600 MG PO DAILY, (Reported) Entered as Reported by: BRYSON GOLDMAN on 05/30/22 1427 Last Action: Held Cholecalciferol (Vitamin D3) (Vitamin D3) 125 Mcg (5000 Unit) Tablet, 125 MCG PO DAILY, (Reported) Entered as Reported by: BRYSON GOLDMAN on 05/30/22 142 Last Action: Held Fluoxetine HCl (Fluoxetine HCl) 20 Mg Capsule, 20 MG PO DAILY, (Reported) Entered as Reported by: KRISTIE GUILLAUME on 06/22/15 1010 Last Action: Reviewed Furosemide (Furosemide) 20 Mg Tablet, 20 MG PO DAILY, (Reported) Entered as Reported by: SUJATHA CARTER on 05/12/21 1634 Last Action: Held Hydrochlorothiazide (Hydrochlorothiazide) 25 Mg Tablet, 25 MG PO DAILY, (Reported) Entered as Reported by: BRYSON GOLDMAN on 06/14/21 113 Last Action: Held Insulin Aspart (Novolog Flexpen) 100 Unit/Ml (3 Ml) Solution, 12 UNITS SQ DAILY, (Reported) Entered as Reported by: BRYSON GOLDMAN on 01/14/20 113 Last Action: Held Insulin Aspart (Novolog Flexpen) 100 Unit/Ml (3 Ml) Solution, 23 UNITS SQ 1200,1700, (Reported) Entered as Reported by: BRYSON GOLDMAN on 01/14/20 113 Last Action: Held Insulin Glargine,Hum.rec.anlog (Lantus Solostar) 100 Unit/1 Ml Insuln.pen, 33 UNITS SQ HS, (Reported) Entered as Reported by: BRYSON GOLDMAN on 01/14/20 1110 Last Action: Held Isosorbide Mononitrate (Isosorbide Mononitrate ER) 60 Mg Tab, 60 MG PO DAILY, (Reported) Entered as Reported by: SUJATHA CARTER on 05/12/21 1634 Last Action: Held Latanoprost (Xalatan) 2.5 Ml Drops, 1 DROP OU HS, (Reported) Entered as Reported by: BRYSON GOLDMAN on 01/14/201109 Last Action: Continued Meclizine HCl (Meclizine HCl) 12.5 Mg Tablet, 12.5 MG PO Q8H PRN for DIZZINESS, (Reported) Entered as Reported by: BRYSON GOLDMAN on 01/14/201109 Last Action: Held Metoprolol Succinate (Metoprolol Succinate) 25 Mg Tab.er.24h, 25 MG PO DAILY, (Reported) Entered as Reported by: BRYSON GOLDMAN on 05/30/22 1428 Last Action: Held Olanzapine (Olanzapine) 5 Mg Tablet, 5 MG PO 1800, (Reported) Entered as Reported by: BRYSON GOLDMAN on 01/14/201109 Last Action: Held Olanzapine (Olanzapine) 5 Mg Tablet, 2.5 MG PO DAILY, (Reported) Entered as Reported by: BRYSON GOLDMAN on 06/14/21 1133 Last Action: Held Ondansetron HCl (Ondansetron HCl) 4 Mg Tablet, 4 MG PO Q8H PRN for NAUSEA/VOMI TING-1ST LINE, (Reported) Entered as Reported by: BRYSON GOLDMAN on 05/30/22 1427 Last Action: Reviewed Oxybutynin Chloride (Oxybutynin Chloride) 5 Mg Tablet, 5 MG PO DAILY, (Reported) Entered as Reported by: BRYSON GOLDMAN on 05/30/22 1446 Last Action: Held Pantoprazole Sodium (Pantoprazole Sodium) 40 Mg Tablet.dr, 40 MG PO 0800,1700, (Reported) Entered as Reported by: BRYSON GOLDMAN on 01/14/201109 Last Action: Held Polyethylene Glycol 3350 (Miralax) 17 Gm Powd.pack, 17 GM PO HS, (Reported) Entered as Reported by: BRYSON GOLDMAN on 01/14/201109 Last Action: Held Potassium Chloride (Potassium Chloride) 10 Meq Tab.er.prt, 10 MEQ PO DAILY, (Reported) Entered as Reported by: SUJATHA CARTER on 05/12/21 1634 Last Action: Held Pregabalin (Pregabalin) 200 Mg Capsule, 200 MG PO 0800,2000, (Reported) Entered as Reported by: BRYSON GOLDMAN on 01/14/201109 Last Action: Reviewed Ropinirole HCl (Ropinirole HCl) 0.5 Mg Tablet, 0.5 MG PO DAILY, (Reported) Entered as Reported by: BRYSON GOLDMAN on 01/14/20 111 Last Action: Reviewed Ropinirole HCl (Ropinirole HCl) 0.5 Mg Tablet, 1 MG PO HS, (Reported) Entered as Reported by: BRYSON GOLDMAN on 06/14/21 113 Last Action: Reviewed Rosuvastatin Calcium (Rosuvastatin Calcium) 10 Mg Tablet, 10 MG PO DAILY, (Reported) Entered as Reported by: SUJATHA CARTER on 05/12/21 1634 Last Action: Reviewed Simethicone (Simethicone) 180 Mg Capsule, 180 MG PO Q12H PRN for GAS, (Reported) Entered as Reported by: BRYSON GOLDMAN on 05/30/22 142 Last Action: Held Tiotropium [place] (Spiriva Respimat 2.5MCG/ACTUATION) 2.5 Mcg/Actuation Mist.inhal, 2 PUFF INH DAILY, (Reported) Entered as Reported by: BRYSON GOLDMAN on 05/30/22 142 Last Action: Converted Trazodone HCl (Trazodone HCl) 50 Mg Tablet, 25 MG PO HS, (Reported) Entered as Reported by: BRYSON GOLDMAN on 01/14/201109 Last Action: Held Ubidecarenone (Coq-10) 100 Mg Capsule, 100 MG PO DAILY, (Reported) Entered as Reported by: KRISTIE GUILLAUME on 06/22/15 1009 Last Action: Held Discontinued Medications Acetaminophen (Tylenol) 325 Mg Tablet, 650 MG PO Q6H PRN for PAIN-MILD (1-4), (Reported) Discontinued Reason: Prescription changed Entered as Reported by: BRYSON GOLDMAN on 06/14/21 113 Ascorbic Acid (Vitamin C) 500 Mg Tablet, 500 MG PO 1200, (Reported) Discontinued Reason: No Longer Taking Entered as Reported by: BRYSON GOLDMAN on 01/14/201109 Last Action: Discontinued Benzonatate (Tessalon Perles) 100 Mg Capsule, 200 MG PO Q8H PRN for COUGH, (Reported) Entered as Reported by: BRYSON GOLDMAN on 01/14/201109 Last Action: Discontinued Cefdinir (Cefdinir) 300 Mg Capsule, 300 MG PO BID, (Reported) Entered as Reported by: BRYSON GOLDMAN on 05/30/221426 Last Action: Discontinued Cyclobenzaprine HCl (Cyclobenzaprine HCl) 5 Mg Tablet, 5 MG PO BID PRN for SPASMS Discontinued Reason: Duplicate Order Prescribed by: GRACIA COUGHLIN on 07/30/212036 Last Action: Discontinued Cyclobenzaprine HCl (Cyclobenzaprine HCl) 5 Mg Tablet, 2.5 MG PO 000,1700, (Reported) Entered as Reported by: BRYSON GOLDMAN on 05/30/221426 Last Action: Discontinued Lisinopril (Lisinopril) 40 Mg Tablet, 40 MG PO DAILY, (Reported) Entered as Reported by: SUJATHA CARTER on 05/12/21 1634 Last Action: Discontinued Loperamide HCl (Loperamide) 2 Mg Tablet, 2-4 MG PO UD PRN for DIARRHEA, (Reported) Entered as Reported by: BRYSON GOLDMAN on 05/30/221426 Last Action: Discontinued Metoprolol Succinate (Metoprolol Succinate) 25 Mg Tab.er.24h, 25 MG PO DAILY Discontinued Reason: Duplicate Order Prescribed by: FILIPE RIVERA on 06/22/21 0902 Last Action: Discontinued Nystatin (Nystop) 100,000 Unit/Gram Powder, 1 APPLIC TP Q12H, (Reported) Discontinued Reason: No Longer Taking Entered as Reported by: BRYSON GOLDMAN on 06/14/21 113 Last Action: Discontinued Ondansetron (Ondansetron Odt) 4 Mg Tab.rapdis, 4 MG PO Q8H PRN for nausea Discontinued Reason: Duplicate Order Prescribed by: BECCA LORA on 08/17/21 2252 Last Action: Discontinued Oxybutynin Chloride (Oxybutynin Chloride) 5 Mg Tablet, 5 MG PO 0800,1400,2000, (Reported) Discontinued Reason: No Longer Taking Entered as Reported by: BRYSON GOLDMAN on 01/14/20 1110 Last Action: Discontinued Tiotropium [place] (Spiriva) 18 Mcg Aerp, 1 PUFF INH DAILY, (Reported) Discontinued Reason: Duplicate Order Entered as Reported by: BRYSON GOLDMAN on 06/14/21 113 Last Action: Discontinued Past Abdqofi-Jfhjmk-Pgavay Hx Patient Social History Marrital Status: Living Status: [facility] with her krystyna Employed/Student: retired Tobacco Use?: No Smoking Status: Former Smoker Substance use?: No Alcohol Use?: No Pt feels they are or have been: No Immunizations Up To Date Date of Influenza Vaccine: Nov 11, 2020 First/Initial COVID19 Vaccinat: UNKNOWN DATE Second COVID19 Vaccination Bk: UNKNOWN DATE Tetanus Booster (TDap): Unknown PED Vaccines UTD: Yes Seasonal Allergies Seasonal Allergies: No Current Status Advance Directives: Yes Advance Directive Location: Home Communicates: Verbally Primary Language: French Preferred Spoken Language: French Is interpretation needed?: No Implanted or Applied Medical D: CPAP, Orthopedic hardware Past Medical History Surgeries: Cardiac, Hysterectomy, Joint Replacement, Orthopedic Pneumonia, COPD Chronic Edema/Swelling, High Cholesterol, Hypertension Neuropathy, Seizure Disorder 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 [employer]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 History: Menopausal Bladder Infection, UTI-Chronic Gastroesophageal Reflux, Chronic Constipation, Ulcer Arthritis, Chronic Back Pain, Gout Diabetes, Insulin dep Loss of Vision: Denies Hearing Impairment: Denies Sleep Difficulties, Anxiety, Bipolar, Depression Eczema Blood Disorders: No Adverse Reaction/Blood Tranf: No Family Medical History Reviewed Nursing Family Hx Colon cancer 19 FATHER 19 MOTHER Hypertension 19 FATHER 19 MOTHER Myocardial infarction 19 MOTHER Heart Disease, Cancer, Hypertension Review of Systems Constitutional: No chills, No diaphoresis, No fever; malaise, weakness EENTM: hearing loss; No hoarseness, No throat pain Respiratory: No cough; dyspnea on exertion, short of breath (chronic) Cardiovascular: No chest pain, No palpitations Gastrointestinal: No abdominal pain, No constipation, No diarrhea, No nausea, No vomiting Genitourinary: decreased output, incontinence Musculoskeletal: back pain, joint pain (right knee, bilateral hips), muscle twitching, muscle weakness Skin: no symptoms reported Psychiatric/Neurological: Anxiety, Depressed, Other (conversion disorder) Physical Exam Vital Signs Vital Signs - First Documented 05/30/22 08:41 Temp 36.3 Pulse 62 Resp 16 B/P (MAP) 105/64 (78) Pulse Ox 97 O2 Delivery Nasal Cannula O2 Flow Rate 3.00 Capillary Refill : Less Than 3 Seconds Height, Weight, BMI Height: 5'6.00" Weight: 213lbs. 0.0oz. 96.640305il; 38.47 BMI Method:Stated General Appearance: WD/WN, Mild Distress HEENT: Other (dry mouth) Neck: Supple Respiratory: Chest Non Tender, Decreased Breath Sounds; No Respiratory Distress; Rhonci Cardiovascular: Regular Rate, Rhythm, Normal Peripheral Pulses Gastrointestinal: Normal Bowel Sounds, Non Tender, Soft Rectal: Deferred Extremity: Normal Capillary Refill, No Calf Tenderness, Pedal Edema (trace) Neurologic/Psychiatric: Other (arouses to voice) Skin: Warm/Dry, Pallor Lymphatic: No Adenopathy Assessment/Plan Assessment and Plan Urinary tract infection Acute Renal failure Hyperbilirubinemia Acute Elevation of Liver enzymes Hypotension Dehydration Coronary artery disease Bipolar mood disorder Conversion disorder Sleep apnea COPD Chronic Hypoxemia Recent fall with back and knee pain Chronic osteoarthritis Urinary tract infection with Acute Renal failure - due to dehydration - hydrate, treat with Rocephin, monitor symptoms, wait on culture report. Hyperbilirubinemia with Acute Elevation of Liver enzymes - cholelithiasis - pending her symptoms, may end up needing eval by surgeon. Chronic Hypertension with current Hypotension - hold home medications - IV fluids monitor pressure Coronary artery disease - hold statin therapy and aspirin right now. Bipolar mood disorder - continue with current medication regimen once pt more cognitively intact. Conversion disorder Sleep apnea - resume cpap therapy COPD with Chronic Hypoxemia - continue with oxygen use, continue with inhalers. Recent fall with back and knee pain - wait on further imaging once pt more intact mentally. Chronic osteoarthritis DVT prophylaxis with scd's and lovenox gi prophylaxis - start on protonix Discussed code status with her son - he is going to think about her status, will give me an answer tomorrow. He has been told, as has this music writer, that she does not want to be kept alive in her current health state. Admission Diagnosis Urinary tract infection Acute Renal failure Hyperbilirubinemia Acute Elevation of Liver enzymes Hypotension Dehydration Coronary artery disease Bipolar mood disorder Conversion disorder Sleep apnea COPD Chronic Hypoxemia Recent fall with back and knee pain Chronic osteoarthritis Admission Status: Inpatient Order (span 2 midnights) Reason for Inpatient Admission: inpatient admission for acute renal failure with urinary tract infection - will require at least 72 hours in the hospital FILIPE RIVERA MD May 30, 2022 17:33
[2022-05-30 17:44] VITALS: BP 109/55
[2022-05-30] MEDS ORDERED: LIDOCAINE UROJET 2% GEL 10 ML PKG TOP ONE (18:30)
[2022-05-30 19:26] VITALS: BP 113/57
[2022-05-30] MEDS: LATANOPROST 0.005% (XALATAN) OPHTH SOLN 2.5 ML OU SCH (21:20)
[2022-05-30 23:24] VITALS: BP 100/53
[2022-05-31 03:01] VITALS: BP 102/57
[2022-05-31] MEDS: NS IV 1000 ML 1,000 ML IV SCH ×3 (03:41→17:47)
[2022-05-31 06:49] LABS: BASOPHILS % (AUTO) 0 % (0-10); EOSINOPHILS # (AUTO) 0.2 10^3/uL (0.0-0.3); EOSINOPHILS % (AUTO) 2 % (0-10); HEMATOCRIT 26 % (35-52); HEMOGLOBIN 8.6 g/dL (11.5-16.0); LYMPHOCYTES # (AUTO) 1.5 10^3/uL (1.0-4.0); LYMPHOCYTES % (AUTO) 17 % (12-44); MEAN CORPUSCULAR HEMOGLOBIN 31 pg (25-34); MEAN CORPUSCULAR HGB CONC 33 g/dL (32-36); MEAN CORPUSCULAR VOLUME 94 fL (80-99); MEAN PLATELET VOLUME 11.5 fL (9.0-12.2); MONOCYTES # (AUTO) 0.8 10^3/uL (0.0-1.0); MONOCYTES % (AUTO) 9 % (0-12); NEUTROPHILS # (AUTO) 6.4 10^3/uL (1.8-7.8); NEUTROPHILS % (AUTO) 70 % (42-75); PLATELET COUNT 208 10^3/uL (130-400); WHITE BLOOD COUNT 9.1 10^3/uL (4.3-11.0)
[2022-05-31 07:09] LABS: ALBUMIN 2.9 GM/DL (3.2-4.5); BILIRUBIN,TOTAL 1.6 MG/DL (0.1-1.0); CALCIUM 8.2 MG/DL (8.5-10.1); CREATININE SERUM 5.97 MG/DL (0.60-1.30); POTASSIUM 5.3 MMOL/L (3.6-5.0); TOTAL PROTEIN 6.5 GM/DL (6.4-8.2)
[2022-05-31 07:29] VITALS: BP 109/58
[2022-05-31] MEDS: RT-ALBUTEROL SULF 2.5 MG/3 ML PRE-MIX VIAL INH PRN (08:55)
[2022-05-31] MEDS ORDERED: NON-FORMULARY MEDICATION 1 EA EA (Tiotropium Bromide (Spiriva Respimat 2.5MCG/ACTUATION) 2 INH SCH (09:00)
[2022-05-31] MEDS ORDERED: CHLORASEPTIC LOZENGE MM PRN (09:00)
[2022-05-31] MEDS ORDERED: NS IV 500 ML 500 ML IV ONE (09:00)
[2022-05-31] MEDS ORDERED: PHARMACY TO DOSE SQ SCH (09:00)
--- NOTE | 2022-05-31 09:00 | Progress Note ---
Subjective Subjective Date Seen by Provider: May 31, 2022 Time Seen by Provider: 08:45 Pt in room by herself, and assisted living staff came in at the end of my visit. Janette states that she is feeling better today - she is more alert, ate breakfast per nursing staff. Pt reports she feels as if she is breathing better. Review of Systems General: Fatigue, Malaise HEENT: No Head Aches Pulmonary: Dyspnea, Cough Cardiovascular: No: Chest Pain, Palpitations Gastrointestinal: No: Nausea, Abdominal Pain, Diarrhea, Constipation Genitourinary: Other (louise in place) Musculoskeletal: leg pain (right knee pain - low back pain/right hip pain) Neurological: Weakness, Confusion Objective Exam Vital Signs Vital Signs Date Time Temp Pulse Resp B/P (MAP) Pulse Ox O2 Delivery O2 Flow Rate FiO2 05/31/22 07:29 36.5 55 18 109/58 (75) 100 NIV CPAP 05/31/22 03:01 36.4 54 18 102/57 (72) 99 NIV CPAP 30.00 05/31/22 02:44 60 19 98 30.00 05/30/22 23:24 36.2 60 18 100/53 (69) 98 NIV CPAP 30.00 05/30/22 21:56 62 18 96 30.00 05/30/22 21:00 97 Nasal Cannula 4.00 05/30/22 19:26 36.3 62 18 113/57 (75) 96 Nasal Cannula 4.00 05/30/22 17:44 36.5 65 20 109/55 (73) 95 Nasal Cannula 4.00 05/30/22 16:01 36.4 63 22 96/54 (68) 93 Nasal Cannula 4.00 05/30/22 14:08 97 Nasal Cannula 3.00 05/30/22 13:08 60 18 98/80 97 Nasal Cannula 3.00 I & O 05/31/22 07:00 Intake Total 4350 ml Output Total 477 ml Balance 3873 ml General Appearance: No Apparent Distress, WD/WN HEENT: Other (dry mouth) Neck: Supple Respiratory: Chest Non Tender, Decreased Breath Sounds; No Respiratory Distress, No Rhonci; Wheezing Cardiovascular: Regular Rate, Rhythm, Normal Peripheral Pulses Gastrointestinal: Normal Bowel Sounds, Non Tender, Soft Rectal: Deferred Extremity: Normal Capillary Refill, No Calf Tenderness, Pedal Edema (trace) Neurologic/Psychiatric: Alert, Normal Mood/Affect, Other (oriented to person, place, not time) Skin: Warm/Dry, Pallor Lymphatic: No Adenopathy Results Lab Laboratory Tests 05/30/22 09:43: Urine Color YELLOW, Urine Clarity CLEAR, Urine pH 5.5, Urine Specific [place] 1.025H, Urine Protein 2+H, Urine Glucose (UA) NEGATIVE, Urine Ketones NEGATIVE, Urine Nitrite NEGATIVE, Urine Bilirubin 1+H, Urine Urobilinogen 1.0, Urine Leukocyte Esterase 3+H, Urine RBC (Auto) 3+H, Urine RBC 25-50H, Urine WBC >100H, Urine Squamous Epithelial Cells 2-5, Urine Crystals PRESENTH, Urine Amorphous Sediment FEW MAAME URATESH, Urine Bacteria MODERATEH, Urine Casts PRESENT, Urine Granular Casts 2-5H, Urine Mucus NEGATIVE, Urine Culture Indicated YES 05/30/22 10:02: Lactic Acid Level 0.78 05/31/22 06:39: White Blood Count 9.1, Red Blood Count 2.80L, Hemoglobin 8.6L, Hematocrit 26L, Mean Corpuscular Volume 94, Mean Corpuscular Hemoglobin 31, Mean Corpuscular Hemoglobin Concent 33, Red Cell Distribution Width 14.7H, Platelet Count 208, Mean Platelet Volume 11.5, Immature Granulocyte % (Auto) 2, Neutrophils (%) (Auto) 70, Lymphocytes (%) (Auto) 17, Monocytes (%) (Auto) 9, Eosinophils (%) (Auto) 2, Basophils (%) (Auto) 0, Neutrophils # (Auto) 6.4, Lymphocytes # (Auto) 1.5, Monocytes # (Auto) 0.8, Eosinophils # (Auto) 0.2, Basophils # (Auto) 0.0, Immature Granulocyte # (Auto) 0.2H, Sodium Level 141, Potassium Level 5.3H, Chloride Level 108H, Carbon Dioxide Level 17L, Anion Gap 16H, Blood Urea Nitrogen 76H, Creatinine 5.97#H, Estimat Glomerular Filtration Rate 7, BUN/Creatinine Ratio 13, Glucose Level 154H, Calcium Level 8.2L, Corrected Calcium 9.1, Total Bilirubin 1.6H, Aspartate Amino Transf (AST/SGOT) 97H, Alanine Aminotransferase (ALT/SGPT) 101H, Alkaline Phosphatase 177H, Total Protein 6.5, Albumin 2.9L Assessment/Plan Assessment/Plan Admission Dx Urinary tract infection Acute Renal failure Hyperbilirubinemia Acute Elevation of Liver enzymes Hypotension Dehydration Coronary artery disease Bipolar mood disorder Conversion disorder Sleep apnea COPD Chronic Hypoxemia Recent fall with back and knee pain Chronic osteoarthritis Assessment and Plan Urinary tract infection Acute Renal failure Hyperbilirubinemia Acute Elevation of Liver enzymes Hypotension Dehydration Coronary artery disease Bipolar mood disorder Conversion disorder Sleep apnea COPD Chronic Hypoxemia Recent fall with back and knee pain Chronic osteoarthritis Urinary tract infection with Acute Renal failure - due to dehydration - hydrate, treat with Rocephin, monitor symptoms, wait on culture report. Hyperbilirubinemia with Acute Elevation of Liver enzymes - cholelithiasis - pending her symptoms, may end up needing eval by surgeon - but in her current declined physical state and renal function would avoid any intervention at this time. Chronic Hypertension with current Hypotension - hold home medications - IV fluids monitor pressure response, pending her symptoms, renal function, and pressure may restart a low dose medication later in the hospitalization Coronary artery disease - hold statin therapy and aspirin right now. Bipolar mood disorder - will start zyprexa at low dose one time daily Conversion disorder Sleep apnea - resumed cpap therapy COPD with Chronic Hypoxemia - continue with oxygen use, continue with inhalers. Recent fall with back and knee pain - wait on further imaging at this time until pt more medically stable. Chronic osteoarthritis DVT prophylaxis with scd's and lovenox gi prophylaxis - start on protonix Meng called me today and would like for his mom to be dnr/dni. Order was called to the nursing staff Admission Dx Urinary tract infection Acute Renal failure Hyperbilirubinemia Acute Elevation of Liver enzymes Hypotension Dehydration Coronary artery disease Bipolar mood disorder Conversion disorder Sleep apnea COPD Chronic Hypoxemia Recent fall with back and knee pain Chronic osteoarthritis Clinical Quality Measures Admission Status Admission Dx Urinary tract infection Acute Renal failure Hyperbilirubinemia Acute Elevation of Liver enzymes Hypotension Dehydration Coronary artery disease Bipolar mood disorder Conversion disorder Sleep apnea COPD Chronic Hypoxemia Recent fall with back and knee pain Chronic osteoarthritis FILIPE PURCELL MD May 31, 2022 09:00
[2022-05-31] MEDS ORDERED: BENZOCAINE LOZENGES 1 EACH LOZENGE MM PRN (09:15)
[2022-05-31] MEDS: BENZONATATE 100 MG (TESSALON) CAPSULE PO SCH ×3 (09:23→20:24)
[2022-05-31] MEDS: ENOXAPARIN INJECTION 30 MG/0.3 ML SYR SC SCH (09:24)
[2022-05-31] MEDS: PANTOPRAZOLE 40 MG (PROTONIX) VIAL IV SCH (09:24)
[2022-05-31] MEDS: RT-BUDESONIDE NEBS 0.5 MG/2ML (PULMICORT) AMP INH SCH ×2 (09:53→21:00)
[2022-05-31] MEDS: inSUlin ASPART (NovoLOG) 1 UNIT/0.01 ML (CHARGE PER UNIT) SC SCH ×3 (10:54→20:32)
[2022-05-31] MEDS: cefTRIAXone 1 GM/NS 50 ML IVPB IV SCH ×2 (10:58)
[2022-05-31 11:30] VITALS: BP 111/60
[2022-05-31 13:01] LABS: CALCIUM 8.2 MG/DL (8.5-10.1); CREATININE SERUM 6.02 MG/DL (0.60-1.30)
[2022-05-31] MEDS: UMECLIDINIUM BROMIDE (INCRUSE ELLIPTA) 7'S IH SCH (15:08)
[2022-05-31] MEDS: RT-ALBUTEROL SULF 2.5 MG/3 ML PRE-MIX VIAL INH SCH ×2 (15:09→21:00)
[2022-05-31 15:50] VITALS: BP 93/55
[2022-05-31 19:53] VITALS: BP 115/57
[2022-05-31] MEDS: LATANOPROST 0.005% (XALATAN) OPHTH SOLN 2.5 ML OU SCH (20:24)
[2022-05-31 23:39] VITALS: BP 107/52
[2022-06-01] MEDS: NS IV 1000 ML 1,000 ML IV SCH ×5 (00:43→20:36)
[2022-06-01 04:20] VITALS: BP 104/51
[2022-06-01] MEDS: inSUlin ASPART (NovoLOG) 1 UNIT/0.01 ML (CHARGE PER UNIT) SC SCH ×4 (05:02→21:10)
[2022-06-01 06:30] LABS: BILIRUBIN,TOTAL 1.1 MG/DL (0.1-1.0); CALCIUM 8.1 MG/DL (8.5-10.1); CREATININE SERUM 5.9 MG/DL (0.60-1.30); POTASSIUM 5.3 MMOL/L (3.6-5.0); TOTAL PROTEIN 6.7 GM/DL (6.4-8.2)
[2022-06-01] MEDS ORDERED: morphine INJ 4 MG/ML 1 ML (VIAL/SYRINGE) ONE (06:54)
[2022-06-01] MEDS: RT-ALBUTEROL SULF 2.5 MG/3 ML PRE-MIX VIAL INH SCH ×3 (07:01→20:54)
[2022-06-01] MEDS: RT-BUDESONIDE NEBS 0.5 MG/2ML (PULMICORT) AMP INH SCH ×2 (07:01→20:53)
[2022-06-01 08:47] VITALS: BP 109/67
[2022-06-01] MEDS: PANTOPRAZOLE 40 MG (PROTONIX) VIAL IV SCH (08:59)
[2022-06-01] MEDS: cefTRIAXone 1 GM/NS 50 ML IVPB IV SCH ×2 (09:01)
[2022-06-01] MEDS: BENZONATATE 100 MG (TESSALON) CAPSULE PO SCH ×3 (09:02→20:36)
[2022-06-01] MEDS: ENOXAPARIN INJECTION 30 MG/0.3 ML SYR SC SCH (09:02)
--- NOTE | 2022-06-01 09:23 | Progress Note ---
Subjective Subjective Date Seen by Provider: Jun 01, 2022 Time Seen by Provider: 08:50 Pt reports that she is feeling better today - staff is in the room, reports after being given the morphine this morning for her pain - night staff reported improved mood/symptoms. Janette reports that she is still short of breath, but feels okay with the cpap in place. Pt reports that she is a little scared because she cannot recognize everyone who is helping her, and sometimes does not initially recognize her family. Review of Systems General: No Chills; Fatigue Pulmonary: Dyspnea, Cough Cardiovascular: No: Chest Pain, Edema Gastrointestinal: No: Nausea, Abdominal Pain Genitourinary: Other (louise in place) Musculoskeletal: back pain, leg pain Neurological: Weakness, Confusion Objective Exam Vital Signs Vital Signs Date Time Temp Pulse Resp B/P (MAP) Pulse Ox O2 Delivery O2 Flow Rate FiO2 06/01/22 08:47 37.0 89 20 109/67 (81) 95 NIV CPAP 06/01/22 07:28 94 28 96 40.00 06/01/22 07:19 93 Nasal Cannula 4.50 06/01/22 07:13 98 96 40.00 06/01/22 07:01 112 26 87 30.00 06/01/22 04:31 65 23 96 30.00 06/01/22 04:20 36.5 55 20 104/51 (68) 97 NIV CPAP 30.00 05/31/22 23:39 36.4 59 20 107/52 (70) 96 NIV CPAP 30.00 05/31/22 21:01 71 23 96 30.00 05/31/22 20:59 Nasal Cannula 4.00 05/31/22 19:53 36.8 68 20 115/57 (76) 94 Nasal Cannula 4.00 05/31/22 15:50 36.8 64 18 93/55 (68) 96 Nasal Cannula 4.00 05/31/22 15:10 99 Nasal Cannula 4.00 05/31/22 11:30 36.6 57 18 111/60 (77) 99 Nasal Cannula 4.00 05/31/22 11:26 95 Nasal Cannula 4.00 05/31/22 09:56 Nasal Cannula 4.00 05/31/22 09:55 4.00 I & O 06/01/22 07:00 Intake Total 6320 ml Output Total 1875 ml Balance 4445 ml General Appearance: No Apparent Distress, WD/WN, Other (pt sitting in bed with cpap in place, chatting with staff) HEENT: Other (dry mouth) Neck: Supple Respiratory: Chest Non Tender, Decreased Breath Sounds; No Respiratory Distress; Wheezing (mild) Cardiovascular: Regular Rate, Rhythm, Normal Peripheral Pulses Gastrointestinal: Normal Bowel Sounds, Non Tender, Soft Rectal: Deferred Extremity: Normal Capillary Refill, No Calf Tenderness, No Pedal Edema Neurologic/Psychiatric: Alert, Other (oriented to person, place, not time - did not initially recognize this jingle writer, then after prompting, was able to identify me as "filipe") Skin: Normal Color, Warm/Dry Lymphatic: No Adenopathy Results Lab Laboratory Tests 05/31/22 10:33: Glucometer 171H 05/31/22 12:41: Sodium Level 141, Potassium Level 5.0, Chloride Level 109H, Carbon Dioxide Level 16L, Anion Gap 16H, Blood Urea Nitrogen 77H, Creatinine 6.02H, Estimat Glomerular Filtration Rate 7, BUN/Creatinine Ratio 13, Glucose Level 149H, Calcium Level 8.2L 05/31/22 13:16: SARS-CoV-2 RNA (RT-PCR) Not Detected 05/31/22 15:29: Glucometer 120H 05/31/22 20:29: Glucometer 138H 06/01/22 04:51: Glucometer 133H 06/01/22 05:45: Sodium Level 143, Potassium Level 5.3H, Chloride Level 113H, Carbon Dioxide Level 13L, Anion Gap 17H, Blood Urea Nitrogen 77H, Creatinine 5.90H, Estimat Glomerular Filtration Rate 7, BUN/Creatinine Ratio 13, Glucose Level 148H, Calcium Level 8.1L, Corrected Calcium 8.9, Total Bilirubin 1.1H, Aspartate Amino Transf (AST/SGOT) 68H, Alanine Aminotransferase (ALT/SGPT) 81H, Alkaline Phosphatase 205H, Total Protein 6.7, Albumin 3.0L Microbiology 05/30/22 Urine Culture - Final, Complete NO GROWTH Assessment/Plan Assessment/Plan Admission Dx Urinary tract infection Acute Renal failure Hyperbilirubinemia Acute Elevation of Liver enzymes Hypotension Dehydration Coronary artery disease Bipolar mood disorder Conversion disorder Sleep apnea COPD Chronic Hypoxemia Recent fall with back and knee pain Chronic osteoarthritis Assessment and Plan Urinary tract infection Acute Renal failure Hyperbilirubinemia Acute Elevation of Liver enzymes Hypotension Dehydration Coronary artery disease Bipolar mood disorder Conversion disorder Sleep apnea COPD Chronic Hypoxemia Recent fall with back and knee pain Chronic osteoarthritis Urinary tract infection with Acute Renal failure - due to dehydration - hydrate, treat with Rocephin, monitor symptoms, wait on culture report. - discussed with pt's son - he does not want his mom sent out of [place]. they would not pursue dialysis if that would be recommended. - he does not think that mentally his mom or dad could stand for her to be in a hospital outside of town since Andrea cannot drive to go see her- she would be fairly isolated and that would be extremely damaging to her psychologically leading to further distress and decline. Janette also indicated she did not want to leave via [facility]. - I have talked to Dr. Emily Wagner on the phone for recommendations as to further investigative or treatments that should be considered for Janette. She will look through the cart and determine if there are other recommendations - I have ordered a renal ultrasound to look for obstruction, and we will monitor labs, push iv fluids. Meng indicated that he does understand the risk to his mom is further physical decline - worsening renal function, but he does not want her to be in mental distress with the inability to see her as much as she is able to do here in [place] with the assisted living staff able to bring Andrea to the hospital and leave him to visit with Janette and calm her down with his presence Hyperbilirubinemia with Acute Elevation of Liver enzymes - cholelithiasis - pending her symptoms, may end up needing eval by surgeon - but in her current declined physical state and poor renal function would avoid any int ervention at this time. Chronic Hypertension with current Hypotension - hold home medications - IV fluids monitor pressure response, pending her symptoms, renal function, and pressure may restart a low dose medication later in the hospitalization Coronary artery disease - hold statin therapy and aspirin right now. Bipolar mood disorder - will start zyprexa at low dose one time daily Conversion disorder Sleep apnea - resumed cpap therapy COPD with Chronic Hypoxemia - continue with oxygen use, continue with inhalers. Recent fall with back and knee pain - wait on further imaging at this time until pt more medically stable. - one time dose of morphine given to her this morning for her pain, will order low dose prn morphine. Chronic osteoarthritis DVT prophylaxis with scd's and lovenox gi prophylaxis - start on protonix Meng called me today and would like for his mom to be dnr/dni. Order was called to the nursing staff Admission Dx Urinary tract infection Acute Renal failure Hyperbilirubinemia Acute Elevation of Liver enzymes Hypotension Dehydration Coronary artery disease Bipolar mood disorder Conversion disorder Sleep apnea COPD Chronic Hypoxemia Recent fall with back and knee pain Chronic osteoarthritis Clinical Quality Measures Admission Status Admission Dx Urinary tract infection Acute Renal failure Hyperbilirubinemia Acute Elevation of Liver enzymes Hypotension Dehydration Coronary artery disease Bipolar mood disorder Conversion disorder Sleep apnea COPD Chronic Hypoxemia Recent fall with back and knee pain Chronic osteoarthritis FILIPE PURCELL MD Jun 01, 2022 09:23
[2022-06-01] MEDS ORDERED: NS IV 500 ML 500 ML IV ONE (09:30)
[2022-06-01] MEDS ORDERED: ONDANSETRON 4 MG/2 ML (SDV) Z0FRAN IVP PRN (11:00)
[2022-06-01] MEDS: morphine INJ 4 MG/ML 1 ML (VIAL/SYRINGE) IVP PRN ×3 (11:36→21:21)
[2022-06-01] MEDS: OLANZapine 2.5 MG (ZyPREXA) TAB PO SCH (11:37)
[2022-06-01 12:33] VITALS: BP 126/67
--- NOTE | 2022-06-01 13:52 | Diagnostic Imaging Report ---
PROCEDURE: US Renal Bilateral. TECHNIQUE: Multiple real-time grayscale images were obtained over the kidneys in various projections bilaterally. INDICATION: Renal failure. FINDINGS: Right kidney measures 11.3 x 6.1 x 5.8 cm, and the left kidney measures 12.2 x 6.1 x 5.0 cm. There does appear to be some cortical thinning bilaterally. No calculi are seen. There is no hydronephrosis. Cortical echogenicity appears normal. Bladder is decompressed. IMPRESSION: There does appear to be some mild cortical thinning of both kidneys. No calculi or hydronephrosis is detected. Dictated by: Dictated on workstation # [id number]
[2022-06-01] MEDS: RT-ALBUTEROL SULF 2.5 MG/3 ML PRE-MIX VIAL INH PRN (14:43)
[2022-06-01 15:32] VITALS: BP 122/63
[2022-06-01 19:07] VITALS: BP 135/67
[2022-06-01] MEDS: LATANOPROST 0.005% (XALATAN) OPHTH SOLN 2.5 ML OU SCH (20:36)
[2022-06-01 23:14] VITALS: BP 124/67
[2022-06-02] MEDS: morphine INJ 4 MG/ML 1 ML (VIAL/SYRINGE) IVP PRN ×3 (02:30→19:21)
[2022-06-02] MEDS: NS IV 1000 ML 1,000 ML IV SCH ×3 (02:30→19:22)
[2022-06-02 03:39] VITALS: BP 124/64
[2022-06-02 05:23] LABS: HEMATOCRIT 27 % (35-52); HEMOGLOBIN 8.9 g/dL (11.5-16.0); MEAN CORPUSCULAR HEMOGLOBIN 30 pg (25-34); MEAN CORPUSCULAR HGB CONC 33 g/dL (32-36); MEAN CORPUSCULAR VOLUME 92 fL (80-99); MEAN PLATELET VOLUME 11.2 fL (9.0-12.2); PLATELET COUNT 230 10^3/uL (130-400)
[2022-06-02] MEDS: inSUlin ASPART (NovoLOG) 1 UNIT/0.01 ML (CHARGE PER UNIT) SC SCH ×4 (05:43→20:36)
[2022-06-02 05:46] LABS: ALBUMIN 3.1 GM/DL (3.2-4.5); BILIRUBIN,TOTAL 1.1 MG/DL (0.1-1.0); CALCIUM 8.5 MG/DL (8.5-10.1); CREATININE SERUM 4.51 MG/DL (0.60-1.30); POTASSIUM 4.9 MMOL/L (3.6-5.0); TOTAL PROTEIN 6.9 GM/DL (6.4-8.2)
[2022-06-02] MEDS ORDERED: morphine INJ 10 MG/ML 1ML (SYR OR VIAL) IVP ONE (06:45)
[2022-06-02] MEDS: RT-BUDESONIDE NEBS 0.5 MG/2ML (PULMICORT) AMP INH SCH ×2 (07:15→21:44)
[2022-06-02] MEDS: RT-ALBUTEROL SULF 2.5 MG/3 ML PRE-MIX VIAL INH SCH ×3 (07:15→18:46)
[2022-06-02 07:44] VITALS: BP 122/74
[2022-06-02] MEDS: UMECLIDINIUM BROMIDE (INCRUSE ELLIPTA) 7'S IH SCH ×2 (08:00→18:57)
[2022-06-02] MEDS: PANTOPRAZOLE 40 MG (PROTONIX) VIAL IV SCH (08:15)
[2022-06-02] MEDS: cefTRIAXone 1 GM/NS 50 ML IVPB IV SCH ×2 (08:16)
[2022-06-02] MEDS: ENOXAPARIN INJECTION 30 MG/0.3 ML SYR SC SCH (08:21)
[2022-06-02 11:21] VITALS: BP 119/73
[2022-06-02] MEDS ORDERED: BENZONATATE 100 MG (TESSALON) CAPSULE PO PRN (12:00)
--- NOTE | 2022-06-02 12:08 | Progress Note - Hospitalist ---
Subjective HPI/CC On Admission Date Seen by Provider: Jun 02, 2022 Subjective/Events-last exam Pt reports not feeling well. and bedside and states she couldn't swallow earlier. She was worried she would choke. Otherwise nonew complaints. On CPAP. RN reports she tried to take baseline off CPAP for breakfast and sats were fine but she was very anxious and felt like she couldn't breathe so placed her back on CPAP. Objective Exam Vital Signs Vital Signs Date Time Temp Pulse Resp B/P (MAP) Pulse Ox O2 Delivery O2 Flow Rate FiO2 06/02/22 11:21 36.0 80 18 119/73 (88) 91 NIV CPAP 06/02/22 10:00 40 06/02/22 08:00 10.00 Capillary Refill : Less Than 3 Seconds General Appearance: Anxious, Chronically ill, Obese Respiratory: Decreased Breath Sounds, Other (on CPAP) Cardiovascular: Regular Rate, Rhythm, No Murmur Gastrointestinal: Normal Bowel Sounds, Soft Neurologic/Psychiatric: Alert, Other (oriented to person and place) Results/Procedures Lab Laboratory Tests 06/02/22 05:07 Patient resulted labs reviewed. Assessment/Plan Assessment and Plan Assess & Plan/Chief Complaint Acute Renal failure Respiratory failure -Continue IVF but decrease rate due to respiratory status - Currently on CPAP- could not tolerate coming off of it - Hesitant to due lasix with renal failure - Cannot take olanzapine because she didn't feel sure could swallow- ativan ordered prn -Family has declined transfer for nephrology evaluation or dialysis - no hydronephrosis on renal usg Hyperbilirubinemia with Acute Elevation of Liver enzymes - cholelithiasis - denies any symptoms, bili trending down along with live enzymes - if she does well enough- outpatient referral likely most appropriate Chronic Hypertension with current Hypotension- resolved - hold home medications - BP well controlled currently, trend Coronary artery disease - hold statin therapy and aspirin Bipolar mood disorder - Unable to take zyprexa this morning - ativan prn anxiety Conversion disorder Sleep apnea - resumed cpap therapy COPD with Chronic Hypoxemia - continue with oxygen use, continue with inhalers. Recent fall with back and knee pain - wait on further imaging at this time until pt more medically stable. - morphine prn pain Chronic osteoarthritis DVT prophylaxis with scd's and lovenox gi prophylaxis - protonix JAZMIN CULP MD Jun 02, 2022 12:08
[2022-06-02] MEDS: OLANZapine 2.5 MG (ZyPREXA) TAB PO SCH (15:55)
[2022-06-02 16:03] VITALS: BP 105/62
[2022-06-02] MEDS: LORazepam INJ 2 MG/ML (ATIVAN) VIAL IVP PRN (16:55)
[2022-06-02] MEDS: LATANOPROST 0.005% (XALATAN) OPHTH SOLN 2.5 ML OU SCH (19:14)
[2022-06-02 19:25] VITALS: BP 122/72
[2022-06-02 23:07] VITALS: BP 124/71
[2022-06-03] MEDS: LORazepam INJ 2 MG/ML (ATIVAN) VIAL IVP PRN ×2 (01:01→19:54)
[2022-06-03] MEDS: morphine INJ 4 MG/ML 1 ML (VIAL/SYRINGE) IVP PRN ×2 (01:52→05:14)
[2022-06-03 03:59] VITALS: BP 144/84
[2022-06-03] MEDS: inSUlin ASPART (NovoLOG) 1 UNIT/0.01 ML (CHARGE PER UNIT) SC SCH ×4 (05:10→20:42)
[2022-06-03 06:08] LABS: ALBUMIN 3.3 GM/DL (3.2-4.5)
[2022-06-03 06:09] LABS: POTASSIUM 4.9 MMOL/L (3.6-5.0)
[2022-06-03 06:10] LABS: CALCIUM 9.3 MG/DL (8.5-10.1)
[2022-06-03 06:11] LABS: TOTAL PROTEIN 7.7 GM/DL (6.4-8.2)
[2022-06-03 06:13] LABS: BILIRUBIN,TOTAL 1.2 MG/DL (0.1-1.0)
[2022-06-03 06:15] LABS: CREATININE SERUM 3.2 MG/DL (0.60-1.30)
[2022-06-03] MEDS: RT-BUDESONIDE NEBS 0.5 MG/2ML (PULMICORT) AMP INH SCH ×2 (07:01→21:29)
[2022-06-03] MEDS: RT-ALBUTEROL SULF 2.5 MG/3 ML PRE-MIX VIAL INH SCH ×3 (07:01→21:29)
[2022-06-03] MEDS: UMECLIDINIUM BROMIDE (INCRUSE ELLIPTA) 7'S IH SCH (07:07)
[2022-06-03 08:18] VITALS: BP 207/81
[2022-06-03] MEDS ORDERED: hydrALAZINE (APESOLINE) 20 MG/ML VIAL IV PRN (08:45)
[2022-06-03] MEDS: cefTRIAXone 1 GM/NS 50 ML IVPB IV SCH ×2 (08:56)
[2022-06-03] MEDS: ENOXAPARIN INJECTION 30 MG/0.3 ML SYR SC SCH (08:56)
[2022-06-03] MEDS: PANTOPRAZOLE 40 MG (PROTONIX) VIAL IV SCH (08:56)
--- NOTE | 2022-06-03 10:20 | Progress Note - Hospitalist ---
Subjective HPI/CC On Admission Date Seen by Provider: Jun 03, 2022 Subjective/Events-last exam pt laying in bed. Mittens on. Did not speak but opened eyes when spoken to. No family at bedside. No ROS possible. CPAP still in place. RN reports she has been sleeping most of morning. Objective Exam Vital Signs Vital Signs Date Time Temp Pulse Resp B/P (MAP) Pulse Ox O2 Delivery O2 Flow Rate FiO2 06/03/22 08:18 36.0 89 23 207/81 (123) 91 NIV CPAP 06/03/22 08:00 10.00 06/02/22 14:29 40 Capillary Refill : Less Than 3 Seconds General Appearance: Chronically ill, Obese, Other (on CPAP) Respiratory: No Crackles; Decreased Breath Sounds, Other (on CPAP) Cardiovascular: Regular Rate, Rhythm Results/Procedures Lab Laboratory Tests 06/03/22 05:20 Patient resulted labs reviewed. Assessment/Plan Assessment and Plan Assess & Plan/Chief Complaint Acute Renal failure Respiratory failure - Creatinine downto 3.2 today -DC IVF due to respiratory issues -Trial very small dose of lasix and see how she responds - Currently on CPAP - Still cannot take olanzapine- ativan prn - Family has declined transfer for nephrology evaluation or dialysis - no hydronephrosis on renal usg Hyperbilirubinemia with Acute Elevation of Liver enzymes - cholelithiasis - denies any symptoms, bili trending down along with live enzymes - if she does well enough- outpatient referral likely most appropriate Chronic Hypertension with current Hypotension- resolved - BP very high this AM - stillon CPAP so iv Hydralazine ordered prn Coronary artery disease - hold statin therapy and aspirin Bipolar mood disorder - Unable to take zyprexa - ativan prn anxiety Conversion disorder Sleep apnea - Continue cpap therapy COPD with Chronic Hypoxemia - continue with oxygen use, continue with inhalers - See above, on CPAP and trialling lasix Recent fall with back and knee pain - wait on further imaging at this time until pt more medically stable. - morphine prn pain Chronic osteoarthritis DVT prophylaxis with scd's and lovenox gi prophylaxis - protonix JAZMIN CULP MD Jun 03, 2022 10:20
[2022-06-03] MEDS ORDERED: FUROSEMIDE 40 MG/4 ML INJ (LASIX) IVP NR (10:30)
[2022-06-03] MEDS: OLANZapine 2.5 MG (ZyPREXA) TAB PO SCH (10:56)
[2022-06-03 11:16] VITALS: BP 142/87
[2022-06-03 15:22] VITALS: BP 146/67
[2022-06-03 19:23] VITALS: BP 161/96
[2022-06-03] MEDS: LATANOPROST 0.005% (XALATAN) OPHTH SOLN 2.5 ML OU SCH (19:31)
[2022-06-04] VITALS (7 sets, daily range): BP systolic 126–184; BP diastolic 67–86
[2022-06-04] MEDS: morphine INJ 4 MG/ML 1 ML (VIAL/SYRINGE) IVP PRN ×4 (02:37→20:11)
[2022-06-04] MEDS: LORazepam INJ 2 MG/ML (ATIVAN) VIAL IVP PRN ×2 (04:08→13:52)
[2022-06-04] MEDS: inSUlin ASPART (NovoLOG) 1 UNIT/0.01 ML (CHARGE PER UNIT) SC SCH ×4 (05:32→20:33)
[2022-06-04] MEDS: RT-ALBUTEROL SULF 2.5 MG/3 ML PRE-MIX VIAL INH SCH ×3 (07:05→20:30)
[2022-06-04] MEDS: RT-BUDESONIDE NEBS 0.5 MG/2ML (PULMICORT) AMP INH SCH ×2 (07:07→20:30)
[2022-06-04] MEDS: UMECLIDINIUM BROMIDE (INCRUSE ELLIPTA) 7'S IH SCH (07:08)
[2022-06-04] MEDS: ENOXAPARIN INJECTION 30 MG/0.3 ML SYR SC SCH (08:36)
[2022-06-04] MEDS: OLANZapine 2.5 MG (ZyPREXA) TAB PO SCH (08:36)
[2022-06-04] MEDS: PANTOPRAZOLE 40 MG (PROTONIX) VIAL IV SCH (08:36)
--- NOTE | 2022-06-04 08:56 | Progress Note ---
Subjective Subjective Date Seen by Provider: Jun 04, 2022 Time Seen by Provider: 08:40 Pt is confused, per staff she has eaten, has not responded verbally - but ate without issue today. Her reports quite a bit of shortness of breath over the weekend. Review of Systems General: No Chills; Fatigue HEENT: No Head Aches Pulmonary: Dyspnea, Cough Cardiovascular: No: Chest Pain, Edema Gastrointestinal: No: Nausea, Abdominal Pain Genitourinary: Other (louise in place) Musculoskeletal: back pain, leg pain Neurological: Weakness, Confusion Objective Exam Vital Signs Vital Signs Date Time Temp Pulse Resp B/P (MAP) Pulse Ox O2 Delivery O2 Flow Rate FiO2 06/04/22 08:03 36.4 90 19 167/80 (109) 97 NIV CPAP 06/04/22 07:09 81 24 98 40.00 06/04/22 03:48 36.1 91 18 131/67 (88) 97 NIV CPAP 06/04/22 02:10 97 24 95 40.00 06/04/22 00:00 36.6 93 18 184/73 (110) 100 NIV CPAP 06/03/22 21:30 101 26 98 40.00 06/03/22 21:29 101 26 98 40.00 06/03/22 19:25 NIV CPAP 06/03/22 19:23 36.7 100 24 161/96 (117) 100 NIV CPAP 06/03/22 18:34 98 29 95 40.00 06/03/22 18:34 92 Nasal Cannula 4.50 06/03/22 15:22 37.4 108 24 146/67 (93) 100 NIV CPAP 06/03/22 14:44 114 30 100 40.00 06/03/22 11:16 36.5 107 18 142/87 (105) 100 Nasal Cannula 4.50 06/03/22 10:43 92 Nasal Cannula 4.50 I & O 06/04/22 07:00 Intake Total 0 ml Output Total 3200 ml Balance -3200 ml General Appearance: Chronically ill, Mild Distress (due to anxiety), Obese HEENT: Other (dry mouth) Neck: Supple Respiratory: No Crackles; Decreased Breath Sounds, Other (on CPAP) Cardiovascular: Regular Rate, Rhythm Gastrointestinal: Normal Bowel Sounds, Soft Rectal: Deferred Extremity: Normal Capillary Refill, No Calf Tenderness, No Pedal Edema Neurologic/Psychiatric: Alert, Other (oriented to person and place) Skin: Normal Color, Warm/Dry Lymphatic: No Adenopathy Results Lab Laboratory Tests 06/03/22 10:54: Glucometer 178H 06/03/22 16:00: Glucometer 216H 06/03/22 20:25: Glucometer 208H 06/04/22 05:19: Glucometer 183H Microbiology 05/30/22 Urine Culture - Final, Complete NO GROWTH Assessment/Plan Assessment/Plan Admission Dx Urinary tract infection Acute Renal failure Hyperbilirubinemia Acute Elevation of Liver enzymes Hypotension Dehydration Coronary artery disease Bipolar mood disorder Conversion disorder Sleep apnea COPD Chronic Hypoxemia Recent fall with back and knee pain Chronic osteoarthritis Assessment and Plan Urinary tract infection Acute Renal failure Hyperbilirubinemia Acute Elevation of Liver enzymes Hypotension Dehydration Coronary artery disease Bipolar mood disorder Conversion disorder Sleep apnea COPD Chronic Hypoxemia Recent fall with back and knee pain Chronic osteoarthritis Urinary tract infection with Acute Renal failure - due to dehydration - - UTI being treated with rocephin - Renal failure improved with hydration - continue with current management. Hyperbilirubinemia with Acute Elevation of Liver enzymes - cholelithiasis - pending her symptoms, may end up needing eval by surgeon - but in her current declined physical state and poor renal function would avoid any intervention at this time. Chronic Hypertension with current Hypotension - restarted home medications Coronary artery disease - hold statin therapy and aspirin right now. Bipolar mood disorder - started zyprexa at low dose one time daily Conversion disorder Sleep apnea - resumed cpap therapy COPD with Chronic Hypoxemia - continue with oxygen use, continue with inhalers. Chronic osteoarthritis DVT prophylaxis with scd's and lovenox gi prophylaxis - start on protonix Admission Dx Urinary tract infection Acute Renal failure Hyperbilirubinemia Acute Elevation of Liver enzymes Hypotension Dehydration Coronary artery disease Bipolar mood disorder Conversion disorder Sleep apnea COPD Chronic Hypoxemia Recent fall with back and knee pain Chronic osteoarthritis Clinical Quality Measures Admission Status Admission Dx Urinary tract infection Acute Renal failure Hyperbilirubinemia Acute Elevation of Liver enzymes Hypotension Dehydration Coronary artery disease Bipolar mood disorder Conversion disorder Sleep apnea COPD Chronic Hypoxemia Recent fall with back and knee pain Chronic osteoarthritis FILIPE PURCELL MD Jun 04, 2022 08:56
[2022-06-04 09:42] LABS: HEMATOCRIT 29 % (35-52); HEMOGLOBIN 9.3 g/dL (11.5-16.0); MEAN CORPUSCULAR HEMOGLOBIN 30 pg (25-34); MEAN CORPUSCULAR HGB CONC 32 g/dL (32-36); MEAN CORPUSCULAR VOLUME 94 fL (80-99); MEAN PLATELET VOLUME 11.2 fL (9.0-12.2); PLATELET COUNT 228 10^3/uL (130-400); WHITE BLOOD COUNT 10.3 10^3/uL (4.3-11.0)
[2022-06-04] MEDS: ISOSORBIDE MONONITRATE 60 MG (IMDUR) TAB PO SCH (09:42)
[2022-06-04] MEDS: meTOprolol TARTRATE 25 MG (LOPRESSOR) TABLET PO SCH ×2 (09:42→19:12)
[2022-06-04 09:52] LABS: ALBUMIN 3.1 GM/DL (3.2-4.5); POTASSIUM 4.1 MMOL/L (3.6-5.0)
[2022-06-04 09:54] LABS: CALCIUM 9.4 MG/DL (8.5-10.1)
[2022-06-04 09:55] LABS: TOTAL PROTEIN 7.4 GM/DL (6.4-8.2)
[2022-06-04 09:57] LABS: BILIRUBIN,TOTAL 0.8 MG/DL (0.1-1.0)
[2022-06-04 09:58] LABS: CREATININE SERUM 2.42 MG/DL (0.60-1.30)
--- NOTE | 2022-06-04 10:37 | Physical Therapy Evaluation ---
PT Evaluation-General Medical Diagnosis Admission Date May 30, 2022 at 12:57 Medical Diagnosis: renal failure/dehydration/UTI Onset Date: May 30, 2022 Therapy Diagnosis Therapy Diagnosis: generalized weakness/debility Height/Weight Height (Feet): 5 Height (Inches): 6.00 Weight (Pounds): 213 Weight (Ounces): 0.0 Precautions Precautions/Isolations: Fall Prevention, Standard Precautions Referral Physician: Miguel Reason for Referral: Evaluation/Treatment Medical History Pertinent Medical History: Arthritis, COPD, DM, GERD, HTN, Neuropathy, Smoking Current History EMS secondary weakness/right hip pain Reviewed History: Yes Social History Home: Assisted Living Prior Prior Level of Function SCALE: Activities may be completed with or without assistive devices. 0-Kqwanrqcmt-dritcok completes the activity by him/herself with no assistance from a helper. 5-Set-up or Clean-up Assistance-helper sets up or cleans up; patient completes a ctivity. Morrice assists only prior to or following the activity. 4-Supervision or Touching Assistance-helper provides verbal cues and/or touching/steadying and/or contact guard assistance as patient completes activity. Assistance may be provided throughout the activity or intermittently. 3-Partial/Moderate Assistance-helper does LESS THAN HALF the effort. Morrice lifts, holds or supports trunk or limbs, but provides less than half the effort. 2-Substantial/Maximal Assistance-helper does MORE THAN HALF the effort. Morrice lifts or holds trunk or limbs and provides more than half the effort. 6-Faimahefn-msjupa does ALL the effort. Patient does none of the effort to complete the activity. Or, the assistance of 2 or more helpers is required for the patient to complete the activity. If activity was not attempted, code reason: 7-Patient Refused. 9-Not Applicable-not attempted and the patient did not perform the activity before the current illness, exacerbation or injury. 10-Not Attempted due to Environmental Limitations-(lack of equipment, weather restraints, etc.). 88-Not Attempted due to Medical Conditions or Safety Concerns. Bed Mobility: 2 Transfers (B,C,W/C): 2 Gait: 2 Stairs: 9 Wheelchair Mobility: 2 Indoor Mobility (Ambulation): Needed Some Help Stairs: Not Applicalbe Prior Devices Use: Manual wheelchair, Walker PT Evaluation-Current Subjective Patient currently on BiPap. Patient had also received morphine per RN due to agitation. ROM/Strength ROM Lower Extremities bilateral LE WFL Strength Lower Extremities 2/5 grossly bilateral LE all planes Integumentary/Posture Bladder Incontinence: Quinones Cath Neuromuscular (Tone, Coordination, Reflexes) diminished due to weakness/deconditioned state Sensory Vision: Unable to Assess Hearing: Functional Transfers Roll Left to Right (QC): 1 (x 2) Sit to Lying (QC): 1 (x 1) Lying to Sitting/Side of Bed(Q: 1 (x 2) Gait Does the Patient Walk?: No and Walking Goal IS indicated Balance Sitting Static: Poor Sitting Dynamic: Poor Assessment/Needs Patient is currently unsafe for OOB activity due to sedation/weakness. Patient will benefit from skilled PT to address functional strength and mobility to improve current LOF. Rehab Potential: Guarded PT Logging Worker Goals Mcc Goals PT Logging Worker Goals Time Frame: June 30, 2022 Roll Left & Right (QC): 3 Sit to Lying (QC): 3 Lying-Sitting on Side/Bed(QC): 3 Sit to Stand (QC): 3 Chair/Nzv-nl-Zcdiy Xfer(QC): 3 Walk 10 feet (QC): 2 PT Plan Problem List Problem List: Activity Tolerance, Functional Strength, Safety, Balance, Gait, Transfer, Bed Mobility Treatment/Plan Treatment Plan: Continue Plan of Care Treatment Plan: Bed Mobility, Education, Functional Activity Jono, Functional Strength, Gait, Safety, Therapeutic Exercise, Transfers Treatment Duration: June 30, 2022 Frequency: 6 times per week Estimated Hrs Per Day: .25 hour per day Patient and/or Family Agrees t: Yes (spouse) Time Time In: 1010 Time Out: 1020 DATE: Jun 04, 2022 Total Billed Treatment Time: 10 Total Billed Treatment 1 visit EVModC 10 min BRITTNI GIBBONS PT Jun 04, 2022 10:37
--- NOTE | 2022-06-04 15:14 | Occupational Therapy Eval ---
OT Evaluation-General/PLF Medical Diagnosis Admission Date May 30, 2022 at 12:57 Medical Diagnosis: renal failure/dehydration/UTI Onset Date: May 30, 2022 Therapy Diagnosis Therapy Diagnosis: weakness/debility Height/Weight Height (Feet): 5 Height (Inches): 6.00 Weight (Pounds): 213 Weight (Ounces): 0.0 Precautions Precautions/Isolations: Fall Prevention, Standard Precautions Safety Interventions: Bed Exit Alarm Weight Bear Status Weight Bearing Restriction: Weight Bearing/Tolerated Referral Physician: Miguel Referral Reason: Activity Tolerance, Self Care, Evaluation/Treatment Medical History Pertinent Medical History: Arthritis, COPD, DM, GERD, HTN, Neuropathy, Smoking Reviewed History: Yes Social History Home: Assisted Living Current Living Status: Spouse ADL-Prior Level of Function SCALE: Activities may be completed with or without assistive devices. 9-Wzilearpga-umgbzqz completes the activity by him/herself with no assistance from a helper. 5-Set-up or Clean-up Assistance-helper sets up or cleans up; patient completes activity. [place] assists only prior to or following the activity. 4-Supervision or Touching Assistance-helper provides verbal cues and/or touching/steadying and/or contact guard assistance as patient completes activity. Assistance may be provided throughout the activity or intermittently. 3-Partial/Moderate Assistance-helper does LESS THAN HALF the effort. [place] lifts, holds or supports trunk or limbs, but provides less than half the effort. 2-Substantial/Maximal Assistance-helper does MORE THAN HALF the effort. [place] lifts or holds trunk or limbs and provides more than half the effort. 4-Gpmwdshet-tpbhjy does ALL the effort. Patient does none of the effort to complete the activity. Or, the assistance of 2 or more helpers is required for the patient to complete the activity. If activity was not attempted, code reason: 7-Patient Refused. 9-Not Applicable-not attempted and the patient did not perform the activity before the current illness, exacerbation or injury. 10-Not Attempted due to Environmental Limitations-(lack of equipment, weather restraints, etc.). 88-Not Attempted due to Medical Conditions or Safety Concerns. ADL PLOF Comments Lives with spouse in [place] [facility], receives assistance for ADLS, spouse reports patient ambulated w/ walker and pull behind WC and one person one month ago Self Care: Needed Some Help Functional Cognition: Needed Some Help Drive Self: No OT Current Status Mental Status/Objective Patient Orientation: Person, Place Attachments: IV, Oxygen, Other-See Comments (CPAP) Current Upper Extremity ROM Excessive soft tissue reduces joint approximation, unable to fully assess d/t sedation and patient unsafe for function tasks at this time Upper Extremity Strength 3/5 grossly ADL-Treatment Eating (QC): 7 (CPAP on) Oral Hygiene (QC): 88 Shower/Bathe Self (QC): 88 Upper Body Dressing (QC): 2 Lower Body Dressing (QC): 1 On/Off Footwear (QC): 1 Toileting Hygiene (QC): 1 Education OT Patient Education: Correct positioning, Energy conservation, Modified ADL techniques, Progress toward Goal/Update tx plan, Purpose of tx/functional activities, Reviewed precautions, Rehab process, Safety issues Teaching Recipient: Patient, Family Teaching Methods: Demonstration, Discussion Response to Teaching: Reinforcement Needed OT Intermediate Manager Goals Assisted Goals Eating (QC): 5 Oral Hygiene (QC): 4 Toileting Hygiene (QC): 3 Shower/Bathe Self (QC): 3 Upper Body Dressing (QC): 4 Lower Body Dressing (QC): 3 On/Off Footwear (QC): 3 1=Demonstrate adherence to instructed precautions during ADL tasks. 2=Patient will verbalize/demonstrate understanding of assistive devices/modifications for ADL. 3=Patient will improve strength/tolerance for activity to enable patient to perform ADL's. OT Education/Plan Problem List/Assessment Assessment: Decreased Activ Tolerance, Decreased Safety Aware, Decreased UE Strength, Dependent Transfers, Impaired Funct Balance, Impaired Self-Care Skills, Restricted Funct UE ROM Discharge Recommendations Plan/Recommendations: Continue POC Treatment Plan/Plan of Care Treatment,Training & Education: Yes Patient would benefit from OT for education, treatment and training to promote independence in ADL's, mobility, safety and/or upper extremity function for ADL's. Plan of Care: ADL Retraining, Concurrent Therapy, Functional Mobility, Group Exercise/Act as Ind, UE Funct Exercise/Act Treatment Duration: Jun 09, 2022 Frequency: 3 times per week (3-5 times per week) Estimated Hrs Per Day: .25 hour per day Agreement: Yes Rehab Potential: Guarded Returned to bed following sitting EOB Time Start Time: 10:05 Stop Time: 10:20 DATE: Jun 04, 2022 Total Time Billed (hr/min): 15 Billed Treatment Time EVM 15 min MILAGROS SCHULTE OT Jun 04, 2022 15:14
[2022-06-04] MEDS: LATANOPROST 0.005% (XALATAN) OPHTH SOLN 2.5 ML OU SCH (19:12)
[2022-06-04] MEDS ORDERED: OLANZapine 2.5 MG (ZyPREXA) TAB ONE (20:03)
[2022-06-04] MEDS ORDERED: OLANZapine 2.5 MG (ZyPREXA) TAB PO ONE (20:15)
[2022-06-05] MEDS: LORazepam INJ 2 MG/ML (ATIVAN) VIAL IVP PRN ×3 (03:23→13:26)
[2022-06-05] MEDS: inSUlin ASPART (NovoLOG) 1 UNIT/0.01 ML (CHARGE PER UNIT) SC SCH ×4 (05:40→20:25)
[2022-06-05 06:07] LABS: CALCIUM 8.9 MG/DL (8.5-10.1); CREATININE SERUM 2.23 MG/DL (0.60-1.30); POTASSIUM 4.4 MMOL/L (3.6-5.0)
[2022-06-05] MEDS: RT-ALBUTEROL SULF 2.5 MG/3 ML PRE-MIX VIAL INH SCH ×3 (07:08→22:22)
[2022-06-05] MEDS: RT-BUDESONIDE NEBS 0.5 MG/2ML (PULMICORT) AMP INH SCH ×2 (07:08→22:22)
[2022-06-05 07:17] VITALS: BP 189/73
[2022-06-05] MEDS: UMECLIDINIUM BROMIDE (INCRUSE ELLIPTA) 7'S IH SCH (07:21)
[2022-06-05 08:00] VITALS: BP 146/71
[2022-06-05] MEDS: PANTOPRAZOLE 40 MG (PROTONIX) TAB PO SCH (08:03)
[2022-06-05] MEDS: meTOprolol TARTRATE 25 MG (LOPRESSOR) TABLET PO SCH ×2 (08:03→20:25)
[2022-06-05] MEDS: OLANZapine 2.5 MG (ZyPREXA) TAB PO SCH ×2 (08:03→20:25)
[2022-06-05] MEDS: ISOSORBIDE MONONITRATE 60 MG (IMDUR) TAB PO SCH (08:04)
[2022-06-05] MEDS: ENOXAPARIN INJECTION 30 MG/0.3 ML SYR SC SCH (08:04)
--- NOTE | 2022-06-05 08:23 | Progress Note ---
Subjective Subjective Date Seen by Provider: Jun 05, 2022 Time Seen by Provider: 08:10 Pt anxious, crying out - "help me" over and over, did not recognize this check writer. Staff denies any acute concerns this morning. Family not in room. Review of Systems General: No Chills; Fatigue HEENT: No Head Aches Pulmonary: Dyspnea, Cough Cardiovascular: No: Chest Pain, Edema Gastrointestinal: No: Nausea, Abdominal Pain Genitourinary: Other (louise in place) Musculoskeletal: back pain, leg pain Neurological: Weakness, Confusion Objective Exam Vital Signs Vital Signs Date Time Temp Pulse Resp B/P (MAP) Pulse Ox O2 Delivery O2 Flow Rate FiO2 06/05/22 08:00 35.8 80 21 146/71 (96) 100 NIV Bilevel 10.00 06/05/22 07:21 100 NIV CPAP 30 06/05/22 07:17 79 20 100 30.00 06/05/22 07:08 65 23 100 40.00 06/05/22 02:33 93 20 98 40.00 06/04/22 23:58 36.1 94 16 126/84 (98) 100 NIV CPAP 06/04/22 20:30 105 18 100 40.00 06/04/22 19:10 NIV CPAP 06/04/22 19:06 36.5 97 17 141/84 (103) 90 Nasal Cannula 5.00 06/04/22 15:08 36.3 97 17 166/86 (112) 92 Nasal Cannula 5.00 06/04/22 14:55 93 Nasal Cannula 4.00 06/04/22 11:58 36.6 91 20 145/72 (96) 100 NIV CPAP 06/04/22 10:44 83 25 97 40.00 I & O 06/05/22 07:00 Intake Total 1140 ml Output Total 1525 ml Balance -385 ml General Appearance: Chronically ill, Obese HEENT: Other (dry mouth) Neck: Supple Respiratory: No Accessory Muscle Use, No Respiratory Distress; No Crackles; Decreased Breath Sounds Cardiovascular: Regular Rate, Rhythm Gastrointestinal: Normal Bowel Sounds, Non Tender, Soft Rectal: Deferred Extremity: Normal Capillary Refill, No Calf Tenderness, No Pedal Edema Neurologic/Psychiatric: Alert, Other (oriented to person and place) Skin: Normal Color, Warm/Dry Lymphatic: No Adenopathy Results Lab Laboratory Tests 06/04/22 09:30: White Blood Count 10.3, Red Blood Count 3.10L, Hemoglobin 9.3L, Hematocrit 29L, Mean Corpuscular Volume 94, Mean Corpuscular Hemoglobin 30, Mean Corpuscular Hemoglobin Concent 32, Red Cell Distribution Width 15.2H, Platelet Count 228, Mean Platelet Volume 11.2, Sodium Level 152H, Potassium Level 4.1, Chloride Level 119H, Carbon Dioxide Level 20L, Anion Gap 13, Blood Urea Nitrogen 57H, Creatinine 2.42H, Estimat Glomerular Filtration Rate 19, BUN/Creatinine Ratio 24, Glucose Level 293H, Calcium Level 9.4, Corrected Calcium 10.1, Total Bilirubin 0.8, Aspartate Amino Transf (AST/SGOT) 27, Alanine Aminotransferase (ALT/SGPT) 36, Alkaline Phosphatase 149H, Total Protein 7.4, Albumin 3.1L 06/04/22 10:53: Glucometer 213H 06/04/22 15:13: Glucometer 197H 06/04/22 20:11: Glucometer 251H 06/05/22 05:01: Glucometer 173H 06/05/22 05:19: Sodium Level 158H, Potassium Level 4.4, Chloride Level 121H, Carbon Dioxide Level 23, Anion Gap 14, Blood Urea Nitrogen 58H, Creatinine 2.23H, Estimat Glomerular Filtration Rate 21, BUN/Creatinine Ratio 26, Glucose Level 188H, Calcium Level 8.9 Microbiology 05/30/22 Urine Culture - Final, Complete NO GROWTH Assessment/Plan Assessment/Plan Admission Dx Urinary tract infection Acute Renal failure Hyperbilirubinemia Acute Elevation of Liver enzymes Hypotension Dehydration Coronary artery disease Bipolar mood disorder Conversion disorder Sleep apnea COPD Chronic Hypoxemia Recent fall with back and knee pain Chronic osteoarthritis Assessment and Plan Urinary tract infection Acute Renal failure Hyperbilirubinemia Acute Elevation of Liver enzymes Hypernatremia Hypotension Dehydration Coronary artery disease Bipolar mood disorder Conversion disorder Sleep apnea COPD Chronic Hypoxemia Recent fall with back and knee pain Chronic osteoarthritis Urinary tract infection with Acute Renal failure - due to dehydration - - UTI being treated with rocephin - Renal failure improved with hydration - continue with current management. Hyperbilirubinemia with Acute Elevation of Liver enzymes - cholelithiasis - pending her symptoms, may end up needing eval by surgeon - but in her current declined physical state and poor renal function would avoid any intervention at this time. Chronic Hypertension with current Hypotension - restarted home medications Hypernatremia 1/2 NS at 50mL/hr Coronary artery disease - hold statin therapy and aspirin right now. Bipolar mood disorder - started zyprexa - dose increased from one time daily to bid - due to her anxiety and crying out- added buspar, pt has PRN anxiolytic of ativan Conversion disorder Sleep apnea - resumed cpap therapy COPD with Chronic Hypoxemia - continue with oxygen use, continue with inhalers. Chronic osteoarthritis DVT prophylaxis with scd's and lovenox gi prophylaxis - start on protonix Admission Dx Urinary tract infection Acute Renal failure Hyperbilirubinemia Acute Elevation of Liver enzymes Hypotension Dehydration Coronary artery disease Bipolar mood disorder Conversion disorder Sleep apnea COPD Chronic Hypoxemia Recent fall with back and knee pain Chronic osteoarthritis Clinical Quality Measures Admission Status Admission Dx Urinary tract infection Acute Renal failure Hyperbilirubinemia Acute Elevation of Liver enzymes Hypotension Dehydration Coronary artery disease Bipolar mood disorder Conversion disorder Sleep apnea COPD Chronic Hypoxemia Recent fall with back and knee pain Chronic osteoarthritis FILIPE PURCELL MD Jun 05, 2022 08:23
[2022-06-05] MEDS ORDERED: OLANZapine 2.5 MG (ZyPREXA) TAB PO NR (09:00)
[2022-06-05] MEDS ORDERED: OLANZapine 2.5 MG (ZyPREXA) TAB PO SCH (09:00)
[2022-06-05] MEDS ORDERED: meTOprolol TARTRATE 25 MG (LOPRESSOR) TABLET PO NR (09:00)
[2022-06-05] MEDS ORDERED: meTOprolol TARTRATE 25 MG (LOPRESSOR) TABLET PO SCH (09:00)
[2022-06-05] MEDS: 1/2 NS IV SOLUTION 1,000 ML IV SCH (09:04)
[2022-06-05] MEDS: busPIRone 5 MG (BUSPAR) TAB PO SCH ×2 (09:05→20:25)
--- NOTE | 2022-06-05 09:56 | Physical Therapy Progress Note ---
Therapy Progress Note Patient on Hold per RN due to sedation and current medical status. PT will attempt tomorrow BRITTNI Gonsalez PT Jun 05, 2022 09:56
--- NOTE | 2022-06-05 11:10 | Occ Therapy Progress Note ---
Therapy Progress Note Patient on Hold per RN due to sedation and current medical status. OT will attempt next available opportunity. MILAGROS SCHULTE OT Jun 05, 2022 11:10
[2022-06-05 11:43] VITALS: BP 171/79
[2022-06-05 15:32] VITALS: BP 153/77
[2022-06-05] MEDS: morphine INJ 4 MG/ML 1 ML (VIAL/SYRINGE) IVP PRN ×2 (16:45→21:44)
[2022-06-05 19:28] VITALS: BP 159/97
[2022-06-05] MEDS: LATANOPROST 0.005% (XALATAN) OPHTH SOLN 2.5 ML OU SCH (20:25)
[2022-06-05 23:50] VITALS: BP 142/78
[2022-06-06 03:22] VITALS: BP 147/89
[2022-06-06] MEDS: inSUlin ASPART (NovoLOG) 1 UNIT/0.01 ML (CHARGE PER UNIT) SC SCH ×4 (06:12→21:38)
[2022-06-06 06:21] LABS: CALCIUM 8.8 MG/DL (8.5-10.1); CREATININE SERUM 1.86 MG/DL (0.60-1.30); POTASSIUM 3.8 MMOL/L (3.6-5.0)
[2022-06-06] MEDS: RT-BUDESONIDE NEBS 0.5 MG/2ML (PULMICORT) AMP INH SCH ×2 (06:59→21:26)
[2022-06-06] MEDS: RT-ALBUTEROL SULF 2.5 MG/3 ML PRE-MIX VIAL INH SCH ×3 (06:59→21:26)
[2022-06-06] MEDS: UMECLIDINIUM BROMIDE (INCRUSE ELLIPTA) 7'S IH SCH (07:04)
[2022-06-06 07:12] VITALS: BP 176/73
[2022-06-06] MEDS: 1/2 NS IV SOLUTION 1,000 ML IV SCH (07:21)
[2022-06-06] MEDS: OLANZapine 2.5 MG (ZyPREXA) TAB PO SCH ×2 (08:36→21:39)
[2022-06-06] MEDS: PANTOPRAZOLE 40 MG (PROTONIX) TAB PO SCH (08:36)
[2022-06-06] MEDS: ENOXAPARIN INJECTION 30 MG/0.3 ML SYR SC SCH (08:36)
[2022-06-06] MEDS: ISOSORBIDE MONONITRATE 60 MG (IMDUR) TAB PO SCH (08:36)
[2022-06-06] MEDS: busPIRone 5 MG (BUSPAR) TAB PO SCH ×2 (08:36→21:40)
[2022-06-06] MEDS: meTOprolol TARTRATE 25 MG (LOPRESSOR) TABLET PO SCH ×2 (08:36→21:40)
--- NOTE | 2022-06-06 08:42 | Progress Note ---
Subjective Subjective Date Seen by Provider: Jun 06, 2022 Time Seen by Provider: 08:10 Pt's spouse at bedside, he reports that he feels like she is better this morning. Staff reports she ate fairly well this morning. Quinn reports that she was crying out all day yesterday, but seemed more calm this morning. Review of Systems General: No Chills; Fatigue HEENT: No Head Aches Pulmonary: Dyspnea, Cough Cardiovascular: No: Chest Pain, Edema Gastrointestinal: No: Nausea, Abdominal Pain Genitourinary: Other (louise in place) Musculoskeletal: back pain, leg pain Neurological: Weakness, Confusion Objective Exam Vital Signs Vital Signs Date Time Temp Pulse Resp B/P (MAP) Pulse Ox O2 Delivery O2 Flow Rate FiO2 06/06/22 07:12 36.2 73 18 176/73 (107) 97 Nasal Cannula 5.00 06/06/22 07:04 97 Nasal Cannula 4.50 06/06/22 03:22 35.9 79 20 147/89 (108) 99 Nasal Cannula 5.00 5.00 06/05/22 23:50 36.2 86 20 142/78 (99) 97 Nasal Cannula 5.00 5.00 06/05/22 22:25 97 Nasal Cannula 5.00 06/05/22 20:34 Nasal Cannula 5.00 06/05/22 19:28 36.2 75 20 159/97 (117) 97 Nasal Cannula 5.00 06/05/22 15:32 36.0 84 20 153/77 (102) 100 NIV CPAP 30.00 06/05/22 14:49 95 Nasal Cannula 5.00 06/05/22 11:43 36.0 85 20 171/79 (109) 100 Nasal Cannula 5.00 06/05/22 10:37 100 Nasal Cannula 5.00 06/05/22 10:28 78 28 100 30.00 I & O 06/06/22 07:00 Intake Total 430 ml Output Total 2150 ml Balance -1720 ml General Appearance: Chronically ill, Obese HEENT: Other (dry mouth) Neck: Supple Respiratory: No Accessory Muscle Use, No Respiratory Distress; No Crackles; Decreased Breath Sounds Cardiovascular: Regular Rate, Rhythm Gastrointestinal: Normal Bowel Sounds, Non Tender, Soft Rectal: Deferred Extremity: Normal Capillary Refill, No Calf Tenderness, No Pedal Edema Neurologic/Psychiatric: Alert, Other (oriented to person and place) Skin: Normal Color, Warm/Dry Lymphatic: No Adenopathy Results Lab Laboratory Tests 06/05/22 10:45: Glucometer 224H 06/05/22 15:40: Glucometer 179H 06/05/22 19:42: Glucometer 230H 06/06/22 05:32: Glucometer 216H 06/06/22 05:46: Sodium Level 157H, Potassium Level 3.8, Chloride Level 120H, Carbon Dioxide Level 25, Anion Gap 12, Blood Urea Nitrogen 50H, Creatinine 1.86H, Estimat Glomerular Filtration Rate 27, BUN/Creatinine Ratio 27, Glucose Level 238H, Calcium Level 8.8 Microbiology 05/30/22 Urine Culture - Final, Complete NO GROWTH Assessment/Plan Assessment/Plan Admission Dx Urinary tract infection Acute Renal failure Hyperbilirubinemia Acute Elevation of Liver enzymes Hypotension Dehydration Coronary artery disease Bipolar mood disorder Conversion disorder Sleep apnea COPD Chronic Hypoxemia Recent fall with back and knee pain Chronic osteoarthritis Assessment and Plan Urinary tract infection Acute Renal failure Hyperbilirubinemia Acute Elevation of Liver enzymes Hypernatremia Hypotension Dehydration Coronary artery disease Bipolar mood disorder Conversion disorder Sleep apnea COPD Chronic Hypoxemia Recent fall with back and knee pain Chronic osteoarthritis Urinary tract infection with Acute Renal failure - due to dehydration - - UTI being treated with rocephin - Renal failure improved with hydration - continue with current management. Hyperbilirubinemia with Acute Elevation of Liver enzymes - cholelithiasis - pending her symptoms, may end up needing eval by surgeon - but in her current declined physical state and poor renal function would avoid any intervention at this time. Chronic Hypertension with current Hypotension - restarted home medications Hypernatremia stop fluids, monitor labs Coronary artery disease - hold statin therapy and aspirin right now. Bipolar mood disorder - started zyprexa - dose increased from one time daily to bid - due to her anxiety and crying out- added buspar, pt has PRN anxiolytic of ativan Conversion disorder Sleep apnea - resumed cpap therapy COPD with Chronic Hypoxemia - continue with oxygen use, continue with inhalers. Chronic osteoarthritis DVT prophylaxis with scd's and lovenox gi prophylaxis - start on protonix Admission Dx Urinary tract infection Acute Renal failure Hyperbilirubinemia Acute Elevation of Liver enzymes Hypotension Dehydration Coronary artery disease Bipolar mood disorder Conversion disorder Sleep apnea COPD Chronic Hypoxemia Recent fall with back and knee pain Chronic osteoarthritis Clinical Quality Measures Admission Status Admission Dx Urinary tract infection Acute Renal failure Hyperbilirubinemia Acute Elevation of Liver enzymes Hypotension Dehydration Coronary artery disease Bipolar mood disorder Conversion disorder Sleep apnea COPD Chronic Hypoxemia Recent fall with back and knee pain Chronic osteoarthritis FILIPE PURCELL MD Jun 06, 2022 08:42
[2022-06-06] MEDS: LORazepam INJ 2 MG/ML (ATIVAN) VIAL IVP PRN ×2 (08:47→12:58)
--- NOTE | 2022-06-06 09:17 | Physician Query Clarification ---
Physician Query-General Query to Physician: The medical record reflects the following clinical scenario: History/Risk factors: Hx of pneumonia, COPD with home 02 use only at HS, Current Dx of Acute Renal Failure, Hx Clinical Findings: has been on 02 since admission as high as 10L , mostly 40% or higher, Respiratory rate 16 on admission has been as high as 30, frequently 25 or higher. O2 sats recorded 87% on 30%, and 87% on 4.5L, (P/F=139),documentation of shortness of air with exertion and unable to lie flat on admission Treatment: Cpap, supplemental 02, Respiratory monitoring, Albuterol, [place] Question: Is Acute Hypoxic Respiratory Failure a clinically valid diagnosis? Acute Hypoxic Respiratory Failure was documented on two progress notes with no further documentation of Acute Hypoxic Respiratory Failure in the medical record. If yes, please document in the Progress Notes and Discharge Summary. Yes, Acute Hypoxic Respiratory Failure clinically valid, in addition to Chronic Respiratory failure, present on admission No, Acute Hypoxic Respiratory Failure ruled out Other, with explanation of clinical findings Undetermined, no explanation for clinical findings In responding to this query, please exercise your independent professional judgment. The purpose of this communication is to more accurately reflect the complexity of your patients condition. The fact that a question is asked does not imply that any particular answer is desired or expected. Thank you for your timely response to this clarification. Riana Hoffman MSN, RN Clinical Insecticide Maker [email or web address] PHYSICIAN RESPONSE: Based on the clinical findings in the record, please respond to the query above on this document as an addendum. Physician Response: Physician Response Yes, Acute Hypoxic Respiratory Failure clinically valid, in addition to Chronic Respiratory failure, present on admission If you have questions please contact: Child Adolescent Psychiatrist: Ext: Thank you for your time and cooperation. Clinical Insecticide Maker/Child Adolescent Psychiatrist This is a permanent part of the medical record RIANA HOFFMAN Jun 06, 2022 09:17 FILIPE PURCELL MD June 20, 2022 12:18
[2022-06-06] MEDS: PREGABALIN 100 MG (LYRICA) CAPSULE PO SCH ×2 (09:30→21:40)
[2022-06-06] MEDS: rOPINIRole 0.25 MG (REQUIP) TAB PO SCH ×2 (09:30→21:40)
[2022-06-06] MEDS: FLUoxetine HCL 20 MG (PROzac) CAP PO SCH (09:30)
[2022-06-06] MEDS: amLODIPine 10 MG (NORVASC) TAB PO SCH (09:30)
[2022-06-06] MEDS: morphine INJ 4 MG/ML 1 ML (VIAL/SYRINGE) IVP PRN (09:31)
[2022-06-06 11:12] VITALS: BP 180/76
--- NOTE | 2022-06-06 11:53 | Physical Therapy Daily Note ---
PT Daily Note-Current Subjective Patient lying supine in bed upon PT arrival with family in the room. Patient reports fshe does have pain, however is unable to describe where the pain is located or give any type of rating. Patient moans and says "Help me" throughout the treatment. Pain Section J - Health Conditions 1. Rarely or not at all 2. Occasionally 3. Frequently 4. Almost constantly 8. Unable to answer Pain Effect on Sleep: 8 Pain Interference with Therapy: 8 Pain Interference w/Day-to-Day: 8 Transfers SCALE: Activities may be completed with or without assistive devices. 5-Rdppwsuter-byuolyk completes the activity by him/herself with no assistance from a helper. 5-Set-up or Clean-up Assistance-helper sets up or cleans up; patient completes activity. [place] assists only prior to or following the activity. 4-Supervision or Touching Assistance-helper provides verbal cues and/or touching/steadying and/or contact guard assistance as patient completes activity. Assistance may be provided throughout the activity or intermittently. 3-Partial/Moderate Assistance-helper does LESS THAN HALF the effort. [place] lifts, holds or supports trunk or limbs, but provides less than half the effort. 2-Substantial/Maximal Assistance-helper does MORE THAN HALF the effort. [place] lifts or holds trunk or limbs and provides more than half the effort. 0-Gdbokbcfp-xvaurj does ALL the effort. Patient does none of the effort to complete the activity. Or, the assistance of 2 or more helpers is required for the patient to complete the activity. If activity was not attempted, code reason: 7-Patient Refused. 9-Not Applicable-not attempted and the patient did not perform the activity before the current illness, exacerbation or injury. 10-Not Attempted due to Environmental Limitations-(lack of equipment, weather restraints, etc.). 88-Not Attempted due to Medical Conditions or Safety Concerns. Roll Left & Right (QC): 2 Sit to Lying (QC): 2 Lying to Sitting/Side of Bed(Q: 2 Sit to Stand (QC): 2 Weight Bearing Right Lower Extremity: Right Full Weight Bearing Left Lower Extremity: Left Full Weight Bearing Gait Training Does the Patient Walk?: No and Walking Goal IS indicated Assessment Current Status: Poor Progress Patient appears to be more awake and alert, but continues to demonstrate difficu lty following commands. Patient requires max A for all observed bed mobility and transfers. Patient tolerates sitting at EOB ~ 5 minutes, then begins to lean backwards without warning. Patient in bed post treatment with all needs met, nursing notified, call light in reach and family in the room. PT Protective Signal Superintendent Goals Long-Term Goals PT Long-Term Goals Time Frame: June 30, 2022 Roll Left & Right (QC): 3 Sit to Lying (QC): 3 Lying-Sitting on Side/Bed(QC): 3 Sit to Stand (QC): 3 Chair/Lld-nx-Jsrtl Xfer(QC): 3 Walk 10 feet (QC): 2 PT Plan Treatment/Plan Treatment Plan: Continue Plan of Care Treatment Plan: Bed Mobility, Education, Functional Activity Jono, Functional Strength, Gait, Safety, Therapeutic Exercise, Transfers Treatment Duration: June 30, 2022 Frequency: 6 times per week Estimated Hrs Per Day: .25 hour per day Patient and/or Family Agrees t: Yes (spouse) Safety Risks/Education Patient Education: Transfer Techniques Teaching Recipient: Patient, Family Teaching Methods: Demonstration, Discussion Response to Teaching: Reinforcement Needed Time Time In: 904 Time Out: 920 DATE: Jun 06, 2022 Total Billed Treatment Time: 16 Total Billed Treatment Visit, ADÁN GROSS PT Jun 06, 2022 11:53
[2022-06-06 12:00] VITALS: BP_SYST 112; BP_SYST 175; BP_DIAS 58; BP_DIAS 69
--- NOTE | 2022-06-06 13:55 | Occ Therapy Progress Note ---
Therapy Progress Note Patient sleeping, family request therapy return after patient has rested. MILAGROS SCHULTE OT Jun 06, 2022 13:55
[2022-06-06 15:48] VITALS: BP 110/59
[2022-06-06 19:27] VITALS: BP 132/63
[2022-06-06] MEDS: LATANOPROST 0.005% (XALATAN) OPHTH SOLN 2.5 ML OU SCH (21:39)
[2022-06-07] VITALS (7 sets, daily range): BP systolic 100–166; BP diastolic 56–69
[2022-06-07] MEDS: LORazepam INJ 2 MG/ML (ATIVAN) VIAL IVP PRN
[2022-06-07] MEDS: inSUlin ASPART (NovoLOG) 1 UNIT/0.01 ML (CHARGE PER UNIT) SC SCH ×4 (05:24→20:52)
[2022-06-07 06:40] LABS: POTASSIUM 3.7 MMOL/L (3.6-5.0)
[2022-06-07 06:41] LABS: CALCIUM 8.6 MG/DL (8.5-10.1)
[2022-06-07 06:46] LABS: CREATININE SERUM 2.04 MG/DL (0.60-1.30)
[2022-06-07] MEDS: RT-BUDESONIDE NEBS 0.5 MG/2ML (PULMICORT) AMP INH SCH (07:04)
[2022-06-07] MEDS: RT-ALBUTEROL SULF 2.5 MG/3 ML PRE-MIX VIAL INH SCH ×3 (07:04→19:06)
--- NOTE | 2022-06-07 08:48 | Progress Note ---
Subjective Subjective Date Seen by Provider: Jun 07, 2022 Time Seen by Provider: 08:10 Pt alone in her room today - sleeping with BIPAP on - pt not awakening to voice or light touch today. Review of Systems General: No Chills; Fatigue HEENT: No Head Aches Pulmonary: Dyspnea; No Cough Cardiovascular: No: Chest Pain, Edema Gastrointestinal: No: Nausea, Abdominal Pain Genitourinary: Other (louise in place) Musculoskeletal: back pain, leg pain Neurological: Weakness, Confusion Objective Exam Vital Signs Vital Signs Date Time Temp Pulse Resp B/P (MAP) Pulse Ox O2 Delivery O2 Flow Rate FiO2 06/07/22 07:46 36.8 71 23 166/69 (101) 94 NIV CPAP 06/07/22 07:04 67 25 96 25.00 06/07/22 04:22 36.4 70 22 156/64 (94) 96 NIV CPAP 30.00 06/07/22 03:18 93 20 98 30.00 06/07/22 00:55 36.3 73 20 100/56 (71) 94 NIV CPAP 30.00 06/06/22 21:26 79 20 100 30.00 06/06/22 20:58 Nasal Cannula 5.00 06/06/22 19:27 36.3 72 20 132/63 (86) 97 Nasal Cannula 5.00 06/06/22 15:48 36.9 79 18 110/59 (76) 92 Nasal Cannula 5.00 06/06/22 14:30 95 Nasal Cannula 4.50 06/06/22 12:00 112/58 (76) 06/06/22 11:12 36.3 74 18 180/76 (110) 96 NIV CPAP I & O 06/07/22 07:00 Intake Total 890 ml Output Total 825 ml Balance 65 ml General Appearance: Chronically ill, Obese HEENT: Other (dry mouth) Neck: Supple Respiratory: No Accessory Muscle Use, No Respiratory Distress; No Crackles; Decreased Breath Sounds Cardiovascular: Regular Rate, Rhythm Gastrointestinal: Normal Bowel Sounds, Non Tender, Soft Rectal: Deferred Extremity: Normal Capillary Refill, No Calf Tenderness, No Pedal Edema Neurologic/Psychiatric: Alert, Other (oriented to person and place) Skin: Normal Color, Warm/Dry Lymphatic: No Adenopathy Results Lab Laboratory Tests 06/06/22 10:41: Glucometer 267H 06/06/22 20:06: Glucometer 249H 06/07/22 05:18: Glucometer 213H 06/07/22 05:19: Sodium Level 155H, Potassium Level 3.7, Chloride Level 118H, Carbon Dioxide Level 23, Anion Gap 14, Blood Urea Nitrogen 57H, Creatinine 2.04H, Estimat Glomerular Filtration Rate 24, BUN/Creatinine Ratio 28, Glucose Level 244H, Calcium Level 8.6 Microbiology 05/30/22 Urine Culture - Final, Complete NO GROWTH Assessment/Plan Assessment/Plan Admission Dx Urinary tract infection Acute Renal failure Hyperbilirubinemia Acute Elevation of Liver enzymes Hypotension Dehydration Coronary artery disease Bipolar mood disorder Conversion disorder Sleep apnea COPD Chronic Hypoxemia Recent fall with back and knee pain Chronic osteoarthritis Assessment and Plan Urinary tract infection Acute Renal failure Hyperbilirubinemia Acute Elevation of Liver enzymes Hypernatremia Hypotension Dehydration Coronary artery disease Bipolar mood disorder Conversion disorder Sleep apnea COPD Chronic Hypoxemia Recent fall with back and knee pain Chronic osteoarthritis Urinary tract infection with Acute Renal failure - due to dehydration - - UTI being treated with rocephin - Renal failure improved with hydration - continue with current management. Hyperbilirubinemia with Acute Elevation of Liver enzymes - cholelithiasis - pending her symptoms, may end up needing eval by surgeon - but in her current declined physical state and poor renal function would avoid any intervention at this time. Chronic Hypertension with current Hypotension - restarted home medications Hypernatremia stop fluids, monitor labs Coronary artery disease - hold statin therapy and aspirin right now. Bipolar mood disorder - started zyprexa - dose increased from one time daily to bid - due to her anxiety and crying out- added ni, pt has PRN anxiolytic of ativan Conversion disorder Sleep apnea - resumed cpap therapy COPD with Chronic Hypoxemia - continue with oxygen use, continue with inhalers. Chronic osteoarthritis DVT prophylaxis with scd's and lovenox gi prophylaxis - start on protonix Admission Dx Urinary tract infection Acute Renal failure Hyperbilirubinemia Acute Elevation of Liver enzymes Hypotension Dehydration Coronary artery disease Bipolar mood disorder Conversion disorder Sleep apnea COPD Chronic Hypoxemia Recent fall with back and knee pain Chronic osteoarthritis Clinical Quality Measures Admission Status Admission Dx Urinary tract infection Acute Renal failure Hyperbilirubinemia Acute Elevation of Liver enzymes Hypotension Dehydration Coronary artery disease Bipolar mood disorder Conversion disorder Sleep apnea COPD Chronic Hypoxemia Recent fall with back and knee pain Chronic osteoarthritis FILIPE PURCELL MD Jun 07, 2022 08:48
[2022-06-07] MEDS: UMECLIDINIUM BROMIDE (INCRUSE ELLIPTA) 7'S IH SCH (09:29)
[2022-06-07] MEDS: OLANZapine 2.5 MG (ZyPREXA) TAB PO SCH ×2 (10:06→21:01)
[2022-06-07] MEDS: busPIRone 5 MG (BUSPAR) TAB PO SCH ×2 (10:06→21:00)
[2022-06-07] MEDS: meTOprolol TARTRATE 25 MG (LOPRESSOR) TABLET PO SCH ×2 (10:06→21:01)
[2022-06-07] MEDS: amLODIPine 10 MG (NORVASC) TAB PO SCH (10:06)
[2022-06-07] MEDS: PANTOPRAZOLE 40 MG (PROTONIX) TAB PO SCH (10:06)
[2022-06-07] MEDS: FLUoxetine HCL 20 MG (PROzac) CAP PO SCH (10:06)
[2022-06-07] MEDS: ENOXAPARIN INJECTION 30 MG/0.3 ML SYR SC SCH (10:07)
[2022-06-07] MEDS: PREGABALIN 100 MG (LYRICA) CAPSULE PO SCH ×2 (10:13→21:01)
[2022-06-07] MEDS: rOPINIRole 0.25 MG (REQUIP) TAB PO SCH ×2 (10:13→21:01)
[2022-06-07] MEDS: ISOSORBIDE MONONITRATE 60 MG (IMDUR) TAB PO SCH (10:13)
--- NOTE | 2022-06-07 10:27 | Occupational Ther Daily Note ---
OT Current Status-Daily Note Subjective Required auditory stimuli w/ touch to awake patient. Spouse present in room duration of session. ADL-Treatment Therapy Code Descriptions/Definitions Functional [place] Measure: 0=Not Assessed/NA 4=Minimal Assistance 1=Total Assistance 5=Supervision or Setup 2=Maximal Assistance 6=Modified [place] 3=Moderate Assistance 7=Complete IndependenceSCALE: Activities may be completed with or without assistive devices. 3-Tzbuouzljp-zpvhefl completes the activity by him/herself with no assistance from a helper. 5-Set-up or Clean-up Assistance-helper sets up or cleans up; patient completes activity. [place] assists only prior to or following the activity. 4-Supervision or Touching Assistance-helper provides verbal cues and/or touching/steadying and/or contact guard assistance as patient completes activity. Assistance may be provided throughout the activity or intermittently. 3-Partial/Moderate Assistance-helper does LESS THAN HALF the effort. [place] lifts, holds or supports trunk or limbs, but provides less than half the effort. 2-Substantial/Maximal Assistance-helper does MORE THAN HALF the effort. [place] lifts or holds trunk or limbs and provides more than half the effort. 2-Slwrhmdvl-ilowhq does ALL the effort. Patient does none of the effort to complete the activity. Or, the assistance of 2 or more helpers is required for the patient to complete the activity. If activity was not attempted, code reason: 7-Patient Refused. 9-Not Applicable-not attempted and the patient did not perform the activity before the current illness, exacerbation or injury. 10-Not Attempted due to Environmental Limitations-(lack of equipment, weather restraints, etc.). 88-Not Attempted due to Medical Conditions or Safety Concerns. Eating (QC): 88 (OT recommend ST evaluyation d/t residual disolving pills in mouth and chunks removed w/ sponge swab) Oral Hygiene (QC): 2 Shower/Bathe Self (QC): 7 Upper Body Dressing (QC): 1 Lower Body Dressing (QC): 1 On/Off Footwear: 1 Toileting Hygiene (QC): 1 Toilet Transfer (QC): 1 Other Treatment EOB sitting 10 min, requires dependent bed mobility, brief episodes of sitting EOB w/ body mass centered, leans Left w/ little to no initiation to recover Education OT Patient Education: Correct positioning, Exercise program, Modified ADL techniques, Progress toward Goal/Update tx plan, Purpose of tx/functional activities, Reviewed precautions, Rehab process, Safety issues Teaching Recipient: Patient, Family Teaching Methods: Demonstration, Discussion Response to Teaching: Reinforcement Needed OT Detention Goals Invoice Control Clerk Goals Eating (QC): 5 Oral Hygiene (QC): 4 Toileting Hygiene (QC): 3 Shower/Bathe Self (QC): 3 Upper Body Dressing (QC): 4 Lower Body Dressing (QC): 3 On/Off Footwear (QC): 3 1=Demonstrate adherence to instructed precautions during ADL tasks. 2=Patient will verbalize/demonstrate understanding of assistive devices/modifications for ADL. 3=Patient will improve strength/tolerance for activity to enable patient to perform ADL's. OT Education/Plan Problem List/Assessment Assessment: Decreased Activ Tolerance, Decreased Safety Aware, Decreased UE Strength, Impaired Bed Mobility, Impaired Coordination, Impaired Funct Balance, Impaired Self-Care Skills, Restricted Funct UE ROM Discharge Recommendations Plan/Recommendations: Continue POC Treatment Plan/Plan of Care Patient would benefit from OT for education, treatment and training to promote independence in ADL's, mobility, safety and/or upper extremity function for ADL's. Plan of Care: ADL Retraining, Concurrent Therapy, Functional Mobility, Group Exercise/Act as Ind, UE Funct Exercise/Act Treatment Duration: Jun 09, 2022 Frequency: 3 times per week (3-5 times per week) Estimated Hrs Per Day: .25 hour per day Agreement: Yes Rehab Potential: Guarded All needs met at completion of session Time Start Time: 09:05 Stop Time: 09:25 DATE: Jun 07, 2022 Total Time Billed (hr/min): 20 Billed Treatment Time EX 20 min MILAGROS SCHULTE OT Jun 07, 2022 10:27
--- NOTE | 2022-06-07 10:28 | Physical Therapy Daily Note ---
PT Daily Note-Current Subjective Patient is lethargic but does wake to participate with therapy. Pain Section J - Health Conditions 1. Rarely or not at all 2. Occasionally 3. Frequently 4. Almost constantly 8. Unable to answer Pain Effect on Sleep: 8 Pain Interference with Therapy: 8 Pain Interference w/Day-to-Day: 8 Mental Status Patient Orientation: Listless Attachments: Oxygen, Quinones Catheter Transfers SCALE: Activities may be completed with or without assistive devices. 2-Njeuoxmewe-fyvcxau completes the activity by him/herself with no assistance from a helper. 5-Set-up or Clean-up Assistance-helper sets up or cleans up; patient completes activity. [place] assists only prior to or following the activity. 4-Supervision or Touching Assistance-helper provides verbal cues and/or touching/steadying and/or contact guard assistance as patient completes activity. Assistance may be provided throughout the activity or intermittently. 3-Partial/Moderate Assistance-helper does LESS THAN HALF the effort. [place] lifts, holds or supports trunk or limbs, but provides less than half the effort. 2-Substantial/Maximal Assistance-helper does MORE THAN HALF the effort. [place] lifts or holds trunk or limbs and provides more than half the effort. 1-Vfizpvgrw-xvkwyx does ALL the effort. Patient does none of the effort to complete the activity. Or, the assistance of 2 or more helpers is required for the patient to complete the activity. If activity was not attempted, code reason: 7-Patient Refused. 9-Not Applicable-not attempted and the patient did not perform the activity before the current illness, exacerbation or injury. 10-Not Attempted due to Environmental Limitations-(lack of equipment, weather restraints, etc.). 88-Not Attempted due to Medical Conditions or Safety Concerns. Roll Left & Right (QC): 1 (x 2) Sit to Lying (QC): 1 (x 2) Lying to Sitting/Side of Bed(Q: 1 (x 2) patient required mod assist to maintain sitting EOB with continuous VC's due to leaning side to side/patient did have episodes of repositioning upright SBA, however, did fatigue quickly Weight Bearing Right Lower Extremity: Right Full Weight Bearing Left Lower Extremity: Left Full Weight Bearing Assessment Oral care with swab also performed with patient sitting EOB due to undissolved pills and food remaining in her mouth. Patient tolerates minimal activity and requires dependent assist of 2 for all functional mobility. PT Cement Gun Operator Goals Mcc Goals PT Cement Gun Operator Goals Time Frame: June 30, 2022 Roll Left & Right (QC): 3 Sit to Lying (QC): 3 Lying-Sitting on Side/Bed(QC): 3 Sit to Stand (QC): 3 Chair/Yvb-jq-Nmqrw Xfer(QC): 3 Walk 10 feet (QC): 2 PT Plan Treatment/Plan Treatment Plan: Continue Plan of Care Treatment Plan: Bed Mobility, Education, Functional Activity Jono, Functional Strength, Gait, Safety, Therapeutic Exercise, Transfers Treatment Duration: June 30, 2022 Frequency: 6 times per week Estimated Hrs Per Day: .25 hour per day Patient and/or Family Agrees t: Yes (spouse) Time Time In: 905 Time Out: 920 DATE: Jun 07, 2022 Total Billed Treatment Time: 15 Total Billed Treatment 1 visit FA 15 min BRITTNI GIBBONS PT Jun 07, 2022 10:28
--- NOTE | 2022-06-07 12:32 | ST Dysphagia Evaluation ---
Speech Evaluation-General Medical Diagnosis Renal Failure/Dehydration/UTI Onset Date: May 30, 2022 Therapy Diagnosis Therapy Diagnosis: Oropharyngeal Dysphagia Precautions Precautions: Fall, Pressure Ulcer, Aspiration Precautions/Isolations: Aspiration, Fall Prevention, Standard Precautions, Pressure Ulcer Referral Referring Physician: Dr. Rivera Reason for Referral: Evaluation/Treatment Medical History Pertinent Medical History: Arthritis, COPD, DM, GERD, HTN, Neuropathy, Smoking Reviewed History: Yes Social History Current Living Status: Spouse Speech PLF/Current-Dysphagia Prior Level of Function The patient denied swallowing challenges to the clinician. Per patient's significant other (present at bedside), the patient "gets choked if her food is not cut in small pieces. The girls over there work with her on taking a bite then taking a drink but she doesn't listen. She has her whole pancake down and breakfast before I get started." The patient is currently receiving a regular consistency diet with thin liquids. Subjective The patient was seated upright in bed, awake and alert, upon entrance to her room by the clinician. The patient greeted the clinician appropriately and was agreeable to participation in the clinical bedside swallowing assessment. The clinician was contacted by the patient's occupational therapist regarding oropharyngeal swallowing concerns. Per OT, the patient orally holds consistencies without eliciting a pharyngeal swallow. Upon arrival, the patient's RN was present providing medication crushed in puree. The RN stated she was going to contact speech pathology as well due to observed swallowing deficits. Per RN, the patient coughs with most drinks of thin liquid. Per patient's significant other, "Yeah, she'll do that. She won't take those small drinks." Dysphagia Evaluation Recommendations: - MM5 with moderately thick liquids, as tolerated. - Fully upright and alert for P.O. intake. - Small, single bites and sips, only. - Meal set-up and feeding assistance, as needed. - Crush medication and place in puree for administration. - Monitor for s/s of suspected aspiration with P.O. intake. If demonstrated, please contact speech pathology. - Speech pathology to monitor the patient's diet tolerance throughout acute hospitalization. The results and recommendations were provided to the RN and the patient immediately following completion of the study. Dysphagia Evaluation Summary The patient displayed oropharyngeal dysphagia characterized by prolonged mastication of solid consistencies and poor airway protection in the presence of bolus material. The patient displayed s/s of suspected aspiration with thin liquids and nectar-thick liquids characterized by an immediate, rigorous cough. Speech Short Term Goals Short Term Goals Short Term Goals 1. The patient will demonstrate safe swallowing precautions with 80% accuracy and moderate clinician verbal cueing. Time Frame-STG: Five Days. Speech Half-Way Goals Rental Management Trainee Goals 1. The patient will tolerate the least restrictive diet consistency without s/s of suspected aspiration. Time Frame: One Week. Speech-Plan Treatment Plan Speech Therapy Treatment Plan: Continue Plan of Care Treatment Duration: Jun 07, 2022 Frequency: 4 times per week Estimated Hrs Per Day: .25 hour per day Rehab Potential: Guarded Pt/Family Agrees to Plan: Yes Safety Risks/Education Teaching Recipient: Patient Teaching Methods: Discussion Response to Teaching: Reinforcement Needed Education Topics Provided: Results, Recommendations, Plan of Care, Safe Swallowing Precautions Time Speech Therapy Time In: 10:08 Speech Therapy Time Out: 10:36 DATE: Jun 07, 2022 Total Billed Time: 28 Billed Treatment Time 1, KALYN ARNOLD [facility] ST Jun 07, 2022 12:32
[2022-06-07] MEDS: LATANOPROST 0.005% (XALATAN) OPHTH SOLN 2.5 ML OU SCH (21:01)
[2022-06-08 04:55] VITALS: BP 128/54
[2022-06-08] MEDS: inSUlin ASPART (NovoLOG) 1 UNIT/0.01 ML (CHARGE PER UNIT) SC SCH (05:03)
[2022-06-08 06:05] LABS: CALCIUM 8.2 MG/DL (8.5-10.1); CREATININE SERUM 2.37 MG/DL (0.60-1.30); POTASSIUM 3.9 MMOL/L (3.6-5.0)
[2022-06-08] MEDS: UMECLIDINIUM BROMIDE (INCRUSE ELLIPTA) 7'S IH SCH (06:28)
[2022-06-08] MEDS: RT-BUDESONIDE NEBS 0.5 MG/2ML (PULMICORT) AMP INH SCH (06:28)
[2022-06-08] MEDS: RT-ALBUTEROL SULF 2.5 MG/3 ML PRE-MIX VIAL INH SCH (06:28)
[2022-06-08 07:38] VITALS: BP 136/61
--- NOTE | 2022-06-08 08:30 | Discharge Summary ---
Diagnosis/Chief Complaint Date of Admission May 30, 2022 at 12:57 Date of Discharge Reason Hospital Visit Pt presented to the hospital today after having progressive decline at her assisted living facility. Pt reports fatigue, malaise, weakness which has been present for years with progressive weakness over the past week when she fell at her assisted living facility. Pt is groggy tonight - staff reports she was up, alert, eating lunch earlier without issue. Discharge Summary Discharge Physical Examination Allergies: Coded Allergies: codeine (Unverified Allergy, Unknown, 05/19/13) Vitals & I&Os Vital Signs Date Time Temp Pulse Resp B/P (MAP) Pulse Ox O2 Delivery O2 Flow Rate FiO2 06/08/22 07:38 35.4 58 18 136/61 (86) 96 Nasal Cannula 5.00 06/05/22 07:21 30 Hospital Course Pending Labs Laboratory Tests 06/08/22 04:57: Glucometer 196 06/08/22 05:25: Sodium Level 153, Potassium Level 3.9, Chloride Level 118, Carbon Dioxide Level 25, Anion Gap 10, Blood Urea Nitrogen 69, Creatinine 2.37, Estimat Glomerular Filtration Rate 20, BUN/Creatinine Ratio 29, Glucose Level 230, Calcium Level 8.2 Discharge Instructions to patient/family Please see electronic discharge instructions given to patient. Discharge Medications Reviewed and agree with Discharge Medication list on patient's Discharge Instruction sheet FILIPE PURCELL MD Jun 08, 2022 08:30
[2022-06-08] MEDS ORDERED: INSU100I14 SQ (08:36)
[2022-06-08] MEDS ORDERED: OLAN2.5T27 PO (08:36)
[2022-06-08] MEDS ORDERED: BUSP5TAB59 PO (08:36)
--- NOTE | 2022-06-08 08:38 | Discharge Inst-Skilled Nursing ---
Discharge Inst-Skilled NF Reconcile Patient Problems Problems Reviewed?: Yes Patient Instructions Patient Problems: Urinary tract infection Acute Renal failure Hyperbilirubinemia Acute Elevation of Liver enzymes Hypotension Dehydration Coronary artery disease Bipolar mood disorder Conversion disorder Sleep apnea COPD Chronic Hypoxemia Recent fall with back and knee pain Chronic osteoarthritis Goal: INCREASED STRENGTH - RETURN TO ASSISTED LIVING WITH SPOUSE Consult/Follow Up/Orders Follow Up Appt.: [facility] Skilled NF Admit to: [facility] Certification (SNF) I certify that SNF services are required to be given on an inpatient basis because of the above named patient's need for longterm care on a continuing basis for the conditions(s) for which he/she was receiving inpatient hospital services prior to his/her transfer to the SNF. Care Home Facility Order: Nursing Services, Weed Inspector-Evaluate & Treat, Physical Therapy-Evaluate & Treat, Speech Language-Evaluate & Treat Oxygen Delivery Method: Nasal Cannula Oxygen Flow Rate L/min (Range): 3-5 Discharge Diet: ADA Diet Daily Activity as Tolerated: Yes Resuscitation Status: Do Not Resuscitate New & Resume Previous Orders New & Resume Previous Orders CBC, CMP, MAG DUE ON 06/12/22 AUGUSTE TO DEPENDENT DRAINAGE - - REMOVE ON 06/12/22 Filipe Rivera Jun 08, 2022 08:36 FILIPE RIVERA MD Jun 08, 2022 08:38
[2022-06-08] MEDS: rOPINIRole 0.25 MG (REQUIP) TAB PO SCH (08:59)
[2022-06-08] MEDS: meTOprolol TARTRATE 25 MG (LOPRESSOR) TABLET PO SCH (08:59)
[2022-06-08] MEDS: amLODIPine 10 MG (NORVASC) TAB PO SCH (09:00)
[2022-06-08] MEDS: PANTOPRAZOLE 40 MG (PROTONIX) TAB PO SCH (09:00)
[2022-06-08] MEDS: ENOXAPARIN INJECTION 30 MG/0.3 ML SYR SC SCH (09:00)
[2022-06-08] MEDS: OLANZapine 2.5 MG (ZyPREXA) TAB PO SCH (09:00)
[2022-06-08] MEDS: ISOSORBIDE MONONITRATE 60 MG (IMDUR) TAB PO SCH (09:00)
[2022-06-08] MEDS: PREGABALIN 100 MG (LYRICA) CAPSULE PO SCH (09:00)
[2022-06-08] MEDS: busPIRone 5 MG (BUSPAR) TAB PO SCH (09:00)
[2022-06-08] MEDS: FLUoxetine HCL 20 MG (PROzac) CAP PO SCH (09:00)
[2022-06-08 10:30] VITALS: BP 136/61
--- NOTE | 2022-06-19 00:49 | Physician Query Clarification ---
PQ-Uncertain Diagnosis Admission/Discharge Admission Date: May 30, 2022 at 12:57 Discharge Date: Jun 08, 2022 at 10:30 The medical record reflects the following clinical scenario: History/Risk Factors: 82 y/o female patient admitted with acute renal failure and urinary tract infection, respiratory failure was documented in medical record. Hand P, 05/30: Acute renal failure, COPD, sleep apnea, chronic hypoxia. Progress notes, 06/02: Acute renal failure, respiratory failure, COPD with chronic hypoxia. Clinical Findings: has been on 02 since admission as high as 10L , mostly 40% or higher, Respiratory rate 16 on admission has been as high as 30, frequently 25 or higher. O2 sats recorded 87% on 30%, and 87% on 4.5L, (P/F=139),documentation of shortness of air with exertion and unable to lie flat on admission. Treatment: CPAP, supplemental 02, respiratory monitoring, Albuterol, [place]. Question: Is acute hypoxic respiratory failure a clinically valid diagnosis? Acute hypoxic respiratory failure was documented in the progress notes, 06/02 with no further documentation in the medical record. Please document a response in Progress Note or Discharge Summary. 1. Yes, clinically valid, condition resolved. 2. No, condition ruled out. 3. Other, with explanation of clinical findings. 4. Undetermined, no explanation for clinical findings. PHYSICIAN RESPONSE Diagnosis clinically valid: Yes, [place] resolved In responding to this query, please exercise your independent professional judgment. The purpose of this communication is to more accurately reflect the complexity of your patients condition. The fact that a question is asked does not imply that any particular answer is desired or expected. Thank you for your timely response to this clarification. Requestors name: [ ] Phone # [ ] THIS PHYSICIAN QUERY FORM IS A PERMANENT PART OF THE MEDICAL RECORD JUAN CHEEK June 19, 2022 00:49 FILIPE PURCELL MD June 20, 2022 12:21
== END 2022-06-08 10:30 | DRG 682 ==
LOC: EDUNIT# 08:31 → ER 08:32 → 4TH 12:57
PROVIDERS: ADMIT Family Medicine; ATTEND Family Medicine
DX: N17.9 Acute kidney failure, unspecified (principal); J96.21 Acute and chronic respiratory failure with hypoxia; E87.0 Hyperosmolality and hypernatremia; N39.0 Urinary tract infection, site not specified; Z79.82 Long term (current) use of aspirin; Z79.4 Long term (current) use of insulin; Z79.899 Other long term (current) drug therapy; I10 Essential (primary) hypertension; F41.9 Anxiety disorder, unspecified; H40.9 Unspecified glaucoma; F31.9 Bipolar disorder, unspecified; K21.9 Gastro-esophageal reflux disease without esophagitis; M10.9 Gout, unspecified; J44.9 Chronic obstructive pulmonary disease, unspecified; E78.00 Pure hypercholesterolemia, unspecified; E11.40 Type 2 diabetes mellitus with diabetic neuropathy, unspecified; G40.909 Epilepsy, unspecified, not intractable, without status epilepticus; M19.90 Unspecified osteoarthritis, unspecified site; G89.29 Other chronic pain; M54.9 Dorsalgia, unspecified; E11.22 Type 2 diabetes mellitus with diabetic chronic kidney disease; E86.0 Dehydration; E80.6 Other disorders of bilirubin metabolism; I95.9 Hypotension, unspecified; I25.10 Atherosclerotic heart disease of native coronary artery without angina pectoris; F44.4 Conversion disorder with motor symptom or deficit; G47.30 Sleep apnea, unspecified; Z20.822 Contact with and (suspected) exposure to COVID-19
CPT/HCPCS: 36415; 51701; 74176; 76705; 76770; 80048; 80053; 81000; 82728; 82947; 83540; 83550; 83605; 83690; 84550; 85007; 85025; 85027; 87088; 87636; 94640; 94660; 94760; 96361; 96365; 96375

== ENCOUNTER → 2022-07-03 | Outpatient (CLI) | payer MEDICARE ==
[~2022-07-03] MED LIST changes: +ACET-93 PO; +BUSP5TAB59 PO; +CALC-250 PO; +CALC600T91 PO; +CEFD300C3 PO; +LOPE2TAB34 PO; +OLAN2.5T27 PO; +ONDA-105 PO; +RT-ALBUINH INH; +SIME180C65 PO; +TIOT4MIS2 INH
--- NOTE | 2022-07-03 11:39 | Diagnostic Imaging Report ---
PROCEDURE: CT right lower extremity without contrast. TECHNIQUE: Axially acquired CT was obtained through the right lower extremity without intravenous contrast. Coronal and sagittal reformations were also performed. Auto Exposure Controls were utilized during the CT exam to meet ALARA standards for radiation dose reduction. INDICATION: Right knee pain, history replacement and injury COMPARISON: None FINDINGS: There is a total arthroplasty of the right knee. There is osteopenia with heterogeneous bone density present. There is marked artifact from the hardware despite the reduction technique, but no fracture is identified. Alignment appears normal. There is a small right knee joint effusion. There is moderate generalized muscular atrophy. There is calcific atherosclerosis. IMPRESSION: 1. Right total knee arthroplasty. No acute fracture or hardware complication seen. 2. Small right knee joint effusion. Dictated by: Dictated on workstation # [id number]
== END ==
LOC: RAD 08:32
PROVIDERS: ATTEND Family Medicine
DX: M25.461 Effusion, right knee (principal); M25.561 Pain in right knee; Z96.651 Presence of right artificial knee joint
CPT/HCPCS: 73700

== ENCOUNTER → 2022-08-16 | Outpatient (CLI) | payer MEDICARE ==
[2022-08-16 19:27] LABS: BILIRUBIN,URINE NEGATIVE (NEGATIVE); CLARITY,URINE CLEAR; COLOR,URINE YELLOW; GLUCOSE, URINE (UA) NEGATIVE (NEGATIVE); KETONES,URINE NEGATIVE (NEGATIVE); LEUKOCYTE ESTERASE ,URINE NEGATIVE (NEGATIVE); NITRITE,URINE NEGATIVE (NEGATIVE); PROTEIN,URINE TRACE (NEGATIVE)
[2022-08-16 19:41] LABS: AMORPHOUS SEDIMENT,UR FEW AMOR URATES /LPF; BACTERIA,URINE FEW /HPF; SQUAMOUS EPITHELIAL CELL,UR 0-2 /HPF; WBC,URINE 0-2 /HPF
== END ==
LOC: LABNPT 19:21
PROVIDERS: ATTEND Family Medicine
DX: Z01.89 Encounter for other specified special examinations (principal)
CPT/HCPCS: 81000; 87088

== ENCOUNTER 2022-12-25 09:04 | Emergency (ER) | payer MEDICARE ==
[~2022-12-25] VITALS: Ht 167.7 cm; Wt 102.1 kg
[~2022-12-25 09:04] MED LIST changes: -OXYB5TAB13 PO; +OXYB5TAB14 PO; -PREG200C28 PO; +PREG200C29 PO; +ROPI0.5T37 PO; -ROPI0.5T4 PO
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
[2022-12-25 09:42] LABS: BASOPHILS # (AUTO) 0.1 10^3/uL (0.0-0.1); BASOPHILS % (AUTO) 1 % (0-10); EOSINOPHILS # (AUTO) 0.3 10^3/uL (0.0-0.3); EOSINOPHILS % (AUTO) 4 % (0-10); HEMATOCRIT 31 % (35-52); HEMOGLOBIN 10.1 g/dL (11.5-16.0); LYMPHOCYTES # (AUTO) 2.3 10^3/uL (1.0-4.0); LYMPHOCYTES % (AUTO) 29 % (12-44); MEAN CORPUSCULAR HEMOGLOBIN 33 pg (25-34); MEAN CORPUSCULAR HGB CONC 33 g/dL (32-36); MEAN CORPUSCULAR VOLUME 101 fL (80-99); MEAN PLATELET VOLUME 11.8 fL (9.0-12.2); MONOCYTES # (AUTO) 0.8 10^3/uL (0.0-1.0); MONOCYTES % (AUTO) 10 % (0-12); NEUTROPHILS # (AUTO) 4.4 10^3/uL (1.8-7.8); NEUTROPHILS % (AUTO) 56 % (42-75); PLATELET COUNT 237 10^3/uL (130-400); WHITE BLOOD COUNT 7.9 10^3/uL (4.3-11.0)
[2022-12-25 09:49] LABS: ALBUMIN 4.2 GM/DL (3.2-4.5); CHLORIDE 103 MMOL/L (98-107); POTASSIUM 4.3 MMOL/L (3.6-5.0); SODIUM 138 MMOL/L (135-145)
[2022-12-25 09:50] LABS: CALCIUM 9.5 MG/DL (8.5-10.1)
[2022-12-25 09:51] LABS: GLUCOSE 202 MG/DL (70-105); TOTAL PROTEIN 7.2 GM/DL (6.4-8.2)
[2022-12-25 09:52] LABS: CARBON DIOXIDE 25 MMOL/L (21-32)
[2022-12-25 09:53] LABS: BILIRUBIN,TOTAL 0.6 MG/DL (0.1-1.0); INR 1.1 (0.8-1.4); PROTHROMBIN TIME PATIENT 14.5 SEC (12.2-14.7)
[2022-12-25 09:55] LABS: ALKALINE PHOSPHATASE 77 U/L (40-136); CREATININE SERUM 1.21 MG/DL (0.60-1.30); GFR ESTIMATED 45
[2022-12-25 09:56] LABS: BUN/CREATININE RATIO 21
[2022-12-25 09:58] LABS: ALANINE AMINOTRANSFERASE 24 U/L (0-55); MAGNESIUM 1.8 MG/DL (1.6-2.4)
[2022-12-25 09:59] LABS: LIPASE 36 U/L (8-78)
[2022-12-25 10:07] LABS: BACTERIA,URINE NEGATIVE /HPF; BILIRUBIN,URINE NEGATIVE (NEGATIVE); CLARITY,URINE CLEAR; COLOR,URINE YELLOW; GLUCOSE, URINE (UA) NEGATIVE (NEGATIVE); KETONES,URINE NEGATIVE (NEGATIVE); LEUKOCYTE ESTERASE ,URINE NEGATIVE (NEGATIVE); NITRITE,URINE NEGATIVE (NEGATIVE); PH,URINE 5.5 (5-9); PROTEIN,URINE NEGATIVE (NEGATIVE)
--- NOTE | 2022-12-25 11:11 | Diagnostic Imaging Report ---
CHEST 1 VIEW, AP/PA ONLY Indication: Chest pain. Comparison: 05/25/2022 Findings: No focal airspace disease in the visualized lungs. No pleural effusion or pneumothorax. Normal cardiomediastinal silhouette. Impression: 1. No acute cardiopulmonary process by portable radiography. Dictated by: Dictated on workstation # [id number]
[2022-12-25 14:21] VITALS: BP 179/69
== END 2022-12-25 14:26 | disposition home or self-care (01) ==
LOC: EDUNIT# 09:04 → ER 09:08
DX: R07.9 Chest pain, unspecified (principal); R06.00 Dyspnea, unspecified; M79.10 Myalgia, unspecified site; J44.9 Chronic obstructive pulmonary disease, unspecified; E11.9 Type 2 diabetes mellitus without complications; Z79.4 Long term (current) use of insulin; Z99.81 Dependence on supplemental oxygen
CPT/HCPCS: 36415; 71045; 80053; 81000; 82550; 82947; 83690; 83735; 83874; 83880; 84484; 85025; 85379; 85610; 85730; 86141; 87636; 93005; 93041

== ENCOUNTER 2022-12-30 05:01 | Emergency (ER) | payer MEDICARE ==
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
[2022-12-30] MEDS ORDERED: ACETAMINOPHEN 325 MG TABLET PO ONE (05:15)
[2022-12-30 05:22] LABS: BASOPHILS % (AUTO) 1 % (0-10); EOSINOPHILS # (AUTO) 0.2 10^3/uL (0.0-0.3); EOSINOPHILS % (AUTO) 4 % (0-10); HEMATOCRIT 29 % (35-52); HEMOGLOBIN 9.7 g/dL (11.5-16.0); LYMPHOCYTES # (AUTO) 2.2 10^3/uL (1.0-4.0); LYMPHOCYTES % (AUTO) 39 % (12-44); MEAN CORPUSCULAR HEMOGLOBIN 33 pg (25-34); MEAN CORPUSCULAR HGB CONC 34 g/dL (32-36); MEAN CORPUSCULAR VOLUME 98 fL (80-99); MEAN PLATELET VOLUME 11.5 fL (9.0-12.2); MONOCYTES # (AUTO) 0.6 10^3/uL (0.0-1.0); MONOCYTES % (AUTO) 10 % (0-12); NEUTROPHILS # (AUTO) 2.7 10^3/uL (1.8-7.8); NEUTROPHILS % (AUTO) 48 % (42-75); PLATELET COUNT 179 10^3/uL (130-400); WHITE BLOOD COUNT 5.7 10^3/uL (4.3-11.0)
[2022-12-30 05:35] LABS: INR 1.1 (0.8-1.4); PROTHROMBIN TIME PATIENT 14.1 SEC (12.2-14.7)
[2022-12-30 05:39] LABS: CHLORIDE 103 MMOL/L (98-107); POTASSIUM 4.1 MMOL/L (3.6-5.0); SODIUM 138 MMOL/L (135-145)
[2022-12-30 05:40] LABS: CALCIUM 9.1 MG/DL (8.5-10.1)
[2022-12-30 05:41] LABS: GLUCOSE 166 MG/DL (70-105)
[2022-12-30 05:43] LABS: BILIRUBIN,TOTAL 0.7 MG/DL (0.1-1.0); CARBON DIOXIDE 24 MMOL/L (21-32)
[2022-12-30 05:45] LABS: ALKALINE PHOSPHATASE 61 U/L (40-136); CREATININE SERUM 1.04 MG/DL (0.60-1.30); GFR ESTIMATED 54
[2022-12-30 05:46] LABS: BUN/CREATININE RATIO 23
[2022-12-30 05:48] LABS: ALANINE AMINOTRANSFERASE 23 U/L (0-55); MAGNESIUM 1.8 MG/DL (1.6-2.4)
--- NOTE | 2022-12-30 06:04 | Diagnostic Imaging Report ---
INDICATION: Chest pain. COMPARISON: 12/25/2022 FINDINGS: The lungs are clear. No failure, effusion or pneumothorax. IMPRESSION: No acute appearing abnormality. Dictated by: Dictated on workstation # [id number]
[2022-12-30] MEDS ORDERED: ASPIRIN 81 MG CHEWABLE TABLET PO STA (06:40)
[2022-12-30] MEDS ORDERED: KETOROLAC INJ 30 MG/ML VIAL IVP STA (06:40)
[2022-12-30] MEDS ORDERED: NS IV 500 ML 500 ML IV ONE (06:45)
[2022-12-30] MEDS ORDERED: FAMOTIDINE 20 MG TABLET PO STA (08:31)
[2022-12-30] MEDS ORDERED: PANTOPRAZOLE INJECTION 40 MG VIAL IV ONE (08:45)
[2022-12-30] MEDS ORDERED: morphine INJ 10 MG/ML 1ML (SYR OR VIAL) IVP ONE (08:45)
[2022-12-30 10:10] VITALS: BP 137/64
== END 2022-12-30 10:26 | disposition home or self-care (01) ==
LOC: EDUNIT# 05:01 → ER 05:02
DX: R07.89 Other chest pain (principal); M79.10 Myalgia, unspecified site; J44.9 Chronic obstructive pulmonary disease, unspecified; E11.9 Type 2 diabetes mellitus without complications; E66.9 Obesity, unspecified; Z99.81 Dependence on supplemental oxygen; Z68.36 Body mass index [BMI] 36.0-36.9, adult; Z79.4 Long term (current) use of insulin
CPT/HCPCS: 36415; 71045; 80053; 82947; 83735; 84484; 85025; 85379; 85610; 85730; 93005; 93041; 96361; 96374; 96375